=== PATIENT | female | born 1985 | race Caucasian/White ===

== ENCOUNTER 2022-12-20 11:14 | Emergency (ER) | payer MEDICAID, SELFPAY ==
[2022-12-20 11:20] VITALS: BP 105/79; PULSE 80; RESP 16; TEMP 37; O2SAT 99; BMI 22.3
[2022-12-20] MEDS: TETRACAINE HCL 0.5% OP SOL 80 DROP/4 ML BOTTLE OP (12:38)
[2022-12-20] MEDS: KETOROLAC TROMETHAMINE 30 MG/ML VIAL IM (13:16)
--- NOTE | 2022-12-20 14:25 | ED_ITS ---
HPI - Eye Problem General Chief complaint: Eye Problems Stated complaint: RIGHT EYE PAIN, DRAINAGE Time Seen by Provider: 12/20/22 12:12 Source: patient Mode of arrival: walk-in Limitations: no limitations History of Present Illness HPI Narrative: The patient is coming to us with a history of a possible intraocular pressure increase as she recently was evaluated for that by her executive search consultant she is coming with that 24 hours history of right eye swelling and irritation, no blurry vision no nausea no vomiting she did complain of pain in her right side of the face mostly just behind her right eye No trauma no drainage no tearing Related Data Previous Rx's Medication Instructions Recorded tobramycin 0.3 % eye drops 1 drp ophthalmic (eye) Q4H #5 mL 12/20/22 Allergies Allergy/AdvReac Type Severity Reaction Status Date / Time morphine Allergy Severe Verified 12/20/22 11:19 Review of Systems ROS Status of ROS 10 or more systems reviewed and unremarkable except as noted in history and below PFSH PFSH Social History Smoking status: Former smoker Exam Narrative Exam Narrative: Nurses notes and vital signs reviewed and patient is not hypoxic. General: Well-appearing and in no apparent distress. Skin: Warm, dry, no pallor noted. No rash. Head: Normocephalic, atraumatic. Neck: Supple, non-tender. Eye: Pupils are equal, round and EOMI. Ears, Nose, Mouth, and Throat: TM are clear, no nasal mucosal hypertrophy. Oral mucosa is moist, no posterior oropharynx erythema, uvula is mid-line Cardiovascular: Regular Rate and Rhythm without murmur, gallop or rub. Respiratory: No accessory muscle use or respiratory distress. Lungs are clear to auscultation, no wheezing, rales or rhonchi Chest Wall: no tenderness Back: No midline thoracic or lumbar vertebral tenderness. No CVA tenderness Musculoskeletal: normal ROM, no calf or popliteal tenderness, no lower extremity edema/swelling GI: Abdomen is soft, non-distended. Normal bowel sounds. No masses appreciated. No tenderness to palpation. No rebound, guarding, or rigidity noted. Neurological: A&O x4. No cranial nerve dysfunction observed. No truncal ataxia. Moves all extremities. Sensation intact. Psychiatric: Cooperative and interactive. Normal mood and affect. Constitutional Vital Signs, click to edit/add: Last Vital Signs Temp 98.6 F 12/20/22 11:20 Pulse 80 12/20/22 11:20 Resp 16 12/20/22 11:20 BP 105/79 12/20/22 11:20 Pulse Ox 99 12/20/22 11:20 Course Vital Signs Vital signs: Vital Signs Temperature 98.6 F 12/20/22 11:20 Pulse Rate 80 12/20/22 11:20 Respiratory Rate 16 12/20/22 11:20 Blood Pressure 105/79 12/20/22 11:20 Pulse Oximetry 99 12/20/22 11:20 Temperature 98.6 F 12/20/22 11:20 Pulse Rate 80 12/20/22 11:20 Respiratory Rate 16 12/20/22 11:20 Blood Pressure 105/79 12/20/22 11:20 Pulse Oximetry 99 12/20/22 11:20 MDM - Eye Problem MDM Narrative Medical decision making narrative: The patient intraocular pressure was 21 which is in the upper verge of normal Her examination was mostly secondary to mild conjunctivitis and when she was pointing to the pain she was pointing to the right upper eyelid with no tenderness upon palpation of the globe I did explain to the patient that she does not have any alarming symptoms right now of any blurry vision or double vision but due to the history of increased intraocular pressure the patient have to follow-up with her executive search consultant tomorrow but she will be covered today with the tobramycin and she was given Toradol in the ER within 24 hours the patient should notice improvement in case of any deterioration including blurry vision or any new complaints she is to come back to the ER The patient is to follow up with primary care physician in next 2-3 days or to return to the emergency department should any of the signs or symptoms worsen or new symptoms develop. The patient agrees with the following Diagnosis and Treatment plan and the patient will be discharged home. Discharge Plan Discharge Chief Complaint: Eye Problems Clinical Impression: Conjunctivitis Patient Disposition: Home, Self-Care Time of Disposition Decision: 13:03 Condition: Good Prescriptions / Home Meds: New tobramycin 0.3 % drops 1 drp ophthalmic (eye) Q4H Qty: 5 0RF Rx Instructions: 1 drop to the right eye Instructions: Conjunctivitis (ED) Additional Instructions: please follow up with executive search consultant [email or web address] Stand Alone Forms: Portal Instructions Referrals: Baldomero Mohan MD [Primary Care Provider] - 1 week Discharge Date/Time: 12/20/22 13:20
== END 2022-12-20 13:20 | disposition home or self-care (01) ==
PROVIDERS: Emergency Provider Emergency Medicine; PCP Family Medicine
DX: H10.9 Unspecified conjunctivitis (principal); Z87.891 Personal history of nicotine dependence
CPT/HCPCS: 96372; 99284

== ENCOUNTER 2023-04-10 17:45 | Emergency (ER) | payer MEDICAID, SELFPAY ==
[2023-04-10 17:51] VITALS: BP 128/85; PULSE 110; RESP 18; TEMP 36.7; O2SAT 97; BMI 19.8
--- NOTE | 2023-04-10 18:17 | ED.GENADUL1 ---
HPI - General Adult General Chief complaint: Dental/Oral Stated complaint: MOUTH SORES Time Seen by Provider: 04/10/23 17:49 Source: patient Mode of arrival: walk-in Limitations: no limitations History of Present Illness HPI narrative: Earlier this week the patient developed a painful ulcer after accidentally biting the inside of the right mouth . She tried a couple doses of amoxicillin left over from a prior prescription but the pain worsened and she developed significant swelling of the right cheek/mouth. She saw Dr Mohan and was prescribed Clindamycin - started 04/06/23. This made a dramatic improvement in the amount of swelling and pain and she went from having to eat and talk out of the side of her mouth to being able to talk and eat normally. However she is concerned about the side effects of the clindamycin - upset stomach and diarrhea - and wonders if she needs to change antibiotics. Also, she ate pizza last night and the pain worsened - she wonders if that means that things are getting worse. No fever or vomiting. Overall the right side of the mouth is better. She has, however, developed a small lesion to the inside of the left mouth. Related Data Home Medications Medication Instructions Recorded Confirmed clindamycin HCl 300 mg capsule 300 mg PO Q6H 04/10/23 04/10/23 gabapentin 300 mg capsule 300 mg PO BID 04/10/23 04/10/23 triamcinolone acetonide 0.1 % 1 applic dental BID 04/10/23 04/10/23 dental paste Previous Rx's Medication Instructions Recorded tobramycin 0.3 % eye drops 1 drp ophthalmic (eye) Q4H #5 mL 12/20/22 ondansetron 4 mg disintegrating 4 mg PO Q6H PRN nausea #14 tabs 04/10/23 tablet Allergies Allergy/AdvReac Type Severity Reaction Status Date / Time morphine Allergy Severe Verified 04/10/23 17:54 PFSH PFS Social History Smoking status: Current every day smoker Exam Narrative Exam Narrative: General: The patient is comfortable, alert and oriented x3, well appearing, non toxic in no apparent distress. Head: Atraumatic and normocephalic. Eyes: Normal conjunctiva ENT: The oropharynx is normal except for a 5mm diameter aphthous ulcer to the inner mucosa of the right side of the mouth near the corner of the mouth. No pharyngeal erythema, uvular edema, tonsillar exudates, asymmetry or trismus. Uvula is midline. Mouth is normal to inspection with the exception of pain on percussion of the aphthous ulcer and a smaller lesion on the inner mucosa of the left mouth. There is no evidence of facial asymmetry or abscess formation. Floor of the mouth is soft. No tenderness in the submental or submandibular space. No tongue elevation or deviation. The patient has no evidence of periapical abscess, gingivitis or other acute tooth or gum pathology. Airway is patent. Neck: The neck demonstrates normal range of motion. No meningeals signs are present. No stridor. No masses or lymphadenopathy noted. Respiratory: No acute distress, lungs are clear to auscultation, no wheezing, rhonchi, or rales noted. No stridor or retractions are noted. Cardiovascular: Regular rate and rhythm Skin: The skin exam shows no evidence of rashes Neuro: Alert and oriented x4, normal speech Lymphatic: No cervical lymphadenopathy Constitutional Vital Signs, click to edit/add: Last Vital Signs Temp 98.0 F 04/10/23 17:51 Pulse 110 H 04/10/23 17:51 Resp 18 04/10/23 17:51 BP 128/85 04/10/23 17:51 Pulse Ox 97 04/10/23 17:51 O2 Del Method Room Air 04/10/23 17:51 Course Vital Signs Vital signs: Vital Signs Temperature 98.0 F 04/10/23 17:51 Pulse Rate 110 H 04/10/23 17:51 Respiratory Rate 18 04/10/23 17:51 Blood Pressure 128/85 04/10/23 17:51 Pulse Oximetry 97 04/10/23 17:51 Oxygen Delivery Method Room Air 04/10/23 17:51 Temperature 98.0 F 04/10/23 17:51 Pulse Rate 110 H 04/10/23 17:51 Respiratory Rate 18 04/10/23 17:51 Blood Pressure 128/85 04/10/23 17:51 Pulse Oximetry 97 04/10/23 17:51 Oxygen Delivery Method Room Air 04/10/23 17:51 Medical Decision Making MDM Narrative Medical decision making narrative: Patient had dramatic improvement after using the clindamycin and I would like to have her continue to take it. We discussed the importance of maintaining soft bland diet until the mouth fully heals. I gave her odt zoan in the ED and prescribed additional zofran to take at home to limit GI upset. we discussed importance of taking the clindamycin with food. She will see Dr Mohan for follow up. Discharge Plan Discharge Chief Complaint: Dental/Oral Clinical Impression: Aphthous ulcer Patient Disposition: Home, Self-Care Time of Disposition Decision: 18:15 Prescriptions / Home Meds: New ondansetron 4 mg tablet,disintegrating 4 mg PO Q6H PRN (Reason: nausea) Qty: 14 0RF No Action tobramycin 0.3 % drops 1 drp ophthalmic (eye) Q4H Qty: 5 0RF Rx Instructions: 1 drop to the right eye clindamycin HCl 300 mg capsule 300 mg PO Q6H gabapentin 300 mg capsule 300 mg PO BID triamcinolone acetonide 0.1 % paste 1 applic dental BID Instructions: Oral Mucositis (ED) Stand Alone Forms: Portal Instructions Referrals: Baldomero Mohna MD [Primary Care Provider] - 1 week
[2023-04-10] MEDS: ONDANSETRON 4 MG RAPDIS TABLET SL (18:22)
[2023-04-10 18:25] VITALS: BP 102/65; PULSE 100; RESP 18; O2SAT 98
== END 2023-04-10 18:28 | disposition home or self-care (01) ==
PROVIDERS: Emergency Provider Emergency Medicine; PCP Family Medicine
DX: K12.0 Recurrent oral aphthae (principal); Z79.899 Other long term (current) drug therapy; F17.210 Nicotine dependence, cigarettes, uncomplicated
CPT/HCPCS: 99283; Q0162

== ENCOUNTER 2023-05-21 14:59 | Outpatient (OUT) | payer MEDICAID, SELFPAY ==
--- NOTE | 2023-05-21 15:02 | CT_ITS ---
[address] [address] Patient Name: REGINA SIDDIQUI MRN: [id number] date: 1985 Sex: F Assigned Patient Location: CT Current Patient Location: CT Accession/Order Number: [id number] Exam Date: 05/21/2023 15:35 Report Date: 05/23/2023 15:31 At the request of: ARY HUDSON Procedure: CT chest wo con EXAM: CT chest wo con HISTORY: solitary pulmonary Nodule R91.1 COMPARISON: 01/17/2022 TECHNIQUE: Axial CT imaging was performed through the chest without intravenous contrast. Multiplanar reformats were performed. Dose reduction techniques were achieved by using automated exposure control and/or adjustment of mA and/or kV according to patient size and/or use of iterative reconstruction technique. FINDINGS: Lungs: No consolidation, pneumothorax, or effusion. Stable 0.7 cm pulmonary nodule within the right middle lobe, measured on coronal image. No new suspicious pulmonary nodule. Airways: Normal. Mediastinum: No adenopathy. There is a 1.6 x 2.6 cm triangular fluid density in anterior mediastinum, not seen on the study from 01/17/2022. Finding may represent thymic cyst. However, thymoma or thymic hyperplasia cannot be excluded. MRI of the chest/thoracic with and without contrast is recommended for better evaluation. Aorta: No aneurysm. Cardiac: Normal size. No pericardial effusion. Pulmonary vasculature: Normal morphology. Bones: No acute bony abnormality. Axilla: No adenopathy. Thyroid gland: No abnormality demonstrated on provided imaging. Soft tissues: Unremarkable. Upper abdomen: Unremarkable. Other findings: None. CT/CT chest wo con IMPRESSION: Stable 0.7 cm in the right middle lobe pulmonary nodule. No new suspicious pulmonary nodule. 1.6 x 2.6 cm triangular fluid density in anterior mediastinum, not seen on the study from 01/17/2022. Finding may represent thymic cyst. However, thymoma or thymic hyperplasia cannot be excluded. MRI of the chest/thoracic with and without contrast is recommended for better evaluation. Electronically authenticated by: AUGUSTA LOFTON Date: 05/23/2023 15:31
--- OUTSIDE RECORDS SUMMARY | 2023-05-21 15:05 | XMS_ITS | CCD ---
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 ####[facility] Jpnvgzxk[address] [place], [place] [address]Dr. Eddy Lindsey Creatinine [Mass/Vol] 1.04 mg/dL Critically high 0.55-1.02 [facility] Comment on above: Performed By: #### C MP ####[facility] Imvbbosuva[address] [place], [place] [address]Dr. Eddy Lindsey EGFR-AF TONGAN >60 Normal >=60 [facility] Comment on above: Performed By: #### C MP ####[facility] Eyixwzxlnd7[address] [place], [place] [address]Dr. Eddy Lindsey EGFR-NON AF TONGAN 59 mL/min/1.73m2 Critically low >=60 [facility] Comment on above: Performed By: #### C MP ####[facility] [address] [place] [address]Dr. Eddy Lindsey Globulin (S) [Mass/Vol] 2.9 g/dL Normal [facility] Comment on above: Performed By: #### C MP ####[facility] Bfejpwuxjr[address] [place], [place] [address]Dr. Eddy Lindsey Glucose [Mass/Vol] 132 mg/dL Critically high 74-106 [facility] Comment on above: Performed By: #### C MP ####[facility] Gjivxlkfll[address] [place], [place] [address]Dr. Eddy Lindsey Potassium [Moles/Vol] 3.3 mmol/L Critically low 3.5-5.1 [facility] Comment on above: Performed By: #### C MP ####[facility] Yeozngfhwc[address] [place], [place] [address]Dr. Eddy Lindsey Protein [Mass/Vol] 6.8 g/dL Normal 6.4-8.2 [facility] Comment on above: Performed By: #### C MP ####[facility] [address]yutq[address]ssgh[address] [place], [place] [address]Dr. Eddy Lindsey Sodium [Moles/Vol] 137 mmol/L Normal 136-145 [facility] Comment on above: Performed By: #### C MP ####[facility] Mfqtctamrk[address] [place], [place] [address]Dr. Eddy Lindsey Urea nitrogen [Mass/Vol] 18.0 mg/dL Normal 7.0-18.0 [facility] Comment on above: Performed By: #### C MP ####[facility] Mivrwvzesl[address] [place], [place] [address]Dr. Eddy Lindsey Urea nitrogen/Creatinine [Mass ratio] 17.3 mg/mg Normal [facility] Comment on above: Performed By: #### C MP ####[facility] Qfndehajvg[address] [place], [place] [address]Dr. Eddy Lindsey XR CHEST 1 Von 12-31-2022 XR CHEST 1 V EXAMINATION: XR CHES T 1 V HISTORY: Chest pain COMPARISON: Portable chest 10/29/1999 TECHNIQUE: Portable chest FINDINGS: The lung parenchyma is free of consolidation or infiltrate. No pneumothorax or pleural effusion. The cardiac, mediastinal and hilar contours are normal. The visualized osseous structures exhibit no gross abnormality. IMPRESSION: No acute cardiopulmonary abnormality. Electronically authenticated by: THERESA ESPAÑA Date: 2022-03-21 21:30 Normal [facility] XR LSPINE MIN 4 VIEWSon 12-0 XR LSPINE MIN 4 VIEWS EXAMINATION: XR LSPINE MIN 4 VIEWS HISTORY: Pain in lower limb COMPARISON: No relevant comparison available. FINDINGS: BONES: No acute fracture or dislocation. Minimal degenerative spondylosis and facet osteoarthropathy DISC SPACES: Normal. No significant disc height narrowing, subluxation, or endplate abnormality. PARASPINOUS: Negative. No paraspinous abnormality is seen. OTHER: Negative. IMPRESSION: Minimal degenerative change Electronically authenticated by: THERESA PATEL Date: 2022-02-26 12:42 Normal [facility] CT CHEST W CONon 01-19-2022 CT CHEST W CON EXAMINATION: CT CHES T W CON HISTORY: Lung mass COMPARISON: 06/21/2020 TECHNIQUE: Multi-planar CT images were created with IV contrast. Axial, Coronal, and Sagittal images. Dose reduction techniques were achieved by using automated exposure control and/or adjustment of mA and/or kV according to patient size and/or use of iterative reconstruction technique. FINDINGS: LUNGS: Irregular solid/semisolid soft tissue density noncalcified nodule is identified in the right middle lobe is measures a maximum of 12.7 x 11.6 mm on axial image #59 and appears grossly stable. No new pulmonary nodule or mass. PLEURA: No mass, effusion, or pneumothorax. VASCULATURE: No abnormality. JANE: No mass or adenopathy. MEDIASTINUM: No mass or adenopathy. CARDIAC: No enlargement, pericardial thickening, or significant calcification. AORTA: No aneurysm or dissection. CHEST WALL: No mass or axillary adenopathy. BONES: No bone lesion or fracture. LIMITED ABDOMEN: No suspicious findings. Limited images of the upper abdomen. OTHER: Negative. IMPRESSION: Stable 1.2 cm solid/semisolid right middle lobe nodule. Stability over the course of 18 months would suggest a benign process. Consider follow-up in one year Electronically authenticated by: THERESA PATEL Date: 2022-01-19 07:48 Normal [facility] CT HUMERUS RT WO CONon 01-04 CT HUMERUS RT WO CON EXAMINATION: CT HUMERUS RT WO CON HISTORY: Localized swelling of right upper limb ; mass and lump of right upper extremity COMPARISON: No relevant comparison available. TECHNIQUE: Multi-planar CT images were created without IV contrast. Dose reduction techniques were achieved by using automated exposure control and/or adjustment of mA and/or kV according to patient size and/or use of iterative reconstruction technique. FINDINGS: BONES: Normal. No significant arthropathy or acute abnormality. SOFT TISSUES: A skin surface marker localizing the palpable lump is present over the deltoid insertion into the proximal-mid humerus. No appreciable soft tissue mass, fluid collection, foreign body, or inflammatory changes. EFFUSION: None visible. OTHER: 1.4 cm lobular mass within lateral right upper lobe. IMPRESSION: 1. No abnormal or suspicious findings to account for patient's symptoms. See details above. 2. Right upper lobe 1.4 cm lung mass. Consider CT imaging of the thorax for further evaluation. Electronically authenticated by: ESTHER VAZQUEZ Date: 2022-01-04 21:32 Normal [facility] US BLADDERon 11-13-2021 US BLADDER EXAMINATION: US BLADDER HISTORY: Bladder distention, frequent urinary tract infections COMPARISON: No relevant comparison available. TECHNIQUE: Ultrasound examination was performed of the urinary bladder. FINDINGS: BLADDER: No visible wall thickening, mass, or calculi. Prevoid volume: 2 45 mL. Post void residual: 6 mL URETERAL JETS: Visualized bilaterally. IMPRESSION: 1. Normal appearance of urinary bladder. Electronically authenticated by: ESTHER VAZQUEZ Date: 2021-11-13 06:53 Normal [facility] CULTURE URINEon 10-30-2021 CULTURE URINE Isolate 1 Klebsiella pneumoniae >100,000 cfu/mL of ORGANISM 1 Klebsiella pneumoniae ANTIBIOTIC M.I.C RX STATUS Ampicillin 16 R F Ampicillin/Sulbactam 4 S F Piperacillin/Tazobacta m <=4 S F Cefazolin <=4 S F Ceftazidime <=1 S F Ceftriaxone <=1 S F Ertapenem <=0.5 S F Imipenem <=0.25 S F Amikacin <=2 S F Gentamicin <=1 S F Tobramycin <=1 S F Ciprofloxacin <=0.25 S F Levofloxacin <=0.12 S F Nitrofurantoin 64 I F Trimethoprim/Sulfameth oxazole <=20 S F Normal [facility] Comment on above: Performed By: #### U RCX ####[facility] [address] [place], [place] [address]VpDr. Eddy Lindsey CT ABD/PELV W CONon 10-30-[address] ABD/PELV W CON EXAMINATION: CT ABD/PELV W CON, 10/29/2021 9:12 AM EDT HISTORY: Hernia of abdominal cavity COMPARISON: None. TECHNIQUE: CT scan of the abdomen and pelvis was performed with IV contrast. CT dose reduction technique was used, including Automated Exposure Control. FINDINGS: LUNG BASES: No visible pulmonary or pleural disease. LIVER: 8mm hypodensity right hepatic lobe axial image 19, indeterminate BILIARY: No dilatation or calcification. PANCREAS: No lesion, fluid collection, ductal dilatation, or atrophy. SPLEEN: No enlargement or focal lesion. ADRENALS: Right renal cortical hypodensity a cyst is favored. Punctate left nonobstructing nephrolithiasis. No hydronephrosis KIDNEYS: No mass, obstruction, or calcification. BOWEL/MESENTERY: No visible mass, obstruction, or bowel wall thickening. AORTA/VASCULAR: No aneurysm or dissection. RETROPERITONEUM: No mass or adenopathy. LYMPH NODES: No adenopathy. URINARY BLADDER: Moderate distention PELVIC ORGANS: No visible mass. Pelvic organs appropriate for patient age. ABDOMINAL WALL: No mass or hernia. BONES: No bony lesion or fracture. OTHER: Negative. IMPRESSION: Moderate distention of the urinary bladder No focal hernia observed Electronically authenticated by: THERESA PATEL Date: 2021-10-29 14:20 Normal [facility] CARDIAC JORGE ALBERTO ADMITon 022 CK [Catalytic activity/Vol] 18 U/L Critically low 26-192 [facility] Comment on above: Performed By: #### C MP, CMADM #### [facility] [address] [place], [place] [address] Dr. Eddy Lindsey CK.MB [Mass/Vol] ng/mL Normal <=3.60 [facility] Comment on above: Performed By: #### C ALEXY, CMADM #### [facility] [address] [address] [address] Eddy Lindsey HSTROP 4.1 pg/mL Normal 4.0-51.3 [facility] Comment on above: Result Comment: CUT- OFF POINTS HAVE BEEN ESTABLISHED BASED ON THE FOURTH UNIVERSAL DEFINITIONS OF MYOCARDIAL INFARCTION. THE UPPER REFERENCE LIMIT (URL) OF TROPONIN, DEFINED THE 99TH PERCENTILE OF cTnI DISTRIBUTION IN A REFERENCE POPULATION, HAS BEEN CONFIRMED THE DECISION THRESHOLD FOR AK DIAGNOSIS. Performed By: #### C ALEXY, CMADM #### [facility] [address] [address] [address] Eddy Lindsey CHARLENE 35 ng/mL Normal 9-82 [facility] Comment on above: Performed By: #### C ALEXY, PAXTONDM #### [facility] [address] [address] [address] Eddy Lindsey CBC AUTO DIFFon 10-28-2021 BASO # 0.0 103/ul Normal 0.0-0.1 [facility] Comment on above: Performed By: #### C BC ####[facility] [address] [address]Dr. Eddy Lindsey Basophils/100 WBC (Bld) 0.3 % Normal 0.2-2.0 [facility] Comment on above: Performed By: #### C BC ####[facility] [address] [place] [address]DrWalt Lindsey EO # 0.0 103/ul Normal 0.0-0.7 [facility] Comment on above: Performed By: #### C BC ####[facility] [address] [place] [address]DrWalt Lindsey Eosinophils/100 WBC (Bld) 0.2 % Critically low 0.9-7.0 [facility] Comment on above: Performed By: #### C BC ####[facility] [address] [place] [address]DrWalt Lindsey Erythrocyte distribution width (RBC) [Ratio] 12.5 % Normal 11.0-15.0 [facility] Comment on above: Performed By: #### C BC ####[facility] [address] [address]Dr. Eddy Lindsey Hematocrit (Bld) [Volume fraction] 47.7 % Normal 36.0-48.0 [facility] Comment on above: Performed By: #### C BC ####[facility] [address] [address]Dr. Eddy Lindsey Hemoglobin (Bld) [Mass/Vol] 15.6 g/dL Normal 12.0-16.0 [facility] Comment on above: Performed By: #### C BC ####[facility] [address] [place], [place] [address]Dr. Eddy Lindsey IG # 0.09 10e3/ul Critically high 0.00-0.03 [facility] Comment on above: Performed By: #### C BC ####[facility] [address] [place], [place] [address]Dr. Eddy César IG % 1.0 % Critically high 0.0-0.5 [facility] Comment on above: Performed By: #### C BC ####[facility] [address] [place], [place] [address]Dr. Eddy César LYMPH # 1.2 103/ul Normal 1.2-3.8 [facility] Comment on above: Performed By: #### C BC ####[facility] [address]wxaq[address] [place], [place] [address]Dr. Eddy César Lymphocytes/100 WBC (Bld) 12.7 % Critically low 20.5-60.0 [facility] Comment on above: Performed By: #### C BC ####[facility] Rhmasaxke[address] [place], [place] [address]Dr. Eddy Lindsey MANUAL DIFF REQ NO Normal [facility] Comment on above: Performed By: #### C BC ####[facility] Emmpabrxaa[address] [place], [place] [address]Dr. Eddy Lindsey MCH (RBC) [Entitic mass] 32.2 pg Normal 26.7-34.0 [facility] Comment on above: Performed By: #### C BC ####[facility] [address] [place] [id number]. Eddy César MCHC (RBC) [Mass/Vol] 32.7 g/dL Normal 29.9-35.2 [facility] Comment on above: Performed By: #### C BC ####[facility] [address] [place] [id number]. Eddy Lindsey MCV (RBC) [Entitic vol] 98.6 fL Normal 81.0-99.0 [facility] Comment on above: Performed By: #### C BC ####[facility] [address] [place] [id number]. Eddy Lindsey MONO # 0.7 103/ul Normal 0.3-0.8 [facility] Comment on above: Performed By: #### C BC ####[facility] [address]thufcdnus[address] [place], [place] [address]Dr. Eddy Lindsey Monocytes/100 WBC (Bld) 8.0 % Normal 1.7-12.0 [facility] Comment on above: Performed By: #### C BC ####[facility] [address] [place], [place] [address]Dr. Eddy Lindsey NEUT # 7.2 103/ul Critically high 1.4-6.5 [facility] Comment on above: Performed By: #### C BC ####[facility] [address]ci[address] [place], [place] [address]Dr. Eddy Lindsey Neutrophils/100 WBC (Bld) 77.8 % Critically high 43.0-75.0 [facility] Comment on above: Performed By: #### C BC ####[facility] U[address]nluebmi[address] [place], [place] [address]Dr. Eddy Lindsey Platelet mean volume (Bld) [Entitic vol] 8.7 fL Critically low 9.5-13.5 [facility] Comment on above: Performed By: #### C BC ####[facility] [address] [place], [place] [address]Dr. Eddy Lindsey PLT 311 103/ul Normal 150-450 [facility] Comment on above: Performed By: #### C BC ####[facility] [address] [place] [id number]. Eddy Lindsey RBC 4.84 106/ul Normal 4.20-5.40 [facility] Comment on above: Performed By: #### C BC ####[facility] [address] [place], [place] [address]Po. Dorothealanden Lindsey WBC 9.3 103/ul Normal 4.0-11.0 [facility] Comment on above: Performed By: #### C BC ####[facility] [address] [place] [id number]. Eddy Lindsey D-DIMERon 10-28-2021 D-DIMER 0.21 mg/L FEU Normal <=0.59 [facility] Comment on above: Performed By: #### D DIM ####[facility] [address] [place] [address]Dr. Eddy Lindsey D-DIMER COMMENTS SEE BELOW Normal [facility] Comment on above: Result Comment: Incr eases in D-Dimer concentration observed with thromboembolic events can be variable due to localization, size, and age of the thrombus. Therefore, a thromboembolic event cannot be diagnosed with certainty on the basis of the reference range. D-Dimers may also be elevated for a variety of disorders including: advanced age, , coronary disease, cancer, liver disease, infection, inflammation, hematoma, DIC, trauma, post-surgery, diabetes, thrombolytic or anticoagulant therapy, stress, and generalized hospitalization. Performed By: #### D DIM ####[facility] [address] [place] [id number]. Dorothealanden Lindsey ER URINE PROFILEon 2 Bilirubin Ql (U) Negative Normal NEGATIVE [facility] Comment on above: Performed By: #### ESTEVAN HENLEY ERUR #### [facility] [address] [address] [address] Eddy Lindsey Clarity (U) CLEAR Normal CLEAR [facility] Comment on above: Performed By: #### P ESTEVAN BATISTA ERUR #### [facility] [address] [address] [address] Eddy Lindsey Color (U) LT. YELLOW Normal YELLOW [facility] Comment on above: Performed By: #### P REGUESTEVAN, ERUR #### [facility] [address] [address] [address] Eddy VASQUES A micrscopic examination will be performed if indicated. Normal [facility] Comment on above: Performed By: #### P REGU UMICRO, ERUR #### [facility] [address] [address] [address] Eddy Lindsey Glucose Ql (U) Negative Normal NEGATIVE [facility] Comment on above: Performed By: #### P REGUKATHERINEICRO, ERUR #### [facility] [address] [address] [address] Eddy Lindsey Hemoglobin Ql (U) Negative Normal NEGATIVE [facility] Comment on above: Performed By: #### P REGUKATHERINEICRO, ERUR #### [facility] [address] [address] [address] Eddy Lindsey Ketones Ql (U) Negative Normal NEGATIVE [facility] Comment on above: Performed By: #### P REGUKATHERINEICRO, ERUR #### [facility] [address] [address] [address] Eddy Lindsey LEUKOCYTES Negative Normal NEGATIVE [facility] Comment on above: Performed By: #### P REGU UMICRO, ERUR #### [facility] [address] [address] [address] Eddy Lindsey Nitrite Ql (U) Positive Abnormal NEGATIVE [facility] Comment on above: Performed By: #### P REGU UMICRO, ERUR #### [facility] [address] [address] [address] Eddy Lindsey pH (U) 7.0 [pH] Normal 5-9 [facility] Comment on above: Performed By: #### P REGU UMICRO, ERUR #### [facility] [address] [address] [address] Eddy Lindsey SPEC GRAVITY 1.015 Normal 1.005-<=1.025 [facility] Comment on above: Performed By: #### P ESTEVAN BATISTA, ERUR #### [facility] [address] [place] [address] Dr. Eddy Lindsey UA PROTEIN Negative Normal NEGATIVE/ TRACE [facility] Comment on above: Performed By: #### P ESTEVAN BATISTA, ERUR #### [facility] [address] [place] [address] Dr. Eddy Lindsey UR MICRO IND INDICATED Normal [facility] Comment on above: Performed By: #### P ESTEVAN BATISTA, ERUR #### [facility] [address] [place] [address] Dr. Eddy Lindsey Urobilinogen Qn (U) 0.2 {Nikki'U}/dL Normal 0.2 - 1. 0 [facility] Comment on above: Performed By: #### ESTEVAN HENLEY, ERUR #### [facility] [address] [place] [address] Dr. Eddy Lindsey URon 10-28-2021 , QUAL Negative Normal NEGATIVE [facility] Comment on above: Performed By: #### ESTEVAN HENLEY, ERUR #### [facility] [address] [place] [address] Dr. Eddy Lindsey PROF 14(COMP METB)on 022 Albumin [Mass/Vol] 3.5 g/dL Normal 3.4-5.0 [facility] Comment on above: Performed By: #### C JACKI TRACEY #### [facility] [address] [place] [address] Dr. Eddy Lindsey Albumin/Globulin [Mass ratio] 1.2 {ratio} Normal [facility] Comment on above: Performed By: #### C JACKI TRACEY #### [facility] [address] [place] [address] Dr. Eddy Lindsey ALP [Catalytic activity/Vol] 60 U/L Normal 46-116 [facility] Comment on above: Performed By: #### C MP, CMADM #### [facility] [address] [address] [address] Eddy Lindsey ALT [Catalytic activity/Vol] 26 U/L Normal 14-59 [facility] Comment on above: Performed By: #### C MP, CMADM #### [facility] [address] [address] [address] Eddy Lindsey Anion gap [Moles/Vol] 8.4 mmol/L Normal [facility] Comment on above: Performed By: #### C MP, CMADM #### [facility] [address] [address] [address] Eddy Lindsey AST [Catalytic activity/Vol] 15 U/L Normal 15-37 [facility] Comment on above: Performed By: #### C ALEXY, CMADM #### [facility] [address] [address] [address] Eddy Lindsey Bilirubin [Mass/Vol] 0.7 mg/dL Normal 0.2-1.0 [facility] Comment on above: Performed By: #### C ALEXY, CMADM #### [facility] [address] [address] [address] Eddy Lindsey Calcium [Mass/Vol] 8.9 mg/dL Normal 8.5-10.1 [facility] Comment on above: Performed By: #### C ALEXY, CMADM #### [facility] [address] [address] [address] Eddy Lindsey Chloride [Moles/Vol] 104 mmol/L Normal 98-107 [facility] Comment on above: Performed By: #### C ALEXY, CMADM #### [facility] [address] [address] [address] Eddy Lindsey CO2 [Moles/Vol] 30.7 mmol/L Normal 21.0-32.0 [facility] Comment on above: Performed By: #### C ALEXY, CMADM #### [facility] [address] [address] [address] Eddy Lindsey Creatinine [Mass/Vol] 0.74 mg/dL Normal 0.55-1.02 [facility] Comment on above: Performed By: #### C ALEXY, CMADM #### [facility] [address] [address] [address] Eddy Lindsey EGFR-AF TONGAN >60 Normal >=60 [facility] Comment on above: Performed By: #### C MP, CMADM #### [facility] [address] [address] [address] Eddy Lindsey EGFR-NON AF TONGAN >60 Normal >=60 [facility] Comment on above: Performed By: #### C MP, CMADM #### [facility] [address] [address] [address] Eddy Lindsey Globulin (S) [Mass/Vol] 3.0 g/dL Normal [facility] Comment on above: Performed By: #### C ALEXY, CMADM #### [facility] [address] [address] [address] Eddy Lindsey Glucose [Mass/Vol] 107 mg/dL Critically high 74-106 [facility] Comment on above: Performed By: #### C ALEXY, CMADM #### [facility] [address] [address] [address] Eddy Lindsey Potassium [Moles/Vol] 4.1 mmol/L Normal 3.5-5.1 [facility] Comment on above: Performed By: #### C ALEXY, CMADM #### [facility] [address] [address] [address] Eddy Lindsey Protein [Mass/Vol] 6.5 g/dL Normal 6.4-8.2 [facility] Comment on above: Performed By: #### C MP, CMADM #### [facility] [address] [address] [address] Eddy Lindsey Sodium [Moles/Vol] 139 mmol/L Normal 136-145 [facility] Comment on above: Performed By: #### C ALEXY, CMADM #### [facility] [address] [address] [address] Eddy Lindsey Urea nitrogen [Mass/Vol] 16.0 mg/dL Normal 7.0-18.0 [facility] Comment on above: Performed By: #### C MP, CMADM #### [facility] [address] [address] [address] Eddy Lindsey Urea nitrogen/Creatinine [Mass ratio] 21.6 mg/mg Normal [facility] Comment on above: Performed By: #### C MP, CMADM #### [facility] [address] [address] [address] Eddy Lindsey URINE MICROSCOPIC ONLYon BACTERIA SMALL Abnormal NONE SEEN [facility] Comment on above: Performed By: #### P REGU, UMICRO, ERUR #### [facility] [address] [address] [address] Eddy Lindsey Bacteria identified Cx Nom (U) INDICATED Normal [facility] Comment on above: Performed By: #### P LYNNE, UMICRO, ERUR #### [facility] [address] [address] [address] Eddy Lindsey CAST NONE SEEN Normal NONE SEEN [facility] Comment on above: Performed By: #### P REGConnor, UMICRO, ERUR #### [facility] [address] [address] [address] Eddy Lindsey Crystals LM Nom (Urine sed) NONE SEEN Normal NONE SEEN [facility] Comment on above: Performed By: #### P REGU UMICRO, ERUR #### [facility] [address] [address] [address] Eddy Lindsey Epithelial cells LM Ql (Urine sed) RARE Normal NONE SEEN /RARE [facility] Comment on above: Performed By: #### P REGU, UMICRO, ERUR #### [facility] [address] [address] [address] Eddy Lindsey MUCOUS NONE SEEN Normal NONE SEEN [facility] Comment on above: Performed By: #### P REGU, UMICRO, ERUR #### [facility] [address] [address] [address] Eddy Lindsey RBC NONE SEEN Abnormal 0-2 [facility] Comment on above: Performed By: #### P REGU, UMICRO, ERUR #### [facility] [address] [place], [place] [address] Dr. Eddy Lindsey WBC NONE SEEN Normal NONE SEEN [facility] Comment on above: Performed By: #### P ESTEVAN BATISTA ERUR #### [facility] [address] [place], [place] [address] Dr. Eddy Lindsey XR CHEST 1 Von 10-28-2021 XR CHEST 1 V EXAM: Chest x-ray HISTORY: . CHEST PAIN, UNSPECIFIED . COMPARISON: None. TECHNIQUE: AP portable upright view of the chest FINDINGS: Heart and vascularity are unremarkable. Lungs are expanded and free of focal infiltrates. EKG leads overlie the chest. IMPRESSION: No acute heart or lung disease identified. Electronically authenticated by: THERESA MCCARTHY Date: 2021-10-28 10:56 Normal [facility] CNCOon 09-06-2018 CNCO Letter Text Normal [facility] ANES Nicholas 09-02-2018 ANES POST HNO ID: [id number] Author: Ravinder Benjamin Service: Anesthesiology Author Type: Anesthesiologist Type: Anesthesia PostOp Filed: 09/02/2018 4:38 PM Note Text: POST ANESTHESIA EVALUATION NOTE SERVICE DATE: 09/02/2018 SERVICE TIME: 4:38 PM : 1985 Vitals: 09/02/18 1408 09/02/18 1541 Temp: 36.7 ?C (98.1 ?F) 36.8 ?C (98.2 ?F) 09/02/18 1545 09/02/18 1600 09/02/18 1615 09/02/18 1628 BP: 119/73 121/77 121/83 141/81 09/02/18 1545 09/02/18 1600 09/02/18 1615 09/02/18 1628 Pulse: 99 107 103 102 09/02/18 1545 09/02/18 1600 09/02/18 1615 09/02/18 1628 Resp: 16 16 16 16 09/02/18 1545 09/02/18 1600 09/02/18 1615 09/02/18 1628 SpO2: 99% 98% 98% 100% Validated Vital Signs: Yes POST ANES STATUS: No apparent anesthetic complications. The patient is appropriately hydrated with stable respiratory and cardiovascular status. Patient has safe and adequate airway control. The patient has appropriate pain relief and no significant post operative nausea or vomiting. The patient has achieved baseline mental status. Further assessment by Anesthesia Service: None Other Remarks: SIGNATURE: Ravinder Benjamin MD PATIENT NAME: Liliya Siddiqui DATE: September 02, 2018 TIME: 4:38 PM PAGER/CONTACT #: [phone] Normal [facility] Basic Metabolic Panlon 09-02 Anion gap [Moles/Vol] 11 mmol/L Normal 9-18 [facility] Comment on above: Performed By: #### C BCDIF, BMP #### [facility] [employer] [facility] [address] [place] [address] Calcium [Mass/Vol] 9.9 mg/dL Normal 8.5-10.2 [facility] Comment on above: Performed By: #### C BCDIF, BMP #### [facility] [address] [place] [phone] Chloride [Moles/Vol] 104 mmol/L Normal 97-105 [facility] Comment on above: Performed By: #### C BCDIF, BMP #### [facility] [address] [place] [phone] CO2 [Moles/Vol] 26 mmol/L Normal 22-30 [facility] Comment on above: Performed By: #### C BCDIF, BMP #### [facility] [address] [place] [phone] Creatinine [Mass/Vol] 0.77 mg/dL Normal 0.58-0.96 [facility] Comment on above: Performed By: #### C BCDIF, BMP #### [facility] [employer] [facility] [address] [place] [address] eGFR- Amer. >60 Normal [facility] Comment on above: Performed By: #### C BCDIF, BMP #### [facility] [address] [place] [address] GFR/1.73 sq M predicted among non-blacks MDRD (S/P/Bld) [Vol rate/Area] mL/min/{1.73_m2} Normal [facility] Comment on above: Result Comment: eGFR (Estimated GFR) Units of measure: mL/min/1.73 meters squared eGFR is derived from the reexpressed MDRD Study equation using the following parameters: serum creatinine, age, gender and race. The creatinine assay has been calibrated to be traceable to IDMS. An eGFR <60 mL/min/1.73m2 for >3 months is consistent with chronic kidney disease. Refer to KDOQI guidelines for clinical interpretation. In patients with unstable renal function, e.g. those with acute kidney injury, the eGFR may not accurately reflect actual GFR. Performed By: #### C ALBERTA, BMP #### [facility] [address] [place], [place] [address] Glucose [Mass/Vol] 88 mg/dL Normal 74-99 [facility] Comment on above: Result Comment: The [place] Diabetes Association (ADA) provides guidance for cutoff values for fasting glucose and random glucose. The ADA defines fasting as no caloric intake for at least 8 hours. Fasting plasma glucose results between 100 to 125 mg/dL indicate increased risk for diabetes (prediabetes). Fasting plasma glucose results greater than or equal to 126 mg/dL meet the criteria for diagnosis of diabetes. In the absence of unequivocal hyperglycemia, results should be confirmed by repeat testing. In a patient with classic symptoms of hyperglycemia or hyperglycemic crisis, random plasma glucose results greater than or equal to 200 mg/dL meet the criteria for diagnosis of diabetes. Reference: Standards of Medical Care in Diabetes 2016, [place] Diabetes Association. Diabetes Care. 2016.39(Suppl 1). Performed By: #### C BCLUKE, BMP #### [facility] [address] [place], [place] [address] Potassium [Moles/Vol] 4.6 mmol/L Normal 3.7-5.1 [facility] Comment on above: Result Comment: Resu lts may be falsely increased due to interference by hemolysis. Suggest reorder as clinically indicated. Performed By: #### C BCLUKE, BMP #### [id number] [place] [address] Sodium [Moles/Vol] 141 mmol/L Normal 136-144 [facility] Comment on above: Performed By: #### C ALBERTA, BMP #### [place] [address] [place] [phone] Urea nitrogen [Mass/Vol] 10 mg/dL Normal 7-21 [facility] Comment on above: Performed By: #### C ALBERTA, BMP #### [place] [address] CBC and Differentialon 09-02 Abs Baso 0.06 k/uL Normal <0.11 [facility] Comment on above: Performed By: #### C ALBERTA, BMP #### [place] [address] Abs [place] 0.65 k/uL Normal <0.87 [facility] Comment on above: Performed By: #### C ALBERTA, BMP #### [place] [address] Abs Neut 5.30 k/uL Normal 1.45-7.50 [facility] Comment on above: Performed By: #### C ALBERTA, BMP #### [address] [address] Absolute nRBC <0.01 Normal <0.01 [facility] Comment on above: Performed By: #### C BCSONAF, BMP #### [place] [address] [place] [address] Basophils/100 WBC (Bld) 0.7 % Normal [facility] Comment on above: Performed By: #### C BCDIF, BMP #### [place] [address] DTYPE Auto Diff Normal [facility] Comment on above: Performed By: #### C BCLUKE, BMP #### [facility] [address] [place], [place] [address] Eosinophils (Bld) [#/Vol] 0.06 10*3/uL Normal <0.46 [facility] Comment on above: Performed By: #### C BCDIF, BMP #### [facility] [address] [place], [place] [address] Eosinophils/100 WBC (Bld) 0.7 % Normal [facility] Comment on above: Performed By: #### C BCDIF, BMP #### [place] [address] [place] [address] Erythrocyte distribution width (RBC) [Ratio] 12.3 % Normal 11.5-15.0 [facility] Comment on above: Performed By: #### C BCDIF, BMP #### [address] [place] [place] [address] Hematocrit (Bld) [Volume fraction] 49.5 % High 36.0-46.0 [facility] Comment on above: Performed By: #### C BCDIF, BMP #### [address] [place], [place] [address] Hemoglobin (Bld) [Mass/Vol] 16.4 g/dL High 11.5-15.5 [facility] Comment on above: Performed By: #### C BCDIF, BMP #### [facility] [address] [place] [address] Lymphocytes (Bld) [#/Vol] 2.35 10*3/uL Normal 1.00-4.00 [facility] Comment on above: Performed By: #### C BCDIF, BMP #### [facility] [address] [phone] Lymphocytes/100 WBC (Bld) 27.8 % Normal [facility] Comment on above: Performed By: #### C BCDIF, BMP #### [facility] [address] [place], [place] [address] MCH (RBC) [Entitic mass] 32.2 pG Normal 26.0-34.0 [facility] Comment on above: Performed By: #### C BCDIF, BMP #### [facility] [address] [place], [place] [address] MCHC (RBC) [Mass/Vol] 33.1 g/dL Normal 30.5-36.0 [facility] Comment on above: Performed By: #### C BCDIF, BMP #### [address] [place], [place] [address] MCV (RBC) [Entitic vol] 97.2 fL Normal 80.0-100.0 [facility] Comment on above: Performed By: #### C BCDIF, BMP #### [address] [place], [place] [address] Monocytes/100 WBC (Bld) 7.7 % Normal [facility] Comment on above: Performed By: #### C BCDIF, BMP #### [address] [place], [place] [address] Neutrophils/100 WBC (Bld) 63.1 % Normal [facility] Comment on above: Performed By: #### C BCDIF, BMP #### [address] [place], [place] [address] NRBCs 0.0 /100 WBC Normal 0 [facility] Comment on above: Performed By: #### C BCDIF, BMP #### [address] [place], [place] [address] Platelet mean volume (Bld) [Entitic vol] 9.5 fL Normal 9.0-12.7 [facility] Comment on above: Performed By: #### C BCDIF, BMP #### [address] [place], [place] [address] Platelets (Bld) [#/Vol] 373 10*3/uL Normal 150-400 [facility] Comment on above: Performed By: #### C BCDIF, BMP #### [facility] [address] [place], [place] [address] RBC (Bld) [#/Vol] 5.09 10*6/uL Normal 3.90-5.20 [facility] Comment on above: Performed By: #### C BCDIF, BMP #### [facility] [address] [place], [place] [address] WBC (Bld) [#/Vol] 8.44 10*3/uL Normal 3.70-11.00 [facility] Comment on above: Performed By: #### C BCDIF, BMP #### [facility] [address] [place], [place] [address] CNOVon 09-02-2018 CNOV Office Visit ([place]BRON ) LILIYA SIDDIQUI ([id number]) 1985 F Date Time Provider Department 09/02/18 2:00 PM TREV CRUZ During your visit today, we recorded the following information about you: Temperature Pulse Respiration Blood pressure 98.1 degrees 103/minute 16/minute 133/86 Trev Cruz MD 09/05/2018 11:54 AM Signed INTERVENTIONAL PULMONARY CONSULTATION Consultation requested by Dr. Travis Castro for an opinion regarding hemoptysis/lung nodule. My final recommendations will be communicated back to the requesting physician by way of shared medical record or letter via US mail Chief Complaint: Hemoptysis, lung nodule. HPI: Liliya Siddiqui is a 33 year old former smoker who presents today at the request of Dr. Travis Castro for further evaluation of hemoptysis/lung nodule. Past medical history of fibromyalgia, rheumatoid arthritis, and lung nodule Chest x-ray at outside hospital on 12/07/2017 for chest pain demonstrated a small density projecting on the right mid lung zone laterally on the PA image, an equivocal finding. CT scan of the chest at outside hospital on 01/05/2018 demonstrated a 17 x 10 x 5 mm irregular opacity within the right middle lobe. No mediastinal or hilar lymphadenopathy noted. PET/CT scan at outside hospital on 02/03/2018 demonstrated a small irregular lesion in the right middle lobe laterally with associated mild uptake of activity with max SUV of 1.6. Patient was seen by Dr. Castro on 04/21/18 with plan for surveillance imaging. On follow-up exam 09/01/2018 the patient complained of hemoptysis. CT scan of the chest 09/01/2018 demonstrated a stable right middle lobe nodule measuring 1.1 x 0.8 cm with adjacent cluster of nodules. Patient referred to IP She endorses having episodes of hemoptysis (2-3 episodes a day, usually in the morning) coughing up blood tinged secretions usually the size of a quarter , which started approximately 2 weeks ago. She denies any bright red blood. The last episode of hemoptysis was 3 days ago. She notes having a history of blood noses and states I can taste blood in my mouth . She endorses having a persistent cough and chest pain in the middle of the chest . She has ALMARAZ after climbing 15 steps. She denies any fevers, chills or night sweats. She denies any unintentional weight loss. Health Risks:Is the patient having any pain? No 0 on a scale of 0 to 10 PAST MEDICAL HISTORY Diagnosis Date - Fibromyalgia - Rheumatoid arthritis (HCC) PAST SURGICAL HISTORY Procedure Laterality Date - COLONOSCOPY - NONE Social History Tobacco Use - Smoking status: Former Smoker Packs/day: 0.50 Years: 2.00 Pack years: 1.00 Types: Cigarettes Start date: 09/02/1996 Last attempt to quit: 06/16/1998 Years since quittin.2 - Smokeless tobacco: Never Used Substance Use Topics - Alcohol use: Not on file - Drug use: No FAMILY HISTORY Problem Relation Age of Onset - Hypertension Mother - other (IBS) Sister Allergies: ALLERGIES Allergen Reactions - Morphine Intolerance - Egg GI Upset Current Medications: pregabalin (LYRICA) 25 mg capsule Take 25 mg by mouth three times daily as needed. temazepam (RESTORIL) 15 mg cap Take 15 mg by mouth at bedtime as needed. DULoxetine (CYMBALTA) 60 mg capsule Take 60 mg by mouth once daily. celecoxib (CELEBREX) 200 mg capsule Take 200 mg by mouth once daily. Alpha Lipoic Acid 600 mg cap Take by mouth once daily. HYOSCYAMINE ORAL Take 0.125 mg by mouth daily at bedtime. VALPROIC ACID ORAL Take 250 mg by mouth twice daily. Imaging: CT scan of chest images were personally reviewed with Dr. Cruz. 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 1 04/21/2018 11:57:35AM FVC is repeatable x 2, FEV1 x 3. ATS acceptability and repeatability standards for DLCO met. DLCO is not hemoglobin corrected. /cg IMPRESSION: Spirometry is normal. The diffusing capacity is normal. Electronically Signed On 04-21-2018 12:23:29 EST by Fellow Griselda Peters [facility] Electronically Signed On 9:29:49 EST by Forest Gonzalez [facility] [place] [facility] Function Lab Pred LLN ULN Pre % Date 710240 Time 11:48AM ------ Height 174.2 Weight 72.4 ------ FVC 4.33 3.54 5.13 4.41 102 FEV 1 3.57 2.90 4.25 3.50 98 FEV1%F 83.58 73.79 93.38 79.26 95 FEV 2 3.53 2.79 4.27 3.99 113 FEV 3 4.08 3.46 4.70 4.17 102 FEV3%E 96.30 90.94 101.7 94.56 98 MEF 50 4.29 3.12 5.47 3.18 74 FIF 50 5.20 MMEF 3.61 2.19 5.03 3.15 87 FE%FIF 61.22 FEV6 4.40 PEF 6.95 5.22 8.68 7.30 105 FET 8.36 FETPEF 0.05 VBe%FV 1.88 VBEex 0.08 ------ ------ ------ ------ ------ DLCOSB 26.37 19.86 32.88 29.37 111 DL/VA 4.64 3.32 5.96 5.01 108 VA 5.81 4.71 6.91 5.86 101 SHANICE 4.33 3.54 5.13 4.44 102 BHT 9.92 ------ ------ EKG RESULTS: N/A REVIEW OF SYSTEMS GENERAL: No weight loss, malaise or fevers HEENT: Negative for frequent or significant headaches, No changes in hearing or vision, no nose bleeds or other nasal problems NECK: Negative for lumps, goiter, pain and significant neck swelling RESPIRATORY: See HPI CARDIOVASCULAR: See HPI GI: No nausea, vomiting, or diarrhea : No history of dysuria, frequency or incontinence MUSCULOSKELETAL: Positive for fibromyalgia. SKIN: Negative for lesions, rash, and itching PSYCH: Negative for sleep disturbance, mood disorder and recent psychosocial stressors HEMATOLOGY/LYMPHOLOGY: See HPI ENDOCRINE: Negative for cold or heat intolerance, polyuria, polydipsia and goiter NEURO: Positive for headache. ECOG PERFORMANCE STATUS: 1- Restricted in physically strenuous activity. Carries out light duty. Dyspnea Score: 4. Dyspnea and need to stop after walking 100 yards or a few minutes on the level. Health Screening N/A There is no immunization history on file for this patient. PHYSICAL EXAMINATION: BP 133/86 Pulse 103 Temp 36.7 ?C (98.1 ?F) Resp 16 SpO2 98% There is no height or weight on file to calculate BMI. General appearance: Well appearing, alert, in no acute distress, well-hydrated, well nourished. Skin: Skin color, texture, turgor normal, no suspicious rashes or lesions Head: Normocephalic, no masses, lesions, tenderness or abnormalities Eyes: Anicteric sclera. Pupils are equally round and reactive to light. Extraocular movements are intact. Nose/Sinuses: Nares normal. Septum midline. Mucosa normal. No drainage or sinus tenderness. Oropharynx: Lips, mucosa, and tongue normal, teeth and gums normal, oropharynx normal Neck: Supple, no adenopathy; thyroid symmetric, normal size, no bruits Back: Normal exam Lungs: lungs clear to auscultation. No wheezing, rhonchi, rales Heart: RRR without murmur, gallop, or rubs. No ectopy Abdomen: Normal abdominal exam, Abdomen soft, non-tender. Bowel sounds normal. No masses, organomegaly Extremities: No deformities, edema, skin discoloration, clubbing or cyanosis. Good capillary refill. Musculoskeletal: Spine range of motion normal. Muscular strength intact, No joint swelling, deformity, or tenderness Peripheral pulses: Normal Neuro: Gait normal. Reflexes normal and symmetric. Sensation grossly intact. Impression/Plan: (R91.1) Lung nodule Comment: Irregularly appearing nodule in the right middle lobe, has been stable on follow-up imaging. Plan: The peripheral RML nodule is in a location that isn't amenable to bronchoscopy and biopsy(no airway leading to nodule). Continue surveillance imaging. (R04.2) Hemoptysis Comment: Patient with new onset of blood-tinged sputum over the last 2 weeks. Typically 2-3 episodes a day. Plan: Proceed with bronchoscopy and instruction of airway to assess for origin of hemoptysis. Please see Dr. Cruz's note below for further impression and plan Bruno Newell PA-C September 02, 2018, 1:59 PM Attending Note I have personally performed a face to face assessment of the patient and have reviewed the PA/SPECIAL EDUCATION DIRECTOR note. My fowler findings include: History as outlined above by Mr. Bruno Newell. I personally performed a history and I have edited the note above where/if necessary to reflect what I have obtained. Also, she reports tasting blood in her mouth every so often for the past several months. Therefore, it is unclear whether this hemoptysis (or hematemesis) is really recent. Exam: as outlined above by Mr. Bruno Newell. I concur with the findings above. Lungs: lungs clear to auscultation. No wheezing, rhonchi, rales Assessment: as outlined above by Mr. Bruno Newell. - Hemoptysis: Highly unlikely for this to be originating from the lung nodule. As stated above, this does not appear to be subacute and basilar history it is possible this is hematemesis instead or this could potentially be originating from the upper airway/larynx. - Lung nodule: Given the presence of a few satellite nodules this is most likely a remote granulomatous infection. This nodule appears to be stable since late 2016. She should get another chest CT in about one year. - Preoperative examination: No obvious contraindication for the patient to undergo general anesthesia for the planned procedure. Plan: as outlined above by Mr. Bruno Newell. - Bronchoscopy today - No need for PACE Other additions or changes: By the time I was doing the final editing of this note, the procedure had been completed. 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 Given her history I suggest GI and ENT consultations. Orders have been placed and the patient is agreeable with this plan. 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 HYOSCYAMINE ORAL Take 0.125 mg by mouth daily * VALPROIC ACID ORAL Take 250 mg by mouth twice da* Problem List As Of Date 09/02/2018 Noted Resolved Lung nodule [R91.1] INVALID FOR* Hemoptysis [R04.2] INVALID FOR* Medications Discontinued During This Encounter pantoprazole DR (PROTONIX) 40 mg tab* 09/02/2018 Class: Historical Med Route: ORAL Sig: Take 40 mg by mouth once daily. Disc: Reason for discontinue is not on file. cyproheptadine (PERIACTIN) 4 mg tabl* 09/02/2018 Class: Historical Med Route: ORAL Sig: Take 4 mg by mouth twice daily as needed. Disc: Reason for discontinue is not on file. buPROPion XL (WELLBUTRIN XL) 300 mg * 09/02/2018 Class: Historical Med Route: ORAL Sig: Take 300 mg by mouth once daily. Disc: Reason for discontinue is not on file. DICLOFENAC SODIUM ORAL 09/02/2018 Class: Historical Med Route: ORAL Sig: Take 75 mg by mouth once daily. Disc: Reason for discontinue is not on file. Encounter Status:Closed by TREV CRUZ [facility] Telephone ([id number]) LILIYA SIDDIQUI ([id number]) 1985 F Date Time Provider Department 09/02/18 GISEL PEREZ (RN) [id number] During your visit today, we recorded the following information about you: Gisel Perez RN, RN 09/02/2018 10:11 AM Signed 09/02/2018: Navigator contacted patient to discuss referral for bronchoscopy. She reported she got a phone call about airway exam but she was in the process of canceling appointments as well as discussing with work. Navigator confirmed with patient she only had liquids only and explained more about the procedure. 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 Gisel Perez RN, RN 09/02/2018 10:11 AM Signed 09/02/2018: Navigator received call from the patient. She was able to find an adult to come with her but needed some more information to see if her light truck driver can commit to today. She will return the call to the navigator with decision. Gisel Perez RN, RN 09/02/2018 10:42 AM Signed 09/02/2018: Navigator received return Call from patient. She is able to keep the appointments. Generalities of the procedure and the associated appointments were discussed by the navigator. Bronchoscopy instructions provided at this time. Patient denies use of blood thinners or of having medical conditions that would require cardiac clearance. Patient's questions were answered to the patient's satisfaction. The patient was given the number to the navigator's office and encouraged to call if additional issues arise. Otherwise, patient will anticipate a call from the clinic scheduler. 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 CYPROHEPTADINE 4 MG TABLET Take 4 mg by mouth twice fabricio* BUPROPION XL 300 MG 24 HR TAB Take 300 mg by mouth once gurdeep* HYOSCYAMINE ORAL Take 0.125 mg by mouth daily * DICLOFENAC SODIUM ORAL Take 75 mg by mouth once fabricio* VALPROIC ACID ORAL Take 250 mg by mouth twice da* Problem List As Of Date: 09/02/2018 (None) Encounter Status:Closed by GISEL PEREZ on 09/02/18 Normal [facility] 09-02-2018 [facility] Patient:Liliya Siddiqui MRN: Height:5' 11 (1.803 m) Weight:156 lb 9.6 oz (71.033 kg) Outpatient Medications as of 09/02/18: pregabalin (LYRICA) 25 mg capsule temazepam (RESTORIL) 15 mg cap DULoxetine (CYMBALTA) 60 mg capsule celecoxib (CELEBREX) 200 mg capsule Alpha Lipoic Acid 600 mg cap HYOSCYAMINE ORAL VALPROIC ACID ORAL Admission/Clinic Administered Medications as of 09/02/18: Patient has no admission medications. Problem List: Lung nodule [R91.1] Allergies: Morphine Egg Date Verified: 09/02/18 Lab Values No results within the last 30 days for the following basenames: K,HCT Progress Notes (PULM MAIN BRON[facility] G11): Bruno Newell PA-C 09/02/2018 2:29 PM Sign at close encounter INTERVENTIONAL PULMONARY CONSULTATION Consultation requested by Dr. Travis Castro for an opinion regarding hemoptysis/lung nodule. My final recommendations will be communicated back to the requesting physician by way of shared medical record or letter via US mail Chief Complaint: Hemoptysis, lung nodule. HPI: Liliya Siddiqui is a 33 year old former smoker who presents today at the request of Dr. Travis Castro for further evaluation of hemoptysis/lung nodule. Past medical history of fibromyalgia, rheumatoid arthritis, and lung nodule Chest x-ray at outside hospital on 12/07/2017 for chest pain demonstrated a small density projecting on the right mid lung zone laterally on the PA image, an equivocal finding. CT scan of the chest at outside hospital on 01/05/2018 demonstrated a 17 x 10 x 5 mm irregular opacity within the right middle lobe. No mediastinal or hilar lymphadenopathy noted. PET/CT scan at outside hospital on 02/03/2018 demonstrated a small irregular lesion in the right middle lobe laterally with associated mild uptake of activity with max SUV of 1.6. Patient was seen by Dr. Castro with plan for surveillance imaging. On follow-up exam 09/01/2018 the patient complained of hemoptysis. CT scan of the chest 09/01/2018 demonstrated a stable right middle lobe nodule measuring 1.1 x 0.8 cm with adjacent cluster of nodules. Patient referred to IP She endorses having episodes of hemoptysis (2-3 episodes a day, usually in the morning) coughing up blood tinged secretions usually the size of a quarter , which started approximately 2 weeks ago. She denies any bright red blood. The last episode of hemoptysis was 3 days ago. She endorses having a persistent cough and chest pain in the middle of the chest . She has ALMARAZ after climbing 15 steps. She denies any fevers, chills or night sweats. She denies any unintentional weight loss. Health Risks:Is the patient having any pain? {Pain No Yes:60890:: No 0 on a scale of 0 to 10 } PAST MEDICAL HISTORY Diagnosis Date - Fibromyalgia - Rheumatoid arthritis (HCC) PAST SURGICAL HISTORY Procedure Laterality Date - NONE Social History Tobacco Use - Smoking status: Former Smoker Types: Cigarettes Last attempt to quit: 06/16/1998 Years since quittin.2 - Smokeless tobacco: Never Used Substance Use Topics - Alcohol use: Not on file - Drug use: No FAMILY HISTORY Problem Relation Age of Onset - Hypertension Mother Allergies: ALLERGIES Allergen Reactions - Morphine Intolerance Current Medications: pregabalin (LYRICA) 25 mg capsule Take 25 mg by mouth three times daily as needed. temazepam (RESTORIL) 15 mg cap Take 15 mg by mouth at bedtime as needed. pantoprazole DR (PROTONIX) 40 mg tablet Take 40 mg by mouth once daily. DULoxetine (CYMBALTA) 60 mg capsule Take 60 mg by mouth once daily. celecoxib (CELEBREX) 200 mg capsule Take 200 mg by mouth once daily. Alpha Lipoic Acid 600 mg cap Take by mouth once daily. cyproheptadine (PERIACTIN) 4 mg tablet Take 4 mg by mouth twice daily as needed. buPROPion XL (WELLBUTRIN XL) 300 mg 24 hr tablet Take 300 mg by mouth once daily. HYOSCYAMINE ORAL Take 0.125 mg by mouth daily at bedtime. DICLOFENAC SODIUM ORAL Take 75 mg by mouth once daily. VALPROIC ACID ORAL Take 250 mg by mouth twice daily. 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 1 04/21/2018 11:57:35AM FVC is repeatable x 2, FEV1 x 3. ATS acceptability and repeatability standards for DLCO met. DLCO is not hemoglobin corrected. /cg IMPRESSION: Spirometry is normal. The diffusing capacity is normal. Electronically Signed On 04-21-2018 12:23:29 EST by Branden Peters [facility] Electronically Signed On 9:29:49 EST by Forest Gonzalez [facility] Respiratory [place] Pulmonary Function Lab Pred N ULN Pre % Date [id number] Time 11:48AM ------ Height 174.2 Weight 72.4 ------ FVC 4.33 3.54 5.13 4.41 102 FEV 1 3.57 2.90 4.25 3.50 98 FEV1%F 83.58 73.79 93.38 79.26 95 FEV 2 3.53 2.79 4.27 3.99 113 FEV 3 4.08 3.46 4.70 4.17 102 FEV3%E 96.30 90.94 101.7 94.56 98 MEF 50 4.29 3.12 5.47 3.18 74 FIF 50 5.20 MMEF 3.61 2.19 5.03 3.15 87 FE%FIF 61.22 FEV6 4.40 PEF 6.95 5.22 8.68 7.30 105 FET 8.36 FETPEF 0.05 VBe%FV 1.88 VBEex 0.08 ------ ------ ------ ------ ------ DLCOSB 26.37 19.86 32.88 29.37 111 DL/VA 4.64 3.32 5.96 5.01 108 VA 5.81 4.71 6.91 5.86 101 SHANICE 4.33 3.54 5.13 4.44 102 BHT 9.92 ------ ------ EKG RESULTS: {EKG RESULTS:41689} REVIEW OF SYSTEMS GENERAL: {ROS-GENERAL:23:: No weight loss, malaise or fevers } HEENT: {ROS - HEENT:30:: Negative for frequent or significant headaches , No changes in hearing or vision, no nose bleeds or other nasal problems } NECK: {ROS NECK:34:: Negative for lumps, goiter, pain and significant neck swelling } RESPIRATORY: {pat respiratory:37:: Negat jonas for cough, hemoptysis, wheezing, COPD, dyspnea or shortness of breath } CARDIOVASCULAR: {ROS-CARDIAC:53:: Nega tive for chest pain, leg swelling, hypertension, CHF or palpitations } GI: {ROS- GI:56:: No nausea, vomiting, or diarrhea } : {ROS- :58:: No history of dysuria, frequency or incontinence } MUSCULOSKELETAL: {MUSCULOSKELETAL INTMED ROS:232:: Negative for joint pain or swelling, back pain or muscle pain } SKIN: {SKIN INT MED ROS:238:: Negative for lesions, rash, and itching } PSYCH: {PSYCHIATRIC INT MED ROS:59691:: Negative for sleep disturbance, mood disorder and recent psychosocial stressors } HEMATOLOGY/LYMPHOLOGY: {HEMATOLOGY/LYMPHATIC/ IMMUNOLOGY INT MED ROS:244:: Negative for prolonged bleeding, bruising easily or swollen nodes } ENDOCRINE: {ENDOCRINE INT MED ROS:247:: Negative for cold or heat intolerance, polyuria, polydipsia and goiter } NEURO: {ROS - NEURO:900:: No history of headaches, syncope, paralysis, seizures or tremors } ECOG PERFORMANCE STATUS: {ECO} Dyspnea Score: {MRC DYSPNEA:18597} Health Screening {PUL HEALTH SCREENIN} There is no immunization history on file for this patient. PHYSICAL EXAMINATION: There were no vitals taken for this visit. There is no height or weight on file to calculate BMI. General appearance: {appearance:50:: Well appearing, alert, in no acute distress, well-hydrated, well nourished. } Skin: {skin:101:: Skin color, texture, turgor normal, no suspicious rashes or lesions } Head: {head:301:: Normocepha lic, no masses, lesions, tenderness or abnormalities } Eyes: {eyes:201:: Anicteric sclera. Pupils are equally round and reactive to light. Extraocular movements are intact. } Ears: {ears:322:: External ears normal, canals clear, TM's normal } Nose/Sinuses: {nose:302:: Nares normal. Septum midline. Mucosa normal. No drainage or sinus tenderness. } Oropharynx: {O/P:303:: Lips, mucosa, and tongue normal, teeth and gums normal, oropharynx normal } Neck: {neck:304:: Supple, no adenopathy; thyroid symmetric, normal size, no bruits } Back: {back:801:: Normal exam } Lungs: {lungs:401:: lungs clear to auscultation. No wheezing, rhonchi, rales } Heart: {heart:501:: RRR without murmur, gallop, or rubs. No ectopy } Abdomen: {abdomen:601:: Normal abdominal exam , Abdomen soft, non-tender. Bowel sounds normal. No masses, organomegaly } Extremities: {extremities:802:: No deformities, edema, skin discoloration, clubbing or cyanosis. Good capillary refill. } Musculoskeletal: {musculoskeletal:803:: Spine range of motion normal. Muscular strength intact , No joint swelling, deformity, or tenderness } Peripheral pulses: {pulses:502:: Normal } Neuro: {neuro:901:: Gait normal. Reflexes normal and symmetric. Sensation grossly intact. } Impression/Plan: Please see note below for further impression and plan Bruno Newell PA-C September 02, 2018, 1:59 PM Bruno Newell PA-C 09/02/2018 2:55 PM Incomplete INTERVENTIONAL PULMONARY CONSULTATION Consultation requested by Dr. Travis Castro for an opinion regarding hemoptysis/lung nodule. My final recommendations will be communicated back to the requesting physician by way of shared medical record or letter via US mail Chief Complaint: Hemoptysis, lung nodule. HPI: Liliya Siddiqui is a 33 year old former smoker who presents today at the request of Dr. Travis Castro for further evaluation of hemoptysis/lung nodule. Past medical history of fibromyalgia, rheumatoid arthritis, and lung nodule Chest x-ray at outside hospital on 12/07/2017 for chest pain demonstrated a small density projecting on the right mid lung zone laterally on the PA image, an equivocal finding. CT scan of the chest at outside hospital on 01/05/2018 demonstrated a 17 x 10 x 5 mm irregular opacity within the right middle lobe. No mediastinal or hilar lymphadenopathy noted. PET/CT scan at outside hospital on 02/03/2018 demonstrated a small irregular lesion in the right middle lobe laterally with associated mild uptake of activity with max SUV of 1.6. Patient was seen by Dr. Castro on 04/21/18 with plan for surveillance imaging. On follow-up exam 09/01/2018 the patient complained of hemoptysis. CT scan of the chest 09/01/2018 demonstrated a stable right middle lobe nodule measuring 1.1 x 0.8 cm with adjacent cluster of nodules. Patient referred to IP She endorses having episodes of hemoptysis (2-3 episodes a day, usually in the morning) coughing up blood tinged secretions usually the size of a quarter , which started approximately 2 weeks ago. She denies any bright red blood. The last episode of hemoptysis was 3 days ago. She notes having a history of blood noses and states I can taste blood in my mouth . She endorses having a persistent cough and chest pain in the middle of the chest . She has ALMARAZ after climbing 15 steps. She denies any fevers, chills or night sweats. She denies any unintentional weight loss. Health Risks:Is the patient having any pain? No 0 on a scale of 0 to 10 PAST MEDICAL HISTORY Diagnosis Date - Fibromyalgia - Rheumatoid arthritis (HCC) PAST SURGICAL HISTORY Procedure Laterality Date - NONE Social History Tobacco Use - Smoking status: Former Smoker Types: Cigarettes Last attempt to quit: 06/16/1998 Years since quittin.2 - Smokeless tobacco: Never Used Substance Use Topics - Alcohol use: Not on file - Drug use: No FAMILY HISTORY Problem Relation Age of Onset - Hypertension Mother Allergies: ALLERGIES Allergen Reactions - Morphine Intolerance Current Medications: pregabalin (LYRICA) 25 mg capsule Take 25 mg by mouth three times daily as needed. temazepam (RESTORIL) 15 mg cap Take 15 mg by mouth at bedtime as needed. pantoprazole DR (PROTONIX) 40 mg tablet Take 40 mg by mouth once daily. DULoxetine (CYMBALTA) 60 mg capsule Take 60 mg by mouth once daily. celecoxib (CELEBREX) 200 mg capsule Take 200 mg by mouth once daily. Alpha Lipoic Acid 600 mg cap Take by mouth once daily. cyproheptadine (PERIACTIN) 4 mg tablet Take 4 mg by mouth twice daily as needed. buPROPion XL (WELLBUTRIN XL) 300 mg 24 hr tablet Take 300 mg by mouth once daily. HYOSCYAMINE ORAL Take 0.125 mg by mouth daily at bedtime. DICLOFENAC SODIUM ORAL Take 75 mg by mouth once daily. VALPROIC ACID ORAL Take 250 mg by mouth twice daily. Imaging: CT scan of chest images were personally reviewed with Dr. Cruz. 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 1 04/21/2018 11:57:35AM FVC is repeatable x 2, FEV1 x 3. ATS acceptability and repeatability standards for DLCO met. DLCO is not hemoglobin corrected. /carlos IMPRESSION: Spirometry is normal. The diffusing capacity is normal. Electronically Signed On 04-21-2018 12:23:29 EST by Fellow Griselda Peters [facility] Electronically Signed On 9:29:49 EST by Forest Gonzalez [facility] Respiratory [place] Pulmonary Function Lab Pred LLN ULN Pre % Date [id number] Time 11:48AM ------ Height 174.2 Weight 72.4 ------ FVC 4.33 3.54 5.13 4.41 102 FEV 1 3.57 2.90 4.25 3.50 98 FEV1%F 83.58 73.79 93.38 79.26 95 FEV 2 3.53 2.79 4.27 3.99 113 FEV 3 4.08 3.46 4.70 4.17 102 FEV3%E 96.30 90.94 101.7 94.56 98 MEF 50 4.29 3.12 5.47 3.18 74 FIF 50 5.20 MMEF 3.61 2.19 5.03 3.15 87 FE%FIF 61.22 FEV6 4.40 PEF 6.95 5.22 8.68 7.30 105 FET 8.36 FETPEF 0.05 VBe%FV 1.88 VBEex 0.08 ------ ------ ------ ------ ------ DLCOSB 26.37 19.86 32.88 29.37 111 DL/VA 4.64 3.32 5.96 5.01 108 VA 5.81 4.71 6.91 5.86 101 SHANICE 4.33 3.54 5.13 4.44 102 BHT 9.92 ------ ------ EKG RESULTS: N/A REVIEW OF SYSTEMS GENERAL: No weight loss, malaise or fevers HEENT: Negative for frequent or significant headaches, No changes in hearing or vision, no nose bleeds or other nasal problems NECK: Negative for lumps, goiter, pain and significant neck swelling RESPIRATORY: See HPI CARDIOVASCULAR: See HPI GI: No nausea, vomiting, or diarrhea : No history of dysuria, frequency or incontinence MUSCULOSKELETAL: Positive for fibromyalgia. SKIN: Negative for lesions, rash, and itching PSYCH: Negative for sleep disturbance, mood disorder and recent psychosocial stressors HEMATOLOGY/LYMPHOLOGY: See HPI ENDOCRINE: Negative for cold or heat intolerance, polyuria, polydipsia and goiter NEURO: Positive for headache. ECOG PERFORMANCE STATUS: 1- Restricted in physically strenuous activity. Carries out light duty. Dyspnea Score: 4. Dyspnea and need to stop after walking 100 yards or a few minutes on the level. Health Screening N/A There is no immunization history on file for this patient. PHYSICAL EXAMINATION: There were no vitals taken for this visit. There is no height or weight on file to calculate BMI. General appearance: Well appearing, alert, in no acute distress, well-hydrated, well nourished. Skin: Skin color, texture, turgor normal, no suspicious rashes or lesions Head: Normocephalic, no masses, lesions, tenderness or abnormalities Eyes: Anicteric sclera. Pupils are equally round and reactive to light. Extraocular movements are intact. Nose/Sinuses: Nares normal. Septum midline. Mucosa normal. No drainage or sinus tenderness. Oropharynx: Lips, mucosa, and tongue normal, teeth and gums normal, oropharynx normal Neck: Supple, no adenopathy; thyroid symmetric, normal size, no bruits Back: Normal exam Lungs: lungs clear to auscultation. No wheezing, rhonchi, rales Heart: RRR without murmur, gallop, or rubs. No ectopy Abdomen: Normal abdominal exam, Abdomen soft, non-tender. Bowel sounds normal. No masses, organomegaly Extremities: No deformities, edema, skin discoloration, clubbing or cyanosis. Good capillary refill. Musculoskeletal: Spine range of motion normal. Muscular strength intact, No joint swelling, deformity, or tenderness Peripheral pulses: Normal Neuro: Gait normal. Reflexes normal and symmetric. Sensation grossly intact. Impression/Plan: Please see note below for further impression and plan Bruno Newell PA-C September 02, 2018, 1:59 PM Progress Notes ([facility] PUL LAB H23): Gisel Perez RN, RN 09/02/2018 10:11 AM Signed 09/02/2018: Navigator contacted patient to discuss referral for bronchoscopy. She reported she got a phone call about airway exam but she was in the process of canceling appointments as well as discussing with work. Navigator confirmed with patient she only had liquids only and explained more about the procedure. 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 Gisel Perez RN, RN 09/02/2018 10:11 AM Signed 09/02/2018: Navigator received call from the patient. She was able to find an adult to come with her but needed some more information to see if her light truck driver can commit to today. She will return the call to the navigator with decision. Gisel Perez RN, RN 09/02/2018 10:42 AM Signed 09/02/2018: Navigator received return Call from patient. She is able to keep the appointments. Generalities of the procedure and the associated appointments were discussed by the navigator. Bronchoscopy instructions provided at this time. Patient denies use of blood thinners or of having medical conditions that would require cardiac clearance. Patient's questions were answered to the patient's satisfaction. The patient was given the number to the navigator's office and encouraged to call if additional issues arise. Otherwise, patient will anticipate a call from the clinic scheduler. Normal [facility] PROGRESSon 09-02-2018 PROGRESS HNO ID: [id number] Author: Trev Cruz Service: ? Author Type: Physician Type: Progress Notes Filed: 09/05/2018 11:54 AM Note Text: INTERVENTIONAL PULMONARY CONSULTATION Consultation requested by Dr. Travis Castro for an opinion regarding hemoptysis/lung nodule. My final recommendations will be communicated back to the requesting physician by way of shared medical record or letter via US mail Chief Complaint: Hemoptysis, lung nodule. HPI: Liliya Siddiqui is a 33 year old former smoker who presents today at the request of Dr. Travis Castro for further evaluation of hemoptysis/lung nodule. Past medical history of fibromyalgia, rheumatoid arthritis, and lung nodule Chest x-ray at outside hospital on 12/07/2017 for chest pain demonstrated a small density projecting on the right mid lung zone laterally on the PA image, an equivocal finding. CT scan of the chest at outside hospital on 01/05/2018 demonstrated a 17 x 10 x 5 mm irregular opacity within the right middle lobe. No mediastinal or hilar lymphadenopathy noted. PET/CT scan at outside hospital on 02/03/2018 demonstrated a small irregular lesion in the right middle lobe laterally with associated mild uptake of activity with max SUV of 1.6. Patient was seen by Dr. Castro on 04/21/18 with plan for surveillance imaging. On follow-up exam 09/01/2018 the patient complained of hemoptysis. CT scan of the chest 09/01/2018 demonstrated a stable right middle lobe nodule measuring 1.1 x 0.8 cm with adjacent cluster of nodules. Patient referred to IP She endorses having episodes of hemoptysis (2-3 episodes a day, usually in the morning) coughing up blood tinged secretions usually the size of a quarter , which started approximately 2 weeks ago. She denies any bright red blood. The last episode of hemoptysis was 3 days ago. She notes having a history of blood noses and states I can taste blood in my mouth . She endorses having a persistent cough and chest pain in the middle of the chest . She has ALMARAZ after climbing 15 steps. She denies any fevers, chills or night sweats. She denies any unintentional weight loss. Health Risks:Is the patient having any pain? No 0 on a scale of 0 to 10 PAST MEDICAL HISTORY Diagnosis Date - Fibromyalgia - Rheumatoid arthritis (HCC) PAST SURGICAL HISTORY Procedure Laterality Date - COLONOSCOPY - NONE Social History Tobacco Use - Smoking status: Former Smoker Packs/day: 0.50 Years: 2.00 Pack years: 1.00 Types: Cigarettes Start date: 09/02/1996 Last attempt to quit: 06/16/1998 Years since quittin.2 - Smokeless tobacco: Never Used Substance Use Topics - Alcohol use: Not on file - Drug use: No FAMILY HISTORY Problem Relation Age of Onset - Hypertension Mother - other (IBS) Sister Allergies: ALLERGIES Allergen Reactions - Morphine Intolerance - Egg GI Upset Current Medications: pregabalin (LYRICA) 25 mg capsule Take 25 mg by mouth three times daily as needed. temazepam (RESTORIL) 15 mg cap Take 15 mg by mouth at bedtime as needed. DULoxetine (CYMBALTA) 60 mg capsule Take 60 mg by mouth once daily. celecoxib (CELEBREX) 200 mg capsule Take 200 mg by mouth once daily. Alpha Lipoic Acid 600 mg cap Take by mouth once daily. HYOSCYAMINE ORAL Take 0.125 mg by mouth daily at bedtime. VALPROIC ACID ORAL Take 250 mg by mouth twice daily. Imaging: CT scan of chest images were personally reviewed with Dr. Cruz. 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 1 04/21/2018 11:57:35AM FVC is repeatable x 2, FEV1 x 3. ATS acceptability and repeatability standards for DLCO met. DLCO is not hemoglobin corrected. /cg IMPRESSION: Spirometry is normal. The diffusing capacity is normal. Electronically Signed On 04-21-2018 12:23:29 EST by Fellow Griselda Peters [facility] Electronically Signed On 9:29:49 EST by Forest Gonzalez [facility] [place] Pul[facility] Function Lab Pred YASMEEN Maya % Date [id number] Time 11:48AM ------ Height 174.2 Weight 72.4 ------ FVC 4.33 3.54 5.13 4.41 102 FEV 1 3.57 2.90 4.25 3.50 98 FEV1%F 83.58 73.79 93.38 79.26 95 FEV 2 3.53 2.79 4.27 3.99 113 FEV 3 4.08 3.46 4.70 4.17 102 FEV3%E 96.30 90.94 101.7 94.56 98 MEF 50 4.29 3.12 5.47 3.18 74 FIF 50 5.20 MMEF 3.61 2.19 5.03 3.15 87 FE%FIF 61.22 FEV6 4.40 PEF 6.95 5.22 8.68 7.30 105 FET 8.36 FETPEF 0.05 VBe%FV 1.88 VBEex 0.08 ------ ------ ------ ------ ------ DLCOSB 26.37 19.86 32.88 29.37 111 DL/VA 4.64 3.32 5.96 5.01 108 VA 5.81 4.71 6.91 5.86 101 SHANICE 4.33 3.54 5.13 4.44 102 BHT 9.92 ------ ------ EKG RESULTS: N/A REVIEW OF SYSTEMS GENERAL: No weight loss, malaise or fevers HEENT: Negative for frequent or significant headaches, No changes in hearing or vision, no nose bleeds or other nasal problems NECK: Negative for lumps, goiter, pain and significant neck swelling RESPIRATORY: See HPI CARDIOVASCULAR: See HPI GI: No nausea, vomiting, or diarrhea : No history of dysuria, frequency or incontinence MUSCULOSKELETAL: Positive for fibromyalgia. SKIN: Negative for lesions, rash, and itching PSYCH: Negative for sleep disturbance, mood disorder and recent psychosocial stressors HEMATOLOGY/LYMPHOLOGY: See HPI ENDOCRINE: Negative for cold or heat intolerance, polyuria, polydipsia and goiter NEURO: Positive for headache. ECOG PERFORMANCE STATUS: 1- Restricted in physically strenuous activity. Carries out light duty. Dyspnea Score: 4. Dyspnea and need to stop after walking 100 yards or a few minutes on the level. Health Screening N/A There is no immunization history on file for this patient. PHYSICAL EXAMINATION: BP 133/86 Pulse 103 Temp 36.7 ?C (98.1 ?F) Resp 16 SpO2 98% There is no height or weight on file to calculate BMI. General appearance: Well appearing, alert, in no acute distress, well-hydrated, well nourished. Skin: Skin color, texture, turgor normal, no suspicious rashes or lesions Head: Normocephalic, no masses, lesions, tenderness or abnormalities Eyes: Anicteric sclera. Pupils are equally round and reactive to light. Extraocular movements are intact. Nose/Sinuses: Nares normal. Septum midline. Mucosa normal. No drainage or sinus tenderness. Oropharynx: Lips, mucosa, and tongue normal, teeth and gums normal, oropharynx normal Neck: Supple, no adenopathy; thyroid symmetric, normal size, no bruits Back: Normal exam Lungs: lungs clear to auscultation. No wheezing, rhonchi, rales Heart: RRR without murmur, gallop, or rubs. No ectopy Abdomen: Normal abdominal exam, Abdomen soft, non-tender. Bowel sounds normal. No masses, organomegaly Extremities: No deformities, edema, skin discoloration, clubbing or cyanosis. Good capillary refill. Musculoskeletal: Spine range of motion normal. Muscular strength intact, No joint swelling, deformity, or tenderness Peripheral pulses: Normal Neuro: Gait normal. Reflexes normal and symmetric. Sensation grossly intact. Impression/Plan: (R91.1) Lung nodule Comment: Irregularly appearing nodule in the right middle lobe, has been stable on follow-up imaging. Plan: The peripheral RML nodule is in a location that isn't amenable to bronchoscopy and biopsy(no airway leading to nodule). Continue surveillance imaging. (R04.2) Hemoptysis Comment: Patient with new onset of blood-tinged sputum over the last 2 weeks. Typically 2-3 episodes a day. Plan: Proceed with bronchoscopy and instruction of airway to assess for origin of hemoptysis. Please see Dr. Cruz's note below for further impression and plan Bruno Newell PA-C September 02, 2018, 1:59 PM Attending Note I have personally performed a face to face assessment of the patient and have reviewed the PA/SPECIAL EDUCATION DIRECTOR note. My fowler findings include: History as outlined above by Mr. Bruno Newell. I personally performed a history and I have edited the note above where/if necessary to reflect what I have obtained. Also, she reports tasting blood in her mouth every so often for the past several months. Therefore, it is unclear whether this hemoptysis (or hematemesis) is really recent. Exam: as outlined above by Mr. Bruno Newell. I concur with the findings above. Lungs: lungs clear to auscultation. No wheezing, rhonchi, rales Assessment: as outlined above by Mr. Bruno Newell. - Hemoptysis: Highly unlikely for this to be originating from the lung nodule. As stated above, this does not appear to be subacute and basilar history it is possible this is hematemesis instead or this could potentially be originating from the upper airway/larynx. - Lung nodule: Given the presence of a few satellite nodules this is most likely a remote granulomatous infection. This nodule appears to be stable since late 2016. She should get another chest CT in about one year. - Preoperative examination: No obvious contraindication for the patient to undergo general anesthesia for the planned procedure. Plan: as outlined above by Mr. Bruno Newell. - Bronchoscopy today - No need for PACE Other additions or changes: By the time I was doing the final editing of this note, the procedure had been completed. 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 Given her history I suggest GI and ENT consultations. Orders have been placed and the patient is agreeable with this plan. Signature: Trev Cruz MD, MS Date: September 05, 2018 Time: 11:40 AM CC: MD Travis Licea MD, PhD [facility] PROGRESS HNO ID: [id number] Author: Travis Castro Service: ? Author Type: Physician Type: Progress Notes Filed: 09/02/2018 10:38 AM Note Text: I have read and reviewed the documentation and agree. I wish to add the followingI wish to add the following findings which have been dictated and will be communicated back to the requesting physician . I spent more than 50 % of the visit face to face counseling the patient on the plan and treatment options. The total time face to face visit was 25 minutes. Travis Castro MD, PhD [facility] PT EDon 09-02-2018 PT ED HNO ID: [id number] Author: Jossie DavalosRn) FOX Larkin Service: Nursing Author Type: Registered Nurse Type: Patient Education Filed: 09/02/2018 3:58 PM Note Text: POST OP LEARNING RESPONSE INSTRUCTION PROVIDED TO: Patient and family member METHOD OF INSTRUCTION: Written instruction - handouts PATIENT / FAMILY RESPONSE: Verbalizes understanding of: POST-PROCEDURE INSTRUCTIONS-Correct actions to take to reduce post procedure complications FOLLOW-UP PLAN: Complete - No need for follow-up Patient instructed to call with any further issues SUPPLEMENTAL MATERIAL: None REFERRAL (RECOMMENDATION): None Electronically Signed By: Jossie Larkin RN In Department: ADMITTING [facility] CNOVon 09-01-2018 CNOV Office Visit (THORMN ) LILIYA SIDDIQUI ([id number]) 1985 F Date Time Provider Department 09/01/18 3:20 PM TRAVIS CASTRO THORWV During your visit today, we recorded the following information about you: Temperature Pulse Blood pressure Weight 98.2 degrees 111/minute 118/82 71 kg Height 1.803 m Travis Castro MD, PhD 09/02/2018 6:31 AM Unsigned Crm Campaign Manager [place] [id number] [place] DEPART[place] OF THORACIC AND CARDIOVASCULAR SURGERY NAME[facility] #: [id number] DATE: AGE: 33 PHYSICIAN: Travis Castro M.D., Ph.D. I had a sincere pleasure of seeing the patient in my Thoracic Surgery Clinic. This very pleasant woman returns for followup. Her CT scan suggests stability of the right middle lobe lesion. The patient has recently, though, been complaining of some trace hemoptysis. No sputum was produced to confirm this at this visit. The right middle lobe lesion, which has been followed, was easily identified on today's CT scan. I have independently reviewed the scan. There does not appear to be any substantial change in size of the lesion dating back almost two years. The lesion is quite curious. It is a partially spiculated lesion with some clustered satellite lesions around it. That it is not changing in size, argues strongly in favor of an inflammatory or scar lesion. There are no ground-glass lesions or other evidence to suggest bleeding into the airway. This symptom is quite curious. I have reviewed the appearance of the central airways on today's CT scan and see no obvious polypoid lesions to provide a source for this. The patient will likely need a bronchoscopy and I will ask Dr. Cruz to become involved and to potentially help with the diagnostic dilemma. I am not particularly concerned about the lesion, particularly in terms of its stability, but this new finding of trace hemoptysis does warrant invasive assessment. Travis Castro M.D., Ph.D. SM:[id number] /[id number] cc: Virgilio Diallo RN, RN 09/02/2018 10:38 AM Signed Pt here for follow up visit: . Chief Complaint: Lung nodule . Last clinic note 04/21/18 per Travis Castro M.D. Impression: Pulmonary nodule, mildly PET positive in a patient with rheumatoid arthritis and a minimal tobacco use history. Her age and a minimal tobacco use history would significantly favor against a non-small cell lung cancer. I suspect this is an inflammatory nodule either on the basis of rheumatoid arthritis or immunosuppression medications that she may have been on recently. I think the most prudent course of action is to follow the lesion at this point. We will do that and obtain a CT scan dedicated to chest in approximately 4-5 weeks time. We will then determine our diagnostic algorithm at that point once I have a better sense of nodule growth and geometry. Today's visit 09/01/18: BP 118/82 Pulse 111 Temp (Src) 98.2 (Oral) Ht 5' 11 (1.80m) Wt 156 lb 9.6 oz (71.0kg) SpO2 98% BMI 21.85 kg/(m2). Presents with intermittent hemoptysis (greater than size of quarter) 2 days ago. Continues to have productive cough for clear mucous. Also states usual bone, muscle pain (h/o RA and Fibromyalgia) and Migraines. . CCT: 09/01/18 pending . Meds and allergies reviewed. See nurse's notes for risk assessment. FOX Vidal MD, PhD 09/02/2018 10:38 AM Signed I have read and reviewed the documentation and agree. I wish to add the followingI wish to add the following findings which have been dictated and will be communicated back to the requesting physician . I spent more than 50 % of the visit face to face counseling the patient on the plan and treatment options. The total time face to face visit was 25 minutes. Travis Castro MD, PhD Crm Campaign Manager: Transcribed Clinic Note (annie) ID: [id number] 09/01/2018 6:43 PM Author: TRAVIS CASTRO * * * This document has not been signed * * * * * * DRAFT COPY. THIS DOCUMENT IS NOT AVAILABLE FOR PATIENT CARE * * * Document text: [place] [id number] [place] DEPARTMENT OF THORACIC AND CARDIOVASCULAR SURGERY NAME: LILIYA SIDDIQUI [facility] #: [id number] DATE: AGE: 33 PHYSICIAN: Travis Castro M.D., Ph.D. I had a sincere pleasure of seeing the patient in my Thoracic Surgery Clinic. This very pleasant woman returns for followup. Her CT scan suggests stability of the right middle lobe lesion. The patient has recently, though, been complaining of some trace hemoptysis. No sputum was produced to confirm this at this visit. The right middle lobe lesion, which has been followed, was easily identified on today's CT scan. I have independently reviewed the scan. There does not appear to be any substantial change in size of the lesion dating back almost two years. The lesion is quite curious. It is a partially spiculated lesion with some clustered satellite lesions around it. That it is not changing in size, argues strongly in favor of an inflammatory or scar lesion. There are no ground-glass lesions or other evidence to suggest bleeding into the airway. This symptom is quite curious. I have reviewed the appearance of the central airways on today's CT scan and see no obvious polypoid lesions to provide a source for this. The patient will likely need a bronchoscopy and I will ask Dr. Cruz to become involved and to potentially help with the diagnostic dilemma. I am not particularly concerned about the lesion, particularly in terms of its stability, but this new finding of trace hemoptysis does warrant invasive assessment. Travis Castro M.D., Ph.D. :[id number] /[id number] cc: Display document [id number] only -- Referring Provider: TRAVIS CASTRO [[id number]] Allergies As of Date: 09/01/2018 Noted Allergy Reaction MORPHINE 04/21/2018 5 - Intolerance Date Reviewed: 09/01/2018 Reviewed by: Dameon Alarcon - Fully Assessed Reason for Visit: Established Patient [175] Visit Diagnoses:Hemoptysis [R04.2] Lung nodules [R91.8] Order(s):CT CHEST WO IVCON [3883299] Order #: [id number] FUTURE CONSULT TO PULM/CRITICAL CARE [[id number]] Order #: [id number]: 1 Prescriptions as of 09/01/2018 Sig: PREGABALIN 25 MG CAPSULE Take 25 mg by mouth three jovanni* TEMAZEPAM 15 MG CAPSULE Take 15 mg by mouth at bedtim* DULOXETINE 60 MG CAPSULE,MARYANN* Take 60 mg by mouth once fabricio* CELECOXIB 200 MG CAPSULE Take 200 mg by mouth once gurdeep* ALPHA LIPOIC ACID 600 MG CAPS* Take by mouth once daily. PANTOPRAZOLE 40 MG TABLET,DEL* Take 40 mg by mouth once fabricio* CYPROHEPTADINE 4 MG TABLET Take 4 mg by mouth twice fabricio* BUPROPION XL 300 MG 24 HR TAB Take 300 mg by mouth once gurdeep* HYOSCYAMINE ORAL Take 0.125 mg by mouth daily * DICLOFENAC SODIUM ORAL Take 75 mg by mouth once fabricio* VALPROIC ACID ORAL Take 250 mg by mouth twice da* Problem List As Of Date: 09/01/2018 (None) Disposition: Return in 1 year (on 09/02/2019). Follow-up and Disposition History Recorded Encounter Status:Closed by LEW SLATER, TRAVIS Liz PHD on 09/02/18 Normal [facility] CT CHEST WO IVCONon 09-02-[address] CHEST WO IVCON * * *Final Report* * * DATE OF EXAM: Sep 01 2018 2:37PM [facility] [place] - CT CHEST WO IVCON / PROCEDURE REASON: multiple diagnoses * * * * Physician Interpretation * * * * EXAMINATION: CHEST CT WITHOUT CONTRAST CLINICAL HISTORY: Lung nodules Lung nodule Technique: Spiral CT acquisition of the chest from the thoracic inlet to the upper abdomen without contrast. MQ: [id number] CT Dose-Length Product: 114 mGy*cm CT Dose Reduction Employed: Automated exposure control (AEC) Comparison: CT chest dated 01/05/2018 and 02/01/2017. RESULT: Limitations: None Lines, tubes, and devices: None. Lung parenchyma and pleura: The central airways are patent. No endobronchial lesion is seen. The lungs are free of focal consolidation. A 1.1 cm x 0.8 cm nodule in the right middle lobe with adjacent clustered nodules is not substantially changed since the CT dated 01/05/2018. This nodule measured 1.0 cm x 0.[address] dated 02/01/2017. No new or enlarging suspicious pulmonary nodules are seen. No pleural effusion or focal pleural thickening is identified. There is no pneumothorax. Thoracic inlet, heart, and mediastinum: No enlarged mediastinal, hilar, supraclavicular, or axillary lymph nodes are seen. There is a three-vessel left aortic arch. The aorta is normal in course and caliber. The main pulmonary artery is normal in course and caliber. No atherosclerotic calcifications are seen in the coronary arteries but the exam is not optimized for evaluation of the coronary arteries. The cardiac chambers are normal in size. There is no pericardial effusion or pericardial thickening. The thyroid gland is unremarkable. The esophagus is nondilated. Bones and soft tissues: No destructive lytic or blastic lesions are seen in the bones. Minimal degenerative changes are seen in the thoracic spine. The soft tissues of the chest wall are unremarkable. Upper abdomen: The visible portions of the liver, spleen, pancreas, adrenal glands and kidneys are normal. The visible stomach and bowel are normal. IMPRESSION: 1. Right middle lobe 1.1 cm x 0.8 cm nodule with adjacent clustered nodules is not substantially changed since 01/05/2018 and 02/01/2017 and is likely post infectious/inflammator y. Attention on follow-up exam is recommended. No new or enlarging suspicious pulmonary nodules. 2. No thoracic lymphadenopathy. Payroll Director: PSCB Transcribe Date/Time: Sep 01 2018 5:14P Dictated by : WENDI HUERTA MD This examination was interpreted and the report reviewed and electronically signed by: WENDI HUERTA MD on Sep 01 2018 5:35PM EST [id number] Normal [facility] PROGRESSon 09-01-2018 PROGRESS HNO ID: [id number] Author: Virgilio (Rn) FOX Diallo Service: ? Author Type: Registered Nurse Type: Progress Notes Filed: 09/02/2018 10:38 AM Note Text: Pt here for follow up visit: . Chief Complaint: Lung nodule . Last clinic note 04/21/18 per Travis Castro M.D. Impression: Pulmonary nodule, mildly PET positive in a patient with rheumatoid arthritis and a minimal tobacco use history. Her age and a minimal tobacco use history would significantly favor against a non-small cell lung cancer. I suspect this is an inflammatory nodule either on the basis of rheumatoid arthritis or immunosuppression medications that she may have been on recently. I think the most prudent course of action is to follow the lesion at this point. We will do that and obtain a CT scan dedicated to chest in approximately 4-5 weeks time. We will then determine our diagnostic algorithm at that point once I have a better sense of nodule growth and geometry. Today's visit 09/01/18: BP 118/82 Pulse 111 Temp (Src) 98.2 (Oral) Ht 5' 11 (1.80m) Wt 156 lb 9.6 oz (71.0kg) SpO2 98% BMI 21.85 kg/(m2). Presents with intermittent hemoptysis (greater than size of quarter) 2 days ago. Continues to have productive cough for clear mucous. Also states usual bone, muscle pain (h/o RA and Fibromyalgia) and Migraines. . CCT: 09/01/18 pending . Meds and allergies reviewed. See nurse's notes for risk assessment. Virgilio Diallo RN Normal [facility] PROGRESS HNO ID: [id number] Author: Niharika (Ct) BENIGNO Plata Service: Radiology Author Type: Clinical Jewel Oliving Machine Operator Type: Progress Notes Filed: 09/01/2018 2:34 PM Note Text: Radiology Service Progress Note PATIENT NAME: Liliya Siddiqui DATE OF SERVICE: September 01, 2018 TIME: 2:34 PM PATIENT IDENTITY VERIFICATION COMPLETED USING TWO (2) METHODS: Patient confirmed name verbally, ID Band and Date of . PATIENT GENDER DATA: Female. status: : No status: NO. PATIENT RELEVANT IMPLANT DATA REVIEWED: Yes RADIOLOGY DEPARTMENT: CT; Exam(s) Completed: Chest PERIPHERAL IV DATA: Not applicable SIGNED BY: RT Meir(R)(CT) September 01, 2018 2:34 PM Normal [facility] PROGRESS HNO ID: [id number] Author: Travis Castro Service: Thoracic Surgery Author Type: Physician Type: Progress Notes Filed: 07/10/2019 2:39 PM Note Text: [place] [address] [place] DEPARTMENT OF THORACIC AND CARDIOVASCULAR SURGERY NAME: LILI[facility] #: [id number] DATE: AGE: 33 PHYSICIAN: Travis Castro M.D., Ph.D. I had a sincere pleasure of seeing the patient in my Thoracic Surgery Clinic. This very pleasant woman returns for followup. Her CT scan suggests stability of the right middle lobe lesion. The patient has recently, though, been complaining of some trace hemoptysis. No sputum was produced to confirm this at this visit. The right middle lobe lesion, which has been followed, was easily identified on today's CT scan. I have independently reviewed the scan. There does not appear to be any substantial change in size of the lesion dating back almost two years. The lesion is quite curious. It is a partially spiculated lesion with some clustered satellite lesions around it. That it is not changing in size, argues strongly in favor of an inflammatory or scar lesion. There are no ground-glass lesions or other evidence to suggest bleeding into the airway. This symptom is quite curious. I have reviewed the appearance of the central airways on today's CT scan and see no obvious polypoid lesions to provide a source for this. The patient will likely need a bronchoscopy and I will ask Dr. Cruz to become involved and to potentially help with the diagnostic dilemma. I am not particularly concerned about the lesion, particularly in terms of its stability, but this new finding of trace hemoptysis does warrant invasive assessment. Travis Castro M.D., Ph.D. :[id number] /[id number] cc: Normal [facility] Encounters Encounter Date Encounter Type Care Provider Facility Start: 12-11-2022 ambulatory Jeffrey Elliott acility:[facility] Start: 06-12-2022 End: 06-13-[address] ARY HUDSON . Facility:[facility] Start: 03-22-2022 End: 03-22-[address] ARY HUDSON . Facility:[facility] Start: 03-21-2022 End: 03-22-[address] JORGE ALBERTO GARCIA Facility:[facility] Start: 02-26-2022 End: 02-27-[address] ARY HUDSON . Facility:[facility] Start: 01-17-2022 End: 01-18-[address] ARY HUDSON . Facility:[facility] Start: 01-03-2022 End: 01-04-[address] ARY HUDSON . Facility:[facility] Start: 11-12-2021 End: 11-13-[address] ARY HUDSON . Facility:[facility] Start: 10-29-2021 End: 10-30-[address] ARY HUDSON . Facility:[facility] Start: 10-28-2021 End: 10-28-[address] ARY HUDSON . Facility:[facility] Start: 08-13-2020 ambulatory Facility:[facility] Payers Date Payer Category Payer Self-pay 2022 Medicaid [id number] 2020 Unknown [id number] 1984 Unknown [id number] 2.16.84 [id number] 1984 Unknown [id number] 2.16.84 [id number] 1984 Unknown [id number] 2.16.84 0.1.512019.3.579.2.593 1984 Unknown [id number] 2.16.84 0.1.049453.3.579.2.593 1984 Unknown [id number] 2.16.84 0.1.759834.3.579.2.593 1984 Unknown [id number] 2.16.84 0.1.274012.3.579.2.593 1984 Unknown [id number] 2.16.84 0.1.669843.3.579.2.593 1984 Unknown [id number] 2.16.84 0.1.874000.3.579.2.593 1984 Unknown [id number] 2.16.84 0.1.120737.3.579.2.593 1984 Unknown [id number] 2.16.84 0.1.491303.3.579.2.593 1959 Unknown [id number] Unknown [id number] 2.16.8 [id number] Clinical Note 02-26-2022 Note Date & Type Note Facility 02-26-2022 Note PROCEDURE: XR FOOT L T MIN 3 VIEWS COMPARISON: 10/16/2011 HISTORY: Pain in lower limb FINDINGS: BONES:No fracture, acute abnormality, or significant arthropathy. SOFT TISSUES:Negative. No visible soft tissue swelling. EFFUSION:None visible. OTHER: Negative. IMPRESSION: No acute abnormality Electronically authenticated by: THERESA PATEL Date: 2022-02-26 12:41 [facility] Summary Purpose Family History No Family History Records FoundNo Family History Records FoundNo Family History Records FoundNo Family History Records Found Advance Directives No Advanced Directives Records FoundNo Advanced Directives Records FoundNo Advanced Directives Records FoundNo Advanced Directives Records Found Additional Source Comments INFORMATION SOURCE (unrecogn ized section and content) DATE CREATED AUTHOR 07/10/2019 [facility] DATE CREATED AUTHOR AUTHOR'S ORGANIZ ATION 03/30/2022 [facility] DATE CREATED AUTHOR AUTHOR'S ORGANIZ ATION 06/19/2022 [facility] DATE CREATED AUTHOR AUTHOR'S ORGANIZ ATION 02/25/2023 [facility] FOR RECORDS PERTAINING TO PATIENTS WHO ARE OR HAVE BEEN ENROLLED IN A CHEMICAL DEPENDENCY/SUBSTANCEABUSE PROGRAM, SOME INFORMATION MAY BE OMITTED. This clinical summary was aggregated from multiple sources. Caution should be exercised in using it in the provision of clinical care. This summary normalizes information from multiple sources, and as a consequence, information in this document may materially change the coding, format and clinical context of patient data. In addition, data may be omitted in some cases. CLINICAL DECISIONS SHOULD BE BASED ON THE PRIMARY CLINICAL RECORDS. [facility]. provides no warranty or guarantee of the accuracy or completeness of information in this document.
== END 2023-05-21 15:00 | disposition home or self-care (01) ==
LOC: CT 14:59
PROVIDERS: PCP Family Medicine; Visit Provider Family Medicine
DX: R91.1 Solitary pulmonary nodule (principal)
CPT/HCPCS: 71250

== ENCOUNTER 2023-07-10 09:54 | Outpatient (OUT) | payer MEDICAID, SELFPAY ==
--- NOTE | 2023-07-10 09:57 | US_ITS ---
[address] [address] Patient Name: REGINA SIDDIQUI MRN: [id number] date: 1985 Sex: F Assigned Patient Location: [place] Current Patient Location: Accession/Order Number: [id number] Exam Date: 07/10/2023 10:00 Report Date: 07/11/2023 06:13 At the request of: ARY HUDSON Procedure: US renal BI EXAMINATION: US renal BI HISTORY: calculus of kidney N20.0 , left flank pain COMPARISON: CT abdomen pelvis 10/29/2021 TECHNIQUE: Ultrasound examination was performed of the kidneys and urinary bladder. FINDINGS: RIGHT KIDNEY: Contains a nonobstructing 4 mm stone. Normal size, contour, echotexture of the kidney. Color Doppler demonstrates blood flow within the kidney. Kidney: 10.4 x 4.1 x 4.5 cm LEFT KIDNEY: Contains 2 nonobstructing stones, 9 mm and 6 mm respectively. Normal size, contour, and echotexture the kidney. Color Doppler demonstrates blood flow within the kidney. Kidney: 10.9 x 5.2 x 5.3 cm BLADDER: No visible wall thickening, mass, or calculi. US/US renal BI IMPRESSION: 1. Bilateral nonobstructing nephrolithiasis. 2. No acute findings to account for patient's symptoms. Electronically authenticated by: ESTHER VAZQUEZ Date: 07/11/2023 06:13
--- OUTSIDE RECORDS SUMMARY | 2023-07-10 09:57 | XMS_ITS | CCD ---
Author Organization [facility] Care Team Providers Care Marine Photographer Name Role Phone BECCA ., DR MCALLSITER Consulting Unavailable HOY ., DR MCALLISTER Admitting Unavailable HOY ., DR MCALLISTER Attending Unavailable HOY ., DR MCALLISTER Primary Care Unavailable WEST, DR THERESA Peterson Consulting Unavailable HOY ., [...] HOY ., DR MCALLISTER Primary Care Unavailable THERESA MCCARTHY Consulting Unavailable JUSTICE ., ORMARIO Attending Unavailable JUSTICE ., ROMARIO Admitting Unavailable JUSTICE ., ROMARIO Consulting Unavailable ENEDELIA, DR JORGE ALBERTO Dominguez Attending Unavailable ENEDELIA, DR JORGE ALBERTO Dominguez Admitting Unavailable ENEDELIA, DR JORGE ALBERTO Dominguez Consulting Unavailable BECCA ., DR MCALLISTER Primary Care Unavailable AMARILIS PRESCOTT Consulting Unavailable JOSEPH STACK Consulting Unavailable THERESA ESPAÑA Consulting Unavailable JAREKY ., DR MCALLISTER Primary Care Unavailable HAY ., DR NEW Attending Unavailable HAY ., DR NEW Admitting Unavailable HAY ., DR NEW Consulting Unavailable HOY ., DR MCALLISTER Primary Care Unavailable JAREKY ., DR MCALLISTER Attending Unavailable HOY ., DR MCALLISTER Admitting Unavailable ZIEBER, DR ESTHER Dominguez Consulting Unavailable HOY ., DR MCALLISTER Consulting Unavailable HOY ., DR MCALLISTER Primary Care Unavailable HOY ., DR MCALLISTER Attending Unavailable HOY ., DR MCALLISTER Admronni Unavailable ZIEBER, DR ESTHER Dominguez Consulting Unavailable HOY ., DR MCALLISTER Consulting Unavailable HOY ., DR MCALLISTER Attending DR ARY White Admitting DR ARY White Primary Care Unavailable CHAMPLAIN, DR THERESA Peterson Consulting Unavailable Jeffrey Khan Attending Unavailab Jeffrey Lewis Admitting Unavailab Ary Khan Primary Care Unavailable Ary Mohan Primary Care Physician Brandon Strauss Attending Unavailable Allergies Allergy Classification Reported Allergen(s) Allergy Type Date of Onset Reaction(s) Facility (1 source) Lactose Drug Allergy [facility] Repository (2 sources) Morphine; Translations: [morphine] Drug Allergy 09-17-2015 [facility] Repository (1 source) Morphine Drug Allergy 06-21-2020 [facility] Repository (1 source) Morphine; Translations: [morphine] Drug Allergy Itching [facility] Medications Current Medications Medication Drug Class(es) Dates Sig (Normalized) Sig (Original) amitriptyline hydrochloride 100 mg oral tablet (1 source) Tricyclic Antidepressant Start: 0 amitriptyline 100 mg oral tablet 150 mg = 1.5 tab(s), Oral, Once a day (at bedtime), Refills(s) 0, Insomnia Start Date: 12/11/19 Status: Ordered amphetamine aspartate 7.5 mg / amphetamine sulfate 7.5 mg / dextroamphetamine saccharate 7.5 mg / dextroamphetamine sulfate 7.5 mg oral tablet (1 source) Central Nervous System Stimulant Start: 6 take 1 tablet by mouth twice daily amphetamine-dextr oamphetamine 30 mg oral tablet 30 mg, 1 tab(s), Oral, BID, Refill(s) 0, Anxiety Start Date: 02/18/16 Status: Ordered amylase 018265 unt / lipase 97389 unt / protease 76452 unt delayed release oral capsule (1 source) Start: 0 take 1 capsule by mouth three times daily Creon 24,000 units oral delayed release capsule = 1 cap(s), Oral, TID, appetite stimulation, Refills(s) 0, Other (see comment) Start Date: 12/11/19 Status: Ordered celecoxib 100 mg oral capsule (1 source) Nonsteroidal Anti-inflammatory Drug Start: 0 take 1 capsule by mouth twice daily CeleBREX 100 mg Cap 100 mg = 1 cap(s), Oral, BID, Arthritis Start Date: 01/04/20 Status: Ordered Cymbalta 60 mg Cap-DR (1 source) Start: 0 take 1 capsule by mouth twice daily Cymbalta 60 mg Cap-DR 60 mg, Oral, BID, fibromyalgia, Refills(s) 0, Other (see comment) Start Date: 12/11/19 Status: Ordered Diclofenac 75mg Tab-DR (1 source) Start: 0 take 1 tablet by mouth twice daily Diclofenac 75mg Tab-DR 75 mg, Oral, BID, Refills(s) 0, Muscle pain Start Date: 12/11/19 Status: Ordered dicyclomine hydrochloride 10 mg oral capsule (1 source) Anticholinergic Start: 4 take 1 capsule by mouth four times daily as needed Bentyl 10 mg Cap 10 mg = 1 cap(s), Oral, QID, PRN Other (see comment), For abdominal cramping, # 16 cap(s), Refills(s) 0, Pharmacy: [facility]/pharmacy #[id number], 180.3, cm, 06/13/23 13:08:00 EDT, Height/Length Dosing, 68.5, kg, 06/13/23 13:08:00 EDT, Weight Dosing Start Date: 06/13/23 Status: Ordered 1 ml erenumab-aooe 70 mg/ml auto-injector (1 source) Start: 0 inject 70 mg by subcutaneous injection every month Aimovig SureClick 70 mg/mL subcutaneous solution 70 mg, SubCutaneous, qMonth, Refills(s) 0, Migraine headache Start Date: 12/11/19 Status: Ordered levocetirizine dihydrochloride 5 mg oral tablet (1 source) Histamine-1 Receptor Antagonist Start: 0 take 1 tablet by mouth once daily in the evening Xyzal 5 mg oral tablet 2.5 mg, 0.5 tab(s), Oral, qPM, Allergy symptoms Start Date: 01/11/20 Status: Ordered medroxyPROGESTERone (1 source) Progestin Start: 0 inject 150 mg by intramuscular injection every three months Depo-Provera 150mg/mL intramuscular suspension 150 mg, IntraMuscular, q3mo, Refills(s) 0, control/menstrual regulation Start Date: 12/11/19 Status: Ordered ondansetron 4 mg oral tablet (1 source) Serotonin-3 Receptor Antagonist Start: 0 take 1 tablet by mouth every six hours Zofran 4 mg Tab 4 mg = 1 tab(s), Oral, q6hr, Refills(s) 0, Nausea Start Date: 12/11/19 Status: Ordered polyethylene glycol 3350 76342 mg powder for oral solution (1 source) Osmotic Laxative Start: 4 End: 4 take 17 g by mouth once daily Miralax 3350 17 gram packet 17 gm, Oral, Daily, X 7 day(s), # 250 gm, Refills(s) 0, Pharmacy: [facility]/pharmacy #[id number], 180.3, cm, 06/13/23 13:08:00 EDT, Height/Length Dosing, 68.5, kg, 06/13/23 13:08:00 EDT, Weight Dosing Start Date: 06/13/23 Stop Date: 06/20/23 Status: Ordered pregabalin 50 mg oral capsule (1 source) Start: 0 take 1 capsule by mouth three times daily Lyrica 50 mg Cap 50 mg = 1 cap(s), Oral, TID, fibromyalgia, Refills(s) 0, Other (see comment) Start Date: 12/11/19 Status: Ordered QUEtiapine 100 mg oral tablet (1 source) Atypical Antipsychotic Start: 0 take 1 tablet by mouth once daily SEROquel 100 mg Tab 100 mg = 1 tab(s), Oral, Daily, Refills(s) 0 Start Date: 02/01/20 Status: Ordered rizatriptan 10 mg oral tablet (1 source) Serotonin-1b and Serotonin-1d Receptor Agonist Start: 0 take 1 tablet by mouth once Maxalt 10 mg Tab 10 mg = 1 tab(s), Oral, Once, Refills(s) 0, Migraine headache Start Date: 12/11/19 Status: Ordered valproic acid 250 mg oral capsule (1 source) Mood Stabilizer, Anti-epileptic Agent Start: 0 take 2 capsules by mouth three times daily valproic acid 250 mg oral capsule 500 mg = 2 cap(s), Oral, TID, rheumatoid arthritis, Refills(s) 0, Other (see comment) Start Date: 12/11/19 Status: Ordered Zofran ODT 4 mg Tab-Dis (1 source) Start: 1 take 1 tablet by mouth three times daily Zofran ODT 4 mg Tab-Dis 4 mg = 1 tab(s), Oral, TID, # 15 tab(s), Refills(s) 0, Pharmacy: [facility]/pharmacy #[id number], 180, cm, 05/21/20 13:19:00 EST, Height/Length Dosing, 82, kg, 05/21/20 13:19:00 EST, Weight Dosing Start Date: 05/21/20 Status: Ordered Problems Active Problems Problem Classification Problem Date Documented Da te Episodic/Chronic Abdominal hernia (5 sources) Unspecified abdominal hernia without obstruction or gangrene; Translations: [Umbilical hernia] Onset: 10-29-2021 Episodic Abdominal pain (6 sources) Right upper quadrant pain; Translations: [Abdominal pain] Onset: 06-12-2022 Episodic Attention-deficit, conduct, and disruptive behavior disorders (1 source) Attention deficit hyperactivity disorder 12-11-2019 Chronic E Codes: Struck by; against (1 source) [...] JACIEL] Onset: 03-25-2022 Episodic Headache; including migraine (1 source) Migraine 02-18-2016 Chronic Headache; including migraine (3 sources) Headache; including migraine; Translations: [HEADACHE UNSPECIFIED] Onset: 03-21-2022 Mood disorders (1 source) Depressive disorder 01-18-2020 Chronic Other connective tissue disease (1 source) Diastasis recti 12-13-2019 Episodic Other connective tissue disease (2 sources) Fibromyalgia 02-18-2016 Episodic Other diseases of bladder and urethra (5 sources) Other specified disorders of bladder; Translations: [OTHER SPECIFIED DISORDERS BLADDER] Onset: 10-31-2021 Chronic Other gastrointestinal disorders (1 source) Irritable bowel syndrome 12-11-2019 Chronic Other lower respiratory disease (1 source) Nodule of lung 12-11-2019 Episodic Other nervous system disorders (1 source) Peripheral nerve disease 12-11-2019 Chronic Other non-traumatic joint disorders (3 sources) Pain in right shoulder; Translations: [PAIN IN RIGHT SHOULDER] Onset: 03-22-2022 Episodic Screening and history of mental health and substance abuse codes (1 source) Personal history of nicotine dependence; Translations: [PERSONAL HISTORY OF NICOTINE DEPEND] Onset: 03-30-2022 Episodic Spondylosis; intervertebral disc disorders; other back problems (1 source) Lumbar radiculopathy 12-11-2019 Episodic Sprains and strains (4 sources) Strain of other muscles, fascia and tendons at shoulder and upper arm level, right arm, initial encounter; Translations: [Unspecified sprain of unspecified finger, initial encounter] Onset: 03-25-2022 Episodic Superficial injury; contusion (1 source) Contusion of other part of head, initial encounter; Translations: [CONTUS OTH PRT HEAD INITIAL ENCNTR] Onset: 03-30-2022 Episodic Systemic lupus erythematosus and connective tissue disorders (1 source) Systemic lupus erythematosus 02-18-2016 Chronic Past or Other Problems Problem Classification Problem Date Documented Da te Episodic/Chronic Nonspecific chest pain (4 sources) Chest pain, unspecified; Translations: [CHEST PAIN UNSPECIFIED] Onset: 10-28-2021 Episodic Other aftercare (1 source) Other termite renewal inspector (current) drug therapy; Translations: [OTH APPLIED STATISTICIAN CURRENT DRUG THERAPY] Onset: 10-30-2021 Episodic Other [...] Test Name Value Interpretation Reference Range Facility CT Abdomen/Pelvis w/ Contras ton 06-14-2023 CT Abdomen/Pelvis w/ Contrast Exam Date/Time: 06/13/2023 15:28 EDT Reason for Exam: Pain Report IMPRESSION: NONSPECIFIC 4 TO 5 CM SOFT TISSUE DENSITY PROMINENCE BETWEEN THE TRANSVERSE COLON AND ANTERIOR ABDOMINAL WALL OF THE LEFT UPPER QUADRANT, WHICH MAY BE SECONDARY TO SEGMENTAL COLITIS OR OTHER FOCAL INFLAMMATORY PROCESS. EXAM: CT Abdomen/Pelvis w/ Contrast DATE: 06/13/2023 3:09 PM CLINICAL HISTORY: Pain. COMPARISON: 05/21/2020. TECHNIQUE: Spiral imaging was obtained of the abdomen and pelvis after the uneventful infusion of approximately 100 mL of Isovue [address] scans at this facility use dose modulation, iterative reconstruction, and/or weight based dosing when appropriate to reduce radiation dose to as low as reasonably achievable. Unless otherwise stated, incidental findings identified in this report do not require routine follow-up imaging. FINDINGS: There is an approximately 4 to 5 cm nonspecific geographic area of soft tissue prominence with minimal surrounding inflammation in the anterior left upper quadrant between the transverse colon and anterior abdominal wall best visualized on axial images 32 through 38. There is no organized fluid collection, free air, abnormal bowel dilatation, other areas of wall thickening, or other complication identified. A trace of low-density free fluid is present in the pelvic cul-de-sac. Two very small hypodensities within the superior posterior segment of the otherwise unremarkable-appearin g liver consistent with hemangiomas. Two approximately 3 to 4 mm nonobstructing left lower pole calculi and a 6 mm fluid density nonenhancing cyst are again noted within both otherwise unremarkable-appearin g kidneys. The gallbladder, pancreas, spleen, adrenal glands, and great vessels, small bowel loops, remainder of the colon, uterus, adnexa, urinary bladder, and visualized lung bases are unremarkable. Report Ordering Provider: Shan Gusman FINAL REPORT Dictated: 06/14/2023 10:08 am Nikolay Bergman MD Signed (Electronic Signature): 06/14/2023 10:08 am Signed by: Nikolay Bergman MD Transcribed by: RASHEEDA Technologist: CHRIS Technical Comments GFR (mL/min/1/73m2) >60 Contrast: Isovue 300 Contrast amount in ml's: 100 Normal [facility] ED Note-Physicianon 06-14-19 ED Note-Physician Basic Information Time Seen: Naseem BESS Shan 06/13/2023 13:07 Chief Complaint patient c/o LLQ abdominal pain that started two days ago. denies n/v/d, fevers or urinary symptoms History of Present Illness 38-year-old female comes to the ED for evaluation of abdominal pain. She presents complaint of left lower quadrant abdominal pain. This awoke her from sleep early yesterday morning. She has had persistent pain that is made worse with movement. Fairly normal appetite without nausea or vomiting or diarrhea. No urinary complaints. Abdominal history significant for previous umbilical hernia repair. No prior treatments. Review of Systems A 10 point review of systems is negative except as noted above. Medical and Surgical History: Reviewed and noted Social history: Lives at home Tobacco: Denies Physical Exam Vitals & Measurements T: 36.9 ?C(Oral) HR: 83(Monitored) RR: 17 BP: 111/71 SpO2: 99% HT: 180.34 cm WT: 68.5 kg BMI: 21.06 Nurses notes and vital signs reviewed and patient is not hypoxic. General: Patient appears uncomfortable Skin: Warm, dry, no pallor noted. Head: Atraumatic. Neck: No JVD. Eye: Normal conjunctiva. Ears, Nose, Mouth, and Throat: Moist mucous membranes Cardiovascular: Strong distal pulses. Chest wall: Respiratory: Respirations are nonlabored. Back: Normal range of motion, no CVA tenderness. Musculoskeletal: Normal ROM with no gross deformity. Gastrointestinal: Abdomen is soft throughout. There is significant left lower quadrant tenderness with palpation and movement of the patient. No distention. No guarding or rigidity. No right-sided tenderness. No appreciable masses. Urological: Neurological: Awake and alert. No focal deficits. Follows commands. GCS 15. Psychiatric: Cooperative. Medical Decision Making Patient presents with significant left lower quadrant abdominal pain. Laboratory studies reviewed and noted. At this time CT scan is pending, and case discussed with the oncoming physician for follow-up and disposition. Sign-out note: Lab work reviewed and is unremarkable. CT scan is without acute findings. Incidental finding of kidney stone and hepatic cyst are discussed with the patient. On my review the CT scan there is a significant stool burden mostly on the left side which correlates where her symptoms and description of symptoms. She is likely constipated. Bentyl and MiraLAX are prescribed. Return precautions were discussed. All questions were answered. Patient was discharged home. Brandon Strauss DO, FAAEM Assessment/Plan 1. Abdominal pain (R10.9: Unspecified abdominal pain) Orders: HYDROmorphone, 1 mg = 1 mL, Injection, IV Push, Once, Stop date 06/13/23 13:39:00 EDT, STAT, Start date 06/13/23 13:39:00 EDT, 06/13/23 13:39:00 EDT ketorolac, 30 mg = 1 mL, Injection, IV Push, Once, Stop date 06/13/23 14:52:00 EDT, STAT, Start date 06/13/23 14:52:00 EDT, 06/13/23 14:52:00 EDT ondansetron, 4 mg = 2 mL, Injection, IV Push, Once, Stop date 06/13/23 13:39:00 EDT, STAT, Start date 06/13/23 13:39:00 EDT, 06/13/23 13:39:00 EDT Sodium Chloride 0.9% intravenous solution, 1,000 mL, Soln-IV, IV, Once, Stop date 06/13/23 13:32:00 EDT, STAT, Start date 06/13/23 13:32:00 EDT, Infuse over 61, minute(s) Basic Metabolic Panel Beta hCG Qual CBC w/ Auto Diff CT Abdomen/Pelvis w/ Contrast eGFR Hepatic Function Panel Lipase Level UA with Cult Rflx Medications Administered Given Dilaudid 1 mg/mL injectable solution, 1 mg, IV Push ketorolac 30 mg/mL Inj 1 mL, 30 mg, IV Push NS 1000 ml Bolus, 1000 mL, IV Zofran 4 mg/2 mL Injection, 4 mg, IV Push Disposition Plan Discharge Prescription List Prescriptions No active prescription medications Follow-up No qualifying data available Problem List/Past Medical History Ongoing Acute postoperative pain of abdomen ADHD Depression with suicidal ideation Diastasis recti Fibromyalgia IBS (irritable bowel syndrome) Lumbar radiculopathy Peripheral neuropathy Pulmonary nodule Umbilical hernia Historical Fibromyalgia Lupus Migraine Procedure/Surgical History Repair of umbilical hernia using surgical mesh (01/11/2020). Medications Inpatient No active inpatient medications Home Aimovig SureClick 70 mg/mL subcutaneous solution, 70 mg, SubCutaneous, qMonth amitriptyline 100 mg oral tablet, 150 mg= 1.5 tab(s), Oral, Once a day (at bedtime) amphetamine-dextroamp hetamine 30 mg oral tablet, 30 mg= 1 tab(s), Oral, BID, Not taking: hasn't picked up from pharmacy CeleBREX 100 mg Cap, 100 mg= 1 cap(s), Oral, BID Creon 24,000 units oral delayed release capsule, 1 cap(s), Oral, TID Cymbalta 60 mg Cap-DR, 60 mg, Oral, BID Depo-Provera 150mg/mL intramuscular suspension, 150 mg, IntraMuscular, q3mo Diclofenac 75mg Tab-DR, 75 mg, Oral, BID Lyrica 50 mg Cap, 50 mg= 1 cap(s), Oral, TID Maxalt 10 mg Tab, 10 mg= 1 tab(s), Oral, Once SEROquel 100 mg Tab, 100 mg= 1 tab(s), Oral, Daily valproic acid 250 mg ora (more content not included)... Normal [facility] Comment on above: Result Comment: Elec tronically Signed By: Shan Gusman PA-C\.br\Date and Time Signed: 06/14/23 16:04 EDT\.br\Electronically Co-Signed By: Brandon Strauss DO\.br\Date and Time Co-Signed: 06/14/23 19:58 EDT B hCG Qualon 06-13-2023 Beta HCG ( test) Ql Negative Normal [facility] Comment on above: Performed By: #### 2 [id number], [id number], 2718449, 0717488, [id number], [id number] #### [facility] [address] [place] [address] BMPon 06-13-2023 Anion gap [Moles/Vol] 10 mmol/L Normal 6-16 [facility] Comment on above: Performed By: #### 2 550516, 1558159, 9748277, 9291167, 07292572, [id number] #### [facility] [address] [place] [address] Calcium [Mass/Vol] 9.5 mg/dL Normal 8.9-11.1 [facility] Comment on above: Performed By: #### 2 552230, 8328840, 8741065, 1687710, 53037429, [id number] #### [facility] [address] [place] [address] Chloride [Moles/Vol] 105 mmol/L Normal 101-111 [facility] Comment on above: Performed By: #### 2 688519, 5471958, 8637987, 9180154, 79022492, [id number] #### [facility] [address] [place] [address] CO2 [Moles/Vol] 28 mmol/L Normal 21-31 [facility] Comment on above: Performed By: #### 2 311795, 2407430, 7938818, 4732346, 45126405, 96492584 #### [facility] [address] [place] [address] Creatinine [Mass/Vol] 0.7 mg/dL Normal 0.5-1.3 [facility] Comment on above: Performed By: #### 2 285187, 9521990, 1434625, 2746542, 66802372, 22782713 #### [facility] [address] [place] [address] Glucose [Mass/Vol] 98 mg/dL Normal 55-199 [facility] Comment on above: Performed By: #### 2 182810, 2645838, 4315229, 3375504, 79025154, 54107516 #### [facility] [address] [place] [address] Potassium [Moles/Vol] 3.9 mmol/L Normal 3.5-5.3 [facility] Comment on above: Performed By: #### 2 107781, 8620738, 0555119, 7734200, 65642460, 90292399 #### [facility] [address] [place] [address] Sodium [Moles/Vol] 139 mmol/L Normal 135-145 [facility] Comment on above: Performed By: #### 2 069260, 3310770, 3824618, 1662097, 74258329, 26045547 #### [facility] [address] [place] [address] Urea nitrogen [Mass/Vol] 12 mg/dL Normal 5-21 [facility] Comment on above: Performed By: #### 2 493164, 2222862, 6618684, 5183385, 14059486, 32037935 #### [facility] [address] [place] [address] Urea nitrogen/Creatinine [Mass ratio] 17 No Units Normal 10-20 [facility] Comment on above: Performed By: #### 2 436452, 1848471, 6898149, 9778346, 95830404, 88231291 #### [facility] [address] [place] [address]3499 CBC w/ Auto Diffon 4 Basophils/100 WBC (Bld) 0.5 % Normal 0.0-2.0 [facility] Comment on above: Performed By: #### 2 246719, 9636169, 3808914, 5603058, 68629459, 08647282 #### [facility] [address] [place] [address]40 Basophils/Leukocytes Auto (Bld) [Pure # fraction] 0.0 E9/L Normal 0.0-0.2 [facility] Comment on above: Performed By: #### 2 495840, 3772916, 3902006, 4182798, 41421377, 68101018 #### [facility] [address] [place] [address]38[address] Eosinophils (Bld) [#/Vol] 0.3 E9/L Normal 0.0-0.5 [facility] Comment on above: Performed By: #### 2 810233, 3755622, 4202479, 8776984, 35767859, 35823936 #### [facility] [address] [place] [address] 22060 Eosinophils/100 WBC (Bld) 3.6 % Normal 0.0-8.0 [facility] Comment on above: Performed By: #### 2 284325, 9461647, 2504403, 3186031, 95272578, 90014886 #### [facility] [address] [place] [address] 24439 Erythrocyte distribution width (RBC) [Ratio] 12.9 % Normal 10.9-14.2 [facility] Comment on above: Performed By: #### 2 768016, 3262821, 6267682, 4291460, 60931738, 02525383 #### [facility] [address] [place] [address]35 Hematocrit (Bld) [Volume fraction] 45.7 % Normal 34.0-46.0 [facility] Comment on above: Performed By: #### 2 320165, 0380786, 7483707, 7514133, 14913159, 55844521 #### [facility] [address] [place] [address]178 Hemoglobin (Bld) [Mass/Vol] 15.3 g/dL Normal 12.0-16.0 [facility] Comment on above: Performed By: #### 2 859507, 3313787, 9390532, 1411470, 79459579, 23795329 #### [facility] [address] [place] [address] 43899 Lymphocytes (Bld) [#/Vol] 1.8 E9/L Normal 1.0-4.0 [facility] Comment on above: Performed By: #### 2 993401, 4709198, 4043167, 7894773, 74831129, 99589766 #### [facility] [address] [place] [address] 67264 Lymphocytes/100 WBC (Bld) 19.3 % Normal 14.0-50.0 [facility] Comment on above: Performed By: #### 2 045120, 3158433, 5412229, 4741709, 18939740, 07893363 #### [facility] [address] [place] [address] 70639 MCH (RBC) [Entitic mass] 30.7 pg Normal 27.0-34.0 [facility] Comment on above: Performed By: #### 2 618218, 1887394, 0037545, 0493176, 08397940, 17261313 #### [facility] [address] [place] [address] 79430 MCHC (RBC) [Mass/Vol] 33.6 g/dL Normal 31.4-36.0 [facility] Comment on above: Performed By: #### 2 272079, 5862530, 5937133, 1650761, 84487156, 98817749 #### [facility] [address] [place] [address] 43056 MCV (RBC) [Entitic vol] 91.5 fL Normal 80.0-100.0 [facility] Comment on above: Performed By: #### 2 344858, 6311493, 7703184, 3769660, 17502127, 22331779 #### [facility] [address] [place] [address] 43598 Monocytes (Bld) [#/Vol] 0.7 E9/L Normal 0.2-1.0 [facility] Comment on above: Performed By: #### 2 633533, 7320900, 7736370, 2156739, 28021195, 26044752 #### [facility] [address] [place] [address] 94857 Neutrophils (Bld) [#/Vol] 6.5 E9/L Normal 2.0-7.5 [facility] Comment on above: Performed By: #### 2 159745, 9614884, 4037919, 8444092, 50048649, 18708562 #### [facility] [facility] [address] [place] [id number] Neutrophils/100 WBC (Bld) 69.2 % Normal 36.0-75.0 [facility] Comment on above: Performed By: #### 2 [id number], 1192964, 2782630, 0955358, [id number], [id number] #### [facility] [address] [place] [address] Platelet mean volume (Bld) [Entitic vol] 8.0 fL Normal 6.4-10.8 [facility] Comment on above: Performed By: #### 2 375938, 7290720, 7550763, 2420773, 39621330, [id number] #### [facility] [address] [place] [address] Platelets (Bld) [#/Vol] 299.0 E9/L Normal 150.0-500.0 [facility] Comment on above: Performed By: #### 2 893839, 4657286, 1549729, 2183349, 13916037, 74077202 #### [facility] [address] [place] [address]55 RBC (Bld) [#/Vol] 5.0 E12/L Normal 4.3-5.9 [facility] Comment on above: Performed By: #### 2 174959, 0200001, 6394591, 9433166, 71456752, [id number] #### [facility] [address] [place] [address] 53288 WBC corrected for nucl RBC Auto (Bld) [#/Vol] 9.4 E9/L Normal 4.0-11.0 [facility] Comment on above: Performed By: #### 2 320891, 2683300, 5549394, 6803412, 36283577, 59301647 #### [facility] [address] [place] [address] CHEMISTRYOrdered By: SYSTEM SYSTEM on 06-13-2023 Albumin [Mass/Vol] 4.3 g/dL Normal 3.3 - 5.0 gm/dL Remisol Chem Albumin/Globulin [Mass ratio] 1.5 {ratio} Normal 1.1 - 2.2 Remisol Chem ALP [Catalytic activity/Vol] 64 [iU]/d Normal 21 - 98 Int._Unit/L Remisol Chem ALT No additional P-5'-P [Catalytic activity/Vol] 10 [iU]/d Normal 6 - 46 Int._Unit/L Remisol Chem Anion gap [Moles/Vol] 10 mmol/L Normal 6 - 16 mEq/L R emisol Chem AST [Catalytic activity/Vol] 13 [iU]/d Normal 5 - 43 Int._Unit/L Remisol Chem Bilirubin [Mass/Vol] 0.7 mg/dL Normal 0.0 - 1 .1 mg/dL Remisol Chem Bilirubin.direct [Mass/Vol] 0.1 mg/dL Normal 0.0 - 0.4 mg/dL Remisol Chem Bilirubin.indirect [Mass or moles/Vol] 0.6 mg/dL Normal 0.1 - 0.9 mg/dL Remisol Chem Calcium [Mass/Vol] 9.5 mg/dL Normal 8.9 - 11. 1 mg/dL Remisol Chem Chloride [Moles/Vol] 105 mmol/L Normal 101 - 1 11 mmol/L Remisol Chem CO2 [Moles/Vol] 28 mmol/L Normal 21 - 31 mmol/L Rem[facility] Chem Creatinine [Mass/Vol] 0.7 mg/dL Normal 0.5 - 1.3 mg/dL Remisol Chem eGFR 112 mL/min/1.73 m2 Normal >=59mL/mi n/1. 73 m2 Remisol Chem Globulin (S) [Mass/Vol] 2.8 g/dL Normal 1.4 - 4.0 gm/dL Remisol Chem Glucose [Mass/Vol] 98 mg/dL Normal 55 - 199 mg/dL Remisol Chem Lipase [Catalytic activity/Vol] 78 U/L High 13 - 58 unit/L Remisol Chem Potassium [Moles/Vol] 3.9 mmol/L Normal 3.5 - 5.3 mmol/L Remisol Chem Protein [Mass/Vol] 7.1 g/dL Normal 6.0 - 7.8 gm/dL Remisol Chem Sodium [Moles/Vol] 139 mmol/L Normal 135 - 145 mmol/L Remisol Chem Urea nitrogen [Mass/Vol] 12 mg/dL Normal 5 - 21 mg/dL Remisol Chem Urea nitrogen/Creatinine [Mass ratio] 17 mg/mg Normal 10 - 20 Remisol Chem Consent for Treatmenton 05-21 Consent for Treatment [id number] .[id number] Normal [facility] Discharge Instructionson Discharge Instructions [id number] .[id number] Normal [facility] ED Clinical Summaryon 2023 ED Clinical Summary [place] [id number] ED Clinical Summary Person Information Name: LILIYA SIDDIQUI [place] Age: 38 Years : 1985 Sex: Female Language: German PCP: Ary Mohan MD Marital Status: Single Phone: [phone] Visit Id: Visit Reason: Abdominal pain; left side abd pain Speciality: Acuity: 3 Enc Type: Emergency Med Service: Emergency Arrival: 06/13/2023 13:03:08 Discharge: 06/13/2023 17:30:01 LOS: 000 04:27 Checkin: 06/13/2023 13:03:08 Checkout: 06/13/2023 17:30:01 Dispo Type: Home (Routine DC) EVENTS: Event Name Event Status Request Date/Time Start Date/Time Complete Date/Time Arrive Complete 06/13/2023 13:03:08 06/13/2023 13:03:08 06/13/2023 13:03:08 Document Home Meds Request 06/13/2023 13:03:08 Triage Complete 06/13/2023 13:03:08 06/13/2023 13:08:49 06/13/2023 13:08:49 Bed Assign Complete 06/13/2023 13:04:38 06/13/2023 13:04:38 06/13/2023 13:04:38 Dr Exam Complete 06/13/2023 13:04:38 06/13/2023 13:07:51 06/13/2023 13:07:51 RN Exam Complete 06/13/2023 13:04:38 06/13/2023 13:39:28 06/13/2023 13:39:28 Registration Complete 06/13/2023 13:07:51 06/13/2023 13:08:23 06/13/2023 13:08:23 Dr Exam Complete 06/13/2023 13:07:57 06/13/2023 13:07:57 06/13/2023 13:07:57 Reg Complete Request 06/13/2023 13:08:23 Reg Bed Request Complete 06/13/2023 13:08:23 06/13/2023 13:08:23 06/13/2023 13:08:23 Meds Admin Complete 06/13/2023 13:32:21 06/13/2023 13:46:57 Pending Labs Complete 06/13/2023 13:32:21 06/13/2023 16:28:56 Lab Complete 06/13/2023 13:32:21 06/13/2023 14:29:15 Meds Admin Complete 06/13/2023 13:39:58 06/13/2023 13:46:58 CT Complete 06/13/2023 13:39:58 06/13/2023 15:09:10 06/13/2023 15:28:58 Pending Labs Complete 06/13/2023 14:04:03 06/13/2023 14:04:03 06/13/2023 14:29:15 Lab Complete 06/13/2023 14:04:03 06/13/2023 14:04:03 06/13/2023 14:29:15 Meds Admin Complete 06/13/2023 14:52:54 06/13/2023 15:36:11 Discharge Complete 06/13/2023 17:10:45 06/13/2023 17:30:07 06/13/2023 17:30:07 Meds Admin Complete 06/13/2023 17:12:08 06/13/2023 17:19:16 Transfer Complete 06/13/2023 17:30:07 06/13/2023 17:30:07 06/13/2023 17:30:07 ADDRESS: [address] [id number] PHYS DOC NOTES: MEDICAL INFORMATION: Prescriptions Given: New Medications [id number], [address], [place] [id number], [phone] dicyclomine (Bentyl 10 mg Cap) 1 Capsules By Mouth 4 times a day as needed Other (see comment). For abdominal cramping. Refills: 0. polyethylene glycol 3350 (Miralax 3350 17 gram packet) 17 Gram By Mouth every day for 7 Days. Refills: 0. Medications to Continue with No Changes Other Medications amitriptyline (amitriptyline 100 mg oral tablet) 1.5 Tablets By Mouth once a day (at bedtime). amphetamine-dextroamp hetamine (amphetamine-dextroam phetamine 30 mg oral tablet) 1 Tablets By Mouth 2 times a day. celecoxib (CeleBREX 100 mg Cap) 1 Capsules By Mouth 2 times a day. diclofenac (Diclofenac 75mg Tab-DR) 75 Milligram By Mouth 2 times a day. duloxetine (Cymbalta 60 mg Cap-DR) 60 Milligram By Mouth 2 times a day. fibromyalgia. erenumab (Aimovig SureClick 70 mg/mL subcutaneous solution) 70 Milligram Subcutaneous once a month. levocetirizine (Xyzal 5 mg oral tablet) 0.5 Tablets By Mouth once a day (in the evening). medroxyPROGESTERone (Depo-Provera 150mg/mL intramuscular suspension) 150 Milligram Intramuscular every 3 months. ondansetron (Zofran 4 mg Tab) 1 Tablets By Mouth every 6 hours. ondansetron (Zofran ODT 4 mg Tab-Dis) 1 Tablets By Mouth 3 times a day. Refills: 0. pancrelipase (Creon 24,000 units oral delayed release capsule) 1 Capsules By Mouth 3 times a day. appetite stimulation. pregabalin (Lyrica 50 mg Cap) 1 Capsules By Mouth 3 times a day. fibromyalgia. quetiapine (SEROquel 100 mg Tab) 1 Tablets By Mouth every day. rizatriptan (Maxalt 10 mg Tab) 1 Tablets By Mouth Once. valproic acid (valproic acid 250 mg oral capsule) 2 Capsules By Mouth 3 times a day. rheumatoid arthritis. PATIENT EDUCATION INFORMATION: Instructions: Abdominal Pain, Adult Follow up: With: Address: When: Ary Mohan [address] [place] [address], [place] [address] Business (1) In 3 days 06/16/2023 Comments: Call the office of your primary care doctor to arrange for follow-up within the above-stated timeframe. Follow-up with your primary care doctor about this ED visit. You should review your labs, imaging, and diagnoses from this ED visit with your primary care physician. There are occasionally non-emergent findings that require additional follow-up after your ED visit. If you were prescribed medications you should discuss possible side-effects and drug interactions with your pharmacist. Call 911 or go to the nearest Emergency Department if you develop any new or worsening symptoms. Seek immediate medical attention if you develop: worsening abdominal pain, new or worsening nausea, new or worsening vomit (more content not included)... Normal [facility] ED Patient Education Noteon 06-13-2023 ED Patient Education Note Gastroenterology Abdominal Pain, Adult Pain in the abdomen (abdominal pain) can be caused by many things. Often, abdominal pain is not serious and it gets better with no treatment or by being treated at home. However, sometimes abdominal pain is serious. Your health care provider will ask questions about your medical history and do a physical exam to try to determine the cause of your abdominal pain. Follow these instructions at home: Medicines ? Take fjtu-pmb-ifhryis and prescription medicines only as told by your health care provider. ? Do not take a laxative unless told by your health care provider. General instructions ? Watch your condition for any changes. ? Drink enough fluid to keep your urine pale yellow. ? Keep all follow-up visits as told by your health care provider. This is important. Contact a health care provider if: ? Your abdominal pain changes or gets worse. ? You are not hungry or you lose weight without trying. ? You are constipated or have diarrhea for more than 2?3 days. ? You have pain when you urinate or have a bowel movement. ? Your abdominal pain wakes you up at night. ? Your pain gets worse with meals, after eating, or with certain foods. ? You are vomiting and cannot keep anything down. ? You have a fever. ? You have blood in your urine. Get help right away if: ? Your pain does not go away as soon as your health care provider told you to expect. ? You cannot stop vomiting. ? Your pain is only in areas of the abdomen, such as the right side or the left lower portion of the abdomen. Pain on the right side could be caused by appendicitis. ? You have bloody or black stools, or stools that look like tar. ? You have severe pain, cramping, or bloating in your abdomen. ? You have signs of dehydration, such as: ? Dark urine, very little urine, or no urine. ? Cracked lips. ? Dry mouth. ? Sunken eyes. ? Sleepiness. ? Weakness. ? You have trouble breathing or chest pain. Summary ? Often, abdominal pain is not serious and it gets better with no treatment or by being treated at home. However, sometimes abdominal pain is serious. ? Watch your condition for any changes. ? Take csku-vgb-cxxgvcc and prescription medicines only as told by your health care provider. ? Contact a health care provider if your abdominal pain changes or gets worse. ? Get help right away if you have severe pain, cramping, or bloating in your abdomen. This information is not intended to replace advice given to you by your health care provider. Make sure you discuss any questions you have with your health care provider. Document Revised: 04/26/2020 Document Reviewed: 07/17/2019 [employer] Patient Education ? 2022 [employer]. Normal [facility] ED Patient Summaryon 024 ED Patient Summary [address] [address] Patient Discharge Instructions Person Information Name: LILIYA SIDDIQUI Age: 38 Years Arrival Date: 06/13/2023 13:03:08 Discharge Diagnosis: 1:Abdominal pain Primary Care Physician: Ary Mohan MD Provider Information Primary Provider: Brandon Strauss DO [employer] Manager:Shan Gusman PA-C The exam and treatment you received in the Emergency Department were for an urgent problem and are not intended as complete care. It is important that you follow up with a doctor, nurse practitioner, or physician?s assistant general manager for ongoing care. If your symptoms become worse or you do not improve as expected and you are unable to reach your usual health care provider, you should return to the Emergency Department. We are available 24 hours a day. LILIYA SIDDIQUI Werner has been given the following list of patient education materials, prescriptions and follow-up instructions: Follow-up Instructions: With: Address: When: Ary Mohan [address] [place] [address], [place] [address] Business (1) In 3 days 06/16/2023 Comments: Call the office of your primary care doctor to arrange for follow-up within the above-stated timeframe. Follow-up with your primary care doctor about this ED visit. You should review your labs, imaging, and diagnoses from this ED visit with your primary care physician. There are occasionally non-emergent findings that require additional follow-up after your ED visit. If you were prescribed medications you should discuss possible side-effects and drug interactions with your pharmacist. Call 911 or go to the nearest Emergency Department if you develop any new or worsening symptoms. Seek immediate medical attention if you develop: worsening abdominal pain, new or worsening nausea, new or worsening vomiting, new or worsening diarrhea, chest pain, shortness of breath, pain with urination, problems urinating, fever, chills, weakness, or any new or worsening symptoms. In the event that this physician does not participate in your insurance network, please consult with your insurance company to find a nearby participating provider. Patient Education Materials: Abdominal Pain, Adult A MESSAGE TO ALL PATIENTS REGARDING OPIOIDS PRESCRIPTION OPIOIDS: WHAT YOU NEED TO KNOW Prescription opioids can be used to help relieve fodyxkhr-ke-bdszis pain and are often prescribed following a surgery or injury, or for certain health conditions. These medications can be an important part of the treatment but also come with serious risks. It is important to work with your healthcare provider to make sure you are getting the safest, most effective care. WHAT ARE THE RISKS AND SIDE EFFECTS OF OPIOID USE? Prescription opioids carry serious risks of addiction and overdose, especially with prolonged use. An opioid overdose, often marked by slowed breathing, can cause sudden . The use of prescription opioids can have a number of side effects as well, even when taken as directed: ? Tolerance?meaning you might need to take more of the medication for the same pain relief ? Physical dependence?meaning you have symptoms of withdrawal when a medication is stopped ? Increased sensitivity to pain ? Constipation ? Nausea, vomiting, and dry mouth ? Sleepiness and dizziness ? Confusion ? Depression ? Low levels of testosterone that can result in lower sex drive, energy, and strength ? Itching and sweating RISKS ARE GREATER WITH: ? History of drug misuse, substance use disorder, or overdose ? Mental health conditions (such as depression or anxiety) ? Sleep apnea ? Older age (65 years and older) ? Avoid alcohol while taking prescription opioids. Also, unless specifically advised by your health care provider, medications to avoid include: ? Benzodiazepines (such as Xanax or Valium) ? Muscle relaxants (such as Soma or Flexeril) ? Hypnotics (such as Ambien or Lunesta) ? Other prescription opioids KNOW YOUR OPTIONS Talk to your health care provider about ways to manage your pain that don?t involve prescription opioids. Some of these options may actually work better and have fewer risks and side effects. Options may include: ? Pain relievers such as acetaminophen, ibuprofen, and naproxen ? Some medication that are also used for depression or seizures ? Physical therapy and exercise ? Cognitive behavioral therapy, a psychological, goal-directed approach, in which patients learn how to modify physical, behavioral, and emotional triggers of pain and stress. IF YOU ARE PRESCRIBED OPIOIDS FOR PAIN: ? Never take opioids in greater amounts or more often than prescribed. ? Follow up with your primary health care provider. o Work together to create a plan on how to manage your pain. o Talk about ways to help manage your pain t (more content not included)... Normal [facility] HEMATOLOGYOrdered By: SYSTEM SYSTEM on 06-13-2023 Basophils/100 WBC (Bld) 0.5 % Normal 0.0 - 2.0 % Remisol Heme Basophils/Leukocytes Auto (Bld) [Pure # fraction] 0.0 E9/L Normal 0.0 - 0.2 E9/L Remisol Heme Eosinophils (Bld) [#/Vol] 0.3 E9/L Normal 0.0 - 0.5 E9/L Remisol Heme Eosinophils/100 WBC (Bld) 3.6 % Normal 0.0 - 8.0 % Remisol Heme Erythrocyte distribution width (RBC) [Ratio] 12.9 % Normal 10.9 - 14.2 % Remisol Heme Hematocrit (Bld) [Volume fraction] 45.7 % Normal 34.0 - 46.0 % Remisol Heme Hemoglobin (Bld) [Mass/Vol] 15.3 g/dL Normal 12.0 - 16.0 gm/dL Remisol Heme Lymphocytes (Bld) [#/Vol] 1.8 E9/L Normal 1.0 - 4.0 E9/L Remisol Heme Lymphocytes/100 WBC (Bld) 19.3 % Normal 14.0 - 50.0 % Remisol Heme MCH (RBC) [Entitic mass] 30.7 pg Normal 27.0 - 34.0 pg Remisol Heme MCHC (RBC) [Mass/Vol] 33.6 g/dL Normal 31.4 - 36.0 gm/dL Remisol Heme MCV (RBC) [Entitic vol] 91.5 fL Normal 80.0 - 100.0 fL Rem[facility] Heme Monocytes (Bld) [#/Vol] 0.7 E9/L Normal 0.2 - 1.0 E9/L Remisol Heme Monocytes/100 WBC (Bld) 7.4 % Normal 4.0 - 14.0 % Remisol Heme Neutrophils (Bld) [#/Vol] 6.5 E9/L Normal 2.0 - 7.5 E9/L Remisol Heme Neutrophils/100 WBC (Bld) 69.2 % Normal 36.0 - 75.0 % Remisol Heme Platelet mean volume (Bld) [Entitic vol] 8.0 fL Normal 6.4 - 10.8 fL Remisol Heme Platelets (Bld) [#/Vol] 299.0 E9/L Normal 150.0 - 500.0 E9/L Remisol Heme RBC (Bld) [#/Vol] 5.0 E12/L Normal 4.3 - 5.9 E12/L Rem[facility] Heme WBC corrected for nucl RBC Auto (Bld) [#/Vol] 9.4 E9/L Normal 4.0 - 11.0 E9/L Remisol Heme Hep Func Panelon 06-13-2023 Albumin [Mass/Vol] 4.3 g/dL Normal 3.3-5.0 [facility] Comment on above: Performed By: #### 2 984083, 4645352, 8327498, 6896781, 36314587, 89471265 #### [facility] [address] [place] [address] Albumin/Globulin (S) [Mass conc ratio] 1.5 Normal 1.1-2.2 [facility] Comment on above: Performed By: #### 2 162308, 9240577, 2713683, 4974598, 58478211, 43116921 #### [facility] [address] [place] [address] ALP [Catalytic activity/Vol] 64 Int._Unit/L Normal 21-98 [facility] Comment on above: Performed By: #### 2 945503, 9782913, 1760808, 0226818, 86516878, 66151296 #### [facility] [address] [place] [address] ALT No additional P-5'-P [Catalytic activity/Vol] 10 Int._Unit/L Normal 6-46 [facility] Comment on above: Performed By: #### 2 198511, 8921923, 6411556, 0539783, 27833711, 76510943 #### [facility] [address] [place] [address] AST [Catalytic activity/Vol] 13 Int._Unit/L Normal 5-43 [facility] Comment on above: Performed By: #### 2 529908, 8874857, 9112305, 3908930, 36391746, 40202613 #### [facility] [address] [place] [address] Bilirubin [Mass/Vol] 0.7 mg/dL Normal 0.0-1.1 [facility] Comment on above: Performed By: #### 2 120281, 7699281, 7613197, 1654240, 19970339, 46084081 #### [facility] [address] [place] [address] Bilirubin.direct [Mass/Vol] 0.1 mg/dL Normal 0.0-0.4 [facility] Comment on above: Performed By: #### 2 358838, 9313103, 7469786, 3103464, 00902803, 39845372 #### [facility] [address] [place] [address] Bilirubin.indirect [Mass or moles/Vol] 0.6 mg/dL Normal 0.1-0.9 [facility] Comment on above: Performed By: #### 2 662920, 3975224, 7629682, 0297015, 84277965, 55124605 #### [facility] [address] [place] [address] Globulin (S) [Mass/Vol] 2.8 g/dL Normal 1.4-4.0 [facility] Comment on above: Performed By: #### 2 637120, 2326141, 8874499, 8063782, 08323019, 19015015 #### [facility] [address] [place] [address] Protein [Mass/Vol] 7.1 g/dL Normal 6.0-7.8 [facility] Comment on above: Performed By: #### 2 982905, 5982309, 2567224, 8883927, 78286208, 52966041 #### [facility] [address] [place] [address] Lipase Levelon 06-13-2023 Lipase [Catalytic activity/Vol] 78 U/L High 13-58 [facility] Comment on above: Performed By: #### 2 185588, 4760634, 3076883, 4416354, 20415029, 11175322 #### [facility] [address] [place] [address] Prescriptions/Work Noteson 0 06-13-2023 Prescriptions/Work Notes [id number] .[id number] Normal [facility] RAD - Preliminary Cat Scan R eporton 06-13-2023 RAD - Preliminary Cat Scan Report [id number] Normal [facility] SEROLOGYOrdered By: Nanci Hicks on 06-13-2023 Beta HCG ( test) Ql Negative (06/13/23 1:14 PM) Normal [facility] [place] Sero UA with Cult Rflxon 06-13-19 Color (U) Light-Yellow Normal Yellow [facility] Comment on above: Result Comment: Micr oscopic readings are only performed on those samples that meet specific criteria set forth by [facility]. Performed By: #### 4 [id number] #### [facility] [address] [place] [address] Glucose (U) [Mass/Vol] Negative Normal Negative [facility] Comment on above: Performed By: #### 4 [id number] #### [facility] [address] [place] [address] Ketones Ql (U) Negative Normal Negative [facility] Comment on above: Performed By: #### 4 [id number] #### [facility] [address] [place] [address] UA Blood Negative Normal Negative [facility] Comment on above: Performed By: #### 4 [id number] #### [facility] [address] [place] [address] UA Clarity Clear Normal Clear [facility] Comment on above: Performed By: #### 4 [id number] #### [facility] [address] [place] [address] UA Leuk Est Negative Normal Negative [facility] Comment on above: Performed By: #### 4 [id number] #### [facility] [address] [place] [address] UA Nitrite Negative Normal Negative [facility] Comment on above: Performed By: #### 4 [id number] #### [facility] [address] [place] [address] UA pH 6.0 Invalid Interpretation Code 5.0-9.0 [facility] Comment on above: Performed By: #### 4 [id number] #### [facility] [address] [place] [address] UA Protein Negative Normal Negative [facility] Comment on above: Performed By: #### 4 [id number] #### [facility] [address] [place] [address] UA Spec Grav >1.050 Normal 1.005-1.030 [facility] Comment on above: Performed By: #### 4 [id number] #### [facility] [address] [place] [address] UA Urobilinogen Negative Normal Negative [facility] Comment on above: Performed By: #### 4 [id number] #### [facility] [address] [place] [address] Urobilinogen (U) [Mass/Vol] Negative Normal Negative [facility] Comment on above: Performed By: #### 4 [id number] #### [facility] [address] [place] [address] UA Spec Desc Clean Catch Normal [facility] Comment on above: Performed By: #### 4 [id number] #### [facility] [address] [place] [address] URINALYSISOrdered By: Venessa Hicks on 06-13-2023 Color (U) Light-Yellow 1 (06/13/23 4:12 PM) Normal Yellow [facility] [place]A Auto SS Comment on above: Interpretive Data: M icroscopic readings are only performed on those samples that meet specific criteria set forth by [facility]. Glucose (U) [Mass/Vol] Negative Normal Negativemg/dL FT UA Auto SS Ketones Ql (U) Negative (06/13/23 4:12 PM) Normal Negative [facility] UA Auto SS UA Blood Negative Normal Negativegrade d/HPF [facility] UA Auto SS UA Clarity Clear (06/13/23 4:12 PM) Normal Clear [facility] UA Auto SS UA Leuk Est Negative (06/13/23 4:12 PM) Normal Negative [facility] UA Auto SS UA Nitrite Negative Normal Negativemg/dL [facility] UA Aut o SS UA pH 6.0 *NA* (06/13/23 4:12 PM) Invalid Interpretation Code 5.0 - 9.0 [facility] UA Auto SS UA Protein Negative Normal Negativemg/dL [facility] UA Aut o SS UA Spec Grav >1.050 (06/13/23 4:12 PM) Normal 1.005 - 1.030 [facility] UA Auto SS UA Urobilinogen Negative Normal Negative/HPF [facility] UA Auto SS Urobilinogen (U) [Mass/Vol] Negative Normal Negativemg/dL [facility] Auto SS URINALYSISOrdered By: Shan Gusman on 06-13-2023 UA Spec Desc Clean Catch (06/13/23 4:12 PM) Normal [facility] UA Auto SS Work Phone: eGFRon 06-13-2023 eGFR 112 mL/min/1.73 m2 Normal >=59 [facility] Comment on above: Order Comment: Order added by Discern Expert. Performed By: #### 2 [id number], [id number], [id number] #### [facility] [address] [place] [address] US SINGLE QUAD RT UPPERon US SINGLE [...] by: THERESA MCCARTHY Date: 2022-06-12 08:37 Normal [facility] CT CSPINE WO CONon 3 CT CSPINE WO CON EXAMINATION: CT CSPINE WO CON HISTORY: Pain COMPARISON: C-spine CT [...] THERESA ESPAÑA Date: 2022-03-21 22:20 Normal [facility] CT FACIAL BONES WO CONon CT FACIAL [...] THERESA ESPAÑA Date: 2022-03-21 22:43 Normal [facility] CT HEAD WO CONon 03-22-2022 CT HEAD [...] JOSEPH STACK Date: 2022-03-21 22:25 Normal [facility] DRUG SCREEN RAPID (URINE)on 03-22-2022 AMP Negative Normal NEGATIVE [facility] Comment on above: Performed By: #### E RUR, DRUGRPD ####[facility] [address] [place] [address]Dr. Eddy Lindsey BAR Negative Normal NEGATIVE [facility] Comment on above: Performed By: #### E RUR, DRUGRPD ####[facility] Uiydfudbkh[address] [place], [place] [address]Dr. Eddy Lindsey BUP Negative Normal NEGATIVE [facility] Comment on above: Performed By: #### E RUR, DRUGRPD ####[facility] Lfmldwhret[address] [place], [place] [address]Dr. Eddy Lindsey BZO Negative Normal NEGATIVE [facility] Comment on above: Performed By: #### E RUR, DRUGRPD ####[facility] Gmpfqhorgk[address] [place], [place] [address]Dr. Eddy Lindsey OCTAVIO Negative Normal NEGATIVE [facility] Comment on above: Performed By: #### E RUR, DRUGRPD ####[facility] Fshysgtzox[address] [place], [place] [address]Dr. Eddy Lindsey CUT-OFFS SEE BELOW Normal [facility] Comment on above: Result Comment: AMP (Amphetamine): 500ng/mL, BAR (Barbituates): 200 ng/mL, BZO (Benzodiazepines): 150 ng/mL, BUP (Buprenorphine): 10 ng/mL, OCTAVIO (Cocaine): 150 ng/mL, mAMP (Methamphetamine): 500 ng/mL, MTD (Methadone): 200 ng/mL, OPI (Opiates): 100 ng/mL, OXY (Oxycodone): 100 ng/mL, PCP (Phencyclidine): 25 ng/mL, PPX (Propoxyphene): 300 ng/mL, THC (Cannabinoids): 50 ng/mL, TCA (Trycyclic Antidepressants): 300 ng/mL Performed By: #### E RUR, DRUGRPD ####[facility] [address] [place] [address]Dr. Eddy Lindsey DRUG CUT HEADER DRUG CLASS TEST SYSTEM CUT-OFF CONCENTRATIONS ARE FOLLOWS: Normal [facility] Comment on above: Performed By: #### E RUR, DRUGRPD ####[facility] Tudlkiqbeh[address] [place] [address]Dr. Eddy Lindsey mAMP Negative Normal NEGATIVE [facility] Comment on above: Performed By: #### E RUR, DRUGRPD ####[facility] Qwynfyuqln[address] [place], [place] [address]Dr. Eddy Lindsey MTD Negative Normal NEGATIVE [facility] Comment on above: Performed By: #### E RUR, DRUGRPD ####[facility] Onnukkxwpi[address] [place], [place] [address]Dr. Eddy Lindsey OPI Negative Normal NEGATIVE [facility] Comment on above: Performed By: #### E RUR, DRUGRPD ####[facility] Njcrznpdjl[address] [place], [place] [address]Dr. Eddy Lindsey OXY Negative Normal NEGATIVE [facility] Comment on above: Performed By: #### E RUR, DRUGRPD ####[facility] Jcqxmitpbo[address] [place], [place] [address]Dr. dEdy Lindsey PCP Negative Normal NEGATIVE [facility] Comment on above: Performed By: #### E RUR, DRUGRPD ####[facility] Pylowqygqi[address] [place], [place] [address]Dr. Eddy Lindsey PPX Negative Normal NEGATIVE [facility] Comment on above: Performed By: #### E RUR, DRUGRPD ####[facility] Osnmxclukv[address] [place], [place] [address]Dr. Eddy Lindsey TCA Negative Normal NEGATIVE [facility] Comment on above: Performed By: #### E RUR, DRUGRPD ####[facility] Uerjouhmez[address] [place], [place] [address]Dr. Eddy Lindsey THC Negative Normal NEGATIVE [facility] Comment on above: Performed By: #### E RUR, DRUGRPD ####[facility] Gdrrclkpqo4[address] [place], [place] [address]Dr. Eddy Lindsey ER URINE PROFILEon 3 Bilirubin Ql (U) Negative Normal NEGATIVE The [facility] Comment on above: Performed By: #### E RUR, DRUGRPD ####[facility] Qsxgbjjonn[address] [place], [place] [address]Dr. Eddy Lindsey Clarity (U) CLEAR Normal CLEAR [facility] Comment on above: Performed By: #### E RUR, DRUGRPD ####[facility] Kezhmqznqn[address] [place], [place] [address]Dr. Eddy Lindsey Color (U) LT. YELLOW Normal YELLOW [facility] Comment on above: Performed By: #### E RUR, DRUGRPD ####[facility] Geyqiexixu[address] [place], [place] [address]Dr. Eddy Lindsey ERUAHD A micrscopic examination will be performed if indicated. Normal [facility] Comment on above: Performed By: #### E RUR, DRUGRPD ####[facility] Ogbtcfeisb[address] [place], [place] [address]Dr. Eddy Lindsey Glucose Ql (U) Negative Normal NEGATIVE [facility] Comment on above: Performed By: #### E RUR, DRUGRPD ####[facility] Cqekuhrtjg[address] [place], [place] [address]Dr. Dorothealanden Lindsey Hemoglobin Ql (U) Negative Normal NEGATIVE [facility] Comment on above: Performed By: #### E RUR, DRUGRPD ####[facility] Sqzugkqkjq[address] [place], [place] [address]Dr. Eddy Lindsey Ketones Ql (U) Negative Normal NEGATIVE [facility] Comment on above: Performed By: #### E RUR, DRUGRPD ####[facility] Mqtnhxgkzz99[address] [place], [place] [address]Dr. Dorothealan Lindsey LEUKOCYTES Negative Normal NEGATIVE [facility] Comment on above: Performed By: #### E RUR, DRUGRPD ####[facility] Jbemayyzcv[address] [place], [place] [address]Dr. Dorothealanden Lindsey Nitrite Ql (U) Negative Normal NEGATIVE [facility] Comment on above: Performed By: #### Tiff GALEAS DRUGRPD ####[facility] [address] [place] [address]Dr. Eddy Lindsey pH (U) 5.0 [pH] Normal 5-9 [facility] Comment on above: Performed By: #### Tiff GALEAS DRUGRPD ####[facility] [address]yqje[address] [place] [address]Dr. Dorothealanden Lindsey SPEC GRAVITY <=1.005 Abnormal 1.005-<=1.025 The [facility] Comment on above: Performed By: #### Tiff GALEAS DRUGSHARIFAD ####[facility] Bsseifgkdl[address] [place], [place] [address]Dr. Eddy Lindsey UA PROTEIN Negative Normal NEGATIVE/ TRACE [facility] Comment on above: Performed By: #### Tiff GALEAS DRUGRPD ####[facility] Mawmogtbpl[address] [place], [place] [address]Dr. Dorothealanden Lindsey UR MICRO IND NOT INDICATED Normal The [facility] Comment on above: Performed By: #### Tiff GALEAS DRUGSHARIFAD ####[facility] Hoshnabqiq[address] [place], [place] [address]Dr. Eddy César Urobilinogen Qn (U) 0.2 {Nikki'U}/dL Normal 0.2 - 1. 0 [facility] Comment on above: Performed By: #### Tiff GALEAS DRUGRPD ####[facility] Jcycyancnx[address] [place], [place] [address]Dr. Dorothealanden Lindsey XR HAND NELLY MIN 3Von 023 [...] delineate. Right hand: No fracture. Normal [facility] CBC AUTO DIFFon 03-21-2022 BASO # 0.1 103/ul Normal 0.0-0.1 [facility] Comment on above: Performed By: #### C BC ####[facility] [address] [place] [address]Dr. Eddy Lindsey Basophils/100 WBC (Bld) 0.5 % Normal 0.2-2.0 [facility] Comment on above: Performed By: #### C BC ####[facility] [address]pxb[address] [place] [address]Dr. Eddy Lindsey EO # 0.1 103/ul Normal 0.0-0.7 [facility] Comment on above: Performed By: #### C BC ####[facility] P[address]xcwl[address] [place], [place] [address]Dr. Eddy Lindsey Eosinophils/100 WBC (Bld) 0.7 % Critically low 0.9-7.0 [facility] Comment on above: Performed By: #### C BC ####[facility] Bdwrctjnxi[address] [place], [place] [address]Dr. Eddy Lindsey Erythrocyte distribution width (RBC) [Ratio] 11.7 % Normal 11.0-15.0 [facility] Comment on above: Performed By: #### C BC ####[facility] Qcphkvxyxz[address] [place], [place] [address]Dr. Eddy Lindsey Hematocrit (Bld) [Volume fraction] 42.9 % Normal 36.0-48.0 [facility] Comment on above: Performed By: #### C BC ####[facility] Jsyzboiuno[address] [place], [place] [address]Dr. Eddy Lindsey Hemoglobin (Bld) [Mass/Vol] 14.6 g/dL Normal 12.0-16.0 [facility] Comment on above: Performed By: #### C BC ####[facility] [address]xd[address] [place] [address]Dr. Eddy Lindsey IG # 0.07 10e3/ul Critically high 0.00-0.03 The [facility] Comment on above: Performed By: #### C BC ####[facility] [address]ts[address] [place] [phone]. Eddy Lindsey IG % 0.7 % Critically high 0.0-0.5 The [facility] Comment on above: Performed By: #### C BC ####[facility] [address] [place] [phone]. Eddy Lindsey LYMPH # 1.6 103/ul Normal 1.2-3.8 [facility] Comment on above: Performed By: #### C BC ####[facility] [address]xbpwjnoh[address] [place] [phone]. Eddy Lindsey Lymphocytes/100 WBC (Bld) 15.4 % Critically low 20.5-60.0 [facility] Comment on above: Performed By: #### C BC ####[facility] [address]jc[address] [place] [address]Dr. Eddy César MANUAL DIFF REQ NO Normal The [facility] Comment on above: Performed By: #### C BC ####[facility] [address]ml[address] [place] [address]Dr. Eddy Lindsey MCH (RBC) [Entitic mass] 31.3 pg Normal 26.7-34.0 [facility] Comment on above: Performed By: #### C BC ####[facility] [address]ym[address] [place] [phone]. Eddy Lindsey MCHC (RBC) [Mass/Vol] 34.0 g/dL Normal 29.9-35.2 [facility] Comment on above: Performed By: #### C BC ####[facility] [address]hcva[address] [place] [phone]. Eddy Lindsey MCV (RBC) [Entitic vol] 92.1 fL Normal 81.0-99.0 [facility] Comment on above: Performed By: #### C BC ####[facility] [address] [place] [address]Dr. Eddy César MONO # 0.5 103/ul Normal 0.3-0.8 [facility] Comment on above: Performed By: #### C BC ####[facility] [address]qq[address]ut[address] [place] [id number]. Eddy Lindsey Monocytes/100 WBC (Bld) 5.3 % Normal 1.7-12.0 [facility] Comment on above: Performed By: #### C BC ####[facility] [address]xe[address] [place] [phone]. Eddy Lindsey NEUT # 7.8 103/ul Critically high 1.4-6.5 The [facility] Comment on above: Performed By: #### C BC ####[facility] [address] [place] [address]Dr. Eddy Lindsey Neutrophils/100 WBC (Bld) 77.4 % Critically high 43.0-75.0 [facility] Comment on above: Performed By: #### C BC ####[facility] [address]okt[address] [place] [address]Dr. Eddy Lindsey Platelet mean volume (Bld) [Entitic vol] 9.0 fL Critically low 9.5-13.5 [facility] Comment on above: Performed By: #### C BC ####[facility] [address]pen[address] [place] [phone]. Eddy Lindsey PLT 291 103/ul Normal 150-450 [facility] Comment on above: Performed By: #### C BC ####[facility] F[address]jqgf[address] [place] [phone]. Eddy Lindsey RBC 4.66 106/ul Normal 4.20-5.40 [facility] Comment on above: Performed By: #### C BC ####[facility] [address]ct[address] [place] [phone]. Eddy Lindsey WBC 10.1 103/ul Normal 4.0-11.0 [facility] Comment on above: Performed By: #### C BC ####[facility] Y[address] [place], [place] [address]Dr. Eddy Lindsey ETHANOL (BLD ALC)on 03-21-20 ALC NOTE NOTE: 80 mg/dl is th e legal limit for a blood alcohol level Normal [facility] Comment on above: Performed By: #### E TH #### [facility] [address] [address] [address] Eddy Lindsey Ethanol [Mass/Vol] 204 mg/dL Normal [facility] Comment on above: Performed By: #### E TH #### [facility] [address] [address] [address] Eddy Lindsey PROF 14(COMP METB)on 022 Albumin [Mass/Vol] 3.9 g/dL Normal 3.4-5.0 [facility] Comment on above: Performed By: #### C MP ####[facility] [address]rfx[address] [place] [address]Dr. Eddy Lindsey Albumin/Globulin [Mass ratio] 1.3 {ratio} Normal [facility] Comment on above: Performed By: #### C MP ####[facility] [address]vx[address]ajy[address] [place] [address]Dr. Eddy Lindsey ALP [Catalytic activity/Vol] 78 U/L Normal 46-116 [facility] Comment on above: Performed By: #### C MP ####[facility] T[address]ces[address]fc[address] [place] [address]Dr. Eddy Lindsey ALT [Catalytic activity/Vol] 27 U/L Normal 14-59 [facility] Comment on above: Performed By: #### C MP ####[facility] Q[address]behwlza[address] [place] [address]Dr. Eddy Lindsey Anion gap [Moles/Vol] 18.2 mmol/L Normal [facility] Comment on above: Performed By: #### C MP ####[facility] K[address] [place] [address]Dr. Eddy Lindsey AST [Catalytic activity/Vol] 22 U/L Normal 15-37 [facility] Comment on above: Performed By: #### C MP ####[facility] Eff[address]li[address] [place] [address]Dr. Eddy Lindsey Bilirubin [Mass/Vol] 0.3 mg/dL Normal 0.2-1.0 [facility] Comment on above: Performed By: #### C MP ####[facility] [address]oculpm[address] [place] [phone]. Eddy Lindsey Calcium [Mass/Vol] 8.7 mg/dL Normal 8.5-10.1 [facility] Comment on above: Performed By: #### C MP ####[facility] [address]yq[address] [place] [address]Dr. Eddy Lindsey Chloride [Moles/Vol] 102 mmol/L Normal 98-107 [facility] Comment on above: Performed By: #### C MP ####[facility] Embxjzjlaa[address] [place] [address]Dr. Eddy Lindsey CO2 [Moles/Vol] 20.1 mmol/L Critically low 21.0-32.0 [facility] Comment on above: Performed By: #### C MP ####[facility] [address]ec[address]afz[address] [place] [address]Dr. Eddy Lindsey Creatinine [Mass/Vol] 1.04 mg/dL Critically high 0.55-1.02 [facility] Comment on above: Performed By: #### C MP ####[facility] [address] [place] [address]Dr. Eddy Lindsey EGFR-AF KENYAN >60 Normal >=60 [facility] Comment on above: Performed By: #### C MP ####[facility] [address] [place] [address]Dr. Eddy Lindsey EGFR-NON AF KENYAN 59 mL/min/1.73m2 Critically low >=60 [facility] Comment on above: Performed By: #### C MP ####[facility] [address]ixoe[address] [place] [address]Dr. Eddy César Globulin (S) [Mass/Vol] 2.9 g/dL Normal [facility] Comment on above: Performed By: #### C MP ####[facility] [address] [place] [address]Dr. Eddy César Glucose [Mass/Vol] 132 mg/dL Critically high 74-106 T [facility] Comment on above: Performed By: #### C MP ####[facility] [address]xc[address]urbj[address] [place] [address]Dr. Eddy Lindsey Potassium [Moles/Vol] 3.3 mmol/L Critically low 3.5-5.1 [facility] Comment on above: Performed By: #### C MP ####[facility] [address]eb[address]qau[address] [place] [address]Dr. Eddy Lindsey Protein [Mass/Vol] 6.8 g/dL Normal 6.4-8.2 [facility] Comment on above: Performed By: #### C MP ####[facility] [address]xf[address] [place] [address]Dr. Eddy Lindsey Sodium [Moles/Vol] 137 mmol/L Normal 136-145 [facility] Comment on above: Performed By: #### C MP ####[facility] [address] [place] [address]Dr. Eddy Lindsey Urea nitrogen [Mass/Vol] 18.0 mg/dL Normal 7.0-18.0 [facility] Comment on above: Performed By: #### C MP ####[facility] Cam[address]wrwg[address] [place] [address]Dr. Eddy Lindsey Urea nitrogen/Creatinine [Mass ratio] 17.3 mg/mg Normal [facility] Comment on above: Performed By: #### C MP ####[facility] [address]pef[address]vb[address] [place] [address]Dr. Eddy Lindsey XR CHEST 1 Von 03-21-2022 XR CHEST 1 V EXAMINATION: XR CHES [...] by: THERESA ESPAÑA Date: 2022-03-21 21:30 Normal [facility] XR LSPINE MIN 4 VIEWSon 12-0 XR [...] by: THERESA PATEL Date: 2022-02-26 12:42 Normal [facility] CT CHEST W CONon 01-19-2022 CT CHEST [...] THERESA PATEL Date: 2022-01-19 07:48 Normal [facility] CT HUMERUS RT WO CONon 01-04 CT [...] ESTHER VAZQUEZ Date: 2022-01-04 21:32 Normal [facility] US BLADDERon 11-13-2021 US BLADDER EXAMINATION: US [...] ESTHER VAZQUEZ Date: 2021-11-13 06:53 Normal [facility] CULTURE URINEon 10-30-2021 CULTURE URINE Isolate 1 Klebsiella pneumoniae >100,000 cfu/mL of ORGANISM 1 Klebsiella pneumoniae ANTIBIOTIC M.I.C RX STATUS Ampicillin 16 R F Ampicillin/Sulbactam 4 S F Piperacillin/Tazobact am <=4 S F Cefazolin <=4 S F Ceftazidime <=1 S F Ceftriaxone <=1 S F Ertapenem <=0.5 S F Imipenem <=0.25 S F Amikacin <=2 S F Gentamicin <=1 S F Tobramycin <=1 S F Ciprofloxacin <=0.25 S F Levofloxacin <=0.12 S F Nitrofurantoin 64 I F Trimethoprim/Sulfamet hoxazole <=20 S F Normal [facility] Comment on above: Performed By: #### U RCX ####[facility] [address] [place], [place] [address] ABD/PELV W CONon 10-30-19 22 [...] THERESA PATEL Date: 2021-10-29 14:20 Normal [facility] CARDIAC JORGE ALBERTO ADMITon 022 CK [Catalytic activity/Vol] 18 U/L Critically low 26-192 [facility] Comment on above: Performed By: #### C ALEXY, CMADM #### [facility] [address] [address] [address] Eddy Lindsey CK.MB [Mass/Vol] ng/mL Normal <=3.60 The [facility] Comment on above: Performed By: #### C ALEXY, CMADM #### [facility] [address] [address] [address] Eddy Lindsey HSTROP 4.1 pg/mL Normal 4.0-51.3 [facility] Comment on above: Result Comment: CUT- OFF POINTS HAVE BEEN ESTABLISHED BASED ON THE FOURTH UNIVERSAL DEFINITIONS OF MYOCARDIAL INFARCTION. THE UPPER REFERENCE LIMIT (URL) OF TROPONIN, DEFINED THE 99TH PERCENTILE OF cTnI DISTRIBUTION IN A REFERENCE POPULATION, HAS BEEN CONFIRMED THE DECISION THRESHOLD FOR [place] DIAGNOSIS. Performed By: #### C ALEXY, CMADM #### [facility] [address] [address] [address] Eddy Lindsey CHARLENE 35 ng/mL Normal 9-82 [facility] Comment on above: Performed By: #### C ALEXY, CMADM #### [facility] [address] [place], [place] [address] Dr. Eddy Lindsey CBC AUTO DIFFon 10-28-2021 BASO # 0.0 103/ul Normal 0.0-0.1 [facility] Comment on above: Performed By: #### C BC ####[facility] [address] [place] [id number] Lindsey Basophils/100 WBC (Bld) 0.3 % Normal 0.2-2.0 [facility] Comment on above: Performed By: #### C BC ####[facility] Zftsx[address]oo[address] [place] [phone]. Eddy Lindsey EO # 0.0 103/ul Normal 0.0-0.7 [facility] Comment on above: Performed By: #### C BC ####[facility] [address] [place] [address]Dr. Eddy Lindsey Eosinophils/100 WBC (Bld) 0.2 % Critically low 0.9-7.0 [facility] Comment on above: Performed By: #### C BC ####[facility] [address]xlcxvmphm[address] [place] [address]DrWalt Lindsey Erythrocyte distribution width (RBC) [Ratio] 12.5 % Normal 11.0-15.0 [facility] Comment on above: Performed By: #### C BC ####[facility] Lfirekpdpm[address] [place] [phone]. Eddy Lindsey Hematocrit (Bld) [Volume fraction] 47.7 % Normal 36.0-48.0 [facility] Comment on above: Performed By: #### C BC ####[facility] [address]gvxoyjxmw[address] [place] [phone] Lindsey Hemoglobin (Bld) [Mass/Vol] 15.6 g/dL Normal 12.0-16.0 [facility] Comment on above: Performed By: #### C BC ####[facility] [address]pxqja[address]mo[address] [place] [phone]. Eddy Lindsey IG # 0.09 10e3/ul Critically high 0.00-0.03 [facility] Comment on above: Performed By: #### C BC ####[facility] Axcds[address]jqe[address] [place] [phone] Eddy César IG % 1.0 % Critically high 0.0-0.5 [facility] Comment on above: Performed By: #### C BC ####[facility] Qpoqzrdtmd[address] [place] [phone] Eddy César LYMPH # 1.2 103/ul Normal 1.2-3.8 [facility] Comment on above: Performed By: #### C BC ####[facility] Evhp[address]reoc[address] [place] [address]DrWalt Dorothealanden Lindsey Lymphocytes/100 WBC (Bld) 12.7 % Critically low 20.5-60.0 [facility] Comment on above: Performed By: #### C BC ####[facility] [address]uhmntdp[address] [place] [address]DrWalt Dorothealanden Lindsey MANUAL DIFF REQ NO Normal [facility] Comment on above: Performed By: #### C BC ####[facility] Fjdulpsxqo[address] [place] [phone]. Eddy César MCH (RBC) [Entitic mass] 32.2 pg Normal 26.7-34.0 [facility] Comment on above: Performed By: #### C BC ####[facility] Socqnogrhw[address] [place] [address]Dr. Eddy César MCHC (RBC) [Mass/Vol] 32.7 g/dL Normal 29.9-35.2 [facility] Comment on above: Performed By: #### C BC ####[facility] Ymxonjdfra[address]99 [place] [phone] Eddy César MCV (RBC) [Entitic vol] 98.6 fL Normal 81.0-99.0 [facility] Comment on above: Performed By: #### C BC ####[facility] [address]hkpmthlb[address] [place] [phone] Lindsey MONO # 0.7 103/ul Normal 0.3-0.8 [facility] Comment on above: Performed By: #### C BC ####[facility] Vdzibrfgxh[address] [place] [address]Dr. Eddy Lindsey Monocytes/100 WBC (Bld) 8.0 % Normal 1.7-12.0 [facility] Comment on above: Performed By: #### C BC ####[facility] [address] [id number]. Eddy Linsdey NEUT # 7.2 103/ul Critically high 1.4-6.5 [facility] Comment on above: Performed By: #### C BC ####[facility] [address] [address]Dr. Eddy Lindsey Neutrophils/100 WBC (Bld) 77.8 % Critically high 43.0-75.0 [facility] Comment on above: Performed By: #### C BC ####[facility] [address] [address]Dr. Eddy Lindsey Platelet mean volume (Bld) [Entitic vol] 8.7 fL Critically low 9.5-13.5 [facility] Comment on above: Performed By: #### C BC ####[facility] [address] [place], [place] [address]Dr. Eddy Lindsey PLT 311 103/ul Normal 150-450 [facility] Comment on above: Performed By: #### C BC ####[facility] [address] [address]Dr. Eddy Lindsey RBC 4.84 106/ul Normal 4.20-5.40 [facility] Comment on above: Performed By: #### C BC ####[facility] [address] [id number]. Eddy Lindsey WBC 9.3 103/ul Normal 4.0-11.0 [facility] Comment on above: Performed By: #### C BC ####[facility] [address] [address]Dr. Eddy Lindsey D-DIMERon 10-28-2021 D-DIMER 0.21 mg/L FEU Normal <=0.59 [facility] Comment on above: Performed By: #### D DIM ####[facility] [address] [address]Dr. Eddy Lindsey D-DIMER COMMENTS SEE BELOW Normal [facility] Comment on above: Result Comment: Incr eases [...] generalized hospitalization. Performed By: #### D DIM ####[facility] [address] [address]Dr. Eddy RANDOLPH URINE PROFILEon 2 Bilirubin Ql (U) Negative Normal NEGATIVE [facility] Comment on above: Performed By: #### ESTEVAN HENLEY, ERUR #### [facility] [address] [address] [address] Eddy Linsdey Clarity (U) CLEAR Normal CLEAR [facility] Comment on above: Performed By: #### ESTEVAN HENLEY, ERUR #### [facility] [address] [address] [address] Eddy Lindsey Color (U) LT. YELLOW Normal YELLOW [facility] Comment on above: Performed By: #### ESTEVAN HENLEY, ERUR #### [facility] [address] [address] [address] Eddy VASQUES A micrscopic examination will be performed if indicated. Normal [facility] Comment on above: Performed By: #### ESTEVAN HENLEY, ERUR #### [facility] [address] [address] [address] Eddy Lindsey Glucose Ql (U) Negative Normal NEGATIVE [facility] Comment on above: Performed By: #### ESTEVAN HENLEY, ERUR #### [facility] [address] [address] [address] Eddy Lindsey Hemoglobin Ql (U) Negative Normal NEGATIVE [facility] Comment on above: Performed By: #### P REGESTEVAN Ryan, ERUR #### [facility] [address] [place] [address] Dr. Eddy Lindsey Ketones Ql (U) Negative Normal NEGATIVE [facility] Comment on above: Performed By: #### P REGUKATHERINEICJANELL, ERUR #### [facility] [address] [place] [address] Dr. Eddy Lindsey LEUKOCYTES Negative Normal NEGATIVE [facility] Comment on above: Performed By: #### P REGESTEVAN Ryan, ERUR #### [facility] [address] [place] [address] Dr. Eddy Lindsey Nitrite Ql (U) Positive Abnormal NEGATIVE [facility] Comment on above: Performed By: #### P ESTEVAN BATISTA, ERUR #### [facility] [address] [address] [address] Eddy Lindsey pH (U) 7.0 [pH] Normal 5-9 [facility] Comment on above: Performed By: #### P ESTEVAN BATISTA, ERUR #### [facility] [address] [place] [address] Dr. Eddy Lindsey SPEC GRAVITY 1.015 Normal 1.005-<=1.025 The [facility] Comment on above: Performed By: #### P ESTEVAN BATISTA, ERUR #### [facility] [address] [place] [address] Dr. Eddy Lindsey UA PROTEIN Negative Normal NEGATIVE/ TRACE [facility] Comment on above: Performed By: #### P ESTEVAN BATISTA, ERUR #### [facility] [address] [place] [address] Dr. Eddy Lindsey UR MICRO IND INDICATED Normal [facility] Comment on above: Performed By: #### P REGESTEVAN Ryan, ERUR #### [facility] [address] [place] [address] Dr. Eddy Lindsey Urobilinogen Qn (U) 0.2 {Nikki'U}/dL Normal 0.2 - 1. 0 [facility] Comment on above: Performed By: #### P ESTEVAN BATISTA ERUR #### [facility] [address] [address] [address] Eddy Lindsey URon 10-28-2021 , QUAL Negative Normal NEGATIVE The [facility] Comment on above: Performed By: #### P ESTEVAN BATISTA, CYNTHIAR #### [facility] [address] [address] [address] Eddy Lindsey PROF 14(COMP METB)on 022 Albumin [Mass/Vol] 3.5 g/dL Normal 3.4-5.0 [facility] Comment on above: Performed By: #### C ALEXY, JACKI #### [facility] [address] [place] [address] Dr. Eddy Lindsey Albumin/Globulin [Mass ratio] 1.2 {ratio} Normal [facility] Comment on above: Performed By: #### C ALEXY, PAXTONDM #### [facility] [address] [address] [address] Eddy Lindsey ALP [Catalytic activity/Vol] 60 U/L Normal 46-116 [facility] Comment on above: Performed By: #### C ALEXY, PAXTONDM #### [facility] [address] [address] [address] Eddy Lindsey ALT [Catalytic activity/Vol] 26 U/L Normal 14-59 [facility] Comment on above: Performed By: #### C ALEXY, CMADM #### [facility] [address] [address] [address] Eddy Lindsey Anion gap [Moles/Vol] 8.4 mmol/L Normal [facility] Comment on above: Performed By: #### C ALEXY, CMADM #### [facility] [address] [address] [address] Eddy Lindsey AST [Catalytic activity/Vol] 15 U/L Normal 15-37 [facility] Comment on above: Performed By: #### C ALEXY, PAXTONDM #### [facility] [address] [address] [address] Eddy Lindsey Bilirubin [Mass/Vol] 0.7 mg/dL Normal 0.2-1.0 [facility] Comment on above: Performed By: #### C MP, CMADM #### [facility] [address] [place] [address] Dr. Eddy Lindsey Calcium [Mass/Vol] 8.9 mg/dL Normal 8.5-10.1 [facility] Comment on above: Performed By: #### C MP, CMADM #### [facility] [address] [place] [address] Dr. Eddy Lindsey Chloride [Moles/Vol] 104 mmol/L Normal 98-107 [facility] Comment on above: Performed By: #### C MP, CMADM #### [facility] [address] [place] [address] Dr. Eddy Lindsey CO2 [Moles/Vol] 30.7 mmol/L Normal 21.0-32.0 [facility] Comment on above: Performed By: #### C MP, CMADM #### [facility] [address] [place] [address] Dr. Eddy Lindsey Creatinine [Mass/Vol] 0.74 mg/dL Normal 0.55-1.02 [facility] Comment on above: Performed By: #### C MP, CMADM #### [facility] [address] [place] [address] Dr. Eddy Lindsey EGFR-AF KENYAN >60 Normal >=60 [facility] Comment on above: Performed By: #### C MP, CMADM #### [facility] [address] [place] [address] Dr. Eddy Lindsey EGFR-NON AF KENYAN >60 Normal >=60 [facility] Comment on above: Performed By: #### C MP, CMADM #### [facility] [address] [place] [address] Dr. Eddy Lindsey Globulin (S) [Mass/Vol] 3.0 g/dL Normal [facility] Comment on above: Performed By: #### C MP, CMADM #### [facility] [address] [address] [address] Eddy Lindsey Glucose [Mass/Vol] 107 mg/dL Critically high 74-106 [facility] Comment on above: Performed By: #### C MP, CMADM #### [facility] [address] [address] [address] Eddy Lindsey Potassium [Moles/Vol] 4.1 mmol/L Normal 3.5-5.1 [facility] Comment on above: Performed By: #### C MP, CMADM #### [facility] [address] [address] [address] Eddy Lindsey Protein [Mass/Vol] 6.5 g/dL Normal 6.4-8.2 [facility] Comment on above: Performed By: #### C MP, CMADM #### [facility] [address] [address] [address] Eddy Lindsey Sodium [Moles/Vol] 139 mmol/L Normal 136-145 [facility] Comment on above: Performed By: #### C MP, CMADM #### [facility] [address] [address] [address] Eddy Lindsey Urea nitrogen [Mass/Vol] 16.0 mg/dL Normal 7.0-18.0 [facility] Comment on above: Performed By: #### C MP, CMADM #### [facility] [address] [address] [address] Eddy Lindsey Urea nitrogen/Creatinine [Mass ratio] 21.6 mg/mg Normal [facility] Comment on above: Performed By: #### C MP, CMADM #### [facility] [address] [address] [address] Eddy Lindsey URINE MICROSCOPIC ONLYon BACTERIA SMALL Abnormal NONE SEEN [facility] Comment on above: Performed By: #### P ESTEVAN BATISTA, ERUR #### [facility] [address] [address] [address] Eddy Lindsey Bacteria identified Cx Nom (U) INDICATED Normal [facility] Comment on above: Performed By: #### P REGU, UMICRO, ERUR #### [facility] [address] [address] [address] Eddy Lindsey CAST NONE SEEN Normal NONE SEEN [facility] Comment on above: Performed By: #### P REGU, UMICRO, ERUR #### [facility] [address] [address] [address] Eddy Lindsey Crystals LM Nom (Urine sed) NONE SEEN Normal NONE SEEN [facility] Comment on above: Performed By: #### P REGU, UMICRO, ERUR #### [facility] [address] [address] [address] Eddy Lindsey Epithelial cells LM Ql (Urine sed) RARE Normal NONE SEEN /RARE [facility] Comment on above: Performed By: #### P REGU, UMICRO, ERUR #### [facility] [address] [address] [address] Eddy Lindsey MUCOUS NONE SEEN Normal NONE SEEN [facility] Comment on above: Performed By: #### P KATHERINE BATISTAICRO, ERUR #### [facility] [address] [address] [address] Eddy Lindsey RBC NONE SEEN Abnormal 0-2 [facility] Comment on above: Performed By: #### P TAMARAU, KATHERINEICRO, ERUR #### [facility] [address] [address] [address] Eddy Lindsey WBC NONE SEEN Normal NONE SEEN [facility] Comment on above: Performed By: #### P KATHERINE BATISTAICRO, ERUR #### [facility] [address] [address] [address] Eddy Lindsey XR CHEST 1 Von [...] by: THERESA MCCARTHY Date: 2021-10-28 10:56 Normal [facility] CNCOon 09-06-2018 CNCO Letter Text Normal [facility] ANES Nicholas 09-02-2018 ANES POST HNO ID: [id number] Author: Ravinder Benjamin Service: Anesthesiology Author Type: [...] 02, 2018 TIME: 4:38 PM PAGER/CONTACT #: [phone] Normal [facility] Basic Metabolic Panlon 09-02 Anion gap [Moles/Vol] 11 mmol/L Normal 12-07 [facility] Comment on above: Performed By: #### C BCLUKE, BMP #### [facility] [address] [address] Calcium [Mass/Vol] 9.9 mg/dL Normal 8.5-10.2 [facility] Comment on above: Performed By: #### C BCSONAF, BMP #### [address] [place] [address] Chloride [Moles/Vol] 104 mmol/L Normal 97-105 [facility] Comment on above: Performed By: #### C BCSONAF, BMP #### [place] [address] CO2 [Moles/Vol] 26 mmol/L Normal 22-30 [facility] Comment on above: Performed By: #### C ALBERTA, BMP #### [place] [address] Creatinine [Mass/Vol] 0.77 mg/dL Normal 0.58-0.96 [facility] Comment on above: Performed By: #### Agusto BCSONAF, BMP #### [place] [address] eGFR- Amer. >60 Normal [facility] Comment on above: Performed By: #### C BCSONAF, BMP #### [place] [address] GFR/1.73 sq M predicted among non-blacks MDRD (S/P/Bld) [Vol rate/Area] mL/min/{1.73_m2} Normal [facility] Comment on above: Result Comment: eGFR (Estimated [...] reflect actual GFR. Performed By: #### C BCDIF, BMP #### [facility] [address] [place], [place] [address] Glucose [Mass/Vol] 88 mg/dL Normal 74-99 [facility] Comment on above: Result Comment: The [place] Diabetes Association (ADA) provides guidance for cutoff [...] Standards of Medical Care in Diabetes 2016, [place] Diabetes Association. Diabetes Care. 2016.39(Suppl 1). Performed By: #### C BCDIF, BMP #### [facility] [address] [place], [place] [address] Potassium [Moles/Vol] 4.6 mmol/L Normal 3.7-5.1 [facility] Comment on above: Result Comment: Resu lts may be falsely increased due to interference by hemolysis. Suggest reorder as clinically indicated. Performed By: #### C BCDIF, BMP #### [facility] [address] [place], [place] [address] Sodium [Moles/Vol] 141 mmol/L Normal 136-144 [facility] Comment on above: Performed By: #### C BCDIF, BMP #### [facility] [address] [place], [place] [address] Urea nitrogen [Mass/Vol] 10 mg/dL Normal 7-21 [facility] Comment on above: Performed By: #### C BCDIF, BMP #### [facility] [address] [place], [place] [address] CBC and Differentialon 09-02 Abs Baso 0.06 k/uL Normal <0.11 [facility] Comment on above: Performed By: #### C BCDIF, BMP #### [facility] [address] [phone] Abs Linn 0.65 k/uL Normal <0.87 [facility] Comment on above: Performed By: #### C BCDIF, BMP #### [address] [place] [phone] Abs Neut 5.30 k/uL Normal 1.45-7.50 [facility] Comment on above: Performed By: #### C BCDIF, BMP #### [address] [place] [phone] Absolute nRBC <0.01 Normal <0.01 [facility] Comment on above: Performed By: #### C BCDIF, BMP #### [address] [place] [phone] Basophils/100 WBC (Bld) 0.7 % Normal [facility] Comment on above: Performed By: #### C BCDIF, BMP #### [address] [place] [phone] DTYPE Auto Diff Normal [facility] Comment on above: Performed By: #### C BCDIF, BMP #### [address] [place] [phone] Eosinophils (Bld) [#/Vol] 0.06 10*3/uL Normal <0.46 [facility] Comment on above: Performed By: #### C BCDIF, BMP #### [address] [place] [phone] Eosinophils/100 WBC (Bld) 0.7 % Normal [facility] Comment on above: Performed By: #### C BCDIF, BMP #### [address] [place] [phone] Erythrocyte distribution width (RBC) [Ratio] 12.3 % Normal 11.5-15.0 [facility] Comment on above: Performed By: #### C BCDIF, BMP #### [address] [place], [place] [address] Hematocrit (Bld) [Volume fraction] 49.5 % High 36.0-46.0 [facility] Comment on above: Performed By: #### C BCDIF, BMP #### [address] [address] Hemoglobin (Bld) [Mass/Vol] 16.4 g/dL High 11.5-15.5 [facility] Comment on above: Performed By: #### C BCDIF, BMP #### [address] [address] Lymphocytes (Bld) [#/Vol] 2.35 10*3/uL Normal 1.00-4.00 [facility] Comment on above: Performed By: #### C BCDIF, BMP #### [address] [address] Lymphocytes/100 WBC (Bld) 27.8 % Normal [facility] Comment on above: Performed By: #### C BCDIF, BMP #### [address] [address] MCH (RBC) [Entitic mass] 32.2 pG Normal 26.0-34.0 [facility] Comment on above: Performed By: #### C BCDIF, BMP #### [address] [place], [place] [address] MCHC (RBC) [Mass/Vol] 33.1 g/dL Normal 30.5-36.0 [facility] Comment on above: Performed By: #### C BCDIF, BMP #### [address] [address] MCV (RBC) [Entitic vol] 97.2 fL Normal 80.0-100.0 [facility] Comment on above: Performed By: #### C BCLUKE, BMP #### [facility] [address] [place], [place] [address] Monocytes/100 WBC (Bld) 7.7 % Normal [facility] Comment on above: Performed By: #### C BCLUKE, BMP #### [address] [place], [place] [address] Neutrophils/100 WBC (Bld) 63.1 % Normal [facility] Comment on above: Performed By: #### C BCLUKE, BMP #### [address] [address] NRBCs 0.0 /100 WBC Normal 0 [facility] Comment on above: Performed By: #### C BCLUKE, BMP #### [address] [address] Platelet mean volume (Bld) [Entitic vol] 9.5 fL Normal 9.0-12.7 [facility] Comment on above: Performed By: #### C BCLUKE, BMP #### [address] [place], [place] [address] Platelets (Bld) [#/Vol] 373 10*3/uL Normal 150-400 [facility] Comment on above: Performed By: #### C BCDIF, BMP #### [address] [place], [place] [address] RBC (Bld) [#/Vol] 5.09 10*6/uL Normal 3.90-5.20 [facility] Comment on above: Performed By: #### C BCDIF, BMP #### [facility] [address] [place], [place] [address] WBC (Bld) [#/Vol] 8.44 10*3/uL Normal 3.70-11.00 [facility] Comment on above: Performed By: #### C BCDI, [facility] #### [facility] [address] [place], [place] [address] CNOVon 09-02-2018 CNOV Office Visit (PUBRON ) LILIYA SIDDIQUI ([id number]) 1985 F Date Time Provider Department 09/02/18 [...] CMP: No results found for this basename: GLUC,BUN,CREAT,NA,K,C HLOR,CO2,TPROT,ALB,CA ,ALKPHOS,TBILI,AST,AL T SPIROMETRY WITH DILATOR IF OBSTRUCTED ([id number]) - ordered on 04/21/18 [facility] [address] [place] [address] Test Date: 2018-04-21 Pat Name: LILIYA SIDDIQUI Department: Room: Gender: Female Billing Spec: LIVE Glover : 1985 Requested By: Order Number: [id number] Reading MD: Forest Gonzalez Interpretive Statements Test no. 1 04/21/2018 11:57:35AM FVC is repeatable x 2, FEV1 x 3. ATS acceptability and repeatability standards for DLCO met. DLCO is not hemoglobin corrected. /cg IMPRESSION: Spirometry is normal. The diffusing capacity is normal. Electronically Signed On 04-21-2018 12:23:29 EST by Fellow Griselda Peters [facility] Electronically Signed On 9:29:49 EST by Forest Gonzalez [facility] [place] Pulmonary Function Lab Pred N [facility] Pre % Date [address] Time 11:48AM -------- Height 174.2 Weight 72.4 -------- FVC 4.33 3.54 5.13 4.41 102 FEV [...] 8.36 FETPEF 0.05 VBe%FV 1.88 VBEex 0.08 -------- -------- -------- -------- -------- DLCOSB 26.37 19.86 32.88 29.37 111 DL/VA 4.64 3.32 5.96 5.01 108 VA 5.81 4.71 6.91 5.86 101 SHANICE 4.33 3.54 5.13 4.44 102 BHT 9.92 -------- -------- EKG RESULTS: N/A REVIEW OF SYSTEMS GENERAL: [...] disturbance, mood disorder and recent psychosocial stressors HEMATOLOGY/LYMPHOLOGY : See HPI ENDOCRINE: Negative for cold or [...] of the patient and have reviewed the PA/SOLID WASTE MANAGEMENT ENGINEER note. My fowler findings include: History as [...] nodule appears to be stable since late 2017. 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] Preoperative examination [Z01.818] Order(s):CONSULT TO ENT [9008] Order #: [id number]: 1 FUTURE CONSULT TO GASTROENTEROLOGY [9010] Order #: [id number]: 1 FUTURE Prescriptions as of 09/02/2018 Sig: [...] Status:Closed by TREV CRUZ MD on 09/05/18 Normal [facility]02[id number] LILIYA SIDDIQUI ([id number]) 1985 F Date Time Provider Department 09/02/18 GISEL PEREZ (RN) [id number] During your visit today, we recorded the [...] 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 Gisel Perez RN, RN 09/02/2018 10:11 AM Signed 09/02/2018: Navigator received call from the patient. 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 She [...] patient will anticipate a call from the buffing turner and counter. 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 {Pain No Yes:47201:: No 0 on a scale of 0 [...] CMP: No results found for this basename: GLUC,BUN,CREAT,NA,K,C HLOR,CO2,TPROT,ALB,CA ,ALKPHOS,TBILI,AST,AL T SPIROMETRY WITH DILATOR IF OBSTRUCTED ([id number]) - ordered on 04/21/18 [facility] [address] [place] [address] Test Date: 2018-04-21 Pat Name: LILIYA SIDDIQUI Department: Room: Gender: Female Billing Spec: LIVE Glover : 1985 Requested By: Order Number: [id number] Reading MD: Forest Gonzalez Interpretive Statements Test no. 1 04/21/2018 11:57:35AM FVC is repeatable x 2, FEV1 x 3. ATS acceptability and repeatability standards for DLCO met. DLCO is not hemoglobin corrected. /cg IMPRESSION: Spirometry is normal. The diffusing capacity is normal. Electronically Signed On 04-21-2018 12:23:29 EST by Fellow Griselda Peters, [facility] Electronically Signed On 9:29:49 EST by Forest Gonzalez [facility] [place] Pulmonary Function Lab Pred YASMEEN Maya % Date [id number] Time 11:48AM -------- Height 174.2 Weight 72.4 -------- FVC 4.33 3.54 5.13 4.41 102 FEV [...] 8.36 FETPEF 0.05 VBe%FV 1.88 VBEex 0.08 -------- -------- -------- -------- -------- DLCOSB 26.37 19.86 32.88 29.37 111 DL/VA 4.64 3.32 5.96 5.01 108 VA 5.81 4.71 6.91 5.86 101 SHANICE 4.33 3.54 5.13 4.44 102 BHT 9.92 -------- -------- EKG RESULTS: {EKG RESULTS:31119} REVIEW OF SYSTEMS GENERAL: {ROS-GENERAL:23:: No weight loss, malaise or fevers } HEENT: {ROS - HEENT:30:: Negative for frequent or significant headaches , No changes in hearing or vision, no nose bleeds or other nasal problems } NECK: {ROS NECK:34:: Negative for lumps, goiter, pain and significant neck swelling } RESPIRATORY: {pat respiratory:37:: Nega tive for cough, hemoptysis, wheezing, COPD, dyspnea or shortness of breath } CARDIOVASCULAR: {ROS-CARDIAC:53:: Neg ative for chest pain, leg swelling, hypertension, CHF or palpitations } GI: {ROS- GI:56:: No nausea, vomiting, or diarrhea } : {ROS- :58:: No history of dysuria, frequency or incontinence } MUSCULOSKELETAL: {MUSCULOSKELETAL INTMED ROS:232:: Negative for joint pain or swelling, back pain or muscle pain } SKIN: {SKIN INT MED ROS:238:: Negative for lesions, rash, and itching } PSYCH: {PSYCHIATRIC INT MED ROS:26523:: Negative for sleep disturbance, mood disorder and recent psychosocial stressors } HEMATOLOGY/LYMPHOLOGY : {HEMATOLOGY/LYMPHATIC /IMMUNOLOGY INT MED ROS:244:: Negative for prolonged bleeding, bruising easily or swollen nodes } ENDOCRINE: {ENDOCRINE INT MED ROS:247:: Negative for cold or heat intolerance, polyuria, polydipsia and goiter } NEURO: {ROS - NEURO:900:: No history of headaches, syncope, paralysis, seizures or tremors } ECOG PERFORMANCE STATUS: {ECO} Dyspnea Score: {MRC DYSPNEA:31599} Health Screening {PUL HEALTH SCREENIN} There is [...] suspicious rashes or lesions } Head: {head:301:: Normoceph alic, no masses, lesions, tenderness or abnormalities } [...] or cyanosis. Good capillary refill. } Musculoskeletal: {musculoskeletal:803: : Spine range of motion normal. Muscular strength [...] CMP: No results found for this basename: GLUC,BUN,CREAT,NA,K,C HLOR,CO2,TPROT,ALB,CA ,ALKPHOS,TBILI,AST,AL T SPIROMETRY WITH DILATOR IF OBSTRUCTED ([id number]) - ordered on 04/21/18 [facility] [address] [place] [address] Test Date: 2018-04-21 Pat Name: LILIYA SIDDIQUI Department: Room: Gender: Female Billing Spec: LIVE Glover : 1985 Requested By: Order Number: [id number] Reading MD: Forest Gonzalez Interpretive Statements Test no. 1 04/21/2018 11:57:35AM FVC is repeatable x 2, FEV1 x 3. ATS acceptability and repeatability standards for DLCO met. DLCO is not hemoglobin corrected. /cg IMPRESSION: Spirometry is normal. The diffusing capacity is normal. Electronically Signed On 04-21-2018 12:23:29 EST by Fellow Griselda Peters [facility] Electronically Signed On 9:29:49 EST by Forest Gonzalez [facility] [place] Pulmonary Function Lab Pred [facility] Pre % Date 021021 Time 11:48AM -------- Height 174.2 Weight 72.4 -------- FVC 4.33 3.54 5.13 4.41 102 FEV [...] 8.36 FETPEF 0.05 VBe%FV 1.88 VBEex 0.08 -------- -------- -------- -------- -------- DLCOSB 26.37 19.86 32.88 29.37 111 DL/VA 4.64 3.32 5.96 5.01 108 VA 5.81 4.71 6.91 5.86 101 SHANICE 4.33 3.54 5.13 4.44 102 BHT 9.92 -------- -------- EKG RESULTS: N/A REVIEW OF SYSTEMS GENERAL: [...] disturbance, mood disorder and recent psychosocial stressors HEMATOLOGY/LYMPHOLOGY : See HPI ENDOCRINE: Negative for cold or [...] September 02, 2018, 1:59 PM Progress Notes ([facility] PUL LAB H23): Gisel Perez RN, RN [...] 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 Gisel Perez RN, RN 09/02/2018 10:11 AM Signed 09/02/2018: Navigator received call from the patient. 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 She [...] patient will anticipate a call from the buffing turner and counter. Normal [facility] PROGRESSon 09-02-2018 PROGRESS HNO ID: [id number] Author: Trev Cruz Service: ? Author Type: [...] CMP: No results found for this basename: GLUC,BUN,CREAT,NA,K,C HLOR,CO2,TPROT,ALB,CA ,ALKPHOS,TBILI,AST,AL T SPIROMETRY WITH DILATOR IF OBSTRUCTED ([id number]) - ordered on 04/21/18 [facility] [address] [place] [address] Test Date: 2018-04-21 Pat Name: LILIYA SIDDIQUI Department: Room: Gender: Female Billing Spec: LIVE Glover : 1985 Requested By: Order Number: [id number] Reading MD: Forest Gonzalez Interpretive Statements Test no. 1 04/21/2018 11:57:35AM FVC is repeatable x 2, FEV1 x 3. ATS acceptability and repeatability standards for DLCO met. DLCO is not hemoglobin corrected. /cg IMPRESSION: Spirometry is normal. The diffusing capacity is normal. Electronically Signed On 04-21-2018 12:23:29 EST by Fellow Griselda Peters [facility] Electronically Signed On 9:29:49 EST by Forest Gonzalez [facility] [place] Pulmonary Function Lab Pred LLN ULN Pre % Date [id number] Time 11:48AM -------- Height 174.2 Weight 72.4 -------- FVC 4.33 3.54 5.13 4.41 102 FEV [...] 8.36 FETPEF 0.05 VBe%FV 1.88 VBEex 0.08 -------- -------- -------- -------- -------- DLCOSB 26.37 19.86 32.88 29.37 111 DL/VA 4.64 3.32 5.96 5.01 108 VA 5.81 4.71 6.91 5.86 101 SHANICE 4.33 3.54 5.13 4.44 102 BHT 9.92 -------- -------- EKG RESULTS: N/A REVIEW OF SYSTEMS GENERAL: [...] disturbance, mood disorder and recent psychosocial stressors HEMATOLOGY/LYMPHOLOGY : See HPI ENDOCRINE: Negative for cold or [...] of the patient and have reviewed the PA/SOLID WASTE MANAGEMENT ENGINEER note. My fowler findings include: History as [...] MD Travis Licea MD, PhD [facility] PROGRESS HNO ID: [id number] Author: Travis Castro Service: ? Author Type: [...] minutes. Travis Castro MD, PhD [facility] PT EDon 09-02-2018 PT ED HNO ID: [id number] Author: Jossie Constantino) FOX Larkin Service: Nursing Author Type: Registered [...] By: Jossie Larkin RN In Department: ADMITTING Normal [facility] CNOVon 09-01-2018 CNOV Office Visit (NAJMAMN ) LILIYA SIDDIQUI ([id number]) 1985 F Date Time Provider Department 09/01/18 3:20 PM TRAVIS CASTRO During your visit today, we recorded the following information about you: Temperature Pulse Blood pressure Weight 98.2 degrees 111/minute 118/82 71 kg Height 1.803 m Travis Castro MD, PhD 09/02/2018 6:31 AM Unsigned Runner On [place] [address] [place] DEPART[place] OF THORACIC AND CARDIOVASCULAR SURGERY NAME: LILIYA SIDDIQUI CLINIC #: [id number] DATE: AGE: 33 PHYSICIAN: Travis Castro M.D., [...] warrant invasive assessment. Travis Castro M.D., Ph.D. :[id number] /[id number] cc: Virgilio Diallo RN, RN 09/02/2018 10:38 [...] was 25 minutes. Travis Castro MD, PhD Runner On: Transcribed Clinic Note (annie) ID: [id number] 09/01/2018 6:43 PM Author: TRAVIS CASTRO * * * This document has not been signed * * * * * * DRAFT COPY. THIS DOCUMENT IS NOT AVAILABLE FOR PATIENT CARE * * * Document text: [place] [address] [place] DEPARTMENT OF THORACIC AND CARDIOVASCULAR SURGERY NAME: LILIYA SIDDIQUI [facility] #: [id number] DATE: AGE: 33 PHYSICIAN: Travis Castro M.D., [...] warrant invasive assessment. Travis Castro M.D., Ph.D. SM:[id number] /[id number] cc: Display document [id number] only ----- Referring Provider: TRAVIS CASTRO [[id number]] Allergies As of Date: 09/01/2018 Noted Allergy Reaction MORPHINE 04/21/2018 5 - Intolerance Date Reviewed: 09/01/2018 Reviewed by: Dameon Alarcon - Fully Assessed Reason for Visit: Established Patient [175] Visit Diagnoses:Hemoptysis [R04.2] Lung nodules [R91.8] Order(s):CT CHEST WO IVCON [1174517] Order #: [id number] FUTURE CONSULT TO PULM/CRITICAL CARE [234249] Order #: [id number]: 1 Prescriptions as of 09/01/2018 Sig: PREGABALIN [...] Recorded Encounter Status:Closed by LEW SLATER, TRAVIS C PHD on 09/02/[address] [facility] [address] CHEST WO IVCONon 09-02-19 CT CHEST WO IVCON * * *Final Report* * * DATE OF EXAM: Sep 01 2018 2:37PM [facility] [place] CHEST WO IVCON / [...] 01/05/2018 and 02/01/2017 and is likely post infectious/inflammato ry. Attention on follow-up exam is recommended. No new or enlarging suspicious pulmonary nodules. 2. No thoracic lymphadenopathy. Press Writer: KATRINA Transcribe Date/Time: Sep 01 2018 5:14P Dictated by : WENDI HUERTA MD This examination was interpreted and the report reviewed and electronically signed by: WENDI HUERTA MD on Sep 01 2018 5:35PM EST [id number] Normal [facility] PROGRESSon 09-01-2018 PROGRESS HNO ID: [id number] Author: Virgilio DavalosRn) FOX Diallo Service: ? Author Type: Registered [...] for risk assessment. Virgilio Diallo RN Normal [facility] PROGRESS HNO ID: [id number] Author: BENIGNO Worley (Ct) Service: Radiology Author Type: Clinical Billing Spec Type: Progress Notes Filed: 09/01/2018 2:34 PM [...] PERIPHERAL IV DATA: Not applicable SIGNED BY: Niharika Plata, RT(R)(CT) September 01, 2018 2:34 PM Normal [facility] PROGRESS HNO ID: [id number] Author: Travis Castro Service: Thoracic Surgery Author Type: Physician Type: Progress Notes Filed: 07/10/2019 2:39 PM Note Text: [place] [address] [place] DEPARTMENT OF THORACIC AND CARDIOVASCULAR SURGERY NAME: LILIYA SIDDIQUI [facility] #: [id number] DATE: AGE: 33 PHYSICIAN: Travis Castro M.D., [...] warrant invasive assessment. Travis Castro M.D., Ph.D. SM:[id number] /[id number] cc: Normal [facility] Vital Signs Date Time Vital Sign Value Performing Clinician Ana Luisa mayes 06-13-2023 14:30-0400 Diastolic blood pressure 71 mm[Hg] Brandon Carlos A [facility] 06-13-2023 14:30-0400 Heart rate 83 /min Brandon Carlos A [facility] 06-13-2023 14:30-0400 Mean blood pressure 84 mm[Hg] Brandon Carlos A [facility] 06-13-2023 14:30-0400 Respiratory rate 17 /min Brandon Carlos A [facility] 06-13-2023 14:30-0400 SaO2% (BldA) [Mass fraction] 99 % Brandon Carlos A [facility] 06-13-2023 14:30-0400 Systolic blood pressure 111 mm[Hg] Brandon Carlos A [facility] 06-13-2023 14:00-0400 Diastolic blood pressure 80 mm[Hg] Brandon Carlos A [facility] 06-13-2023 14:00-0400 Heart rate 85 /min Brandon Carlos A [facility] 06-13-2023 14:00-0400 Mean blood pressure 92 mm[Hg] Brandon Carlos A [facility] 06-13-2023 14:00-0400 Respiratory rate 18 /min Brandon Carlos A [facility] 06-13-2023 14:00-0400 Systolic blood pressure 116 mm[Hg] Brandon Carlos A [facility] 06-13-2023 13:30-0400 Diastolic blood pressure 69 mm[Hg] Brandon Carlos A [facility] 06-13-2023 13:30-0400 Heart rate 95 /min Brandon Carlos A [facility] 06-13-2023 13:30-0400 Mean blood pressure 84 mm[Hg] Brandon Strauss [facility] 06-13-2023 13:30-0400 Respiratory rate 16 /min Brandon Strauss [facility] 06-13-2023 13:30-0400 SaO2% (BldA) [Mass fraction] 100 % Brandon Strauss [facility] 06-13-2023 13:30-0400 Systolic blood pressure 115 mm[Hg] Brandon Strauss [facility] 06-13-2023 13:05-0400 Body temperature 98.42 [degF] Brandon Strauss [facility] 06-13-2023 13:05-0400 Heart rate 97 /min Brandon Strauss [facility] Encounters Encounter Date Encounter Type Care Provider Facility Start: 06-13-2023 End: 06-13-2023 Emergency department patient visit Brandon Strauss [place] [place]: 06-13-2023 End: 06-13-2023 Emergency department patient visit Brandon Strauss [facility] Start: 12-11-2022 ambulatory Jeffrey Elliott acility:[facility] Start: 06-12-2022 End: 06-13-[address] ARY Godoy Facility:[facility] Start: 03-22-2022 End: 03-22-[address] ARY MOHAN . Facility:[facility] Start: 03-21-2022 End: 03-22-[address] JORGE ALBERTO GARCIA Facility:[facility] Start: 02-26-2022 End: 02-27-[address] ARY MOHAN . Facility:[facility] Start: 01-17-2022 End: 10-30-[address] ARY MOHAN . Facility:[facility] Start: 01-03-2022 End: 01-04-[address] ARY MOHAN . Facility:[facility] Start: 11-12-2021 End: 11-13-[address] ARY MOHAN . Facility:[facility] Start: 10-29-2021 End: 10-30-[address] ARY MOHAN . Facility:[facility] Start: 10-28-2021 End: 10-28-[address] ARY MOHAN . Facility:[facility] Procedures Date Procedure Procedure Detail Performing Clinician Start: 01-11-2020 Umbilical hernioplasty Brandon Strauss Comment on above: robotic assisted Payers Date Payer Category Payer Self-pay 2022 Medicaid [id number] 1985 Unknown [id number] 2.16.84 [id number] 1985 Unknown [id number] 2.16.84 [id number] 1985 Unknown [id number] 2.16.84 [id number] 1985 Unknown [id number] 2.16.84 [id number] 1985 Unknown [id number] 2.16.84 [id number] 1985 Unknown [id number] 2.16.84 0.1.283455.3.579.2.593 1985 Unknown [id number] 2.16.84 0.1.330739.3.579.2.593 1985 Unknown [id number] 2.16.84 [id number] 1985 Unknown [id number] 2.16.84 0.1.594741.3.579.2.593 1985 Unknown [id number] 2.16.8 [id number] 1959 Unknown [id number] Unknown [id number] 2.16.8 [id number] Social History Date Type Detail Facility Tobacco [facility] Comment on above: denies Tobacco smoking status No Smokin g Status Entered [facility] Sex Assigned At Female [facility] Medical Equipment Procedure Code Equipment Code Equipment Origin al Text Equipment Identifier Dates HERNIA REPAIR, R OBOT ASSISTED Cal PHAN MD 01/11/20 Non Biological Abdomen {[id number]{1 [id number]{[id number] FDA Start: 01-11-2020 Functional Status Date Assessment Result Facility 06-13-2023 Functional Status N/A [facility] Discharge instructions 06-13-2023 Note Date & Type Note Facility 06-13-2023 Hospital Discharg e instructions Patient Education 06/13/2023 17:11:44 Abdominal Pain, Adult Abdominal Pain, Adult Pain in the abdomen (abdominal pain) can be caused by many things. Often, abdominal pain is not serious and it gets better with no treatment or by being treated at home. However, sometimes abdominal pain is serious. Your health care provider will ask questions about your medical history and do a physical exam to try to determine the cause of your abdominal pain. Follow these instructions at home: Medicines Take lnrg-ayl-utyvcxc and prescription medicines only as told by your health care provider. Do not take a laxative unless told by your health care provider. General instructions Watch your condition for any changes. Drink enough fluid to keep your urine pale yellow. Keep all follow-up visits as told by your health care provider. This is important. Contact a health care provider if: Your abdominal pain changes or gets worse. You are not hungry or you lose weight without trying. You are constipated or have diarrhea for more than 2 3 days. You have pain when you urinate or have a bowel movement. Your abdominal pain wakes you up at night. Your pain gets worse with meals, after eating, or with certain foods. You are vomiting and cannot keep anything down. You have a fever. You have blood in your urine. Get help right away if: Your pain does not go away as soon as your health care provider told you to expect. You cannot stop vomiting. Your pain is only in areas of the abdomen, such as the right side or the left lower portion of the abdomen. Pain on the right side could be caused by appendicitis. You have bloody or black stools, or stools that look like tar. You have severe pain, cramping, or bloating in your abdomen. You have signs of dehydration, such as: ?Dark urine, very little urine, or no urine. ?Cracked lips. ?Dry mouth. ?Sunken eyes. ?Sleepiness. ?Weakness. You have trouble breathing or chest pain. Summary Often, abdominal pain is not serious and it gets better with no treatment or by being treated at home. However, sometimes abdominal pain is serious. Watch your condition for any changes. Take tmmg-pka-ildvjtn and prescription medicines only as told by your health care provider. Contact a health care provider if your abdominal pain changes or gets worse. Get help right away if you have severe pain, cramping, or bloating in your abdomen. This information is not intended to replace advice given to you by your health care provider. Make sure you discuss any questions you have with your health care provider. Document Revised: 04/26/2020 Document Reviewed: 07/17/2019 [employer] Patient Education 2022 [employer]. Follow Up Care 06/13/2023 13:03:57 With:Ary Mohan Address: [address] [place], [place] [address] Business (1) When:06/16/2023 17:10:37 Comments:Call the office of your primary care doctor to arrange for follow-up within the above-stated timeframe. Follow-up with your primary care doctor about this ED visit. You should review your labs, imaging, and diagnoses from this ED visit with your primary care physician. There are occasionally non-emergent findings that require additional follow-up after your ED visit. If you were prescribed medications you should discuss possible side-effects and drug interactions with your pharmacist. Call 911 or go to the nearest Emergency Department if you develop any new or worsening symptoms.Seek immediate medical attention if you develop:worsening abdominal pain, new or worsening nausea, new or worsening vomiting, new or worsening diarrhea, chest pain, shortness of breath, pain with urination, problems urinating, fever, chills, weakness, or any new or worsening symptoms. [facility] Evaluation + Plan note 06-13-2023 Note Date & Type Note Facility 06-13-2023 Evaluation + Plan note Extrac kaelyn from: Title:ED Note Author:Shan Gusman PA-C te:06/13/23 1. Abdominal pain (R10.9: Un specified abdominal pain) Orders: HYDROmorphone, 1 mg = 1 mL, Injection, IV Push, Once, Stop date 06/13/23 13:39:00 EDT, STAT, Start date 06/13/23 13:39:00 EDT, 06/13/23 13:39:00 EDT ketorolac, 30 mg = 1 mL, Injection, IV Push, Once, Stop date 06/13/23 14:52:00 EDT, STAT, Start date 06/13/23 14:52:00 EDT, 06/13/23 14:52:00 EDT ondansetron, 4 mg = 2 mL, Injection, IV Push, Once, Stop date 06/13/23 13:39:00 EDT, STAT, Start date 06/13/23 13:39:00 EDT, 06/13/23 13:39:00 EDT Sodium Chloride 0.9% intravenous solution, 1,000 mL, Soln-IV, IV, Once, Stop date 06/13/23 13:32:00 EDT, STAT, Start date 06/13/23 13:32:00 EDT, Infuse over 61, minute(s) Basic Metabolic Panel Beta hCG Qual CBC w/ Auto Diff CT Abdomen/Pelvis w/ Contrast eGFR Hepatic Function Panel Lipase Level UA with Cult Rflx [facility] Clinical Note 02-26-2022 Note Date & Type Note Facility 02-26-2022 Note PROCEDURE: XR FOOT L T MIN 3 VIEWS COMPARISON: 10/16/2011 HISTORY: Pain in lower limb FINDINGS: BONES:No fracture, acute abnormality, or significant arthropathy. SOFT TISSUES:Negative. No visible soft tissue swelling. EFFUSION:None visible. OTHER: Negative. IMPRESSION: No acute abnormality Electronically authenticated by: THERESA PATEL Date: 2022-02-26 12:41 [facility] course Narrative Note Date & Type Note Facility Hospital course Narrative No data available for this section [facility] Progress note Note Date & Type Note Facility Progress note No data available for this section [facility] Summary Purpose Family History No Family History Records FoundNo Family History Records FoundNo Family History Records Found No data available for this section No Family History Records Found Advance Directives No Advanced Directives Records FoundNo Advanced Directives Records FoundNo Advanced Directives Records FoundNo Advanced Directives Records Found Additional Source Comments INFORMATION SOURCE (unrecogn ized section and content) DATE CREATED AUTHOR 07/10/2019 [facility] DATE CREATED AUTHOR AUTHOR'S ORGANIZ ATION 06/19/2022 [facility] DATE CREATED AUTHOR AUTHOR'S ORGANIZ ATION 02/25/2023 [facility] DATE CREATED AUTHOR AUTHOR'S ORGANIZ ATION 06/14/2023 [facility] Patient Care team informatio n (unrecognized section and content) Personnel Name: Ary Mohan MD Address: Address: [address] [place] [address] FOR RECORDS PERTAINING TO PATIENTS WHO ARE [...] BE BASED ON THE PRIMARY CLINICAL RECORDS. [facility] [employer] [facility]. provides no warranty or guarantee of the accuracy or completeness of information in this document.
== END 2023-07-10 09:55 | disposition home or self-care (01) ==
LOC: US 09:54
PROVIDERS: PCP Family Medicine; Visit Provider Family Medicine
DX: N20.0 Calculus of kidney (principal)
CPT/HCPCS: 76775

== ENCOUNTER 2023-07-30 08:29 | Outpatient (OUT) | payer MEDICAID, SELFPAY ==
--- NOTE | 2023-07-30 08:39 | MR_ITS ---
The [address] [address] Patient Name: REGINA SIDDIQUI MRN: [id number] date: 1985 Sex: F Assigned Patient Location: [facility] Current Patient Location: RAD Accession/Order Number: [id number] Exam Date: 07/30/2023 09:00 Report Date: 07/30/2023 16:23 At the request of: ARY HUDSON Procedure: MR thoracic spine wo/w con EXAMINATION: MR thoracic spine wo/w con HISTORY: Solitary Pulmonary Nodule R91.1 COMPARISON: No relevant comparison available. TECHNIQUE: Axial T1 and T2; Sagittal T1, T2, and STIR sequences. Images were performed without and with ml Dotarem contrast. FINDINGS: CORD: Normal caliber, contour, and signal intensity. BONES: No fracture, pars defect, or osseous lesion. DISCS: No significant disc/facet abnormality, spinal stenosis, or foraminal stenosis. PARASPINAL AREA: No visible mass. OTHER: Mild soft tissue thickening within anterior upper mediastinum, not well seen due to cardiac motion artifact, but grossly stable to slightly less than seen on prior CT study. No suspicious enhancement. MR/MR thoracic spine wo/w con IMPRESSION: 1. No acute abnormality or significant degenerative changes of thoracic spine. 2. Small amount of soft tissue within the anterior upper mediastinum corresponding to recent CT findings; I suspect this is stable to slightly decreased. 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 Consider follow-up CT chest in 3-6 months to document stability versus resolution. Electronically authenticated by: ESTHER VAZQUEZ Date: 07/30/2023 16:23
== END 2023-07-30 08:30 | disposition home or self-care (01) ==
LOC: RAD 08:29
PROVIDERS: PCP Family Medicine; Visit Provider Family Medicine
DX: R91.1 Solitary pulmonary nodule (principal)
CPT/HCPCS: 72157; A9575

== ENCOUNTER 2023-09-29 08:37 | Outpatient (OUT) | payer MEDICAID, SELFPAY ==
--- NOTE | 2023-09-29 08:42 | CT_ITS ---
[address] [address] Patient Name: REGINA SIDDIQUI MRN: [id number] date: 1985 Sex: F Assigned Patient Location: CT Current Patient Location: Accession/Order Number: [id number] Exam Date: 09/29/2023 08:50 Report Date: 09/30/2023 07:59 At the request of: ARY HUDSON Procedure: CT chest wo con EXAMINATION: CT chest wo con HISTORY: Solitary Pulmonary Nodule R91.1 COMPARISON: 05/21/2023 TECHNIQUE: Multi-planar CT images were created with IV contrast. Axial, Coronal, and Sagittal images. Dose reduction techniques were achieved by using automated exposure control and/or adjustment of mA and/or kV according to patient size and/or use of iterative reconstruction technique. FINDINGS: LUNGS: 1.2 x 1.1 cm irregularly-shaped soft tissue nodule with central calcification in the right middle lobe, stable. Additional stable punctate pulmonary nodules. No new significant pulmonary nodule or mass. PLEURA: No mass, effusion, or pneumothorax. VASCULATURE: No abnormality. JANE: No mass or adenopathy. MEDIASTINUM: Soft tissue anterior mediastinum likely residual thymic tissue CARDIAC: No enlargement, pericardial thickening, or significant calcification. AORTA: No aneurysm or dissection. CHEST WALL: No mass or axillary adenopathy. BONES: No bone lesion or fracture. LIMITED ABDOMEN: No suspicious findings. Limited images of the upper abdomen. OTHER: Negative. CT/CT chest wo con IMPRESSION: Stable 1.2 cm calcified right middle lobe nodule Electronically authenticated by: THERESA PATEL Date: 09/30/2023 07:59
== END 2023-09-29 08:38 | disposition home or self-care (01) ==
LOC: CT 08:37
PROVIDERS: PCP Family Medicine; Visit Provider Family Medicine
DX: R91.1 Solitary pulmonary nodule (principal)
CPT/HCPCS: 71250

== ENCOUNTER 2023-11-01 20:50 | Emergency (ER) | payer MEDICAID, SELFPAY ==
--- OUTSIDE RECORDS SUMMARY | 2023-11-01 21:09 | XMS_ITS | CCD ---
Author Organization [facility] Team Providers Care Maintenance Controller Name Role Phone BECCA ., DR MCALLISTER Consulting Unavailable HOY ., DR MCALLISTER Admitting Unavailable HOY ., DR MCALLISTER Attending Unavailable HOY ., DR MCALLISTER Primary Care Unavailable AMANDA, DR THERESA Peterson Consulting Unavailable HOY ., DR MCALLISTER Primary Care Unavailable HOY ., DR MCALLISTER Consulting Unavailable HOY ., DR MCALLISTER Attending Unavailable HOY ., DR MCALLISTER Admronni Unavailable THERESA MCCARTHY Consulting Unavailable HOY ., DR MCALLISTER Primary Care Unavailable HOY ., DR MCALLISTER Consulting Unavailable HOY ., DR MCALLISTER Attending Unavailable HOY ., DR MCALLISTER Admitting Unavailable AMANDA, DR THERESA Peterson Consulting Unavailable HOY ., DR MCALLISTER Primary Care Unavailable THERESA MCCARTHY Consulting Unavailable JUSTICE ., ROMARIO Attending Unavailable JUSTICE ., ROMARIO Admitting Unavailable JUSTICE ., ROMARIO Consulting Unavailable ENEDELIA, DR JORGE ALBERTO Dominguez Attending Unavailable ENEDELIA, DR JORGE ALBERTO Dominguez Admitting Unavailable ENEDELIA, DR JORGE ALBERTO Dominguez Consulting Unavailable HOY ., DR MCALLISTER Primary Care Unavailable AMARILIS PRESCOTT Consulting Unavailable JOSEPH STACK Consulting Unavailable THERESA ESPAÑA Consulting Unavailable BECCA ., DR MCALLISTER Primary Care Unavailable LAURA ., DR NEW Attending Unavailable HAY ., DR NEW Admitting Unavailable HAY ., DR NEW Consulting Unavailable HOY ., DR MCALLISTER Primary Care Unavailable HOY ., DR MCALLISTER Attending Unavailable HOY ., DR MCALLISTER Admronni Unavailable ZIEBAGUSTÍN, DR ESTHER Dominguez Consulting Unavailable HOY ., DR MCALLISTER Consulting Unavailable HOY ., DR MCALLISTER Primary Care Unavailable HOY ., DR MCALLISTER Attending Unavailable HOY ., DR MCALLISTER Admronni Unavailable ZIEBER, DR ESTHER Dominguez Consulting Unavailable HOY ., DR MCALLISTER Consulting Unavailable HOY ., DR MCALLISTER Attending Unavailable HOY ., DR ARY Arenasitting Unavailable HOY ., DR MCALLISTER Primary Care Unavailable DR THERESA PATEL V Consulting Unavailable Jeffrey Khan Attending Unavailab Jeffrey Lewis Admitting Unavailab Ary Khan Primary Care Unavailable Ary Mohan Primary Care Physician STUART CALLES Attending Unavailable Brandon Strauss Attending Unavailable David Causey Attending Unavailable Allergies Allergy Classification Reported Allergen(s) Allergy Type Date of Onset Reaction(s) Facility (1 source) Lactose Drug Allergy [facility] Repository (2 sources) Morphine; Translations: [morphine] Drug Allergy 09-17-2015 [facility] Repository (1 source) Morphine Drug Allergy 06-21-2020 [facility] Repository (2 sources) Morphine; Translations: [morphine] Drug Allergy Itching [facility] Medications Current Medications Medication Drug Class(es) Dates Sig (Normalized) Sig (Original) amitriptyline hydrochloride 100 mg oral tablet (2 sources) Tricyclic Antidepressant Start: 0 amitriptyline 100 mg oral tablet 150 mg = 1.5 tab(s), Oral, Once a day (at bedtime), Refills(s) 0, Insomnia Start Date: 12/11/19 Status: Ordered amphetamine aspartate 7.5 mg / amphetamine sulfate 7.5 mg / dextroamphetamine saccharate 7.5 mg / dextroamphetamine sulfate 7.5 mg oral tablet (2 sources) Central Nervous System Stimulant Start: 6 take 1 tablet by mouth twice daily amphetamine-dextr oamphetamine 30 mg oral tablet 30 mg, 1 tab(s), Oral, BID, Refill(s) 0, Anxiety Start Date: 02/18/16 Status: Ordered amylase 677942 unt / lipase 61295 unt / protease 51130 unt delayed release oral capsule (2 sources) Start: 0 take 1 capsule by mouth three times daily Creon 24,000 units oral delayed release capsule = 1 cap(s), Oral, TID, appetite stimulation, Refills(s) 0, Other (see comment) Start Date: 12/11/19 Status: Ordered celecoxib 100 mg oral capsule (2 sources) Nonsteroidal Anti-inflammatory Drug Start: 0 take 1 capsule by mouth twice daily CeleBREX 100 mg Cap 100 mg = 1 cap(s), Oral, BID, Arthritis Start Date: 01/04/20 Status: Ordered Cymbalta 60 mg Cap-DR (2 sources) Start: 0 take 1 capsule by mouth twice daily Cymbalta 60 mg Cap-DR 60 mg, Oral, BID, fibromyalgia, Refills(s) 0, Other (see comment) Start Date: 12/11/19 Status: Ordered Diclofenac 75mg Tab-DR (2 sources) Start: 0 take 1 tablet by mouth twice daily Diclofenac 75mg Tab-DR 75 mg, Oral, BID, Refills(s) 0, Muscle pain Start Date: 12/11/19 Status: Ordered dicyclomine hydrochloride 10 mg oral capsule (2 sources) Anticholinergic Start: 4 take 1 capsule by mouth four times daily as needed Bentyl 10 mg Cap 10 mg = 1 cap(s), Oral, QID, PRN Other (see comment), For abdominal cramping, # 16 cap(s), Refills(s) 0, Pharmacy: [facility]/pharmacy #[id number], 180.3, cm, 06/13/23 13:08:00 EDT, Height/Length Dosing, 68.5, kg, 06/13/23 13:08:00 EDT, Weight Dosing Start Date: 06/13/23 Status: Ordered 1 ml erenumab-aooe 70 mg/ml auto-injector (2 sources) Start: 0 inject 70 mg by subcutaneous injection every month Aimovig SureClick 70 mg/mL subcutaneous solution 70 mg, SubCutaneous, qMonth, Refills(s) 0, Migraine headache Start Date: 12/11/19 Status: Ordered levocetirizine dihydrochloride 5 mg oral tablet (2 sources) Histamine-1 Receptor Antagonist Start: 0 take 1 tablet by mouth once daily in the evening Xyzal 5 mg oral tablet 2.5 mg, 0.5 tab(s), Oral, qPM, Allergy symptoms Start Date: 01/11/20 Status: Ordered medroxyPROGESTERone (2 sources) Progestin Start: 0 inject 150 mg by intramuscular injection every three months Depo-Provera 150mg/mL intramuscular suspension 150 mg, IntraMuscular, q3mo, Refills(s) 0, control/menstrual regulation Start Date: 12/11/19 Status: Ordered ondansetron 4 mg oral tablet (2 sources) Serotonin-3 Receptor Antagonist Start: 0 take 1 tablet by mouth every six hours Zofran 4 mg Tab 4 mg = 1 tab(s), Oral, q6hr, Refills(s) 0, Nausea Start Date: 12/11/19 Status: Ordered polyethylene glycol 3350 00509 mg powder for oral solution (1 source) Osmotic Laxative Start: 4 End: 4 take 17 g by mouth once daily Miralax 3350 17 gram packet 17 gm, Oral, Daily, X 7 day(s), # 250 gm, Refills(s) 0, Pharmacy: [facility]/pharmacy #[id number], 180.3, cm, 06/13/23 13:08:00 EDT, Height/Length Dosing, 68.5, kg, 06/13/23 13:08:00 EDT, Weight Dosing Start Date: 06/13/23 Stop Date: 06/20/23 Status: Ordered pregabalin 50 mg oral capsule (2 sources) Start: 0 take 1 capsule by mouth three times daily Lyrica 50 mg Cap 50 mg = 1 cap(s), Oral, TID, fibromyalgia, Refills(s) 0, Other (see comment) Start Date: 12/11/19 Status: Ordered QUEtiapine 100 mg oral tablet (2 sources) Atypical Antipsychotic Start: 0 take 1 tablet by mouth once daily SEROquel 100 mg Tab 100 mg = 1 tab(s), Oral, Daily, Refills(s) 0 Start Date: 02/01/20 Status: Ordered rizatriptan 10 mg oral tablet (2 sources) Serotonin-1b and Serotonin-1d Receptor Agonist Start: 0 take 1 tablet by mouth once Maxalt 10 mg Tab 10 mg = 1 tab(s), Oral, Once, Refills(s) 0, Migraine headache Start Date: 12/11/19 Status: Ordered valproic acid 250 mg oral capsule (2 sources) Mood Stabilizer, Anti-epileptic Agent Start: 0 take 2 capsules by mouth three times daily valproic acid 250 mg oral capsule 500 mg = 2 cap(s), Oral, TID, rheumatoid arthritis, Refills(s) 0, Other (see comment) Start Date: 12/11/19 Status: Ordered Zofran ODT 4 mg Tab-Dis (2 sources) Start: 1 take 1 tablet by mouth three times daily Zofran ODT 4 mg Tab-Dis 4 mg = 1 tab(s), Oral, TID, # 15 tab(s), Refills(s) 0, Pharmacy: [facility]/pharmacy #[id number], 180, cm, 05/21/20 13:19:00 EST, Height/Length Dosing, 82, kg, 05/21/20 13:19:00 EST, Weight Dosing Start Date: 05/21/20 Status: Ordered Problems Active Problems Problem Classification Problem Date Documented Da te Episodic/Chronic Abdominal hernia (6 sources) Unspecified abdominal hernia without obstruction or gangrene; Translations: [Umbilical hernia] Onset: 10-29-2021 Episodic Abdominal pain (7 sources) Right upper quadrant pain; Translations: [Abdominal pain] Onset: 06-12-2022 Episodic Attention-deficit, conduct, and disruptive behavior disorders (2 sources) Attention deficit hyperactivity disorder 12-11-2019 Chronic E [...] JACIEL] Onset: 03-25-2022 Episodic Headache; including migraine (2 sources) Migraine 02-18-2016 Chronic Headache; including migraine (1 source) Headache; Translations: [Headache, unspecified] Onset: 10-22-2023 Episodic Headache; including migraine (3 sources) Headache; including migraine; Translations: [HEADACHE UNSPECIFIED] Onset: 03-21-2022 Mood disorders (2 sources) Depressive disorder 01-18-2020 Chronic Other connective tissue disease (2 sources) Diastasis recti 12-13-2019 Episodic Other connective tissue disease (5 sources) Fibromyalgia; Translations: [Fibromyalgia] Onset: 10-22-2023 02-18-2016 Episodic Other diseases of bladder and urethra (5 sources) Other specified disorders of bladder; Translations: [OTHER SPECIFIED DISORDERS BLADDER] Onset: 10-31-2021 Chronic Other ear and sense organ disorders (1 source) Impacted cerumen; Translations: [Impacted cerumen, unspecified ear] Onset: 10-22-2023 Episodic Other gastrointestinal disorders (2 sources) Irritable bowel syndrome 12-11-2019 Chronic Other lower respiratory disease (2 sources) Nodule of lung 12-11-2019 Episodic Other nervous system disorders (2 sources) Peripheral nerve disease 12-11-2019 Chronic Other non-traumatic joint disorders (3 sources) Pain in right shoulder; Translations: [PAIN IN RIGHT SHOULDER] Onset: 03-22-2022 Episodic Screening and history of mental health and substance abuse codes (1 source) Personal history of nicotine dependence; Translations: [PERSONAL HISTORY OF NICOTINE DEPEND] Onset: 03-30-2022 Episodic Spondylosis; intervertebral disc disorders; other back problems (2 sources) Lumbar radiculopathy 12-11-2019 Episodic Sprains and strains [...] Systemic lupus erythematosus and connective tissue disorders (2 sources) Systemic lupus erythematosus 02-18-2016 Chronic Past or Other Problems Problem Classification Problem Date Documented Da te Episodic/Chronic Nonspecific chest pain (4 sources) Chest pain, unspecified; Translations: [CHEST PAIN UNSPECIFIED] Onset: 10-28-2021 Episodic Other aftercare (1 source) Other half-way (current) drug therapy; Translations: [[facility] CURRENT DRUG THERAPY] Onset: 10-30-2021 Episodic Other [...] Test Name Value Interpretation Reference Range Facility ED Note-Physicianon 10-23-19 ED Note-Physician ED Note-Physician Basic Information Time Seen: Ada Aggarwal PA-C 10/22/2023 15:28 Chief Complaint c/o headache since Wednesday. Also c/o nausea and light sensitivity. Recent fibromyalgia flare up. History of Present Illness Patient is a 38-year-old female with a history of depression, fibromyalgia, and migraines who presents to the ED with a headache that began 2 days ago. Patient states she has been battling a fibromyalgia flareup for the past 3 weeks. She notes that she received Toradol and steroid injections on Wednesday and Wednesday of this week by her PCP. She went to her PCPs office yesterday for the headache in which she was given 3 more shots but cannot remember what they were. Patient was told the headache may be related to the steroid injections she received. She notes the headache is located in her frontal aspect of her head and has been constant in nature. She notes this feels similar to previous headaches. She has not taken any medication for the headache today. She also notes nausea and diarrhea as well. She states these symptoms are typical with migraines and her fibromyalgia so she is unsure which one is the culprit of the symptoms. Patient denies any numbness/tingling, fevers, neck pain, changes in vision, chest pain, shortness of breath, blood in her stool, or changes in urination. Review of Systems A 10 point review of systems is negative except as noted above. Medical and Surgical History: Reviewed and noted Social history: Lives at home Family History: Reviewed. Tobacco: Denies Physical Exam Vitals & Measurements T: 36.6 ?C(Oral) HR: 104(Peripheral) RR: 16 BP: 127/88 SpO2: 96% HT: 180.3 cm WT: 68.5 kg BMI: 21.07 General: The patient appears well and in no apparent distress. Patient is resting comfortably on cart. Skin: Warm, dry, no pallor noted. Head: Normocephalic, atraumatic Neck: No JVD, no meningeal signs Eye: PERRLA, EOMI, visual field intact ENT: Moist mucus membranes, cerumen impaction in the auditory canals bilaterally Cardiovascular: Regular rate normal peripheral perfusion Respiratory: No respiratory distress no accessory muscle use no obvious audible wheezing Chest Wall: no deformity Musculoskeletal: normal ROM, no deformity, no swelling GI: Soft no obvious distention. No rebound or rigidity. No guarding. No tenderness. Neurological: A&O moves all extremities equal strength and symmetry, no focal neurological deficits Psychiatric: Cooperative and appropriate Medical Decision Making Patient is a 38-year-old female with a history of depression, fibromyalgia, and migraines who presents to the ED with a headache that began 2 days ago. Patient is hemodynamically stable and afebrile. She is given fluids, Toradol, promethazine, and Benadryl while in the ED. CT head/brain was considered however patient has a history of migraines and states the headache she is feeling now is similar in nature and notes it is not a thunderclap headache. She has no focal neurological deficits. Patient did have impacted auditory canals bilaterally. The patient's ears were irrigated by the nurse. On reevaluation patient stated her back was on fire from her fibromyalgia flare causing her to to feel tense thus causing no improvement in the headache. Patient is being given magnesium and dexamethasone for this. After completion of the medication, patient was reevaluated and noticed improvement in her headache and back pain. She will follow-up with her family physician for further management of care. Patient was advised to return to the ED with any worsening symptoms. She is agreeable to plan and all questions were answered. Assessment/Plan Cerumen impaction (H61.20: Impacted cerumen, unspecified ear) Headache (R51.9: Headache, unspecified) Muscle pain, fibromyalgia (M79.7: Fibromyalgia) Orders: dexamethasone, 8 mg = 2 mL, Injection, IV Push, Once, Stop date 10/22/23 16:52:00 EDT, STAT, Start date 10/22/23 16:52:00 EDT, 10/22/23 16:52:00 EDT diphenhydrAMINE, 25 mg = 0.5 mL, Injection, IV Push, Once, Stop date 10/22/23 15:42:00 EDT, STAT, Start date 10/22/23 15:42:00 EDT, 10/22/23 15:42:00 EDT ketorolac, 30 mg = 1 mL, Injection, IV Push, Once, Stop date 10/22/23 15:42:00 EDT, STAT, Start date 10/22/23 15:42:00 EDT, 10/22/23 15:42:00 EDT magnesium sulfate + Generic Diluent 50 mL, 2 gram = 50 mL, IV Piggyback, Once, Stop date 10/22/23 16:51:00 EDT, STAT, Start date 10/22/23 16:51:00 EDT, 25 mL/hr, Infuse over 2 hour(s), 10/22/23 16:51:00 EDT promethazine 12.5 mg + Sodium Chloride 0.9% intravenous solution 50 mL, Injection, IV Piggyback, Once, Stop date 10/22/23 15:43:00 EDT, STAT, Start date 10/22/23 15:43:00 EDT, 151.5 mL/hr, Infuse over 20 minute(s) Sodium Chloride 0.9% intravenous solution, 1,000 mL, Soln-IV, IV, Once, Stop date 10/22/23 15:42:00 EDT, STAT, Start date 10/22/23 15:42:00 EDT, Infuse over 61, minute(s) Ear Irrigation Medications Administered Given dexamethasone 4 mg/mL Inj 1 mL, 8 mg, IV Push d (more content not included)... Normal [facility] Comment on above: Result Comment: Elec tronically Signed By: Ada Aggarwal PA-C\.br\Date and Time Signed: 10/22/23 17:41 EDT\.br\Electronically Co-Signed By: Ada Aggarwal PA-C\.br\Date and Time Co-Signed: 10/22/23 17:43 EDT\.br\Electronically Co-Signed By: David Causey DO\.br\Date and Time Co-Signed: 10/23/23 07:45 EDT ED Clinical Summaryon 2023 ED Clinical Summary ED Clinical Summary [place] [id number] ED Clinical Summary Person Information Name: LILIYA SIDDIQUI [facility] Age: 38 Years : 1985 Sex: Female Language: Liberian PCP: Ary Mohan MD Marital Status: Single Phone: [phone] Visit Id: Visit Reason: Nausea; Headache; SEVERE HEADACHE/FIBO FLARE UP LASTING 3 WEEKS HEADACHE 3 DAYS Speciality: Acuity: 3 Enc Type: Emergency Med Service: Emergency Arrival: 10/22/2023 15:19:54 Discharge: 10/22/2023 18:15:41 LOS: 000 02:56 Checkin: 10/22/2023 15:19:54 Checkout: 10/22/2023 18:15:41 Dispo Type: Home (Routine DC) EVENTS: Event Name Event Status Request Date/Time Start Date/Time Complete Date/Time Arrive Complete 10/22/2023 15:19:54 10/22/2023 15:19:54 10/22/2023 15:19:54 Document Home Meds Request 10/22/2023 15:19:54 Triage Complete 10/22/2023 15:19:54 10/22/2023 15:31:09 10/22/2023 15:31:09 Bed Assign Complete 10/22/2023 15:27:05 10/22/2023 15:27:05 10/22/2023 15:27:05 Dr Exam Complete 10/22/2023 15:27:05 10/22/2023 15:28:02 10/22/2023 15:28:02 RN Exam Complete 10/22/2023 15:27:05 10/22/2023 15:47:15 10/22/2023 15:47:15 Registration Complete 10/22/2023 15:28:02 10/22/2023 15:40:19 10/22/2023 15:40:19 Dr Exam Complete 10/22/2023 15:33:35 10/22/2023 15:33:35 10/22/2023 15:33:35 Reg Complete Request 10/22/2023 15:40:19 Reg Bed Request Complete 10/22/2023 15:40:19 10/22/2023 15:40:19 10/22/2023 15:40:19 Meds Admin Complete 10/22/2023 15:44:09 10/22/2023 16:15:42 Patient Care Complete 10/22/2023 15:48:24 10/22/2023 16:02:04 Meds Admin Complete 10/22/2023 16:52:09 10/22/2023 17:17:54 Meds Admin Complete 10/22/2023 16:52:43 10/22/2023 17:17:55 Discharge Complete 10/22/2023 17:39:55 10/22/2023 18:15:50 10/22/2023 18:15:50 Transfer Complete 10/22/2023 18:15:50 10/22/2023 18:15:50 10/22/2023 18:15:50 ADDRESS: [address] [place] [address] [id number] PHYS DOC NOTES: MEDICAL INFORMATION: Prescriptions Given: Medications to Continue with No Changes Other [...] Milligram By Mouth 2 times a day. dicyclomine (Bentyl 10 mg Cap) 1 Capsules By Mouth 4 times a day as needed Other (see comment). For abdominal cramping. Refills: 0. duloxetine (Cymbalta 60 mg Cap-DR) 60 Milligram [...] day. rheumatoid arthritis. PATIENT EDUCATION INFORMATION: Instructions: Migraine Headache, Guys-il-Ifbr Follow up: With: Address: When: Ary Mohan [address] [place] [address] [place] [phone] Business (1) In 3 days 10/25/2023 Comments: Call to schedule a follow-up appointment with your family physician for further management of care. Return to the ED with any worsening symptoms. DIAGNOSIS: Cerumen impaction; Headache; Muscle pain, fibromyalgia Normal [facility] ED Patient Summaryon 024 ED Patient Summary ED Patient Summary [place] [id number] Patient Discharge Instructions Person Information Name: LILIYA SIDDIQUI Age: 38 Years Arrival Date: 10/22/2023 15:19:54 Discharge Diagnosis: Cerumen impaction; Headache; Muscle pain, fibromyalgia Primary Care Physician: Ary Mohan MD Provider Information Primary Provider: David Causey DO Advanced Railroader:Ada Aggarwal PA-C The exam and treatment you received in the Emergency Department were for an urgent problem and are not intended as complete care. It is important that you follow up with a doctor, nurse practitioner, or physician?s assistant housekeeping manager for ongoing care. If your symptoms become worse or you do not improve as expected and you are unable to reach your usual health care provider, you should return to the Emergency Department. We are available 24 hours a day. LILIYA SIDDIQUI has been given the following list of patient education materials, prescriptions and follow-up instructions: Follow-up Instructions: With: Address: When: Ary Mohan [address] [facility], [address] [place] [id number] Business (1) In 3 days 10/25/2023 Comments: Call to schedule a follow-up appointment with your family physician for further management of care. Return to the ED with any worsening symptoms. In the event that this physician does not participate in your insurance network, please consult with your insurance company to find a nearby participating provider. Patient Education Materials: Migraine Headache, Zzss-kk-Eibq A MESSAGE TO ALL PATIENTS REGARDING OPIOIDS PRESCRIPTION OPIOIDS: WHAT YOU NEED TO KNOW Prescription opioids can be used to help relieve mfkqkprd-is-epiruj pain and are often prescribed following a [...] about ways to help manage your pain that don?t involve prescription opioids. o Talk about any and all concerns and side effects. ? Help prevent misuse and abuse o Never sell or share prescription opioids. o Never use another person?s prescription opioids. ? Store prescription opioids in a secure place and out of reach of others (this may include visitors, children, friends, and family). ? Safely dispose of unused prescription opioids: Find your community drug take-back program or your pharmacy mail-back program, or flush them down the toilet, following guidance from the Food and Drug Administration (www.fda.gov/Drugs/Re sourcesForYou). ? Visit www.cdc.gov/drugoverd ose to learn about the (more content not included)... Normal [facility] CT Abdomen/Pelvis w/ Contras ton 06-14-2023 CT [...] 300 Contrast amount in ml's: 100 Normal [facility] ED Note-Physicianon 06-14-19 ED Note-Physician Basic Information Time Seen: Shan Gusman PA-C 06/13/2023 13:07 Chief Complaint patient c/o LLQ [...] mg ora (more content not included)... Normal [facility] Comment on above: Result Comment: Elec tronically Signed By: Shan Gusman PA-C\.br\Date and Time Signed: 06/14/23 16:04 EDT\.br\Electronically Co-Signed By: Brandon Strauss DO\.br\Date and Time Co-Signed: 06/14/23 19:58 EDT B hCG Qualon 06-13-2023 Beta HCG ( test) Ql Negative Normal [facility] Comment on above: Performed By: #### 2 [id number], [id number], [id number], [id number], [id number], [id number] ####[facility] [address] [place] [address] BMPon 06-13-2023 Anion gap [Moles/Vol] 10 mmol/L Normal 6-16 [facility] Comment on above: Performed By: #### 2 [id number], [id number], [id number], [id number], [id number], [id number] ####[facility] [address] [place] [address] Calcium [Mass/Vol] 9.5 mg/dL Normal 8.9-11.1 [facility] Comment on above: Performed By: #### 2 [id number], [id number], [id number], [id number], [id number], [id number] ####[facility] [address] [place] [address] Chloride [Moles/Vol] 105 mmol/L Normal 101-111 [facility] Comment on above: Performed By: #### 2 [id number], [id number], [id number], 0658963, [id number], [id number] ####[facility] [address] [place] [address] CO2 [Moles/Vol] 28 mmol/L Normal 21-31 [facility] Comment on above: Performed By: #### 2 [id number], [id number], [id number], 8676590, [id number], [id number] ####[facility] [address] [place] [address] Creatinine [Mass/Vol] 0.7 mg/dL Normal 0.5-1.3 [facility] Comment on above: Performed By: #### 2 [id number], [id number], 6855316, 8264396, [id number], [id number] ####[facility] [address] [place] [address] Glucose [Mass/Vol] 98 mg/dL Normal 55-199 [facility] Comment on above: Performed By: #### 2 [id number], [id number], 1150520, 5823108, [id number], [id number] ####[facility] [address] [place] [address] Potassium [Moles/Vol] 3.9 mmol/L Normal 3.5-5.3 [facility] Comment on above: Performed By: #### 2 620950, [id number], 9395476, 1265085, [id number], [id number] ####[facility] [address] [place] [address] Sodium [Moles/Vol] 139 mmol/L Normal 135-145 [facility] Comment on above: Performed By: #### 2 206627, [id number], 0098907, [id number], [id number], [id number] ####[facility] [address] [place] [address] Urea nitrogen [Mass/Vol] 12 mg/dL Normal 5-21 [facility] Comment on above: Performed By: #### 2 261664, 69931791, 6411515, 7217565, 60772751, 8511117 ####[facility] [address] [place] [address] Urea nitrogen/Creatinine [Mass ratio] 17 No Units Normal 10-20 [facility] Comment on above: Performed By: #### 2 723175, 82537512, 4479618, 0244329, 55421535, 6455324 ####[facility] [address] [place] [address] CBC w/ Auto Diffon 4 Basophils/100 WBC (Bld) 0.5 % Normal 0.0-2.0 [facility] Comment on above: Performed By: #### 2 490462, 06241727, 8437571, 3183691, 93552734, 5613534 ####[address] [address] Basophils/Leukocytes Auto (Bld) [Pure # fraction] 0.0 E9/L Normal 0.0-0.2 [facility] Comment on above: Performed By: #### 2 391594, 62637933, 6153667, 2197610, 74660539, 6160781 ####[address] [address] Eosinophils (Bld) [#/Vol] 0.3 E9/L Normal 0.0-0.5 [facility] Comment on above: Performed By: #### 2 614214, 06907319, 9884573, 8809604, 28129820, 4821206 ####[address] [address] Eosinophils/100 WBC (Bld) 3.6 % Normal 0.0-8.0 [facility] Comment on above: Performed By: #### 2 283620, 64981312, 5343823, 6462997, 39776864, 0429945 ####[address] [address] Erythrocyte distribution width (RBC) [Ratio] 12.9 % Normal 10.9-14.2 [facility] Comment on above: Performed By: #### 2 327764, 74386855, 9632253, 5071606, 83794723, 9897848 ####[address] [address] Hematocrit (Bld) [Volume fraction] 45.7 % Normal 34.0-46.0 [facility] Comment on above: Performed By: #### 2 716862, 20325608, 8682419, 0754106, 89677298, 9601041 ####[address] [address] Hemoglobin (Bld) [Mass/Vol] 15.3 g/dL Normal 12.0-16.0 [facility] Comment on above: Performed By: #### 2 579685, 53251684, 0535047, 7735241, 17433935, 0304688 ####[address] [address] Lymphocytes (Bld) [#/Vol] 1.8 E9/L Normal 1.0-4.0 [facility] Comment on above: Performed By: #### 2 642600, 21710805, 2341350, 3757784, 50331351, 1747670 ####[address] [address] Lymphocytes/100 WBC (Bld) 19.3 % Normal 14.0-50.0 [facility] Comment on above: Performed By: #### 2 568782, 89551731, 0997989, 8995824, 93546387, 5341161 ####[address] [address] MCH (RBC) [Entitic mass] 30.7 pg Normal 27.0-34.0 [facility] Comment on above: Performed By: #### 2 490931, 96521128, 7402673, 4050097, 04000842, 4335332 ####[address] [address] MCHC (RBC) [Mass/Vol] 33.6 g/dL Normal 31.4-36.0 [facility] Comment on above: Performed By: #### 2 752786, 57383218, 5622887, 3667539, 69653533, 4488496 ####[address] [address] MCV (RBC) [Entitic vol] 91.5 fL Normal 80.0-100.0 [facility] Comment on above: Performed By: #### 2 275149, 98347516, 6917631, 8060293, 04638265, 3864137 ####[place] [place] [address] Monocytes (Bld) [#/Vol] 0.7 E9/L Normal 0.2-1.0 [facility] Comment on above: Performed By: #### 2 732619, 11423083, 3996434, 5745349, 60640820, 9436651 ####[address] [address] Neutrophils (Bld) [#/Vol] 6.5 E9/L Normal 2.0-7.5 [facility] Comment on above: Performed By: #### 2 273138, 72876050, 0974865, 5389734, 48229707, 5807602 ####[address] [address] Neutrophils/100 WBC (Bld) 69.2 % Normal 36.0-75.0 [facility] Comment on above: Performed By: #### 2 644494, 12409987, 1733729, 9916097, 54351858, 4970558 ####[address] [address] Platelet mean volume (Bld) [Entitic vol] 8.0 fL Normal 6.4-10.8 [facility] Comment on above: Performed By: #### 2 082643, 82625613, 0955024, 3943599, 29514097, 0441441 ####[address] [address] Platelets (Bld) [#/Vol] 299.0 E9/L Normal 150.0-500.0 [facility] Comment on above: Performed By: #### 2 662990, 38874908, 3994946, 0863669, 20759604, 7588838 ####[address] [address] RBC (Bld) [#/Vol] 5.0 E12/L Normal 4.3-5.9 [facility] Comment on above: Performed By: #### 2 928607, 79245279, 2800537, 3123745, 05491956, 5800100 ####[facility] [address] [place] [address] WBC corrected for nucl RBC Auto (Bld) [#/Vol] 9.4 E9/L Normal 4.0-11.0 [facility] Comment on above: Performed By: #### 2 547945, 47100712, 9272365, 8961481, 48991399, 9183312 ####[facility] [address] [place] [address] CHEMISTRYOrdered By: SYSTEM SYSTEM on 06-13-2023 Albumin [...] Treatmenton 05-21 Consent for Treatment [id number] .00TIFF Normal [facility] Discharge Instructionson Discharge Instructions [id number] .00TIFF Normal [facility] ED Clinical Summaryon 2023 ED Clinical Summary [place] [id number] ED Clinical Summary Person Information Name: LILIYA SIDDIQUI [facility] Age: 38 Years : 1985 Sex: Female Language: Liberian PCP: Ary Mohan MD Marital Status: Single Phone: [phone] Visit Id: Visit Reason: Abdominal pain; left [...] 17:30:07 06/13/2023 17:30:07 06/13/2023 17:30:07 ADDRESS: [address] [id number] PHYS DOC NOTES: MEDICAL INFORMATION: Prescriptions Given: New Medications [id number], [address], [place] [id number], [phone] dicyclomine (Bentyl 10 mg Cap) 1 Capsules [...] Follow up: With: Address: When: Ary Mohan [address] [place] [address], [facility] [place] [id number] Business (1) In 3 days 06/16/2023 Comments: [...] worsening vomit (more content not included)... Normal [facility] ED Patient Education Noteon 06-13-2023 ED Patient [...] these instructions at home: Medicines ? Take ajvi-fvj-nlxykut and prescription medicines only as told by [...] your condition for any changes. ? Take pwbn-crt-jkalwew and prescription medicines only as told by [...] provider. Document Revised: 04/26/2020 Document Reviewed: 07/17/2019 Elsevier Patient Education ? 2022 [employer]. Normal [facility] ED Patient Summaryon 024 ED Patient Summary [address] [address] Patient Discharge Instructions Person Information Name: LILIYA SIDDIQUI Age: 38 Years Arrival Date: 06/13/2023 13:03:08 Discharge Diagnosis: 1:Abdominal pain Primary Care Physician: Ary Mohan MD Provider Information Primary Provider: Brandon Strauss DO Advanced Railroader:Shan Gusman PA-C The exam and treatment you received in the Emergency Department were for an urgent problem and are not intended as complete care. It is important that you follow up with a doctor, nurse practitioner, or physician?s assistant housekeeping manager for ongoing care. If your symptoms become worse or you do not improve as expected and you are unable to reach your usual health care provider, you should return to the Emergency Department. We are available 24 hours a day. LILIYA SIDDIQUI has been given the following list of patient education materials, prescriptions and follow-up instructions: Follow-up Instructions: With: Address: When: Ary Becca [address] [place] [address], [facility] [place] [address] Business (1) In 3 days [...] opioids can be used to help relieve qvifhdhp-bs-ipjuwq pain and are often prescribed following a [...] pain t (more content not included)... Normal [facility] HEMATOLOGYOrdered By: SYSTEM SYSTEM on 06-13-2023 Basophils/100 [...] 06-13-2023 Albumin [Mass/Vol] 4.3 g/dL Normal 3.3-5.0 [facility] Comment on above: Performed By: #### 2 747371, 85207683, 4702148, 0653302, 35767489, 3827273 ####[facility] [address] [place] [address] Albumin/Globulin (S) [Mass conc ratio] 1.5 Normal 1.1-2.2 [facility] Comment on above: Performed By: #### 2 729380, 38506943, 4350998, 2108681, 25699702, 3836328 ####[facility] [address] [place] [address] ALP [Catalytic activity/Vol] 64 Int._Unit/L Normal 21-98 [facility] Comment on above: Performed By: #### 2 353026, 96641177, 1066141, 1767690, 34384188, 4170293 ####[facility] [address] [place] [address] ALT No additional P-5'-P [Catalytic activity/Vol] 10 Int._Unit/L Normal 6-46 [facility] Comment on above: Performed By: #### 2 282086, 16997818, 7876004, 3646289, 32966495, 4376629 ####[facility] [address] [place] [address] AST [Catalytic activity/Vol] 13 Int._Unit/L Normal 5-43 [facility] Comment on above: Performed By: #### 2 114869, 51555532, 1345862, 8464834, 86946675, 8594551 ####[address] [place] [address] Bilirubin [Mass/Vol] 0.7 mg/dL Normal 0.0-1.1 [facility] Comment on above: Performed By: #### 2 333779, 76891886, 3698476, 2646690, 34397309, 8154274 ####[address] [address] Bilirubin.direct [Mass/Vol] 0.1 mg/dL Normal 0.0-0.4 [facility] Comment on above: Performed By: #### 2 165366, 47834653, 2915243, 8035172, 10324945, 4606352 ####[address] [address] Bilirubin.indirect [Mass or moles/Vol] 0.6 mg/dL Normal 0.1-0.9 [facility] Comment on above: Performed By: #### 2 033330, 94459221, 2627264, 4950958, 32653749, 9298092 ####[address] [address] Globulin (S) [Mass/Vol] 2.8 g/dL Normal 1.4-4.0 [facility] Comment on above: Performed By: #### 2 873083, 30444913, 5092581, 6116749, 09888973, 0944765 ####[address] [address] Protein [Mass/Vol] 7.1 g/dL Normal 6.0-7.8 [facility] Comment on above: Performed By: #### 2 212392, 18136325, 5279889, 8007870, 72336820, 8655392 ####[address] [address] Lipase Levelon 06-13-2023 Lipase [Catalytic activity/Vol] 78 U/L High 13 [facility] Comment on above: Performed By: #### 2 784965, 72623310, 9045424, 7400884, 70654922, 3866977 ####[facility] [address] [place] [address] Prescriptions/Work Noteson 0 06-13-2023 Prescriptions/Work Notes [id number] .00TIFF Normal [facility] RAD - Preliminary Cat Scan R eporton 06-13-2023 RAD - Preliminary Cat Scan Report [id number] .00TIFF Normal [facility] SEROLOGYOrdered By: Nanci Hicks on 06-13-2023 Beta HCG ( test) Ql Negative (06/13/23 1:14 PM) Normal [facility] Man Sero UA with Cult Rflxon 06-13-19 Color (U) Light-Yellow Normal Yellow [facility] Comment on above: Result Comment: Micr oscopic readings are only performed on those samples that meet specific criteria set forth by [facility]. Performed By: #### 4 [id number] ####[facility] [address] [place] [address] Glucose (U) [Mass/Vol] Negative Normal Negative [facility] Comment on above: Performed By: #### 4 [id number] ####[facility] [address] [place] [address] Ketones Ql (U) Negative Normal Negative [facility] Comment on above: Performed By: #### 4 [id number] ####[facility] [address] [place] [address] UA Blood Negative Normal Negative [facility] Comment on above: Performed By: #### 4 277301226 ####[facility] [address] [place] [address] UA Clarity Clear Normal Clear [facility] Comment on above: Performed By: #### 4 306872842 ####[facility] [address] [place] [address] UA Leuk Est Negative Normal Negative [facility] Comment on above: Performed By: #### 4 351742525 ####[facility] [address] [place] [address] UA Nitrite Negative Normal Negative [facility] Comment on above: Performed By: #### 4 362469219 ####[facility] [address] [facility] [place] [place] [address] UA pH 6.0 Invalid Interpretation Code 5.0-9.0 [facility] Comment on above: Performed By: #### 4 717896666 ####[facility] [address] [facility] [place] [place] [address] UA Protein Negative Normal Negative [facility] Comment on above: Performed By: #### 4 821284198 ####[facility] [address] [facility] [place] [address] UA Spec Grav >1.050 Normal 1.005-1.030 [facility] Comment on above: Performed By: #### 4 692761792 ####[facility] [address] [facility] [place] [place] [address] UA Urobilinogen Negative Normal Negative [facility] Comment on above: Performed By: #### 4 056633052 ####[facility] [address] [facility] [place] [address] Urobilinogen (U) [Mass/Vol] Negative Normal Negative [facility] Comment on above: Performed By: #### 4 786867756 ####[facility] [address] [facility] [place] [place] [address] UA Spec Desc Clean Catch Normal [facility] Comment on above: Performed By: #### 4 [id number] ####[facility] [address] [place] [address] URINALYSISOrdered By: Venessa Hicks on 06-13-2023 Color (U) Light-Yellow 1 (06/13/23 4:12 PM) Normal Yellow [facility] UA Auto SS Comment on above: Interpretive Data: M icroscopic readings are only performed on those samples that meet specific criteria set forth by [facility]. Glucose (U) [Mass/Vol] Negative Normal Negativemg/dL [...] SS Urobilinogen (U) [Mass/Vol] Negative Normal Negativemg/dL [facility] UA Auto SS URINALYSISOrdered By: Shan Gusman on 06-13-2023 UA Spec Desc Clean Catch (06/13/23 4:12 PM) Normal [facility] UA Auto SS Work Phone: eGFRon 06-13-2023 eGFR 112 mL/min/1.73 m2 Normal >=59 [facility] Comment on above: Order Comment: Order added by Discern Expert. Performed By: #### 2 093620, 36417241, 6512929, 5253886, 08501143, 6376135 ####[facility] [address] [place] [address] US SINGLE QUAD RT UPPERon US SINGLE [...] by: THERESA MCCARTHY Date: 2022-06-12 08:37 Normal [facility] CT CSPINE WO CONon CT CSPINE WO CON EXAMINATION: CT CSPINE [...] THERESA ESPAÑA Date: 2022-03-21 22:20 Normal [facility] CT FACIAL BONES WO CONon CT [...] THERESA ESPAÑA Date: 2022-03-21 22:43 Normal [facility] CT HEAD WO CONon 03-22-2022 CT [...] JOSEPH STACK Date: 2022-03-21 22:25 Normal [facility] DRUG SCREEN RAPID (URINE)on 03-22-2022 AMP Negative Normal NEGATIVE [facility] Comment on above: Performed By: #### Tiff GALEAS DRUGRPD ####[facility] [address] [place], [place] [address]Tk. Eddy Lindsey BAR Negative Normal NEGATIVE [facility] Comment on above: Performed By: #### Tiff DRAPERR DRUGRPD ####[facility] [address] [place], [place] [address]Ss. Eddy Lindsey [facility] Negative Normal NEGATIVE [facility] Comment on above: Performed By: #### E BARONR DRUGRPD ####[facility] [address] [place], [place] [address]Dr. Eddy Lindsey BZO Negative Normal NEGATIVE [facility] Comment on above: Performed By: #### Tiff RUAlberto DRUGRPD ####[facility] [address] [place], [place] [address]Dr. Eddy Lindsey OCTAVIO Negative Normal NEGATIVE [facility] Comment on above: Performed By: #### Tiff GALEAS DRUGRPD ####[facility] [address] [place], [place] [address]Dr. Eddy Lindsey CUT-OFFS SEE BELOW Normal [facility] Comment on above: Result Comment: AMP (Amphetamine): 500ng/mL, BAR (Barbituates): 200 ng/mL, BZO (Benzodiazepines): 150 ng/mL, BUP (Buprenorphine): 10 ng/mL, OCTAVIO (Cocaine): 150 ng/mL, mAMP (Methamphetamine): 500 ng/mL, MTD (Methadone): 200 ng/mL, OPI (Opiates): 100 ng/mL, OXY (Oxycodone): 100 ng/mL, PCP (Phencyclidine): 25 ng/mL, PPX (Propoxyphene): 300 ng/mL, THC (Cannabinoids): 50 ng/mL, TCA (Trycyclic Antidepressants): 300 ng/mL Performed By: #### Tiff GALEAS DRUGRPD ####[facility] [address] [place], [place] [address]Dr. Eddy Lindsey DRUG CUT HEADER DRUG CLASS TEST SYSTEM CUT-OFF CONCENTRATIONS ARE FOLLOWS: Normal [facility] Comment on above: Performed By: #### Tiff GALEAS DRUGRPD ####[facility] [address] [place], [place] [address]Dr. Eddy Lindsey mAMP Negative Normal NEGATIVE [facility] Comment on above: Performed By: #### Tiff RUAlberto DRUGRPD ####[facility] [address] [place], [place] [address]Dr. Eddy Lindsey MTD Negative Normal NEGATIVE [facility] Comment on above: Performed By: #### Tiff GALEAS DRUGRPD ####[facility] [address] [place], [place] [address]Dr. Eddy Lindsey OPI Negative Normal NEGATIVE [facility] Comment on above: Performed By: #### E RUR, DRUGRPD ####[facility] [address] [place], [place] [address]Dr. Yilanden Lindsey OXY Negative Normal NEGATIVE [facility] Comment on above: Performed By: #### E RUR, DRUGRPD ####[facility] [address] [place], [place] [address]Dr. Dorothealanden Lindsey PCP Negative Normal NEGATIVE [facility] Comment on above: Performed By: #### E RUR, DRUGRPD ####[facility] [address] [place], [place] [address]Dr. Eddy Lindsey PPX Negative Normal NEGATIVE [facility] Comment on above: Performed By: #### E RUR, DRUGRPD ####[facility] [address] [place], [place] [address]Dr. Eddy Lindsey TCA Negative Normal NEGATIVE [facility] Comment on above: Performed By: #### E RUR, DRUGRPD ####[facility] [address] [place], [place] [address]Dr. Dorothealanden Lindsey THC Negative Normal NEGATIVE [facility] Comment on above: Performed By: #### E RUR, DRUGRPD ####[facility] [address] [place], [place] [address]Dr. Eddy Lindsey ER URINE PROFILEon 3 Bilirubin Ql (U) Negative Normal NEGATIVE [facility] Comment on above: Performed By: #### E RUR, DRUGRPD ####[facility] [address] [place], [place] [address]Dr. Eddy Lindsey Clarity (U) CLEAR Normal CLEAR [facility] Comment on above: Performed By: #### E RUR, DRUGRPD ####[facility] [address] [place], [place] [address]Dr. Eddy Lindsey Color (U) LT. YELLOW Normal YELLOW [facility] Comment on above: Performed By: #### E RUR, DRUGRPD ####[facility] [address] [place], [place] [address]Dr. Eddy Lindsey ERUAHD A micrscopic examination will be performed if indicated. Normal [facility] Comment on above: Performed By: #### E RUR, DRUGRPD ####[facility] [address] [place], [place] [address]Dr. Eddy Lindsey Glucose Ql (U) Negative Normal NEGATIVE [facility] Comment on above: Performed By: #### E RUR, DRUGRPD ####[facility] [address] [place], [place] [address]Dr. Eddy Lindsey Hemoglobin Ql (U) Negative Normal NEGATIVE [facility] Comment on above: Performed By: #### E RUR, DRUGRPD ####[facility] [address] [place], [place] [address]Dr. Eddy Lindsey Ketones Ql (U) Negative Normal NEGATIVE [facility] Comment on above: Performed By: #### E RUR, DRUGRPD ####[facility] [address] [place], [place] [address]Dr. Eddy Lindsey LEUKOCYTES Negative Normal NEGATIVE [facility] Comment on above: Performed By: #### E RUR, DRUGRPD ####[facility] [address] [place], [place] [address]Dr. Eddy Lindsey Nitrite Ql (U) Negative Normal NEGATIVE [facility] Comment on above: Performed By: #### E RUR, DRUGRPD ####[facility] [address] [place], [place] [address]Dr. Eddy Lindsey pH (U) 5.0 [pH] Normal 5-9 [facility] Comment on above: Performed By: #### E RUR, DRUGRPD ####[facility] [address] [place], [place] [address]Dr. Eddy Lindsey SPEC GRAVITY <=1.005 Abnormal 1.005-<=1.025 [facility] Comment on above: Performed By: #### E RUR, DRUGRPD ####[facility] [address] [place], [place] [address]Dr. Eddy Lindsey UA PROTEIN Negative Normal NEGATIVE/ TRACE [facility] Comment on above: Performed By: #### E RUR, DRUGRPD ####[facility] [address] [place], [place] [address]Iu. Eddy Lindsey UR MICRO IND NOT INDICATED Normal [facility] Comment on above: Performed By: #### E RUR, DRUGRPD ####[facility] [address] [place], [place] [address]Gs. Eddy Lindsey Urobilinogen Qn (U) 0.2 {Nikki'U}/dL Normal 0.2 - 1. 0 [facility] Comment on above: Performed By: #### E RUR, DRUGRPD ####[facility] [address] [place], [place] [address]Hn. Eddy Lindsey XR HAND NELLY MIN 3Von 023 [...] delineate. Right hand: No fracture. Normal [facility] CBC AUTO DIFFon 03-21-2022 BASO # 0.1 103/ul Normal 0.0-0.1 [facility] Comment on above: Performed By: #### C BC ####[facility] [address] [place], [place] [address]Fl. Eddy Lindsey Basophils/100 WBC (Bld) 0.5 % Normal 0.2-2.0 [facility] Comment on above: Performed By: #### C BC ####[facility] [address] [place], [place] [address]At. Eddy Lindsey EO # 0.1 103/ul Normal 0.0-0.7 [facility] Comment on above: Performed By: #### C BC ####[facility] [address] [place], [place] [address]Kv. Eddy Lindsey Eosinophils/100 WBC (Bld) 0.7 % Critically low 0.9-7.0 [facility] Comment on above: Performed By: #### C BC ####[facility] [address] [place] [address]Dr. Eddy Lindsey Erythrocyte distribution width (RBC) [Ratio] 11.7 % Normal 11.0-15.0 [facility] Comment on above: Performed By: #### C BC ####[facility] [address] [place] [address]Dr. Eddy Lindsey Hematocrit (Bld) [Volume fraction] 42.9 % Normal 36.0-48.0 [facility] Comment on above: Performed By: #### C BC ####[facility] [address] [place], [place] [address]Dr. Eddy Lindsey Hemoglobin (Bld) [Mass/Vol] 14.6 g/dL Normal 12.0-16.0 [facility] Comment on above: Performed By: #### C BC ####[facility] [address] [place], [place] [address]DrWalt Eddy Lindsey IG # 0.07 10e3/ul Critically high 0.00-0.03 [facility] Comment on above: Performed By: #### C BC ####[facility] [address] [place], [place] [address]DrWalt Eddy Lindsey IG % 0.7 % Critically high 0.0-0.5 [facility] Comment on above: Performed By: #### C BC ####[facility] [address] [place], [place] [address]DrWalt Eddy Lindsey LYMPH # 1.6 103/ul Normal 1.2-3.8 [facility] Comment on above: Performed By: #### C BC ####[facility] Glvcxdabxf[address] [place], [place] [address]DrWalt Eddy Lindsey Lymphocytes/100 WBC (Bld) 15.4 % Critically low 20.5-60.0 [facility] Comment on above: Performed By: #### C BC ####[facility] Nnitpgphld2[address] [place], [place] [address]Dr. Eddy Lindsey MANUAL DIFF REQ NO Normal [facility] Comment on above: Performed By: #### C BC ####[facility] [address] [place] [id number]. Eddy César MCH (RBC) [Entitic mass] 31.3 pg Normal 26.7-34.0 [facility] Comment on above: Performed By: #### C BC ####[facility] [address] [place] [address]Dr. Eddy Lindsey MCHC (RBC) [Mass/Vol] 34.0 g/dL Normal 29.9-35.2 [facility] Comment on above: Performed By: #### C BC ####[facility] [address] [place] [address]Dr. Eddy Lindsey MCV (RBC) [Entitic vol] 92.1 fL Normal 81.0-99.0 [facility] Comment on above: Performed By: #### C BC ####[facility] Fhmlovssur[address] [place], [place] [address]Dr. Eddy Lindsey MONO # 0.5 103/ul Normal 0.3-0.8 [facility] Comment on above: Performed By: #### C BC ####[facility] Ixyordzvjp[address] [place], [place] [address]Dr. Eddy Lindsey Monocytes/100 WBC (Bld) 5.3 % Normal 1.7-12.0 [facility] Comment on above: Performed By: #### C BC ####[facility] [address] [place], [place] [address]DrWalt Lindsey NEUT # 7.8 103/ul Critically high 1.4-6.5 [facility] Comment on above: Performed By: #### C BC ####[facility] [address] [place], [place] [id number] Lindsey Neutrophils/100 WBC (Bld) 77.4 % Critically high 43.0-75.0 [facility] Comment on above: Performed By: #### C BC ####[facility] [address] [place], [place] [address]DrWalt Lindsey Platelet mean volume (Bld) [Entitic vol] 9.0 fL Critically low 9.5-13.5 [facility] Comment on above: Performed By: #### C BC ####[facility] [address]oxcj[address] [place] [id number] Lindsey PLT 291 103/ul Normal 150-450 [facility] Comment on above: Performed By: #### C BC ####[facility] Rnbemtvxvv65[address] [place] [id number] Lindsey RBC 4.66 106/ul Normal 4.20-5.40 [facility] Comment on above: Performed By: #### C BC ####[facility] [address]keen[address] [place] [address]DrWalt Lindsey WBC 10.1 103/ul Normal 4.0-11.0 [facility] Comment on above: Performed By: #### C BC ####[facility] If[address]zz[address] [place] [address]Dr. Eddy Lindsey ETHANOL (BLD ALC)on 03-21-20 22 ALC NOTE NOTE: 80 mg/dl is th e legal limit for a blood alcohol level Normal [facility] Comment on above: Performed By: #### E TH #### [facility] [address] [address] [address] Eddy Lindsey Ethanol [Mass/Vol] 204 mg/dL Normal [facility] Comment on above: Performed By: #### E TH #### [facility] [address] [address] [address] Eddy Lindsey PROF 14(COMP METB)on 022 Albumin [Mass/Vol] 3.9 g/dL Normal 3.4-5.0 [facility] Comment on above: Performed By: #### C MP ####[facility] Eekwn[address]xddd[address] [place] [address]Dr. Eddy Lindsey Albumin/Globulin [Mass ratio] 1.3 {ratio} Normal [facility] Comment on above: Performed By: #### C MP ####[facility] Bwrsuwhqhv[address] [place] [address]Dr. Eddy Lindsey ALP [Catalytic activity/Vol] 78 U/L Normal 46-116 [facility] Comment on above: Performed By: #### C MP ####[facility] [address]se[address]bt[address] [place] [address]Dr. Eddy Lindsey ALT [Catalytic activity/Vol] 27 U/L Normal 14-59 [facility] Comment on above: Performed By: #### C MP ####[facility] [address]tq[address]mbrqp[address] [place] [address]Dr. Eddy Lindsey Anion gap [Moles/Vol] 18.2 mmol/L Normal [facility] Comment on above: Performed By: #### C MP ####[facility] Rwmuxqjane[address] [place], [place] [address]Dr. Eddy Lindsey AST [Catalytic activity/Vol] 22 U/L Normal 15-37 [facility] Comment on above: Performed By: #### C MP ####[facility] [address]wftl[address]ze[address] [place], [place] [address]Dr. Eddy Lindsey Bilirubin [Mass/Vol] 0.3 mg/dL Normal 0.2-1.0 [facility] Comment on above: Performed By: #### C MP ####[facility] [address] [place], [place] [address]Dr. Eddy Lindsey Calcium [Mass/Vol] 8.7 mg/dL Normal 8.5-10.1 [facility] Comment on above: Performed By: #### C MP ####[facility] Onwuitrabo[address] [place], [place] [address]Dr. Eddy Lindsey Chloride [Moles/Vol] 102 mmol/L Normal 98-107 [facility] Comment on above: Performed By: #### C MP ####[facility] [address] [place], [place] [address]Dr. Eddy César CO2 [Moles/Vol] 20.1 mmol/L Critically low 21.0-32.0 [facility] Comment on above: Performed By: #### C MP ####[facility] Z[address]up[address] [place], [place] [address]Dr. Eddy César Creatinine [Mass/Vol] 1.04 mg/dL Critically high 0.55-1.02 [facility] Comment on above: Performed By: #### C MP ####[facility] [address] [place] [id number]. Eddy César EGFR-AF ECUADOREAN >60 Normal >=60 [facility] Comment on above: Performed By: #### C MP ####[facility] [address]teaft[address] [place] [phone]. Eddy César EGFR-NON AF ECUADOREAN 59 mL/min/1.73m2 Critically low >=60 [facility] Comment on above: Performed By: #### C MP ####[facility] [address]xd[address] [place] [phone]. Eddy César Globulin (S) [Mass/Vol] 2.9 g/dL Normal [facility] Comment on above: Performed By: #### C MP ####[facility] Qhtoxohkuv[address] [place] [address]Dr. Eddy Lindsey Glucose [Mass/Vol] 132 mg/dL Critically high 74-106 [facility] Comment on above: Performed By: #### C MP ####[facility] Cfvfkfloub[address] [place] [phone]. Dorothealanden César Potassium [Moles/Vol] 3.3 mmol/L Critically low 3.5-5.1 [facility] Comment on above: Performed By: #### C MP ####[facility] [address]pr[address]cfju[address] [place] [id number]. Eddy Lindsey Protein [Mass/Vol] 6.8 g/dL Normal 6.4-8.2 [facility] Comment on above: Performed By: #### C MP ####[facility] [address]vexjay[address] [place] [phone]. Eddy Lindsey Sodium [Moles/Vol] 137 mmol/L Normal 136-145 [facility] Comment on above: Performed By: #### C MP ####[facility] [address]fiaq[address] [place] [phone]. Eddy Lindsey Urea nitrogen [Mass/Vol] 18.0 mg/dL Normal 7.0-18.0 [facility] Comment on above: Performed By: #### C MP ####[facility] [address]wo[address] [place], [place] [address]Im. Eddy Lindsey Urea nitrogen/Creatinine [Mass ratio] 17.3 mg/mg Normal [facility] Comment on above: Performed By: #### C MP ####[facility] [address]fgwmofuuv1880 [place], [place] [address]Jk. Eddy Lindsey XR CHEST 1 Von 03-21-2022 [...] by: THERESA ESPAÑA Date: 2022-03-21 21:30 Normal [facility] XR LSPINE MIN 4 VIEWSon 12-0 XR [...] by: THERESA PATEL Date: 2022-02-26 12:42 Normal [facility] CT CHEST W CONon 01-19-2022 CT CHEST [...] THERESA PATEL Date: 2022-01-19 07:48 Normal [facility] CT HUMERUS RT WO CONon 01-04 [...] ESTHER VAZQUEZ Date: 2022-01-04 21:32 Normal [facility] US BLADDERon 11-13-2021 US BLADDER EXAMINATION: [...] ESTHER VAZQUEZ Date: 2021-11-13 06:53 Normal [facility] CULTURE URINEon 10-30-2021 CULTURE URINE Isolate [...] F Trimethoprim/Sulfamet hoxazole <=20 S F Normal [facility] Comment on above: Performed By: #### U RCX ####[facility] [address]vbfnz[address]uy[address] [place], [place] [address]Ep. Eddy [address] CT ABD/PELV W CONon 10-30-19 [...] THERESA PATEL Date: 2021-10-29 14:20 Normal [facility] CARDIAC JORGE ALBERTO ADMITon 022 CK [Catalytic activity/Vol] 18 U/L Critically low 26-192 [facility] Comment on above: Performed By: #### C JACKI TRACEY #### [facility] [address] [place] [address] Dr. Eddy Lindsey CK.MB [Mass/Vol] ng/mL Normal <=3.60 [facility] Comment on above: Performed By: #### C JACKI TRACEY #### [facility] [address] [place] [address] Dr. Eddy Lindsey HSTROP 4.1 pg/mL Normal 4.0-51.3 [facility] Comment on above: Result Comment: CUT- OFF POINTS HAVE BEEN ESTABLISHED BASED ON THE FOURTH UNIVERSAL DEFINITIONS OF MYOCARDIAL INFARCTION. THE UPPER REFERENCE LIMIT (URL) OF TROPONIN, DEFINED THE 99TH PERCENTILE OF cTnI DISTRIBUTION IN A REFERENCE POPULATION, HAS BEEN CONFIRMED THE DECISION THRESHOLD FOR SD DIAGNOSIS. Performed By: #### JACKI Liz MP #### [facility] [address] [place] [address] Dr. Eddy Lindsey CHARLENE 35 ng/mL Normal 9-82 [facility] Comment on above: Performed By: #### JACKI Liz MP #### [facility] [address] [place] [address] Dr. Eddy Lindsey CBC AUTO DIFFon 10-28-2021 BASO # 0.0 103/ul Normal 0.0-0.1 [facility] Comment on above: Performed By: #### C BC ####[facility] [address] [place] [address]Dr. Eddy Lindsey Basophils/100 WBC (Bld) 0.3 % Normal 0.2-2.0 [facility] Comment on above: Performed By: #### C BC ####[facility] W[address]frq[address]ch[address] [place] [address]Dr. Eddy Lindsey EO # 0.0 103/ul Normal 0.0-0.7 [facility] Comment on above: Performed By: #### C BC ####[facility] [address]sq[address]zgx[address] [place] [address]Dr. Eddy Lindsey Eosinophils/100 WBC (Bld) 0.2 % Critically low 0.9-7.0 [facility] Comment on above: Performed By: #### C BC ####[facility] U[address]vbaikr[address] [place] [address]Dr. Eddy Lindsey Erythrocyte distribution width (RBC) [Ratio] 12.5 % Normal 11.0-15.0 [facility] Comment on above: Performed By: #### C BC ####[facility] [address]bav[address] [place] [address]Dr. Eddy Lindsey Hematocrit (Bld) [Volume fraction] 47.7 % Normal 36.0-48.0 [facility] Comment on above: Performed By: #### C BC ####[facility] Civ[address]rf[address]kp[address] [place], [place] [address]Dr. Eddy Lindsey Hemoglobin (Bld) [Mass/Vol] 15.6 g/dL Normal 12.0-16.0 [facility] Comment on above: Performed By: #### C BC ####[facility] Lkeudaqwiz[address] [place], [place] [address]Dr. Eddy Lindsey IG # 0.09 10e3/ul Critically high 0.00-0.03 [facility] Comment on above: Performed By: #### C BC ####[facility] Movhpqlsre[address] [place], [place] [address]Dr. Eddy Lindsey IG % 1.0 % Critically high 0.0-0.5 [facility] Comment on above: Performed By: #### C BC ####[facility] [address]nenqsdwf[address] [place], [place] [address]Dr. Eddy Lindsey LYMPH # 1.2 103/ul Normal 1.2-3.8 [facility] Comment on above: Performed By: #### C BC ####[facility] [address]ztr[address]vine[address] [place], [place] [address]Dr. Eddy Lindsey Lymphocytes/100 WBC (Bld) 12.7 % Critically low 20.5-60.0 [facility] Comment on above: Performed By: #### C BC ####[facility] [address]wq[address] [place] [id number]. Eddy Lindsey MANUAL DIFF REQ NO Normal [facility] Comment on above: Performed By: #### C BC ####[facility] [address]te[address]qx[address] [place] [phone]. Eddy Lindsey MCH (RBC) [Entitic mass] 32.2 pg Normal 26.7-34.0 [facility] Comment on above: Performed By: #### C BC ####[facility] Wy[address]tjkezj[address] [place] [address]Dr. Eddy Lindsey MCHC (RBC) [Mass/Vol] 32.7 g/dL Normal 29.9-35.2 [facility] Comment on above: Performed By: #### C BC ####[facility] De[address]rtbky[address] [place] [address]Dr. Eddy César MCV (RBC) [Entitic vol] 98.6 fL Normal 81.0-99.0 [facility] Comment on above: Performed By: #### C BC ####[facility] [address]kw[address]ov[address] [place], [place] [address]Dr. Eddy César MONO # 0.7 103/ul Normal 0.3-0.8 [facility] Comment on above: Performed By: #### C BC ####[facility] [address]zt[address] [place] [address]Dr. Dorothealanden Lindsey Monocytes/100 WBC (Bld) 8.0 % Normal 1.7-12.0 [facility] Comment on above: Performed By: #### C BC ####[facility] X[address]ti[address] [place] [address]Dr. Dorothealanden César NEUT # 7.2 103/ul Critically high 1.4-6.5 [facility] Comment on above: Performed By: #### C BC ####[facility] [address]oc[address] [place] [address]Dr. Eddy Lindsey Neutrophils/100 WBC (Bld) 77.8 % Critically high 43.0-75.0 [facility] Comment on above: Performed By: #### C BC ####[facility] [address]qhiwfh[address] [place], [place] [address]Bn. Eddy Lindsey Platelet mean volume (Bld) [Entitic vol] 8.7 fL Critically low 9.5-13.5 [facility] Comment on above: Performed By: #### C BC ####[facility] [address]rdv[address] [place] [phone]. Eddy Lindsey PLT 311 103/ul Normal 150-450 [facility] Comment on above: Performed By: #### C BC ####[facility] K[address]knprvx[address]01 [place], [place] [address]Mm. Eddy Lindsey RBC 4.84 106/ul Normal 4.20-5.40 [facility] Comment on above: Performed By: #### C BC ####[facility] [address] [place], [place] [address]Kd. Eddy Lindsey WBC 9.3 103/ul Normal 4.0-11.0 [facility] Comment on above: Performed By: #### C BC ####[facility] [address] [place] [phone]. Eddy Lindsey D-DIMERon 10-28-2021 D-DIMER 0.21 mg/L FEU Normal <=0.59 [facility] Comment on above: Performed By: #### D DIM ####[facility] [address] [place] [phone]. Eddy Lindsey D-DIMER COMMENTS SEE BELOW Normal [facility] Comment on above: Result Comment: Incr [...] generalized hospitalization. Performed By: #### D DIM ####[facility] Uuawlpofnh[address] [place], [place] [address]Qg. Eddy Lindsey ER URINE PROFILEon 2 Bilirubin Ql (U) Negative Normal NEGATIVE [facility] Comment on above: Performed By: #### P REGU, UMICRO, ERUR #### [facility] [address] [address] [address] Eddy Lindsey Clarity (U) CLEAR Normal CLEAR [facility] Comment on above: Performed By: #### P REGU, UMICRO, ERUR #### [facility] [address] [address] [address] Eddy Lindsey Color (U) LT. YELLOW Normal YELLOW [facility] Comment on above: Performed By: #### P REGU, UMICRO, ERUR #### [facility] [address] [address] [address] Eddy MORED A micrscopic examination will be performed if indicated. Normal [facility] Comment on above: Performed By: #### P REGU, UMICRO, ERUR #### [facility] [address] [address] [address] Eddy Lindsey Glucose Ql (U) Negative Normal NEGATIVE [facility] Comment on above: Performed By: #### P REGU, UMICRO, ERUR #### [facility] [address] [address] [address] Eddy Lindsey Hemoglobin Ql (U) Negative Normal NEGATIVE [facility] Comment on above: Performed By: #### P REGU, UMICRO, ERUR #### [facility] [address] [address] [address] Eddy Lindsey Ketones Ql (U) Negative Normal NEGATIVE [facility] Comment on above: Performed By: #### P REGU, UMICRO, ERUR #### [facility] [address] [address] [address] Eddy Lindsey LEUKOCYTES Negative Normal NEGATIVE [facility] Comment on above: Performed By: #### P REGU, UMICRO, ERUR #### [facility] [address] [address] [address] Eddy Lindsey Nitrite Ql (U) Positive Abnormal NEGATIVE [facility] Comment on above: Performed By: #### P REGU, UMICRO, ERUR #### [facility] [address] [address] [address] Eddy Lindsey pH (U) 7.0 [pH] Normal 5-9 [facility] Comment on above: Performed By: #### P REGU, UMICRO, ERUR #### [facility] [address] [place] [address] Dr. Eddy Lindsey SPEC GRAVITY 1.015 Normal 1.005-<=1.025 [facility] Comment on above: Performed By: #### P REGU, UMICRO, ERUR #### [facility] [address] [place] [address] Dr. Eddy Lindsey UA PROTEIN Negative Normal NEGATIVE/ TRACE [facility] Comment on above: Performed By: #### P REGU, UMICRO, ERUR #### [facility] [address] [place] [address] Dr. Eddy Lindsey UR MICRO IND INDICATED Normal [facility] Comment on above: Performed By: #### P REGU, UMICRO, ERUR #### [facility] [address] [place] [address] Dr. Eddy Lindsey Urobilinogen Qn (U) 0.2 {Nikki'U}/dL Normal 0.2 - 1. 0 [facility] Comment on above: Performed By: #### P REGU, UMICRO, ERUR #### [facility] [address] [place] [address] Dr. Eddy Lindsey URon 10-28-2021 , QUAL Negative Normal NEGATIVE [facility] Comment on above: Performed By: #### P REGU, UMICRO, ERUR #### [facility] [address] [place] [address] Dr. Eddy Lindsey PROF 14(COMP METB)on 022 Albumin [Mass/Vol] 3.5 g/dL Normal 3.4-5.0 [facility] Comment on above: Performed By: #### C MP, CMADM #### [facility] [address] [place] [address] Dr. Eddy Lindsey Albumin/Globulin [Mass ratio] 1.2 {ratio} Normal [facility] Comment on above: Performed By: #### C ALEXY, PAXTONDM #### [facility] [address] [address] [address] Eddy Lindsey ALP [Catalytic activity/Vol] 60 U/L Normal 46-116 [facility] Comment on above: Performed By: #### C ALEXY, PAXTONDM #### [facility] [address] [address] [address] Eddy Lindsey ALT [Catalytic activity/Vol] 26 U/L Normal 14-59 [facility] Comment on above: Performed By: #### C ALEXY, PAXTONDM #### [facility] [address] [address] [address] Eddy Lindsey Anion gap [Moles/Vol] 8.4 mmol/L Normal [facility] Comment on above: Performed By: #### C ALEXY, PAXTONDM #### [facility] [address] [address] [address] Eddy Lindsey AST [Catalytic activity/Vol] 15 U/L Normal 15-37 [facility] Comment on above: Performed By: #### C JACKI TRACEY #### [facility] [address] [address] [address] Eddy Lindsey Bilirubin [Mass/Vol] 0.7 mg/dL Normal 0.2-1.0 [facility] Comment on above: Performed By: #### C ALEXY, PAXTONDM #### [facility] [address] [address] [address] Eddy Lindsey Calcium [Mass/Vol] 8.9 mg/dL Normal 8.5-10.1 [facility] Comment on above: Performed By: #### C ALEXY, PAXTONDM #### [facility] [address] [address] [address] Eddy Lindsey Chloride [Moles/Vol] 104 mmol/L Normal 98-107 [facility] Comment on above: Performed By: #### C ALEXY, JACKI #### [facility] [address] [address] [address] Eddy Lindsey CO2 [Moles/Vol] 30.7 mmol/L Normal 21.0-32.0 [facility] Comment on above: Performed By: #### C ALEXY, JACKI #### [facility] [address] [address] [address] Eddy Lindsey Creatinine [Mass/Vol] 0.74 mg/dL Normal 0.55-1.02 [facility] Comment on above: Performed By: #### C ALEXY, PAXTONDM #### [facility] [address] [place] [address] Dr. Eddy Lindsey EGFR-AF ECUADOREAN >60 Normal >=60 [facility] Comment on above: Performed By: #### C ALEXY, JACKI #### [facility] [address] [place] [address] Dr. Eddy Lindsey EGFR-NON AF ECUADOREAN >60 Normal >=60 [facility] Comment on above: Performed By: #### C PAXTON TRACEYDM #### [facility] [address] [address] [address] Eddy Lindsey Globulin (S) [Mass/Vol] 3.0 g/dL Normal [facility] Comment on above: Performed By: #### C JACKI TRACEY #### [facility] [address] [address] [address] Eddy Lindsey Glucose [Mass/Vol] 107 mg/dL Critically high 74-106 [facility] Comment on above: Performed By: #### C PAXTON TRACEYDM #### [facility] [address] [address] [address] Eddy Lindsey Potassium [Moles/Vol] 4.1 mmol/L Normal 3.5-5.1 [facility] Comment on above: Performed By: #### C ALEXY, PAXTONDM #### [facility] [address] [address] [address] Eddy Lindsey Protein [Mass/Vol] 6.5 g/dL Normal 6.4-8.2 [facility] Comment on above: Performed By: #### C JACKI TRACEY #### [facility] [address] [address] [address] Eddy Lindsey Sodium [Moles/Vol] 139 mmol/L Normal 136-145 [facility] Comment on above: Performed By: #### C ALEXY, JACKI #### [facility] [address] [place] [address] Dr. Eddy Lindsey Urea nitrogen [Mass/Vol] 16.0 mg/dL Normal 7.0-18.0 [facility] Comment on above: Performed By: #### C ALEXY, JACKI #### [facility] [address] [place] [address] Dr. Eddy Lindsey Urea nitrogen/Creatinine [Mass ratio] 21.6 mg/mg Normal [facility] Comment on above: Performed By: #### C ALEXY, JACKI #### [facility] [address] [place] [address] Dr. Eddy Lindsey URINE MICROSCOPIC ONLYon BACTERIA SMALL Abnormal NONE SEEN [facility] Comment on above: Performed By: #### ESTEVAN HENLEY, ERUR #### [facility] [address] [place] [address] Dr. Eddy Lindsey Bacteria identified Cx Nom (U) INDICATED Normal [facility] Comment on above: Performed By: #### ESTEVAN HENLEY, CYNTHIAR #### [facility] [address] [place] [address] Dr. Eddy Lindsey CAST NONE SEEN Normal NONE SEEN [facility] Comment on above: Performed By: #### ESTEVAN HENLEY, ERUR #### [facility] [address] [place] [address] Dr. Eddy Lindsey Crystals LM Nom (Urine sed) NONE SEEN Normal NONE SEEN [facility] Comment on above: Performed By: #### ESTEVAN HENLEY, ERUR #### [facility] [address] [place] [address] Dr. Eddy Lindsey Epithelial cells LM Ql (Urine sed) RARE Normal NONE SEEN /RARE [facility] Comment on above: Performed By: #### P ESTEVAN BATISTA, ERUR #### [facility] [address] [place] [address] Dr. Eddy Lindsey MUCOUS NONE SEEN Normal NONE SEEN [facility] [facility] Comment on above: Performed By: #### P ESTEVAN BATISTA, ERUR #### [facility] [address] [address] [address] Eddy Lindsey RBC NONE SEEN Abnormal 0-2 [facility] Comment on above: Performed By: #### P ESTEVAN BATISTA, ERUR #### [facility] [address] [address] [address] Eddy Lindsey WBC NONE SEEN Normal NONE SEEN [facility] Comment on above: Performed By: #### P ESTEVAN BATISTA, ERUR #### [facility] [address] [address] [address] Eddy Lindsey XR CHEST 1 Von [...] by: THERESA MCCARTHY Date: 2021-10-28 10:56 Normal [facility] CNCOon 09-06-2018 CNCO Letter Text Normal [facility] ANES Nicholas 09-02-2018 ANES POST HNO ID: [id number] Author: Ravinder Benjamin Service: Anesthesiology Author Type: [...] 09/02/18 1628 Pulse: 99 107 103 102 06/14/19 1545 09/02/18 1600 09/02/18 1615 09/02/18 1628 [...] 02, 2018 TIME: 4:38 PM PAGER/CONTACT #: [phone] Normal [facility] Basic Metabolic Panlon 09-02 Anion gap [Moles/Vol] 11 mmol/L Normal 9-18 [facility] Comment on above: Performed By: #### C BCDIF, BMP #### [facility] [address] [place], [place] [address] Calcium [Mass/Vol] 9.9 mg/dL Normal 8.5-10.2 [facility] Comment on above: Performed By: #### C BCDIF, BMP #### [facility] [address] [place], [place] [address] Chloride [Moles/Vol] 104 mmol/L Normal 97-105 [facility] Comment on above: Performed By: #### C BCDIF, BMP #### [facility] [address] [place], [place] [address] CO2 [Moles/Vol] 26 mmol/L Normal 22-30 [facility] Comment on above: Performed By: #### C BCDIF, BMP #### [facility] [address] [place], [place] [address] Creatinine [Mass/Vol] 0.77 mg/dL Normal 0.58-0.96 [facility] Comment on above: Performed By: #### C ALBERTA, BMP #### [facility] [address] [place], [place] [address] eGFR- Amer. >60 Normal [facility] Comment on above: Performed By: #### C ALBERTA, BMP #### [facility] [address] [place] [id number] GFR/1.73 sq M predicted among non-blacks MDRD (S/P/Bld) [Vol rate/Area] mL/min/{1.73_m2} Normal [facility] Comment on above: Result Comment: eGFR (Estimated [...] Performed By: #### C ALBERTA, BMP #### [facility] [address] [id number] Glucose [Mass/Vol] 88 mg/dL Normal 74-99 [facility] Comment on above: Result Comment: The [place] Diabetes Association (ADA) provides guidance for cutoff [...] Standards of Medical Care in Diabetes 2016, [place] [employer]. Diabetes Care. 2016.39(Suppl 1). Performed By: #### C ALBERTA, BMP #### [facility] [address] [place], [place] [address] Potassium [Moles/Vol] 4.6 mmol/L Normal 3.7-5.1 [facility] Comment on above: Result Comment: Resu lts may be falsely increased due to interference by hemolysis. Suggest reorder as clinically indicated. Performed By: #### C BCDIF, BMP #### [address] [place] [address] Sodium [Moles/Vol] 141 mmol/L Normal 136-144 [facility] Comment on above: Performed By: #### C BCDIF, BMP #### [address] [address] Urea nitrogen [Mass/Vol] 10 mg/dL Normal 7-21 [facility] Comment on above: Performed By: #### C BCDIF, BMP #### [address] [address] CBC and Differentialon 09-02 Abs Baso 0.06 k/uL Normal <0.11 [facility] Comment on above: Performed By: #### C BCDIF, BMP #### [address] [address] Abs [place] 0.65 k/uL Normal <0.87 [facility] Comment on above: Performed By: #### C BCDIF, BMP #### [address] [place], [place] [address] Abs Neut 5.30 k/uL Normal 1.45-7.50 [facility] Comment on above: Performed By: #### C BCDIF, BMP #### [address] [place], [place] [address] Absolute nRBC <0.01 Normal <0.01 [facility] Comment on above: Performed By: #### C BCDIF, BMP #### [address] [place], [place] [address] Basophils/100 WBC (Bld) 0.7 % Normal [facility] Comment on above: Performed By: #### C BCDIF, BMP #### [facility] [address] [place], [place] [address] DTYPE Auto Diff Normal [facility] Comment on above: Performed By: #### C BCDIF, BMP #### [address] [place] [address] Eosinophils (Bld) [#/Vol] 0.06 10*3/uL Normal <0.46 [facility] Comment on above: Performed By: #### C BCDIF, BMP #### [address] [place] [address] Eosinophils/100 WBC (Bld) 0.7 % Normal [facility] Comment on above: Performed By: #### C BCDIF, BMP #### [address] [place] [address] Erythrocyte distribution width (RBC) [Ratio] 12.3 % Normal 11.5-15.0 [facility] Comment on above: Performed By: #### C BCDIF, BMP #### [address] [place] [id number] Hematocrit (Bld) [Volume fraction] 49.5 % High 36.0-46.0 [facility] Comment on above: Performed By: #### C BCDIF, BMP #### [facility] [address] [address] Hemoglobin (Bld) [Mass/Vol] 16.4 g/dL High 11.5-15.5 [facility] Comment on above: Performed By: #### C BCDIF, BMP #### [address] [place] [address] Lymphocytes (Bld) [#/Vol] 2.35 10*3/uL Normal 1.00-4.00 [facility] Comment on above: Performed By: #### C BCDIF, BMP #### [address] [place], [place] [address] Lymphocytes/100 WBC (Bld) 27.8 % Normal [facility] Comment on above: Performed By: #### C BCDIF, BMP #### [address] [address] MCH (RBC) [Entitic mass] 32.2 pG Normal 26.0-34.0 [facility] Comment on above: Performed By: #### C BCDIF, BMP #### [address] [place], [place] [address] MCHC (RBC) [Mass/Vol] 33.1 g/dL Normal 30.5-36.0 [facility] Comment on above: Performed By: #### C BCDIF, BMP #### [address] [address] MCV (RBC) [Entitic vol] 97.2 fL Normal 80.0-100.0 [facility] Comment on above: Performed By: #### C BCDIF, BMP #### [address] [place], [place] [address] Monocytes/100 WBC (Bld) 7.7 % Normal [facility] Comment on above: Performed By: #### C BCDIF, BMP #### [address] [place], [place] [address] Neutrophils/100 WBC (Bld) 63.1 % Normal [facility] Comment on above: Performed By: #### C BCDIF, BMP #### [address] [place], [place] [address] NRBCs 0.0 /100 WBC Normal 0 [facility] Comment on above: Performed By: #### C BCDIF, BMP #### [facility] [address] [address] Platelet mean volume (Bld) [Entitic vol] 9.5 fL Normal 9.0-12.7 [facility] Comment on above: Performed By: #### Agusto BCLUKE, BMP #### [facility] [address] [address] Platelets (Bld) [#/Vol] 373 10*3/uL Normal 150-400 [facility] Comment on above: Performed By: #### Agusto PINZON, BMP #### [facility] [address] [address] RBC (Bld) [#/Vol] 5.09 10*6/uL Normal 3.90-5.[address] [facility] Comment on above: Performed By: #### Agusto PINZON, BMP #### [facility] [address] [address] WBC (Bld) [#/Vol] 8.44 10*3/uL Normal 3.70-11.[address] [facility] Comment on above: Performed By: #### Agusto PINZON, BMP #### [facility] [address] [id number] CNOVon 09-02-2018 CNOV Office Visit (PUBRON ) LILIYA SIDDIQUI ([id number]) 1985 F Date Time Provider Department 09/02/18 [...] ,ALKPHOS,TBILI,AST,AL T SPIROMETRY WITH DILATOR IF OBSTRUCTED ([id number]) - ordered on 04/21/18 [facility] [address] [place] [address] Test Date: 2018-04-21 Pat Name: LILIYA SIDDIQUI Department: Room: Gender: Female Brewmaster: LVIE Glover : 1985 Requested By: Order Number: [id number] Reading MD: Forest Gonzalez Interpretive Statements Test no. 1 04/21/2018 11:57:35AM FVC is repeatable x 2, FEV1 x 3. ATS acceptability and repeatability standards for DLCO met. DLCO is not hemoglobin corrected. /cg IMPRESSION: Spirometry is normal. The diffusing capacity is normal. Electronically Signed On 04-21-2018 12:23:29 EST by Fellow Griselda Peters [facility] Electronically Signed On 2-1-201 9 9:29:49 EST by Forest Gonzalez [facility] [place] [facility] Pred YASMEEN ALVA Pre % Date [id number] Time 11:48AM -------- Height 174.2 Weight 72.4 [...] of the patient and have reviewed the PA/CALIBRATION SPECIALIST note. My fowler findings include: History as outlined above by Mr. Carr Osiris. 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] Preoperative examination [Z01.818] Order(s):CONSULT TO ENT [9008] Order #: [id number]: 1 FUTURE CONSULT TO GASTROENTEROLOGY [1989] Order #: [id number]: 1 FUTURE Prescriptions as of 09/02/2018 Sig: PREGABALIN 25 MG CAPSULE Take 25 mg by mouth three jovanni* TEMAZEPAM 15 MG CAPSULE Take 15 mg by mouth at bedtim* DULOXETINE 60 MG CAPSULE,MARYANN* Take 60 mg by mouth once fabricio* CELECOXIB 200 MG CAPSULE Take 200 mg by mouth once gurdepe* ALPHA LIPOIC ACID 600 MG CAPS* Take [...] Status:Closed by TREV CRUZ MD on 09/05/18 [facility] [place] [facility]ibal 09-02-2018 [facility] ([id number]) LILIYA SIDDIQUI ([id number]) 1985 F Date Time Provider Department 09/02/18 GISEL PEREZ (RN) [id number] During your visit today, we recorded the [...] 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 Gisel Perez RN, RN 09/02/2018 10:11 AM Signed 09/02/2018: Navigator received call from the patient. 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 She [...] patient will anticipate a call from the paper cutting machine operator. 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 1 04/21/2018 11:57:35AM FVC is repeatable x 2, FEV1 x 3. ATS acceptability and repeatability standards for DLCO met. DLCO is not hemoglobin corrected. /cg IMPRESSION: Spirometry is normal. The diffusing capacity is normal. Electronically Signed On 04-21-2018 12:23:29 EST by Fellow Griselda Peters [facility] Electronically Signed On 9:29:49 EST by Forest Gonzalez [facility] [place] [facility] Pred [facility] ULN Pre % Date [id number] Time 11:48AM -------- Height 174.2 Weight 72.4 [...] BHT 9.92 -------- -------- EKG RESULTS: {EKG RESULTS:03422} REVIEW OF SYSTEMS GENERAL: {ROS-GENERAL:23:: No weight [...] and itching } PSYCH: {PSYCHIATRIC INT MED ROS:30016:: Negative for sleep disturbance, mood disorder and [...] ECOG PERFORMANCE STATUS: {ECO} Dyspnea Score: {MRC DYSPNEA:52863} Health Screening {PUL HEALTH SCREENIN} There is [...] ,ALKPHOS,TBILI,AST,AL T SPIROMETRY WITH DILATOR IF OBSTRUCTED ([id number]) - ordered on 04/21/18 [facility] [address] [place] [address] Test Date: 2018-04-21 Pat Name: LILIYA SIDDIQUI Department: Room: Gender: Female Brewmaster: LIVE Glover : 1985 Requested By: Order Number: [id number] Reading MD: Forest Gonzalez Interpretive Statements Test no. 1 04/21/2018 11:57:35AM FVC is repeatable x 2, FEV1 x 3. ATS acceptability and repeatability standards for DLCO met. DLCO is not hemoglobin corrected. /cg IMPRESSION: Spirometry is normal. The diffusing capacity is normal. 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 Gisel Perez RN, RN 09/02/2018 10:11 AM Signed 09/02/2018: Navigator received call from the patient. 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 She [...] patient will anticipate a call from the paper cutting machine operator. Normal [facility] PROGRESSon 09-02-2018 PROGRESS HNO ID: [id number] Author: Trev Cruz Service: ? Author Type: [...] ,ALKPHOS,TBILI,AST,AL T SPIROMETRY WITH DILATOR IF OBSTRUCTED ([id number]) - ordered on 04/21/18 [facility] [address] [place] [address] Test Date: 2018-04-21 Pat Name: LILIYA SIDDIQUI Department: Room: Gender: Female Brewmaster: LIVE Glover : 1985 Requested By: Order Number: [id number] Reading MD: Forest Gonzalez Interpretive Statements Test no. 1 04/21/2018 11:57:35AM FVC is repeatable x 2, FEV1 x 3. ATS acceptability and repeatability standards for DLCO met. DLCO is not hemoglobin corrected. /cg IMPRESSION: Spirometry is normal. The diffusing capacity is normal. Electronically Signed On 04-21-2018 12:23:29 EST by Fellow Griselda Peters [facility] Electronically Signed On 9:29:49 EST by Forest Gonzalez [facility] [place] [facility] Pred N ULN Pre % Date 137130 Time 11:48AM -------- Height 174.2 Weight 72.4 [...] of the patient and have reviewed the PA/CALIBRATION SPECIALIST note. My fowler findings include: History as [...] AM CC: MD Travis Licea MD, PhD [facility] [place] [facility] PROGRESS HNO ID: [id number] Author: Travis Castro Service: ? Author Type: [...] was 25 minutes. Travis Castro MD, PhD [facility] [place] [facility] PT EDon 09-02-2018 PT ED HNO ID: [id number] Author: Jossie Larkin RN Service: Nursing Author Type: Registered Nurse Type: [...] By: Jossie Larkin RN In Department: ADMITTING [facility] [place] [facility] CNOVon 09-01-2018 CNOV Office Visit (EVELYN ) LILIYA SIDDIQUI ([id number]) 1985 F Date Time Provider Department 09/01/18 3:20 PM TRAVIS CASTRO During your visit today, we recorded the following information about you: Temperature Pulse Blood pressure Weight 98.2 degrees 111/minute 118/82 71 kg Height 1.803 m Travis Castro MD, PhD 09/02/2018 6:31 AM 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 DEPART[place] OF THORACIC AND CARDIOVASCULAR SURGERY NAME: LILIYA SIDDIQUI [facility] #: [id number] DATE: AGE: 33 PHYSICIAN: Travis Castro M.D., [...] warrant invasive assessment. Travis Castro M.D., Ph.D. SM:[id number] /[id number] cc: Virgilio Diallo, RN, RN 09/02/2018 10:38 AM Signed Pt [...] was 25 minutes. Travis Castro MD, PhD [employer]: Transcribed Clinic Note (annie) ID: [id number] 09/01/2018 6:43 PM Author: TRAVIS CASTRO * * * This document has not been signed * * * * * * DRAFT COPY. THIS DOCUMENT IS NOT AVAILABLE FOR PATIENT CARE * * * Document text: [place] [address] [place] DEPART[facility] OF THORACIC AND CARDIOVASCULAR SURGERY NAME: LILIYA SIDDIQUI [facility] #: [id number] DATE: AGE: 33 PHYSICIAN: Travis Castro M.D., [...] warrant invasive assessment. Travis Castro M.D., Ph.D. SM:[id number] /[id number] cc: Display document [id number] only ----- Referring Provider: TRAVIS CASTRO [[id number]] Allergies As of Date: 09/01/2018 Noted Allergy Reaction MORPHINE 04/21/2018 5 - Intolerance Date Reviewed: 09/01/2018 Reviewed by: Dameon Alarcon - Fully Assessed Reason for Visit: Established Patient [175] Visit Diagnoses:Hemoptysis [R04.2] Lung nodules [R91.8] Order(s):CT CHEST WO IVCON [0778919] Order #: [id number] FUTURE CONSULT TO PULM/CRITICAL CARE [694823] Order #: [id number]: 1 Prescriptions as of 09/01/2018 Sig: PREGABALIN [...] SLATER, TRAVIS Liz PHD on 09/02/18 Normal [facility] CT CHEST WO IVCONon 09-02-19 CT CHEST WO IVCON * * *Final Report* * * DATE OF EXAM: Sep 01 2018 2:37PM [facility] 0541 - CT CHEST WO IVCON / [...] suspicious pulmonary nodules. 2. No thoracic lymphadenopathy. Presentation Designer: KATRINA Transcribe Date/Time: Sep 01 2018 5:14P Dictated by : WENDI HUERTA MD This examination was interpreted and the report reviewed and electronically signed by: WENDI HUERTA MD on Sep 01 2018 5:35PM EST [id number] Normal [facility] PROGRESSon 09-01-2018 PROGRESS HNO ID: [id number] Author: Virgilio Constantino) FOX Diallo Service: ? Author Type: Registered [...] for risk assessment. Virgilio Diallo RN Normal [facility] PROGRESS HNO ID: [id number] Author: Niharika (Kellen) BENIGNO Plata Service: Radiology Author Type: Clinical Brewmaster Type: Progress Notes Filed: 09/01/2018 2:34 PM [...] Meir(R)(CT) September 01, 2018 2:34 PM Normal [facility] PROGRESS HNO ID: [id number] Author: Travis Castro Service: Thoracic Surgery Author Type: Physician Type: Progress Notes Filed: 07/10/2019 2:39 PM Note Text: [place] [address] [place] DEPART[place] OF THORACIC AND CARDIOVASCULAR SURGERY NAME: LILIYA SIDDIQUI [facility] #: [id number] DATE: AGE: 33 PHYSICIAN: Travis Castro M.D., [...] warrant invasive assessment. Travis Castro M.D., Ph.D. SM:[id number] /[id number] cc: Normal [facility] Vital Signs Date Time Vital Sign Value Performing Clinician Ana Luisa mayes 10-22-2023 18:14-0400 Diastolic blood pressure 89 mm[Hg] [employer] [facility] 10-22-2023 18:14-0400 Heart rate 78 /min [employer] [facility] 10-22-2023 18:14-0400 Hourly Rounding [employer] [facility] 10-22-2023 18:14-0400 Mean blood pressure 104 mm[Hg] David [employer] [facility] 10-22-2023 18:14-0400 Respiratory rate 16 /min [employer] [facility] 10-22-2023 18:14-0400 SaO2% (BldA) [Mass fraction] 97 % David [employer] [facility] 10-22-2023 18:14-0400 Systolic blood pressure 134 mm[Hg] David [employer] [facility] 10-22-2023 17:30-0400 Diastolic blood pressure 81 mm[Hg] David [employer] [facility] 10-22-2023 17:30-0400 Heart rate 77 /min [facility] [employer] [facility] 10-22-2023 17:30-0400 Mean blood pressure 97 mm[Hg] David [employer]ium [facility] 10-22-2023 17:30-0400 Respiratory rate 18 /min David [employer] [facility] 10-22-2023 17:30-0400 SaO2% (BldA) [Mass fraction] 99 % David Marium [facility] 10-22-2023 17:30-0400 Systolic blood pressure 128 mm[Hg] David [employer]ium [facility] 10-22-2023 16:48-0400 Diastolic blood pressure 78 mm[Hg] David [employer] 10-22-2023 16:48-0400 Heart rate 85 /min David [employer] 10-22-2023 16:48-0400 Hourly Rounding David Marium [facility] 10-22-2023 16:48-0400 Mean blood pressure 92 mm[Hg] David Marium [facility] 10-22-2023 16:48-0400 Respiratory rate 18 /min David Marium [facility] 10-22-2023 16:48-0400 SaO2% (BldA) [Mass fraction] 99 % David Causey [facility] 10-22-2023 16:48-0400 Systolic blood pressure 121 mm[Hg] David Causey [facility] 10-22-2023 15:44-0400 Hourly Rounding David Causey [facility] 10-22-2023 15:27-0400 Body temperature 97.88 [degF] David Causey [facility] 10-22-2023 15:27-0400 Heart rate 104 /min David Causey [facility] 06-13-2023 14:30-0400 Diastolic blood pressure 71 mm[Hg] Brandon Carlos A [facility] 06-13-2023 14:30-0400 Heart rate 83 /min Brandon Carlos A [facility] 06-13-2023 14:30-0400 Mean blood pressure 84 mm[Hg] Brandon Carlos A [facility] 06-13-2023 14:30-0400 Respiratory rate 17 /min Brandon Carlos A [facility] 06-13-2023 14:30-0400 SaO2% (BldA) [Mass fraction] 99 % Brandon Carlos A [facility] 06-13-2023 14:30-0400 Systolic blood pressure 111 mm[Hg] Brandon Carlos A [facility] 06-13-2023 14:00-0400 Diastolic blood pressure 80 mm[Hg] Brandon Carlos A [facility] 06-13-2023 14:00-0400 Heart rate 85 /min Brandon Carlos A [facility] 06-13-2023 14:00-0400 Mean blood pressure 92 mm[Hg] Brandonlucho Strauss [facility] 06-13-2023 14:00-0400 Respiratory rate 18 /min Brandonlucho Strauss [facility] 06-13-2023 14:00-0400 Systolic blood pressure 116 mm[Hg] Brandon Strauss [facility] 06-13-2023 13:30-0400 Diastolic blood pressure 69 mm[Hg] Brandon Strauss [facility] 06-13-2023 13:30-0400 Heart rate 95 /min Brandon Strauss [facility] 06-13-2023 13:30-0400 Mean blood pressure 84 mm[Hg] Brandon Strauss [facility] 06-13-2023 13:30-0400 Respiratory rate 16 /min Brandon Carlos A [facility] 06-13-2023 13:30-0400 SaO2% (BldA) [Mass fraction] 100 % Brandon Strauss [facility] 06-13-2023 13:30-0400 Systolic blood pressure 115 mm[Hg] Brandon Strauss [facility] 06-13-2023 13:05-0400 Body temperature 98.42 [degF] Brandon Strauss [facility] 06-13-2023 13:05-0400 Heart rate 97 /min Brandon Strauss [facility] Encounters Encounter Date Encounter Type Care Provider Facility Start: 10-22-2023 End: 10-22-2023 Emergency department patient visit David Causey [facility] Start: 09-06-2023 End: 09-06-2023 ambulatory STUART CALLES Not Available Start: 08-05-2023 End: 08-05-2023 ambulatory STUART Jatinder CALLES Not Available Start: 06-13-2023 End: 06-13-2023 Emergency department patient visit Brandon Strauss [facility] Start: 12-11-2022 ambulatory Jeffrey Elliott acility:[facility] Start: 06-12-2022 End: 06-13-[address] ARY MOHAN . Facility:[facility] Start: 03-22-2022 End: 03-22-[address] ARY MOHAN . Facility:[facility] Start: 03-21-2022 End: 03-22-[address] JORGE ALBERTO GARCIA Facility:[facility] Start: 02-26-2022 End: 02-27-[address] ARY MOHAN . Facility:[facility] Start: 01-17-2022 End: 01-18-[address] ARY MOHAN . Facility:[facility] Start: [...] Date Payer Category Payer Self-pay 2022 Medicaid [id number] 1985 Unknown [id number] 2.16.84 [id number] 1985 Unknown [id number] 2.16.84 0.1.177192.3.579.2.593 1985 Unknown [id number] 2.16.84 0.1.186024.3.579.2.593 1985 Unknown [id number] 2.16.84 0.1.212030.3.579.2.593 1985 Unknown [id number] 2.16.84 0.1.896305.3.579.2.593 1985 Unknown [id number] 2.16.84 0.1.278556.3.579.2.593 1985 Unknown [id number] 2.16.84 0.1.322462.3.579.2.593 1985 Unknown [id number] 2.16.84 0.1.131943.3.579.2.593 1985 Unknown [id number] 2.16.84 0.1.072582.3.579.2.593 1985 Unknown [id number] 2.16.84 0.1.708955.3.579.2.1259 1985 Unknown [id number] 2.16.8 40.1.391138.3.579.2.727 1985 Unknown [id number] 2.16.8 40.1.970158.3.579.2.727 1959 Unknown [id number] Unknown [id number] [id number] Social History Date Type Detail Facility Tobacco [facility] Comment on above: denies Tobacco smoking status No Smokin g Status Entered [facility] Sex Assigned At Female [facility] Medical Equipment Procedure Code Equipment Code Equipment Origin al Text Equipment Identifier Dates HERNIA REPAIR, R OBOT ASSISTED Cal PHAN MD 01/11/20 Non Biological Abdomen {[id number] FDA Start: 01-11-2020 Functional Status Date Assessment Result Facility 10-22-2023 Functional Status N/A [facility] 06-13-2023 Functional Status N/A [facility] Hospital Discharge instructions 10-22-2023 Note Date & Type Note Facility 10-22-2023 Hospital Discharg e instructions Patient Education 10/22/2023 17:40:01 Migraine Headache, Yvja-gy-Wxfi Migraine Headache A migraine headache is a very strong throbbing pain on one side or both sides of your head. This type of headache can also cause other symptoms. It can last from 4 hours to 3 days. Talk with your doctor about what things may bring on (trigger) this condition. What are the causes? The exact cause of this condition is not known. This condition may be triggered or caused by: Drinking alcohol. Smoking. Taking medicines, such as: ?Medicine used to treat chest pain (nitroglycerin). ? control pills. ?Estrogen. ?Some blood pressure medicines. Eating or drinking certain products. Doing physical activity. Other things that may trigger a migraine headache include: Having a menstrual period. . Hunger. Stress. Not getting enough sleep or getting too much sleep. Weather changes. Tiredness (fatigue). What increases the risk? Being [age] years old. Being female. Having a family history of migraine headaches. Being . Having depression or anxiety. Being very overweight. What are the signs or symptoms? A throbbing pain. This pain may: ?Happen in any area of the head, such as on one side or both sides. ?Make it hard to do daily activities. ?Get worse with physical activity. ?Get worse around bright lights or loud noises. Other symptoms may include: ?Feeling sick to your stomach (nauseous). ?Vomiting. ?Dizziness. ?Being sensitive to bright lights, loud noises, or smells. Before you get a migraine headache, you may get warning signs (an aura). An aura may include: ?Seeing flashing lights or having blind spots. ?Seeing bright spots, halos, or zigzag lines. ?Having tunnel vision or blurred vision. ?Having numbness or a tingling feeling. ?Having trouble talking. ?Having weak muscles. Some people have symptoms after a migraine headache (postdromal phase), such as: ?Tiredness. ?Trouble thinking (concentrating). How is this treated? Taking medicines that: ?Relieve pain. ?Relieve the feeling of being sick to your stomach. ?Prevent migraine headaches. Treatment may also include: ?Having acupuncture. ?Avoiding foods that bring on migraine headaches. ?Learning ways to control your body functions (biofeedback). ?Therapy to help you know and deal with negative thoughts (cognitive behavioral therapy). Follow these instructions at home: Medicines Take yrkt-xpv-tuuwjwf and prescription medicines only as told by your doctor. Ask your doctor if the medicine prescribed to you: ?Requires you to avoid driving or using heavy machinery. ?Can cause trouble pooping (constipation). You may need to take these steps to prevent or treat trouble pooping: ?Drink enough fluid to keep your pee (urine) pale yellow. ?Take ygvr-gvj-byidwbn or prescription medicines. ?Eat foods that are high in fiber. These include beans, whole grains, and fresh fruits and vegetables. ?Limit foods that are high in fat and sugar. These include fried or sweet foods. Lifestyle Do not drink alcohol. Do not use any products that contain nicotine or tobacco, such as cigarettes, e-cigarettes, and chewing tobacco. If you need help quitting, ask your doctor. Get at least 8 hours of sleep every night. Limit and deal with stress. General instructions Keep a journal to find out what may bring on your migraine headaches. For example, write down: ?What you eat and drink. ?How much sleep you get. ?Any change in what you eat or drink. ?Any change in your medicines. If you have a migraine headache: ?Avoid things that make your symptoms worse, such as bright lights. ?It may help to lie down in a dark, quiet room. ?Do not drive or use heavy machinery. ?Ask your doctor what activities are safe for you. Keep all follow-up visits as told by your doctor. This is important. Contact a doctor if: You get a migraine headache that is different or worse than others you have had. You have more than 15 headache days in one month. Get help right away if: Your migraine headache gets very bad. Your migraine headache lasts longer than 72 hours. You have a fever. You have a stiff neck. You have trouble seeing. Your muscles feel weak or like you cannot control them. You start to lose your balance a lot. You start to have trouble walking. You pass out (faint). You have a seizure. Summary A migraine headache is a very strong throbbing pain on one side or both sides of your head. These headaches can also cause other symptoms. This condition may be treated with medicines and changes to your lifestyle. Keep a journal to find out what may bring on your migraine headaches. Contact a doctor if you get a migraine headache that is different or worse than others you have had. Contact your doctor if you have more than 15 headache days in a month. This information is not intended to replace advice given to you by your health care provider. Make sure you discuss any questions you have with your health care provider. Document Revised: 06/30/2019 Document Reviewed: 04/20/2019 [employer] Patient Education 2022 [employer]. Follow Up Care 10/22/2023 15:24:16 With:Ary Mohan Address: [address] [place], [place] [id number] Business (1) When:10/25/2023 17:39:40 Comments:Call to schedule a follow-up appointment with your family physician for further management of care. Return to the ED with any worsening symptoms. [facility] Clinical Note 10-22-2023 Note Date & Type Note Facility 10-22-2023 Note ED Patient Education Note Neurology Migraine Headache A migraine headache is a very strong throbbing pain on one side or both sides of your head. This type of headache can also cause other symptoms. It can last from 4 hours to 3 days. Talk with your doctor about what things may bring on (trigger) this condition. What are the causes? The exact cause of this condition is not known. This condition may be triggered or caused by: ? Drinking alcohol. ? Smoking. ? Taking medicines, such as: ? Medicine used to treat chest pain (nitroglycerin). ? control pills. ? Estrogen. ? Some blood pressure medicines. ? Eating or drinking certain products. ? Doing physical activity. Other things that may trigger a migraine headache include: ? Having a menstrual period. ? . ? Hunger. ? Stress. ? Not getting enough sleep or getting too much sleep. ? Weather changes. ? Tiredness (fatigue). What increases the risk? ? Being 25?55 years old. ? Being female. ? Having a family history of migraine headaches. ? Being . ? Having depression or anxiety. ? Being very overweight. What are the signs or symptoms? ? A throbbing pain. This pain may: ? Happen in any area of the head, such as on one side or both sides. ? Make it hard to do daily activities. ? Get worse with physical activity. ? Get worse around bright lights or loud noises. ? Other symptoms may include: ? Feeling sick to your stomach (nauseous). ? Vomiting. ? Dizziness. ? Being sensitive to bright lights, loud noises, or smells. ? Before you get a migraine headache, you may get warning signs (an aura). An aura may include: ? Seeing flashing lights or having blind spots. ? Seeing bright spots, halos, or zigzag lines. ? Having tunnel vision or blurred vision. ? Having numbness or a tingling feeling. ? Having trouble talking. ? Having weak muscles. ? Some people have symptoms after a migraine headache (postdromal phase), such as: ? Tiredness. ? Trouble thinking (concentrating). How is this treated? ? Taking medicines that: ? Relieve pain. ? Relieve the feeling of being sick to your stomach. ? Prevent migraine headaches. ? Treatment may also include: ? Having acupuncture. ? Avoiding foods that bring on migraine headaches. ? Learning ways to control your body functions (biofeedback). ? Therapy to help you know and deal with negative thoughts (cognitive behavioral therapy). Follow these instructions at home: Medicines ? Take sagv-mwv-yblqhyq and prescription medicines only as told by your doctor. ? Ask your doctor if the medicine prescribed to you: ? Requires you to avoid driving or using heavy machinery. ? Can cause trouble pooping (constipation). You may need to take these steps to prevent or treat trouble pooping: ? Drink enough fluid to keep your pee (urine) pale yellow. ? Take yjcf-pde-ttdjdet or prescription medicines. ? Eat foods that are high in fiber. These include beans, whole grains, and fresh fruits and vegetables. ? Limit foods that are high in fat and sugar. These include fried or sweet foods. Lifestyle ? Do not drink alcohol. ? Do not use any products that contain nicotine or tobacco, such as cigarettes, e-cigarettes, and chewing tobacco. If you need help quitting, ask your doctor. ? Get at least 8 hours of sleep every night. ? Limit and deal with stress. General instructions ? Keep a journal to find out what may bring on your migraine headaches. For example, write down: ? What you eat and drink. ? How much sleep you get. ? Any change in what you eat or drink. ? Any change in your medicines. ? If you have a migraine headache: ? Avoid things that make your symptoms worse, such as bright lights. ? It may help to lie down in a dark, quiet room. ? Do not drive or use heavy machinery. ? Ask your doctor what activities are safe for you. ? Keep all follow-up visits as told by your doctor. This is important. Contact a doctor if: ? You get a migraine headache that is different or worse than others you have had. ? You have more than 15 headache days in one month. Get help right away if: ? Your migraine headache gets very bad. ? Your migraine headache lasts longer than 72 hours. ? You have a fever. ? You have a stiff neck. ? You have trouble seeing. ? Your muscles feel weak or like you cannot control them. ? You start to lose your balance a lot. ? You start to have trouble walking. ? You pass out (faint). ? You have a seizure. Summary ? A migraine headache is a very strong throbbing pain on one side or both sides of your head. These headaches can also cause other symptoms. ? This condition may be treated with medicines and changes to your lifestyle. ? Keep a journal to find out what may bring on your migraine headaches. ? Contact a doctor if you get a migraine headache that is d (more content not included)... [facility] Hospital Discharge instructions 06-13-2023 Note Date & [...] Follow these instructions at home: Medicines Take hzfe-ite-hacwskd and prescription medicines only as told by [...] Watch your condition for any changes. Take ullg-ltp-xoprgms and prescription medicines only as told by [...] provider. Document Revised: 04/26/2020 Document Reviewed: 07/17/2019 [employer] Patient Education 2022 [employer]. Follow Up Care 06/13/2023 13:03:57 With:Ary Mohan Address: [address] [place] [phone] Business (1) When:06/16/2023 17:10:37 Comments:Call the office [...] weakness, or any new or worsening symptoms. [facility] Evaluation + Plan note 06-13-2023 Note Date & Type Note Facility 06-13-2023 Evaluation + Plan note Extrac kaelyn from: Title:ED Note Author:Naseem BESS, Shan Monique te:06/13/23 1. Abdominal pain (R10.9: Un specified [...] Panel Lipase Level UA with Cult Rflx [facility] Clinical Note 02-26-2022 Note Date & Type Note Facility 02-26-2022 Note PROCEDURE: XR FOOT L T MIN 3 VIEWS COMPARISON: 10/16/2011 HISTORY: Pain in lower limb FINDINGS: BONES:No fracture, acute abnormality, or significant arthropathy. SOFT TISSUES:Negative. No visible soft tissue swelling. EFFUSION:None visible. OTHER: Negative. IMPRESSION: No acute abnormality Electronically authenticated by: THERESA PATEL Date: 2022-02-26 12:41 [facility] course Narrative Note Date & Type Note Facility Hospital course Narrative No data available for this section [facility] Progress note Note Date & Type Note Facility Progress note No data available for this section [facility] Summary Purpose Family History No Family History Records FoundNo Family History Records FoundNo Family History Records Found No data available for this section No Family History Records Found No data available for this section No Family History Records Found Advance Directives No Advanced Directives Records FoundNo Advanced Directives Records FoundNo Advanced Directives Records FoundNo Advanced Directives Records FoundNo Advanced Directives Records Found Additional Source Comments INFORMATION SOURCE (unrecogn ized section and content) DATE CREATED AUTHOR 07/10/2019 [facility] DATE CREATED AUTHOR AUTHOR'S ORGANIZ ATION 06/19/2022 [facility] DATE CREATED AUTHOR AUTHOR'S ORGANIZ ATION 02/25/2023 [facility] DATE CREATED AUTHOR AUTHOR'S ORGANIZ ATION [facility]07/2023 [facility] DATE CREATED AUTHOR AUTHOR'S ORGANIZ ATION 10/30/2023 [facility] Patient Care team informatio n (unrecognized section and content) Personnel Name: Ary Mohan MD Address: Address: [address] [place] [address] Personnel Name: Ary Mohan MD Address: Address: [address] [place] [address] FOR RECORDS PERTAINING TO PATIENTS WHO ARE [...] BE BASED ON THE PRIMARY CLINICAL RECORDS. [facility] [employer] [facility]. provides no warranty or guarantee of the accuracy or completeness of information in this document.
[2023-11-01 21:29] VITALS: BP 132/80; PULSE 98; TEMP 37.2; O2SAT 98; BMI 23.7
--- NOTE | 2023-11-01 21:47 | XR_ITS ---
The [address] [address] Patient Name: REGINA SIDDIQUI MRN: [id number] date: 1985 Sex: F Assigned Patient Location: ER Current Patient Location: ER Accession/Order Number: [id number] Exam Date: 11/01/2023 22:25 Report Date: 11/01/2023 22:54 At the request of: DONNA MARKER Procedure: XR hand LT min 3V EXAM: XR hand LT min 3V HISTORY: L ring finger injury COMPARISON: None. FINDINGS/IMPRESSION: 1. No acute fracture or dislocation. 2. Normal alignment of the bones of the hand and wrist. 3. No significant joint degeneration. Electronically authenticated by: EZEQUIEL PRO Date: 11/01/2023 22:54
[2023-11-01] MEDS: ONDANSETRON 4 MG RAPDIS TABLET SL (22:09)
[2023-11-01] MEDS: OXYCODONE HCL/ACETAMINOPHEN 5MG/325MG 1 TAB PO (22:09)
--- NOTE | 2023-11-01 23:11 | ED_ITS ---
HPI HPI - Extremity Injury (Upper) General Chief Complaint: Extremity Injury, Upper Stated Complaint: upper extremity injury Time Seen by Provider: 11/01/23 21:40 Source: patient Mode of arrival: walk-in History of Present Illness HPI narrative: This 38-year-old female who is right-hand dominant presents for evaluation of a left ring finger injury. The patient states her fibromyalgia is flaring and she has not slept. She was coming up the stairs from the basement earlier today and fell and struck her left ring finger that has a long acrylic nail overlying the fingernail on a stair causing an avulsion to the fingernail. She states it has been bleeding from the site of the nail and from underneath it. No additional injuries or complaints. Related Data Home Medications ?Medication ?Instructions ?Recorded ?Confirmed clindamycin HCl 300 mg capsule 300 mg PO Q6H 04/10/23 04/10/23 gabapentin 300 mg capsule 300 mg PO BID 04/10/23 04/10/23 triamcinolone acetonide 0.1 % 1 applic dental BID 04/10/23 04/10/23 dental paste Previous Rx's ?Medication ?Instructions ?Recorded tobramycin 0.3 % eye drops 1 drp ophthalmic (eye) Q4H #5 mL 12/20/22 ondansetron 4 mg disintegrating 4 mg PO Q6H PRN nausea #14 tabs 04/10/23 tablet Allergies Allergy/AdvReac Type Severity Reaction Status Date / Time morphine Allergy Severe Verified 04/10/23 17:54 Opioid HPI Opioid Management Most Recent Pain and Opioid Data: Last Pain Scale 10 11/01/23 22:09 Review of Systems ROS Status of ROS 10 or more systems reviewed and unremark able except as noted in history and below PFSH PFS Social History Smoking status: Current every day smoker Exam Narrative Exam Narrative: Vital signs and Nursing Notes reviewed: Patient is afebrile with a normal pulse, normal blood pressure, she is not hypoxic with pulse ox of 98% on room air General: Awake, alert, oriented, tearful female, no respiratory distress Chest: Lungs are clear to auscultation with good air entry, there is no wheezing rhonchi or rales appreciated no accessory muscle use, patient is speaking in complete sentences-no chest wall tenderness to palpation CVS: Regular rate and rhythm S1-S2, no murmurs rubs or gallops, pulses are brisk and equal bilaterally Extremities: The left ring finger has some notable bleeding from the medial aspect of the nailbed as well as underneath the nailbed. Patient has long acrylic fingernails. She resisted any movement of the fingernail however it does appear to be somewhat loose at the distal end of the nail but intact at the nailbed. Skin: Normal in appearance without rash,pallor, petechiae or purpura Neuro: No focal deficits Constitutional Vital Signs, click to edit/add: Last Vital Signs Temp 98.9 F 11/01/23 21:29 Pulse 98 H 11/01/23 21:29 Resp 16 11/01/23 21:29 BP 132/80 11/01/23 21:29 Pulse Ox 98 11/01/23 21:29 O2 Del Method Room Air 11/01/23 21:29 Course Vital Signs Vital signs: Vital Signs Temperature 98.9 F 11/01/23 21:29 Pulse Rate 98 H 11/01/23 21:29 Respiratory Rate 16 11/01/23 21:29 Blood Pressure 132/80 11/01/23 21:29 Pulse Oximetry 98 11/01/23 21:29 Oxygen Delivery Method Room Air 11/01/23 21:29 Temperature 98.9 F 11/01/23 21:29 Pulse Rate 98 H 11/01/23 21:29 Respiratory Rate 16 11/01/23 21:29 Blood Pressure 132/80 11/01/23 21:29 Pulse Oximetry 98 11/01/23 21:29 Oxygen Delivery Method Room Air 11/01/23 21:29 MDM - Extremity Injury (Upper) MDM Narrative Medical decision making narrative: This 38-year-old female presents for evaluation of a left fingernail injury. The patient was walking up the basement stairs and fell while walking up causing an avulsion of the fingernail on the left ring finger. I offered the patient to remove the fingernail completely as there is some bleeding on the medial aspect of the nail and also underneath the distal end of the nail although it does appear to be intact at the nailbed. I gently cut the fingernail down and was unable to appreciate anything different without the extended nail being in place. I offered the patient to remove the nail bed or otherwise to tape it down and give her a finger splint. She opted to have me tape it down and give her a finger splint. I explained to her that the fingernail will likely grow out normally and she should keep the tape and splint in place until it does. The patient states the reason that she fell was because she is having an flare of her fibromyalgia. She is on 800 mg of gabapentin 3 times daily. She requested something stronger for pain. She was given a dose of Percocet which she states barely took the edge off of her pain and requested something in addition. She will be given 2 doses of Percocet to take home to use later tonight. 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 She was given a note to be off of work and a note for her security flex utility officer indicating that she received Percocet while in the emergency department. She is otherwise stable for discharge. I encouraged her to soak her hand in warm Epsom salt water 3-4 times a day to encourage healing and otherwise keep the tape and splint in place to protect the finger from further injury. Medical Records Medical records narrative: The [address] [address] XRay Report Signed Patient: REGINA SIDDIQUI MR#: [id number] : 1985 Acct:[id number] Age/Sex: 38 / F ADM Date: 11/01/23 Loc: ER Attending Dr: Ordering Physician: Donna Montalvo Date of Service: 11/01/23 Procedure(s): XR hand LT min 3V Accession Number(s): [id number] cc: Baldomero Mohan M.D.; Donna Montalvo~ The [address] [address] Patient Name: REGINA SIDDIQUI MRN: [id number] date: 1985 Sex: F Assigned Patient Location: ER Current Patient Location: ER Accession/Order Number: [id number] Exam Date: 11/01/2023 22:25 Report Date: 11/01/2023 22:54 At the request of: DONNA MONTALVO Procedure: XR hand LT min 3V EXAM: XR hand LT min 3V HISTORY: L ring finger injury COMPARISON: None. FINDINGS/IMPRESSION: 1. No acute fracture or dislocation. 2. Normal alignment of the bones of the hand and wrist. 3. No significant joint degeneration. Discharge Plan Discharge Stand Alone Forms: Portal Instructions Chief Complaint: Extremity Injury, Upper Clinical Impression: Avulsed fingernail Patient Disposition: Home, Self-Care Time of Disposition Decision: 23:09 Condition: Good Prescriptions / Home Meds: No Action tobramycin 0.3 % drops 1 drp ophthalmic (eye) Q4H Qty: 5 0RF Rx Instructions: 1 drop to the right eye clindamycin HCl 300 mg capsule 300 mg PO Q6H gabapentin 300 mg capsule 300 mg PO BID triamcinolone acetonide 0.1 % paste 1 applic dental BID ondansetron 4 mg tablet,disintegrating 4 mg PO Q6H PRN (Reason: nausea) Qty: 14 0RF Print Language: Bruneian Instructions: Nail Avulsion (ED) Additional Instructions: Keep your nail taped down and keep the finger splint on to prevent reinjury. Soak your hand in warm Epsom salt water 3-4 times a day. Return to the emergency department for redness, swelling, signs of infection or any concerns. Referrals: Baldomero Mohan MD [Primary Care Provider] - 1 week
[2023-11-01] MEDS: OXYCODONE HCL/ACETAMINOPHEN 5MG/325MG 2 TAB PO (23:30)
== END 2023-11-01 23:36 | disposition home or self-care (01) ==
PROVIDERS: Emergency Provider Emergency Medicine; PCP Family Medicine
DX: S61.305A Unspecified open wound of left ring finger with damage to nail, initial encounter (principal); W10.9XXA Fall (on) (from) unspecified stairs and steps, initial encounter; F17.200 Nicotine dependence, unspecified, uncomplicated
CPT/HCPCS: 29130; 73130; 99284; Q0162

== ENCOUNTER 2024-02-14 08:21 | Outpatient (OUT) | payer MEDICAID, SELFPAY ==
--- OUTSIDE RECORDS SUMMARY | 2024-02-14 08:44 | XMS_ITS | CCD ---
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 Age: 38 Years Arrival Date: 06/13/2023 13:03:08 Discharge Diagnosis: 1:Abdominal pain Primary Care Physician: Ary Mohan MD Provider Information Primary Provider: Brandon Strauss DO Advanced Crop Roller:Shan Gusman PA-C The exam and treatment you received in the Emergency Department were for an urgent problem and are not intended as complete care. It is important that you follow up with a doctor, nurse practitioner, or physician?s psychiatric nursing assistant for ongoing care. If your symptoms become worse or you do not improve as expected and you are unable to reach your usual health care provider, you should return to the Emergency Department. We are available 24 hours a day. ARUTRGHAZALALILIYA Werner has been given the following list of patient education materials, prescriptions and follow-up instructions: Follow-up Instructions: With: Address: When: Ary Mohan [address] [facility], [address] [place] [id number] Business (1) In 3 days 06/16/2023 Comments: [...] opioids can be used to help relieve cygvvvwi-tx-lhlefh pain and are often prescribed following a [...] pain t (more content not included)... Normal [facility] HEMATOLOGYOrdered By: SYSTEM SYSTEM on 06-13-2023 [...] 06-13-2023 Albumin [Mass/Vol] 4.3 g/dL Normal 3.3-5.0 [facility] Comment on above: Performed By: #### 2 615049, [id number], 0670428, 3417780, 84896087, 2861442 ####[facility] [address] [place] [address] Albumin/Globulin (S) [Mass conc ratio] 1.5 Normal 1.1-2.2 [facility] Comment on above: Performed By: #### 2 627975, 30747268, 7167175, 2116088, 01469718, 5937558 ####[facility] [address] [place] [address] ALP [Catalytic activity/Vol] 64 Int._Unit/L Normal 21-98 [facility] Comment on above: Performed By: #### 2 179914, 47691491, 7733026, 1442245, 57607661, 5444126 ####[address] [address] ALT No additional P-5'-P [Catalytic activity/Vol] 10 Int._Unit/L Normal 6-46 [facility] Comment on above: Performed By: #### 2 063804, 03523680, 8434708, 4904844, 50275160, 6188001 ####[address] [address] AST [Catalytic activity/Vol] 13 Int._Unit/L Normal 5-43 [facility] Comment on above: Performed By: #### 2 673012, 76094591, 9062242, 7908808, 77199591, 9132287 ####[address] [address] Bilirubin [Mass/Vol] 0.7 mg/dL Normal 0.0-1.1 [facility] Comment on above: Performed By: #### 2 701464, 71863064, 1771309, 0397907, 89795892, 2958302 ####[address] [address] Bilirubin.direct [Mass/Vol] 0.1 mg/dL Normal 0.0-0.4 [facility] Comment on above: Performed By: #### 2 037174, 05285170, 4542906, 6476589, 28222400, 0747924 ####[facility] [address] [place] [address] Bilirubin.indirect [Mass or moles/Vol] 0.6 mg/dL Normal 0.1-0.9 [facility] Comment on above: Performed By: #### 2 350558, 91501242, 9732455, 1447296, 66175385, 9668899 ####[facility] [address] [place] [address] Globulin (S) [Mass/Vol] 2.8 g/dL Normal 1.4-4.0 [facility] Comment on above: Performed By: #### 2 861692, 24739613, 9245175, 0508982, 97671582, 3161557 ####[facility] [address] [place] [address] Protein [Mass/Vol] 7.1 g/dL Normal 6.0-7.8 [facility] Comment on above: Performed By: #### 2 160452, 58608885, 0113718, 0986140, 65971410, 6503432 ####[place] [address] [place] [address] Lipase Levelon 06-13-2023 Lipase [Catalytic activity/Vol] 78 U/L High 13-58 [facility] Comment on above: Performed By: #### 2 229569, 45170750, 7660571, 4621366, 45893966, 3981101 ####[facility] [address] [place] [address] Prescriptions/Work Noteson 0 06-13-2023 Prescriptions/Work Notes [id number] .00TIFF Normal [facility] RAD - Preliminary Cat Scan R eporton 06-13-2023 RAD - Preliminary Cat Scan Report [id number]#1 .00TIFF Normal [facility] SEROLOGYOrdered By: Nanci Hicks on 06-13-2023 Beta HCG ( test) Ql Negative (06/13/23 1:14 PM) Normal [facility] Man Sero UA with Cult Rflxon 06-13-19 24 Color (U) Light-Yellow Normal Yellow [facility] Comment on above: Result Comment: Micr oscopic readings are only performed on those samples that meet specific criteria set forth by [facility]. Performed By: #### 4 [id number] ####[place] [address] [place] [address] Glucose (U) [Mass/Vol] Negative Normal Negative [facility] Comment on above: Performed By: #### 4 [id number] ####[place] [address] [place] [address] Ketones Ql (U) Negative Normal Negative [facility] Comment on above: Performed By: #### 4 [id number] ####[place] [address] [place] [address] UA Blood Negative Normal Negative [facility] Comment on above: Performed By: #### 4 [id number] ####[address] [address] UA Clarity Clear Normal Clear [facility] Comment on above: Performed By: #### 4 [id number] ####[address] [address] UA Leuk Est Negative Normal Negative [facility] Comment on above: Performed By: #### 4 [id number] ####[facility] [address] [place] [address] UA Nitrite Negative Normal Negative [facility] Comment on above: Performed By: #### 4 [id number] ####[facility] [address] [place] [address] UA pH 6.0 Invalid Interpretation Code 5.0-9.0 [facility] Comment on above: Performed By: #### 4 [id number] ####[place] [address] [place] [address] UA Protein Negative Normal Negative [facility] Comment on above: Performed By: #### 4 [id number] ####[place] [address] [place] [address] UA Spec Grav >1.050 Normal 1.005-1.030 [facility] Comment on above: Performed By: #### 4 [id number] ####[facility] [address] [place] [address] UA Urobilinogen Negative Normal Negative [facility] Comment on above: Performed By: #### 4 [id number] ####[facility] [address] [place] [address] Urobilinogen (U) [Mass/Vol] Negative Normal Negative [facility] Comment on above: Performed By: #### 4 [id number] ####[facility] [address] [place] [address] UA Spec Desc Clean Catch Normal [facility] Comment on above: Performed By: #### 4 [id number] ####[facility] [address] [facility] [place] [address] URINALYSISOrdered By: Venessa Hicks on 06-13-2023 Color (U) Light-Yellow 1 (06/13/23 4:12 PM) Normal Yellow [facility] Auto SS Comment on above: Interpretive Data: M icroscopic readings are only performed on those samples that meet specific criteria set forth by [facility]. Glucose (U) [Mass/Vol] Negative Normal Negativemg/dL FT UA Auto SS Ketones Ql (U) Negative (06/13/23 4:12 PM) Normal Negative [facility] Auto SS UA Blood Negative Normal Negativegrade d/HPF [facility] UA Auto SS UA Clarity Clear (06/13/23 4:12 PM) Normal Clear [facility] UA Auto SS UA Leuk Est Negative (06/13/23 4:12 PM) Normal Negative [facility] UA Auto SS UA Nitrite Negative Normal Negativemg/dL FT UA Aut o SS UA pH 6.0 *NA* (06/13/23 4:12 PM) Invalid Interpretation Code 5.0 - 9.0 [facility] Auto SS UA Protein Negative Normal Negativemg/dL FT UA Aut o SS UA Spec Grav >1.050 (06/13/23 4:12 PM) Normal 1.005 - 1.030 [facility] Auto SS UA Urobilinogen Negative Normal Negative/HPF [facility]A Auto SS Urobilinogen (U) [Mass/Vol] Negative Normal Negativemg/dL FT UA Auto SS URINALYSISOrdered By: Shan Gusman on 06-13-2023 UA Spec Desc Clean Catch (06/13/23 4:12 PM) Normal [facility] UA Auto SS Work Phone: eGFRon 06-13-2023 eGFR 112 mL/min/1.73 m2 Normal >=59 [facility] Comment on above: Order Comment: Order added by Discern Expert. Performed By: #### 2 519118, 79534559, 9198679, 6661457, 84103924, 8314124 ####[facility] [address] [place] [address] US SINGLE QUAD RT UPPERon US SINGLE [...] by: THERESA MCCARTHY Date: 2022-06-12 08:37 Normal [facility] CT CSPINE WO CONon 3 CT [...] THERESA ESPAÑA Date: 2022-03-21 22:20 Normal [facility] CT FACIAL BONES WO CONon [...] THERESA ESPAÑA Date: 2022-03-21 22:43 Normal [facility] CT HEAD WO CONon 03-22-2022 [...] JOSEPH STACK Date: 2022-03-21 22:25 Normal [facility] DRUG SCREEN RAPID (URINE)on 03-22-2022 AMP Negative Normal NEGATIVE [facility] Comment on above: Performed By: #### E RUR, DRUGRPD ####[facility] [address] [place] [address]Dr. Eddy Lindsey BAR Negative Normal NEGATIVE [facility] Comment on above: Performed By: #### E RUR, DRUGRPD ####[facility] [address] [place] [address]Dr. Eddy Lindsey BUP Negative Normal NEGATIVE [facility] Comment on above: Performed By: #### E RUR, DRUGRPD ####[facility] [address] [place] [address]Dr. Eddy Lindsey BZO Negative Normal NEGATIVE [facility] Comment on above: Performed By: #### E RUR, DRUGRPD ####[facility] [address] [place] [address]Dr. Eddy Lindsey OCTAVIO Negative Normal NEGATIVE [facility] Comment on above: Performed By: #### E RUR, DRUGRPD ####[facility] [address] [place], [place] [address]Dr. Eddy Lindsey CUT-OFFS SEE BELOW Normal [facility] Comment on above: Result Comment: [...] ng/mL Performed By: #### E RUR, DRUGRPD ####[facility] [address] [place], [place] [address]Dr. landen Lindsey DRUG CUT HEADER DRUG CLASS TEST SYSTEM CUT-OFF CONCENTRATIONS ARE FOLLOWS: Normal [facility] Comment on above: Performed By: #### E RUR, DRUGRPD ####[facility] [address] [place], [place] [address]Dr. Eddy Lindsey mAMP Negative Normal NEGATIVE [facility] Comment on above: Performed By: #### E RUR, DRUGRPD ####[facility] [address] [place], [place] [address]Dr. Eddy Lindsey MTD Negative Normal NEGATIVE [facility] Comment on above: Performed By: #### E RUR, DRUGRPD ####[facility] [address] [place], [place] [address]Dr. Eddy Lindsey OPI Negative Normal NEGATIVE [facility] Comment on above: Performed By: #### E RUR, DRUGRPD ####[facility] [address]kt[address] [place], [place] [address]Dr. Eddy Lindsey OXY Negative Normal NEGATIVE [facility] Comment on above: Performed By: #### E RUR, DRUGRPD ####[facility] [address] [place], [place] [address]Dr. Eddy Lindsey PCP Negative Normal NEGATIVE [facility] Comment on above: Performed By: #### E RUR, DRUGRPD ####[facility] [address] [place], [place] [address]Dr. Eddy Lindsey PPX Negative Normal NEGATIVE [facility] Comment on above: Performed By: #### E RUR, DRUGRPD ####[facility] [address]utma[address] [place], [place] [address]Dr. Eddy Lindsey TCA Negative Normal NEGATIVE [facility] Comment on above: Performed By: #### E RUR, DRUGRPD ####[facility] Ifz[address]fevs[address] [place], [place] [address]Dr. Eddy Lindsey THC Negative Normal NEGATIVE [facility] Comment on above: Performed By: #### Tiff RUAlberto DRUGRPD ####[facility] Xwds[address] [place], [place] [address]Dr. Dorothealanden Lindsey ER URINE PROFILEon 3 Bilirubin Ql (U) Negative Normal NEGATIVE [facility] Comment on above: Performed By: #### Tiff RUAlberto DRUGRPD ####[facility] Ynb[address]kw[address] [place], [place] [address]Dr. Dorothealanden César Clarity (U) CLEAR Normal CLEAR [facility] Comment on above: Performed By: #### Tiff RUAlberto DRUGRPD ####[facility] [address]rt[address]kw[address] [place], [place] [address]Dr. Eddy Lindsey Color (U) LT. YELLOW Normal YELLOW [facility] Comment on above: Performed By: #### Tiff GALEAS DRUGRPD ####[facility] Dgtkunfux[address] [place], [place] [address]Dr. Eddy Lindsey ERUAHD A micrscopic examination will be performed if indicated. Normal [facility] Comment on above: Performed By: #### Tiff RUAlberto DRUGRPD ####[facility] [address] [place], [place] [address]Dr. Eddy Lindsey Glucose Ql (U) Negative Normal NEGATIVE [facility] Comment on above: Performed By: #### Tiff RUAlberto DRUGRPD ####[facility] Ittbtuugss[address] [place], [place] [address]Dr. Eddy Lindsey Hemoglobin Ql (U) Negative Normal NEGATIVE [facility] Comment on above: Performed By: #### Tiff RUR DRUGRPD ####[facility] Xxftnoyf[address] [place], [place] [address]Dr. Dorothealanden Lindsey Ketones Ql (U) Negative Normal NEGATIVE [facility] Comment on above: Performed By: #### Tiff RUR DRUGRPD ####[facility] Jepmtsnbxm[address] [place], [place] [address]Dr. Dorothealan Lindsey LEUKOCYTES Negative Normal NEGATIVE [facility] Comment on above: Performed By: #### Tiff RUR, DRUGRPD ####[facility] [address] [place] [address]Dr. Eddy Lindsey Nitrite Ql (U) Negative Normal NEGATIVE [facility] Comment on above: Performed By: #### E RUR, DRUGRPD ####[facility] [address] [place] [address]Dr. Eddy Lindsey pH (U) 5.0 [pH] Normal 5-9 [facility] Comment on above: Performed By: #### Tiff RUR, DRUGRPD ####[facility] [address] [place] [address]Dr. Eddy Lindsey SPEC GRAVITY <=1.005 Abnormal 1.005-<=1.025 [facility] Comment on above: Performed By: #### Tiff GALEAS, DRUGRPD ####[facility] [address]zl[address] [place], [place] [address]Dr. Eddy Lindsey UA PROTEIN Negative Normal NEGATIVE/ TRACE [facility] Comment on above: Performed By: #### Tiff GALEAS DRUGRPD ####[facility] Zulguc[address] [place], [place] [address]Dr. Eddy Lindsey UR MICRO IND NOT INDICATED Normal [facility] Comment on above: Performed By: #### Tiff RUAlberto, DRUGRPD ####[facility] [address] [place] [address]Dr. Eddy Lindsey Urobilinogen Qn (U) 0.2 {Nikki'U}/dL Normal 0.2 - 1. 0 [facility] Comment on above: Performed By: #### Tiff RUR, DRUGRPD ####[facility] [address]pt[address]ex[address] [place], [place] [address]Dr. Eddy Lindsey XR HAND NELLY MIN 3Von [...] delineate. Right hand: No fracture. Normal [facility] CBC AUTO DIFFon 03-21-2022 BASO # 0.1 103/ul Normal 0.0-0.1 [facility] Comment on above: Performed By: #### C BC ####[facility] [address] [place] [address]Dr. Eddy Lindsey Basophils/100 WBC (Bld) 0.5 % Normal 0.2-2.0 [facility] Comment on above: Performed By: #### C BC ####[facility] Gxrlearz[address] [place], [place] [address]Dr. Eddy Lindsey EO # 0.1 103/ul Normal 0.0-0.7 [facility] Comment on above: Performed By: #### C BC ####[facility] Wbylgfmcme[address] [place], [place] [address]Dr. Eddy Lindsey Eosinophils/100 WBC (Bld) 0.7 % Critically low 0.9-7.0 [facility] Comment on above: Performed By: #### C BC ####[facility] Ruotxatkgs[address] [place], [place] [address]Dr. Eddy Lindsey Erythrocyte distribution width (RBC) [Ratio] 11.7 % Normal 11.0-15.0 [facility] Comment on above: Performed By: #### C BC ####[facility] Radsaombjx[address] [place], [place] [address]Dr. Edyd Lindsey Hematocrit (Bld) [Volume fraction] 42.9 % Normal 36.0-48.0 [facility] Comment on above: Performed By: #### C BC ####[facility] Jlztuljcxo[address] [place], [place] [address]Dr. Eddy Lindsey Hemoglobin (Bld) [Mass/Vol] 14.6 g/dL Normal 12.0-16.0 [facility] Comment on above: Performed By: #### C BC ####[facility] Nwshbcrj[address] [place], [place] [address]Dr. Eddy Lindsey IG # 0.07 10e3/ul Critically high 0.00-0.03 [facility] Comment on above: Performed By: #### C BC ####[facility] [address]tt[address] [place] [address]DrWalt Eddy Lindsey IG % 0.7 % Critically high 0.0-0.5 [facility] Comment on above: Performed By: #### C BC ####[facility] [address]uexgj[address] [place] [address]DrWalt Eddy César LYMPH # 1.6 103/ul Normal 1.2-3.8 [facility] Comment on above: Performed By: #### C BC ####[facility] [address]xl[address]zm[address] [place] [address]DrWalt Eddy César Lymphocytes/100 WBC (Bld) 15.4 % Critically low 20.5-60.0 [facility] Comment on above: Performed By: #### C BC ####[facility] Y[address]msgvhsf[address] [place], [place] [address]DrWalt Eddy César MANUAL DIFF REQ NO Normal [facility] Comment on above: Performed By: #### C BC ####[facility] [address]sh[address] [place] [address]Dr. Eddy Lindsey MCH (RBC) [Entitic mass] 31.3 pg Normal 26.7-34.0 [facility] Comment on above: Performed By: #### C BC ####[facility] Ighcmrgmin[address] [place], [place] [address]Dr. Eddy César MCHC (RBC) [Mass/Vol] 34.0 g/dL Normal 29.9-35.2 [facility] Comment on above: Performed By: #### C BC ####[facility] [address]knj[address] [place] [address]DrWalt Eddy César MCV (RBC) [Entitic vol] 92.1 fL Normal 81.0-99.0 [facility] Comment on above: Performed By: #### C BC ####[facility] Lrtsoifvix[address] [place], [place] [address]DrWalt Dorothealanden Lindsey MONO # 0.5 103/ul Normal 0.3-0.8 [facility] Comment on above: Performed By: #### C BC ####[facility] [address] [place] [address]Dr. Eddy Lindsey Monocytes/100 WBC (Bld) 5.3 % Normal 1.7-12.0 [facility] Comment on above: Performed By: #### C BC ####[facility] [address] [place] [address]Dr. Eddy Lindsey NEUT # 7.8 103/ul Critically high 1.4-6.5 [facility] Comment on above: Performed By: #### C BC ####[facility] [address]zrds[address] [place] [address]Dr. Eddy Lindsey Neutrophils/100 WBC (Bld) 77.4 % Critically high 43.0-75.0 [facility] Comment on above: Performed By: #### C BC ####[facility] [address]ql[address]oc[address] [place], [place] [address]Dr. Eddy Lindsey Platelet mean volume (Bld) [Entitic vol] 9.0 fL Critically low 9.5-13.5 [facility] Comment on above: Performed By: #### C BC ####[facility] E[address]toxsl[address] [place], [place] [address]Dr. Eddy Lindsey PLT 291 103/ul Normal 150-450 [facility] Comment on above: Performed By: #### C BC ####[facility] [address]zzmi[address] [place] [address]Dr. Eddy Lindsey RBC 4.66 106/ul Normal 4.20-5.40 [facility] Comment on above: Performed By: #### C BC ####[facility] [address]qae[address] [place] [id number]. Eddy Lindsey WBC 10.1 103/ul Normal 4.0-11.0 [facility] Comment on above: Performed By: #### C BC ####[facility] [address] [place] [id number] Eddy Lindsey ETHANOL (BLD ALC)on 12-31-20 22 ALC NOTE NOTE: 80 mg/dl is e legal limit for a blood alcohol level Normal [facility] Comment on above: Performed By: #### E TH #### [facility] [address] [place] [address] [address] Eddy Lindsey Ethanol [Mass/Vol] 204 mg/dL Normal [facility] Comment on above: Performed By: #### E TH #### [facility] [address] [place] [address] [address] Eddy Lindsey PROF 14(COMP METB)on 022 Albumin [Mass/Vol] 3.9 g/dL Normal 3.4-5.0 [facility] Comment on above: Performed By: #### C MP ####[facility] Wux[address]mwp[address] [place], [place] [address]DrWalt Lindsey Albumin/Globulin [Mass ratio] 1.3 {ratio} Normal [facility] Comment on above: Performed By: #### C MP ####[facility] [address]ldszgr[address] [place], [place] [address]DrWalt Lindsey ALP [Catalytic activity/Vol] 78 U/L Normal 46-116 [facility] Comment on above: Performed By: #### C MP ####[facility] Mszhecfurs[address] [place] [address]DrWalt Lindsey ALT [Catalytic activity/Vol] 27 U/L Normal 14-59 [facility] Comment on above: Performed By: #### C MP ####[facility] [address]okcs[address] [place] [address]DrWalt Lindsey Anion gap [Moles/Vol] 18.2 mmol/L Normal [facility] Comment on above: Performed By: #### C MP ####[facility] [address]thysnce[address] [place] [address]DrWalt Lindsey AST [Catalytic activity/Vol] 22 U/L Normal 15-37 [facility] Comment on above: Performed By: #### C MP ####[facility] [address]rhxtqnf[address] [place], [place] [address]DrWalt Lindsey Bilirubin [Mass/Vol] 0.3 mg/dL Normal 0.2-1.0 [facility] Comment on above: Performed By: #### C MP ####[facility] [address]qbx[address]zxyoc[address] [place] [address]Dr. Eddy Lindsey Calcium [Mass/Vol] 8.7 mg/dL Normal 8.5-10.1 [facility] Comment on above: Performed By: #### C MP ####[facility] [address]rmco[address] [place] [address]Dr. Dorothealanden César Chloride [Moles/Vol] 102 mmol/L Normal 98-107 [facility] Comment on above: Performed By: #### C MP ####[facility] [address] [place] [address]Dr. Dorothealanden César CO2 [Moles/Vol] 20.1 mmol/L Critically low 21.0-32.0 [facility] Comment on above: Performed By: #### C MP ####[facility] [address]hxy[address] [place], [place] [address]Dr. Dorothealanden César Creatinine [Mass/Vol] 1.04 mg/dL Critically high 0.55-1.02 [facility] Comment on above: Performed By: #### C MP ####[facility] [address]ro[address] [place], [place] [address]Dr. Dorothealanden César EGFR-AF NIUEAN >60 Normal >=60 [facility] Comment on above: Performed By: #### C MP ####[facility] [address] [place], [place] [address]Dr. Eddy Lindsey EGFR-NON AF NIUEAN 59 mL/min/1.73m2 Critically low >=60 [facility] Comment on above: Performed By: #### C MP ####[facility] Hzawqr[address] [place], [place] [address]Dr. Eddy Lindsey Globulin (S) [Mass/Vol] 2.9 g/dL Normal [facility] Comment on above: Performed By: #### C MP ####[facility] [address] [place] [id number]. Eddy Lindsey Glucose [Mass/Vol] 132 mg/dL Critically high 74-106 [facility] Comment on above: Performed By: #### C MP ####[facility] [address] [place] [address]Dr. Eddy Lindsey Potassium [Moles/Vol] 3.3 mmol/L Critically low 3.5-5.1 [facility] Comment on above: Performed By: #### C MP ####[facility] [address] [place] [address]Dr. Eddy Lindsey Protein [Mass/Vol] 6.8 g/dL Normal 6.4-8.2 [facility] Comment on above: Performed By: #### C MP ####[facility] [address] [place] [address]Dr. Eddy Lindsey Sodium [Moles/Vol] 137 mmol/L Normal 136-145 [facility] Comment on above: Performed By: #### C MP ####[facility] [address] [place] [address]Dr. Eddy Lindsey Urea nitrogen [Mass/Vol] 18.0 mg/dL Normal 7.0-18.0 [facility] Comment on above: Performed By: #### C MP ####[facility] [address] [place] [address]Dr. Eddy Lindsey Urea nitrogen/Creatinine [Mass ratio] 17.3 mg/mg Normal [facility] Comment on above: Performed By: #### C MP ####[facility] [address] [place] [address]Dr. Eddy Lindsey XR CHEST 1 Von 03-21-2022 [...] by: THERESA ESPAÑA Date: 2022-03-21 21:30 Normal [facility] XR LSPINE MIN 4 VIEWSon 12-0 [...] THERESA PATEL Date: 2022-02-26 12:42 Normal [facility] CT CHEST W CONon 01-19-2022 CT [...] THERESA PATEL Date: 2022-01-19 07:48 Normal [facility] CT HUMERUS RT WO CONon [...] ESTHER VAZQUEZ Date: 2022-01-04 21:32 Normal [facility] US BLADDERon 11-13-2021 US BLADDER [...] by: ESTHER VAZQUEZ Date: 2021-11-13 06:53 Normal [facility] CULTURE URINEon 10-30-2021 CULTURE URINE Isolate [...] F Trimethoprim/Sulfamet hoxazole <=20 S F Normal [facility] Comment on above: Performed By: #### U RCX ####[facility] [address] [place], [place] [address]MhWalt [address] Lindsey CT ABD/PELV W CONon 10-30-19 CT ABD/PELV W CON EXAMINATION: CT ABD/PELV [...] THERESA PATEL Date: 2021-10-29 14:20 Normal [facility] CARDIAC JORGE ALBERTO ADMITon 022 CK [Catalytic activity/Vol] 18 U/L Critically low 26-192 [facility] Comment on above: Performed By: #### C JACKI TRACEY #### [facility] [address] [place] [address] [address] Eddy Lindsey CK.MB [Mass/Vol] ng/mL Normal <=3.60 [facility] Comment on above: Performed By: #### C JACKI RTACEY #### [facility] [address] [place] [address] [address] Eddy Lindsey HSTROP 4.1 pg/mL Normal 4.0-51.3 [facility] Comment on above: Result Comment: CUT- OFF POINTS HAVE BEEN ESTABLISHED BASED ON THE FOURTH UNIVERSAL DEFINITIONS OF MYOCARDIAL INFARCTION. THE UPPER REFERENCE LIMIT (URL) OF TROPONIN, DEFINED THE 99TH PERCENTILE OF cTnI DISTRIBUTION IN A REFERENCE POPULATION, HAS BEEN CONFIRMED THE DECISION THRESHOLD FOR W[place] DIAGNOSIS. Performed By: #### C JACKI TRACEY #### [facility] [address] [address] [address] Eddy Lindsey CHARLENE 35 ng/mL Normal 9-82 [facility] Comment on above: Performed By: #### C ALEXY, PAXTONDM #### [facility] [address] [address] [address] Eddy Lindsey CBC AUTO DIFFon 10-28-2021 BASO # 0.0 103/ul Normal 0.0-0.1 [facility] Comment on above: Performed By: #### C BC ####[facility] [address] [place] [address]DrWalt Lindsey Basophils/100 WBC (Bld) 0.3 % Normal 0.2-2.0 [facility] Comment on above: Performed By: #### C BC ####[facility] [address] [place] [address]DrWalt Lindsey EO # 0.0 103/ul Normal 0.0-0.7 [facility] Comment on above: Performed By: #### C BC ####[facility] [address] [place] [address]DrWalt Lindsey Eosinophils/100 WBC (Bld) 0.2 % Critically low 0.9-7.0 [facility] Comment on above: Performed By: #### C BC ####[facility] [address] [place] [address]DrWalt Lindsey Erythrocyte distribution width (RBC) [Ratio] 12.5 % Normal 11.0-15.0 [facility] Comment on above: Performed By: #### C BC ####[facility] [address] [place] [address]DrWalt Lindsey Hematocrit (Bld) [Volume fraction] 47.7 % Normal 36.0-48.0 [facility] Comment on above: Performed By: #### C BC ####[facility] [address] [place] [address]DrWalt Lindsey Hemoglobin (Bld) [Mass/Vol] 15.6 g/dL Normal 12.0-16.0 [facility] Comment on above: Performed By: #### C BC ####[facility] [address] [place] [id number]. Eddy Lindsey IG # 0.09 10e3/ul Critically high 0.00-0.03 [facility] Comment on above: Performed By: #### C BC ####[facility] [address] [place] [id number]. Eddy Lindsey IG % 1.0 % Critically high 0.0-0.5 [facility] Comment on above: Performed By: #### C BC ####[facility] [address] [place] [address]Dr. Eddy César LYMPH # 1.2 103/ul Normal 1.2-3.8 [facility] Comment on above: Performed By: #### C BC ####[facility] [address] [place] [address]Dr. Eddy Lindsey Lymphocytes/100 WBC (Bld) 12.7 % Critically low 20.5-60.0 [facility] Comment on above: Performed By: #### C BC ####[facility] [address] [place] [address]Dr. Eddy Lindsey MANUAL DIFF REQ NO Normal [facility] Comment on above: Performed By: #### C BC ####[facility] [address] [place] [address]Dr. Eddy Lindsey MCH (RBC) [Entitic mass] 32.2 pg Normal 26.7-34.0 [facility] Comment on above: Performed By: #### C BC ####[facility] [address] [place] [address]Dr. Eddy Lindsey MCHC (RBC) [Mass/Vol] 32.7 g/dL Normal 29.9-35.2 [facility] Comment on above: Performed By: #### C BC ####[facility] [address] [place] [address]Dr. Eddy Lindsey MCV (RBC) [Entitic vol] 98.6 fL Normal 81.0-99.0 [facility] Comment on above: Performed By: #### C BC ####[facility] [address] [place] [id number]. Eddy Lindsey MONO # 0.7 103/ul Normal 0.3-0.8 [facility] Comment on above: Performed By: #### C BC ####[facility] [address] [place] [id number]. Eddy Lindsey Monocytes/100 WBC (Bld) 8.0 % Normal 1.7-12.0 [facility] Comment on above: Performed By: #### C BC ####[facility] [address] [place] [id number]. Eddy Lindsey NEUT # 7.2 103/ul Critically high 1.4-6.5 [facility] Comment on above: Performed By: #### C BC ####[facility] [address] [place] [id number]. Eddy Lindsey Neutrophils/100 WBC (Bld) 77.8 % Critically high 43.0-75.0 [facility] Comment on above: Performed By: #### C BC ####[facility] [address] [place] [id number]. Eddy Lindsey Platelet mean volume (Bld) [Entitic vol] 8.7 fL Critically low 9.5-13.5 [facility] Comment on above: Performed By: #### C BC ####[facility] [address] [place] [id number]. Eddy Lindsey PLT 311 103/ul Normal 150-450 [facility] Comment on above: Performed By: #### C BC ####[facility] [address] [place] [id number]. Eddy Lindsey RBC 4.84 106/ul Normal 4.20-5.40 [facility] Comment on above: Performed By: #### C BC ####[facility] [address] [place] [id number]. Eddy Lindsey WBC 9.3 103/ul Normal 4.0-11.0 [facility] Comment on above: Performed By: #### C BC ####[facility] [address] [place] [id number]. Eddy Lindsey D-DIMERon 10-28-2021 D-DIMER 0.21 mg/L FEU Normal <=0.59 [facility] Comment on above: Performed By: #### D DIM ####[facility] [address] [place] [address]DrWalt Lindsey D-DIMER COMMENTS SEE BELOW Normal [facility] Comment on above: Result Comment: Incr eases [...] generalized hospitalization. Performed By: #### D DIM ####[facility] [address] [place] [address]Dr. Eddy Lindsey ER URINE PROFILEon 2 Bilirubin Ql (U) Negative Normal NEGATIVE [facility] Comment on above: Performed By: #### P ESTEVAN BATISTA, ERUR #### [facility] [address] [place] [address] [address] Eddy Lindsey Clarity (U) CLEAR Normal CLEAR [facility] Comment on above: Performed By: #### P ESTEVAN BATISTA, ERUR #### [facility] [address] [place] [address] [address] Eddy Lindsey Color (U) LT. YELLOW Normal YELLOW [facility] Comment on above: Performed By: #### P TAMARAUKATHERINEICRO, ERUR #### [facility] [address] [place] [address] [address] Eddy VASQUES A micrscopic examination will be performed if indicated. Normal [facility] Comment on above: Performed By: #### P REGU UMICRO, ERUR #### [facility] [address] [place] [address] [address] Eddy Lindsey Glucose Ql (U) Negative Normal NEGATIVE [facility] Comment on above: Performed By: #### P REGU, UMICRO, ERUR #### [facility] [address] [address] [address] Eddy Lindsey Hemoglobin Ql (U) Negative Normal NEGATIVE [facility] Comment on above: Performed By: #### P REGU, UMICRO, ERUR #### [facility] [address] [address] [address] Eddy Lindsey Ketones Ql (U) Negative Normal NEGATIVE [facility] Comment on above: Performed By: #### P REGU, UMICRO, ERUR #### [facility] [address] [place] [address] [address] Eddy Lindsey LEUKOCYTES Negative Normal NEGATIVE [facility] Comment on above: Performed By: #### P REGU, UMICRO, ERUR #### [facility] [address] [place] [address] [address] Eddy Lindsey Nitrite Ql (U) Positive Abnormal NEGATIVE [facility] Comment on above: Performed By: #### P REGU, UMICRO, ERUR #### [facility] [address] [place] [address] [address] Eddy Lindsey pH (U) 7.0 [pH] Normal 5-9 [facility] Comment on above: Performed By: #### P REGU, UMICRO, ERUR #### [facility] [address] [address] [address] Eddy Lindsey SPEC GRAVITY 1.015 Normal 1.005-<=1.025 [facility] Comment on above: Performed By: #### P REGU, UMICRO, ERUR #### [facility] [address] [address] [address] Eddy Lindsey UA PROTEIN Negative Normal NEGATIVE/ TRACE [facility] Comment on above: Performed By: #### P REGU, UMICRO, ERUR #### [facility] [address] [place] [address] [address] Eddy Lindsey UR MICRO IND INDICATED Normal [facility] Comment on above: Performed By: #### P REGU, UMICRO, ERUR #### [facility] [address] [place] [address] Dr. Eddy Lindsey Urobilinogen Qn (U) 0.2 {Nikki'U}/dL Normal 0.2 - 1. 0 [facility] Comment on above: Performed By: #### P ESTEVAN BATISTA, ERUR #### [facility] [address] [place] [address] Dr. Eddy Lindsey URon 10-28-2021 , QUAL Negative Normal NEGATIVE [facility] Comment on above: Performed By: #### P ESTEVAN BATISTA, ERUR #### [facility] [address] [place] [address] Dr. Eddy Lindsey PROF 14(COMP METB)on 022 Albumin [Mass/Vol] 3.5 g/dL Normal 3.4-5.0 [facility] Comment on above: Performed By: #### C JACKI TRACEY #### [facility] [address] [place] [address] Dr. Eddy Lindsey Albumin/Globulin [Mass ratio] 1.2 {ratio} Normal [facility] Comment on above: Performed By: #### C JACKI TRACEY #### [facility] [address] [place] [address] Dr. Eddy Lindsey ALP [Catalytic activity/Vol] 60 U/L Normal 46-116 [facility] Comment on above: Performed By: #### C JACKI TRACEY #### [facility] [address] [place] [address] Dr. Eddy Lindsey ALT [Catalytic activity/Vol] 26 U/L Normal 14-59 [facility] Comment on above: Performed By: #### C JACKI TRACEY #### [facility] [address] [place] [address] Dr. Eddy Lindsey Anion gap [Moles/Vol] 8.4 mmol/L Normal [facility] Comment on above: Performed By: #### C JACKI TRACEY #### [facility] [address] [place] [address] Dr. Eddy Lindsey AST [Catalytic activity/Vol] 15 U/L Normal 15-37 [facility] Comment on above: Performed By: #### C ALEXY, CMADM #### [facility] [address] [place] [address] [address] Eddy Lindsey Bilirubin [Mass/Vol] 0.7 mg/dL Normal 0.2-1.0 [facility] Comment on above: Performed By: #### C ALEXY, CMADM #### [facility] [address] [place] [address] Dr. Eddy Lindsey Calcium [Mass/Vol] 8.9 mg/dL Normal 8.5-10.1 [facility] Comment on above: Performed By: #### C ALEXY, CMADM #### [facility] [address] [place] [address] Dr. Eddy Lindsey Chloride [Moles/Vol] 104 mmol/L Normal 98-107 [facility] Comment on above: Performed By: #### C ALEXY, CMADM #### [facility] [address] [place] [address] Dr. Eddy Lindsey CO2 [Moles/Vol] 30.7 mmol/L Normal 21.0-32.0 [facility] Comment on above: Performed By: #### C ALEXY, CMADM #### [facility] [address] [place] [address] Dr. Eddy Lindsey Creatinine [Mass/Vol] 0.74 mg/dL Normal 0.55-1.02 [facility] Comment on above: Performed By: #### C ALEXY, CMADM #### [facility] [address] [place] [address] Dr. Eddy Lindsey EGFR-AF NIUEAN >60 Normal >=60 [facility] Comment on above: Performed By: #### C ALEXY, CMADM #### [facility] [address] [place] [address] Dr. Eddy Lindsey EGFR-NON AF NIUEAN >60 Normal >=60 [facility] Comment on above: Performed By: #### C ALEXY, CMADM #### [facility] [address] [place] [address] Dr. Eddy Lindsey Globulin (S) [Mass/Vol] 3.0 g/dL Normal [facility] Comment on above: Performed By: #### C JACKI TRACEY #### [facility] [address] [address] [address] Eddy Lindsey Glucose [Mass/Vol] 107 mg/dL Critically high 74-106 [facility] [place] [facility] Comment on above: Performed By: #### C JACKI TRACEY #### [facility] [address] [address] [address] Eddy Lindsey Potassium [Moles/Vol] 4.1 mmol/L Normal 3.5-5.1 [facility] Comment on above: Performed By: #### C JACKI TRACEY #### [facility] [address] [place] [address] Dr. Eddy Lindsey Protein [Mass/Vol] 6.5 g/dL Normal 6.4-8.2 [facility] Comment on above: Performed By: #### C JACKI TRACEY #### [facility] [address] [place] [address] Dr. Eddy Lindsey Sodium [Moles/Vol] 139 mmol/L Normal 136-145 [facility] Comment on above: Performed By: #### C JACKI TRACEY #### [facility] [address] [address] [address] Eddy Lindsey Urea nitrogen [Mass/Vol] 16.0 mg/dL Normal 7.0-18.0 [facility] Comment on above: Performed By: #### C JACKI TRACEY #### [facility] [address] [place] [address] Dr. dEdy Lindsey Urea nitrogen/Creatinine [Mass ratio] 21.6 mg/mg Normal [facility] Comment on above: Performed By: #### C JACKI TRACEY #### [facility] [address] [place] [address] Dr. Eddy Lindsey URINE MICROSCOPIC ONLYon BACTERIA SMALL Abnormal NONE SEEN [facility] Comment on above: Performed By: #### P ESTEVAN BATISTA ERUR #### [facility] [address] [address] [address] Eddy Lindsey Bacteria identified Cx Nom (U) INDICATED Normal [facility] Comment on above: Performed By: #### P ESTEVAN BATISTA, ERUR #### [facility] [address] [place] [address] Dr. Eddy Lindsey CAST NONE SEEN Normal NONE SEEN [facility] Comment on above: Performed By: #### ESTEVAN EHNLEY, ERUR #### [facility] [address] [place] [address] Dr. Eddy Lindsey Crystals LM Nom (Urine sed) NONE SEEN Normal NONE SEEN [facility] Comment on above: Performed By: #### ESTEVAN HENLEY, ERUR #### [facility] [address] [place] [address] Dr. Eddy Lindsey Epithelial cells LM Ql (Urine sed) RARE Normal NONE SEEN /RARE [facility] Comment on above: Performed By: #### ESTEVAN HENLEY, ERUR #### [facility] [address] [place] [address] Dr. Eddy Lindsey MUCOUS NONE SEEN Normal NONE SEEN [facility] Comment on above: Performed By: #### ESTEVAN HENLEY, ERUR #### [facility] [address] [place] [address] Dr. Eddy Lindsey RBC NONE SEEN Abnormal 0-2 [facility] Comment on above: Performed By: #### ESTEVAN HENLEY, ERUR #### [facility] [address] [place] [address] Dr. Eddy Lindsey WBC NONE SEEN Normal NONE SEEN [facility] Comment on above: Performed By: #### ESTEVAN HENLEY, ERUR #### [facility] [address] [place] [address] Dr. Eddy Lindsey XR CHEST 1 Von [...] by: THERESA MCCARTHY Date: 2021-10-28 10:56 Normal [facility] CNCOon 09-06-2018 CNCO Letter Text Normal [facility] ANES Nicholas 09-02-2018 ANES POST HNO ID: [id number] Author: Ravinder Benjamin Service: Anesthesiology Author Type: [...] 02, 2018 TIME: 4:38 PM PAGER/CONTACT #: [id number] Normal [facility] Basic Metabolic Panlon 09-02 Anion gap [Moles/Vol] 11 mmol/L Normal - [facility] Comment on above: Performed By: #### C BCSONA, BMP #### [facility] [address] [place] [address] Calcium [Mass/Vol] 9.9 mg/dL Normal 8.5-10.2 [facility] Comment on above: Performed By: #### C BCDIF, BMP #### [facility] [address] [place] [address] Chloride [Moles/Vol] 104 mmol/L Normal 97-105 [facility] Comment on above: Performed By: #### C BCDIF, BMP #### [place] [address] CO2 [Moles/Vol] 26 mmol/L Normal 22-30 [facility] Comment on above: Performed By: #### C BCDIF, BMP #### [place] [address] Creatinine [Mass/Vol] 0.77 mg/dL Normal 0.58-0.96 [facility] Comment on above: Performed By: #### C BCDIF, BMP #### [place] [address] [place] [address] eGFR- Amer. >60 Normal [facility] Comment on above: Performed By: #### C BCDIF, BMP #### [place] [address] [place] [address] GFR/1.73 sq M predicted among non-blacks MDRD (S/P/Bld) [Vol rate/Area] mL/min/{1.73_m2} Normal [facility] Comment on above: Result Comment: eGFR (Estimated [...] reflect actual GFR. Performed By: #### C ELIAS PINZON #### [facility] [email or web address] [address] [place], [place] [address] Glucose [Mass/Vol] 88 mg/dL Normal 74-99 [facility] Comment on above: Result Comment: The [place] [employer] (ADA) provides guidance for cutoff [...] Standards of Medical Care in Diabetes 2016, [place] [employer]. Diabetes Care. 2016.39(Suppl 1). Performed By: #### C ALBERTA BMP #### [facility] [address] [place], [place] [address] Potassium [Moles/Vol] 4.6 mmol/L Normal 3.7-5.1 [facility] Comment on above: Result Comment: Resu lts may be falsely increased due to interference by hemolysis. Suggest reorder as clinically indicated. Performed By: #### C ALBERTA BMP #### [facility] [employer] [address] [place], [place] [address] Sodium [Moles/Vol] 141 mmol/L Normal 136-144 [facility] Comment on above: Performed By: #### C ALBERTA, BMP #### [facility] [employer] [address] [place], [place] [address] Urea nitrogen [Mass/Vol] 10 mg/dL Normal 7-21 [facility] Comment on above: Performed By: #### C ALBERTA, BMP #### [facility] [employer] [address] [place] [address] CBC and Differentialon 09-02 Abs Baso 0.06 k/uL Normal <0.11 [facility] Comment on above: Performed By: #### C BCLUKE, BMP #### [place] [address] [place] [address] Abs Levy 0.65 k/uL Normal <0.87 [facility] Comment on above: Performed By: #### C BCLUKE, BMP #### [place] [address] Abs Neut 5.30 k/uL Normal 1.45-7.50 [facility] Comment on above: Performed By: #### C ALBERTA, BMP #### [place] [address] Absolute nRBC <0.01 Normal <0.01 [facility] Comment on above: Performed By: #### C BCDIF, BMP #### [place] [address] Basophils/100 WBC (Bld) 0.7 % Normal [facility] Comment on above: Performed By: #### C BCSONAF, BMP #### [place] [address] DTYPE Auto Diff Normal [facility] Comment on above: Performed By: #### C BCSONAF, BMP #### [place] [address] Eosinophils (Bld) [#/Vol] 0.06 10*3/uL Normal <0.46 [facility] Comment on above: Performed By: #### C BCDIF, BMP #### [place] [address] Eosinophils/100 WBC (Bld) 0.7 % Normal [facility] Comment on above: Performed By: #### C BCDIF, BMP #### [place] [address] [place], [place] [address] Erythrocyte distribution width (RBC) [Ratio] 12.3 % Normal 11.5-15.0 [facility] Comment on above: Performed By: #### C BCDIF, BMP #### [place] [address] [place] [address] Hematocrit (Bld) [Volume fraction] 49.5 % High 36.0-46.0 [facility] Comment on above: Performed By: #### C BCDIF, BMP #### [place] [address] Hemoglobin (Bld) [Mass/Vol] 16.4 g/dL High 11.5-15.5 [facility] Comment on above: Performed By: #### C BCDIF, BMP #### [place] [address] Lymphocytes (Bld) [#/Vol] 2.35 10*3/uL Normal 1.00-4.00 [facility] Comment on above: Performed By: #### C BCDIF, BMP #### [place] [address] Lymphocytes/100 WBC (Bld) 27.8 % Normal [facility] Comment on above: Performed By: #### C BCDIF, BMP #### [place] [address] MCH (RBC) [Entitic mass] 32.2 pG Normal 26.0-34.0 [facility] Comment on above: Performed By: #### C BCDIF, BMP #### [place] [address] MCHC (RBC) [Mass/Vol] 33.1 g/dL Normal 30.5-36.0 [facility] Comment on above: Performed By: #### C BCDIF, BMP #### [facility] [email or web address] [address] [place], [place] [address] MCV (RBC) [Entitic vol] 97.2 fL Normal 80.0-100.0 [facility] Comment on above: Performed By: #### C BCDIF, BMP #### [place] [id number] [place] [address] Monocytes/100 WBC (Bld) 7.7 % Normal [facility] Comment on above: Performed By: #### C BCDIF, BMP #### [place] [address] [place] [address] Neutrophils/100 WBC (Bld) 63.1 % Normal [facility] Comment on above: Performed By: #### C BCDIF, BMP #### [place] [address] [place] [address] NRBCs 0.0 /100 WBC Normal 0 [facility] Comment on above: Performed By: #### C BCDIF, BMP #### [place] [address] [place] [address] Platelet mean volume (Bld) [Entitic vol] 9.5 fL Normal 9.0-12.7 [facility] Comment on above: Performed By: #### C BCDIF, BMP #### [place] [address] [place] [address] Platelets (Bld) [#/Vol] 373 10*3/uL Normal 150-400 [facility] Comment on above: Performed By: #### C BCDIF, BMP #### [place] [address] [place] [address] RBC (Bld) [#/Vol] 5.09 10*6/uL Normal 3.90-5.20 [facility] [place] Comment on above: Performed By: #### C BCDIF, BMP #### [place] [address] [place] [address] WBC (Bld) [#/Vol] 8.44 10*3/uL Normal 3.70-11.00 [facility] [place] Comment on above: Performed By: #### C BCDIEarl, ELIAS #### [facility] [address] [place], [place] [address] CNOVon 09-02-2018 CNOV Office Visit (PUBRON ) LILIYA SIDDIQUI ([id number]) 1985 F Date Time Provider Department 09/02/18 [...] ,ALKPHOS,TBILI,AST,AL T SPIROMETRY WITH DILATOR IF OBSTRUCTED ([id number]) - ordered on 04/21/18 [facility] [address] [place] [address] Test Date: 2018-04-21 Pat Name: LILIYA SIDDIQUI Department: Room: Gender: Female Calculation Reviewer: CARLOS Glover : 1985 Requested By: Order Number: [id number] Reading MD: Forest Gonzalez Interpretive Statements Test no. 1 04/21/2018 11:57:35AM FVC is repeatable x 2, FEV1 x 3. ATS acceptability and repeatability standards for DLCO met. DLCO is not hemoglobin corrected. /carlos IMPRESSION: Spirometry is normal. The diffusing capacity is normal. Electronically Signed On 04-21-2018 12:23:29 EST by Fellow Griselda Peters [facility] Electronically Signed On 9:29:49 EST by Forest Gonzalez [facility] [place] [facility] Pred LLN ULGenoveva Pre % Date 970885 Time 11:48AM -------- Height 174.2 Weight 72.4 [...] of the patient and have reviewed the PA/CREDIT COLLECTION SPECIALIST note. 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] Preoperative examination [Z01.818] Order(s):CONSULT TO ENT [9008] Order #: [id number]: 1 FUTURE CONSULT TO GASTROENTEROLOGY [9010] Order #: [id number]: 1 FUTURE Prescriptions as of 09/02/2018 Sig: [...] by TREV CRUZ MD on 09/05/18 Normal [facility] 09-02-2018 [facility] Telephone ([id number]) LILIYA SIDDIQUI ([id number]) 1985 F Date Time Provider Department 09/02/18 GISEL PEREZ (RN) [id number] During your visit today, we recorded the [...] will need to find a responsible adult/ truck driver teamster Patient will return a call to the navigator if she can come in today or next week. Gisel Perez RN, RN 09/02/2018 10:11 AM Signed 09/02/2018: Navigator received call from the patient. She was able to find an adult to come with her but needed some more information to see if her truck driver teamster can commit to today. She will return [...] patient will anticipate a call from the surgery scheduler. 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 {Pain No Yes:89896:: No 0 on a scale of 0 [...] ,ALKPHOS,TBILI,AST,AL T SPIROMETRY WITH DILATOR IF OBSTRUCTED ([id number]) - ordered on 04/21/18 [facility] [address] [place] [address] Test Date: 2018-04-21 Pat Name: LLIIYA SIDDIQUI Department: Room: Gender: Female Calculation Reviewer: CARLOS Glover : 1985 Requested By: Order Number: [id number] Reading MD: Forest Gonzalez Interpretive Statements Test no. 1 04/21/2018 11:57:35AM FVC is repeatable x 2, FEV1 x 3. ATS acceptability and repeatability standards for DLCO met. DLCO is not hemoglobin corrected. /cg IMPRESSION: Spirometry is normal. The diffusing capacity is normal. Electronically Signed On 04-21-2018 12:23:29 EST by Branden Peters [facility] Electronically Signed On 9:29:49 EST by Forest Gonzalez [facility] [place] [facility] Function [facility] Pred YASMEEN NIDA Pre % Date [id number] Time 11:48AM -------- Height 174.2 Weight 72.4 [...] BHT 9.92 -------- -------- EKG RESULTS: {EKG RESULTS:62245} REVIEW OF SYSTEMS GENERAL: {ROS-GENERAL:23:: No weight [...] and itching } PSYCH: {PSYCHIATRIC INT MED ROS:78087:: Negative for sleep disturbance, mood disorder and [...] ECOG PERFORMANCE STATUS: {ECO} Dyspnea Score: {MRC DYSPNEA:38438} Health Screening {PUL HEALTH SCREENIN} There is [...] ,ALKPHOS,TBILI,AST,AL T SPIROMETRY WITH DILATOR IF OBSTRUCTED ([id number]) - ordered on 04/21/18 [facility] [address] [place] [address] Test Date: 2018-04-21 Pat Name: LILIYA SIDDIQUI Department: Room: Gender: Female Calculation Reviewer: CARLOS Glover : 1985 Requested By: Order Number: [id number] Reading MD: Forest Gonzalez Interpretive Statements Test no. 1 04/21/2018 11:57:35AM FVC is repeatable x 2, FEV1 x 3. ATS acceptability and repeatability standards for DLCO met. DLCO is not hemoglobin corrected. /carlos IMPRESSION: Spirometry is normal. The diffusing capacity is normal. Electronically Signed On 04-21-2018 12:23:29 EST by Fellow Griselda Peters [facility] Electronically Signed On 9:29:49 EST by Forest Gonzalez [facility] [place] Pul[facility] Function Lab Pred LLN ULN Pre % Date 144886 Time 11:48AM -------- Height 174.2 Weight 72.4 [...] September 02, 2018, 1:59 PM Progress Notes ([facility] PUL LAB H23): Gisel Perez RN, RN [...] will need to find a responsible adult/ truck driver teamster Patient will return a call to the navigator if she can come in today or next week. Gisel Perez RN, RN 09/02/2018 10:11 AM Signed 09/02/2018: Navigator received call from the patient. She was able to find an adult to come with her but needed some more information to see if her truck driver teamster can commit to today. She will return [...] patient will anticipate a call from the surgery scheduler. Normal [facility] PROGRESSon 09-02-2018 PROGRESS HNO ID: [id number] Author: Trev Cruz Service: ? Author Type: [...] ,ALKPHOS,TBILI,AST,AL T SPIROMETRY WITH DILATOR IF OBSTRUCTED ([id number]) - ordered on 04/21/18 [facility] [address] [place] [address] Test Date: 2018-04-21 Pat Name: LILIYA SIDDIQUI Department: Room: Gender: Female Calculation Reviewer: CARLOS Glover : 1985 Requested By: Order Number: [id number] Reading MD: Forest Gonzalez Interpretive Statements Test no. 1 04/21/2018 11:57:35AM FVC is repeatable x 2, FEV1 x 3. ATS acceptability and repeatability standards for DLCO met. DLCO is not hemoglobin corrected. /cg IMPRESSION: Spirometry is normal. The diffusing capacity is normal. Electronically Signed On 04-21-2018 12:23:29 EST by Fellow Griselda Peters [facility] Electronically Signed On 9:29:49 EST by Forest Gonzalez [facility] [place] [facility] Function Lab Pred LLN ULN Pre % Date 057430 Time 11:48AM -------- Height 174.2 Weight 72.4 [...] of the patient and have reviewed the PA/CREDIT COLLECTION SPECIALIST note. My fowler findings include: History [...] AM CC: MD Travis Licea MD, PhD [facility] PROGRESS HNO ID: [id number] Author: Travis Castro Service: ? Author Type: [...] was 25 minutes. Travis Castro MD, PhD [facility] PT EDon 09-02-2018 PT ED HNO ID: [id number] Author: Jossie Larkin RN Service: Nursing Author [...] Jossie Larkin RN In Department: ADMITTING Normal [facility] CNOVon 09-01-2018 CNOV Office Visit (THORMN ) LILIYA SIDDIQUI ([id number]) 1985 F Date Time Provider Department 09/01/18 3:20 PM TRAVIS CASTRO During your visit today, we recorded the following information about you: Temperature Pulse Blood pressure Weight 98.2 degrees 111/minute 118/82 71 kg Height 1.803 m Travis Castro MD, PhD 09/02/2018 6:31 AM Unsigned Geriatric Social Worker [place] [address] [place] DEPART[facility] OF THORACIC AND CARDIOVASCULAR SURGERY NAME: LILIYA SIDDIQUI [facility] #: [id number] DATE: AGE: 33 PHYSICIAN: Travis Castro M.D., [...] warrant invasive assessment. Travis Castro M.D., Ph.D. :[id number] /[id number] cc: Virgilio Diallo RN, RN 09/02/2018 10:38 [...] reviewed. See nurse's notes for risk assessment. KENNY Vidal MD, PhD 09/02/2018 10:38 AM Signed [...] was 25 minutes. Travis Castro MD, PhD Geriatric Social Worker: Transcribed Clinic Note (annie) ID: [id number] 09/01/2018 6:43 PM Author: TRAVIS CASTRO * * * This document has not been signed * * * * * * DRAFT COPY. THIS DOCUMENT IS NOT AVAILABLE FOR PATIENT CARE * * * Document text: [place] [address] [place] DEPART[facility] OF THORACIC AND CARDIOVASCULAR SURGERY NAME: LILIYA SIDDIQUI [facility] #: [id number] DATE: AGE: 33 PHYSICIAN: Travis Castro M.D., [...] warrant invasive assessment. Travis Castro M.D., Ph.D. [id number] /[id number] cc: Display document [id number] only ----- Referring Provider: TRAVIS CASTRO [[id number]] Allergies As of Date: 09/01/2018 Noted Allergy Reaction MORPHINE 04/21/2018 5 - Intolerance Date Reviewed: 09/01/2018 Reviewed by: Dameon Alarcon - Fully Assessed Reason for Visit: Established Patient [175] Visit Diagnoses:Hemoptysis [R04.2] Lung nodules [R91.8] Order(s):CT CHEST WO IVCON [9148387] Order #: [id number] FUTURE CONSULT TO PULM/CRITICAL CARE [19990529] Order #: [id number]: 1 Prescriptions as of 09/01/2018 Sig: PREGABALIN 25 MG CAPSULE Take 25 mg by mouth three jovanni* TEMAZEPAM 15 MG CAPSULE Take 15 mg by mouth at bedtim* DULOXETINE 60 MG CAPSULE,MARYANN* Take 60 mg by mouth once fabricio* CELECOXIB 200 MG CAPSULE Take 200 mg by mouth once grudeep* ALPHA LIPOIC ACID 600 MG CAPS* Take [...] LEW SLATER, TRAVIS Liz PHD on 09/02/18 [facility] CT CHEST WO IVCONon 09-02-[address] CHEST WO IVCON * * *Final Report* * * DATE OF EXAM: Sep 01 2018 2:37PM [facility] WO IVCON / [...] suspicious pulmonary nodules. 2. No thoracic lymphadenopathy. Bucket Wash Operator: KATRINA Transcribe Date/Time: Sep 01 2018 5:14P Dictated by : WENDI HUERTA MD This examination was interpreted and the report reviewed and electronically signed by: WENDI HUERTA MD on Sep 01 2018 5:35PM EST [id number] [facility] PROGRESSon 09-01-2018 PROGRESS HNO ID: [id number] Author: Virgilio Constantino) KENNY Diallo Service: ? Author Type: Registered Nurse [...] for risk assessment. Virgilio Diallo RN Normal [facility] PROGRESS HNO ID: [id number] Author: Niharika Brannon) BENIGNO Plata Service: Radiology Author Type: Clinical Calculation Reviewer Type: Progress Notes Filed: 09/01/2018 2:34 PM [...] Meir(R)(CT) September 01, 2018 2:34 PM Normal [facility] PROGRESS HNO ID: [id number] Author: Travis Castro Service: Thoracic Surgery Author Type: Physician Type: Progress Notes Filed: 07/10/2019 2:39 PM Note Text: [place] [address] [place] [facility] OF THORACIC AND CARDIOVASCULAR SURGERY NAME: LILIYA SIDDIQUI [facility] #: [id number] DATE: AGE: 33 PHYSICIAN: Travis Castro M.D., [...] warrant invasive assessment. Travis Castro M.D., Ph.D. :[id number] /[id number] cc: Normal [facility] Vital Signs Date Time Vital Sign Value Performing Clinician Ana Luisa sugey 10-22-2023 18:14-0400 Diastolic blood pressure 89 mm[Hg] David Kinseye [facility] 10-22-2023 18:14-0400 Heart rate 78 /min David Kinsey[facility] 10-22-2023 18:14-0400 Hourly Rounding David Kinseye [facility] 10-22-2023 18:14-0400 Mean blood pressure 104 mm[Hg] David Marium [facility] 10-22-2023 18:14-0400 Respiratory rate 16 /min David Mar[facility] 10-22-2023 18:14-0400 SaO2% (BldA) [Mass fraction] 97 % David Marium [facility] 10-22-2023 18:14-0400 Systolic blood pressure 134 mm[Hg] David Marium [facility] 10-22-2023 17:30-0400 Diastolic blood pressure 81 mm[Hg] David Marium [facility] 10-22-2023 17:30-0400 Heart rate 77 /min David Mar[facility] 10-22-2023 17:30-0400 Mean blood pressure 97 mm[Hg] David Marium [facility] 10-22-2023 17:30-0400 Respiratory rate 18 /min David Mar[facility] 10-22-2023 17:30-0400 SaO2% (BldA) [Mass fraction] 99 % David Marium [facility] 10-22-2023 17:30-0400 Systolic blood pressure 128 mm[Hg] David Kinseye [facility] 10-22-2023 16:48-0400 Diastolic blood pressure 78 mm[Hg] David Causey [facility] 10-22-2023 16:48-0400 Heart rate 85 /min David Cause[facility] 10-22-2023 16:48-0400 Hourly Rounding David Causey [facility] 10-22-2023 16:48-0400 Mean blood pressure 92 mm[Hg] David Causey [facility] 10-22-2023 16:48-0400 Respiratory rate 18 /min David [facility] 10-22-2023 16:48-0400 SaO2% (BldA) [Mass fraction] 99 % David Cause[facility] 10-22-2023 16:48-0400 Systolic blood pressure 121 mm[Hg] David Causey [facility] 10-22-2023 15:44-0400 Hourly Rounding David Causey [facility] 10-22-2023 15:27-0400 Body temperature 97.88 [degF] David Causey [facility] 10-22-2023 15:27-0400 Heart rate 104 /min David Causey [facility] 06-13-2023 14:30-0400 Diastolic blood pressure 71 mm[Hg] Brandon Strauss [facility] 06-13-2023 14:30-0400 Heart rate 83 /min Brandon Carlos A [facility] 06-13-2023 14:30-0400 Mean blood pressure 84 mm[Hg] Brandon Carlos A [facility] 06-13-2023 14:30-0400 Respiratory rate 17 /min Brandon Carlos A [facility] 06-13-2023 14:30-0400 SaO2% (BldA) [Mass fraction] 99 % Brandon Carlos A [facility] 06-13-2023 14:30-0400 Systolic blood pressure 111 mm[Hg] Brandon Carlos A [facility] 06-13-2023 14:00-0400 Diastolic blood pressure 80 mm[Hg] Brandon Carlos A [facility] 06-13-2023 14:00-0400 Heart rate 85 /min Brandon Carlos A [facility] 06-13-2023 14:00-0400 Mean blood pressure 92 mm[Hg] Brandon Carlos A [facility] 06-13-2023 14:00-0400 Respiratory rate 18 /min Brandon Carlos A [facility] 06-13-2023 14:00-0400 Systolic blood pressure 116 mm[Hg] Brandon Carlos A [facility] 06-13-2023 13:30-0400 Diastolic blood pressure 69 mm[Hg] Brandon Carlos A [facility] 06-13-2023 13:30-0400 Heart rate 95 /min Brandon Carlos A [facility] 06-13-2023 13:30-0400 Mean blood pressure 84 mm[Hg] Brandon Carlos A [facility] 06-13-2023 13:30-0400 Respiratory rate 16 /min Brandon Strauss [facility] 06-13-2023 13:30-0400 SaO2% (BldA) [Mass fraction] 100 % Brandon Strauss [facility] 06-13-2023 13:30-0400 Systolic blood pressure 115 mm[Hg] Brandon Strauss [facility] 06-13-2023 13:05-0400 Body temperature 98.42 [degF] Brandon Strauss [facility] 06-13-2023 13:05-0400 Heart rate 97 /min Brandon Stra[facility] Encounters Encounter Date Encounter Type Care Provider Facility Start: 02-10-2024 End: 02-10-2024 Bamboo flowsheet Stuart Lewis MD Work Phone: [facility] Start: 02-10-2024 End: 02-10-2024 Bamboo flowsheet Stuart Lewis MD Work Phone: [facility] Start: 02-10-2024 End: 02-10-2024 ambulatory STUART W LEWIS Not Available Start: 02-08-2024 ambulatory STUART W LEWIS Not Arleen ilable Start: 01-18-2024 End: 01-18-2024 Telephone encounter Bibi Rebolledo Other Phone: [facility] Start: 12-16-2023 End: 12-16-2023 ambulatory STUART W LEWIS Not Available Start: 10-22-2023 End: 10-22-2023 Emergency department patient visit David Causey [facility] Start: 09-06-2023 End: 09-06-2023 ambulatory STUART LEWIS Not Available Start: 08-05-2023 End: 08-05-2023 ambulatory STUART W LEWIS Not Available Start: 06-13-2023 End: 06-13-2023 Emergency department patient visit Brandon Strauss [facility] Start: 12-11-2022 ambulatory Jeffrey Khan Earl acility:[facility] Start: 06-12-2022 End: 06-13-[address] ARY [...] End: 10-28-[address] ARY MOHAN . Facility: Procedures Date Procedure Procedure Detail Performing Clinician Start: 01-11-2020 Umbilical hernioplasty Brandon Strauss Comment on above: robotic assisted Plan of Treatment Date Care Activity Detail Author Start: 02-10-2024 End: 02-10-2024 Patient encounter procedure [facility] Comment on above: Arrived Start: 2024 Screening for malign ant neoplasm of breast Mammogram [facility] Start: 11-21-2023 Influenza vaccination Influenza Vacc ine (#1) [facility] Start: 01-27-2014 Screening for malign ant neoplasm of cervix [facility] Start: 01-27-2005 Screening for malign ant neoplasm of cervix Pap Smear [facility] Payers Date Payer Category Payer Private Health Insurance [id number] 2022 Self-pay 2022 Medicaid [employer] [facility] [id number] 2022 Medicaid [id number] 1985 Unknown [id number] 2.16.840.1.592742.3.579.2. 593 1985 Unknown [id number] 2.16.840.1.166229.3.579.2. 593 1985 Unknown [id number] 2.16.840.1.666916.3.579.2. 593 1985 Unknown [id number] 2.16.840.1.813128.3.579.2. 593 1985 Unknown [id number] 2.16.840.1.684417.3.579.2. 593 1984 Unknown [id number] 2.16.840.1.175810.3.579.2. 593 1985 Unknown [id number] 2.16.840.1.356241.3.579.2. 593 1984 Unknown [id number] 2.16.840.1.072092.3.579.2. 593 1984 Unknown [id number] 2.16.840.1.413186.3.579.2. 593 1984 Unknown [id number] 2.16.840.1.518013.3.579.2. 727 1984 Unknown [id number] 2.16.840.1.140599.3.579.2. 727 1984 Unknown [id number] 2.16.840.1.498579.3.579.2. 1259 1984 Unknown [id number] 2.16.840.1.451765.3.579.2. 1259 1984 Unknown [id number] 2.16.840.1.862271.3.579.2. 1259 1984 Unknown [id number] 2.16.840.1.550989.3.579.2. 1259 1984 Unknown [id number] 2.16.840.1.575819.3.579.2. 1259 1959 Unknown [id number] Unknown [id number] 2.16.840.1.426395.3.579.2. 531 Social History Date Type Detail Facility Tobacco Former smoker [facility] Comment on above: denies Tobacco smoking status No Smokin g Status Entered [facility] Start: 08-05-2023 Sex Assigned At Female F [facility] Start: 08-05-2023 Tobacco smoking stat [facility] Ex-smoker [facility] History of tobacco use Current smoker [facility] History of tobacco use Cigarette Smoker [facility] Start: 08-05-2023 Tobacco use and exposure Smokeless tobacco non-user [facility] Start: 08-05-2023 Alcoholic beverage intake Ex-drinker (finding) [facility] Start: 08-05-2023 History of Social function [facility] Start: 1985 Sex assigned at Not on file [facility] Medical Equipment Procedure Code Equipment Code Equipment Origin al Text Equipment Identifier Dates HERNIA REPAIR, R OBOT ASSISTED Cal PHAN MD 01/11/20 Non Biological Abdomen {[id number]{[id number] FDA Start: 01-11-2020 Functional Status Date Assessment Result Facility 10-22-2023 Functional Status N/A [facility] 06-13-2023 Functional Status N/A [facility] Telephone encounter Note 01-18-2024 Telephone Encounter - Adam Rob T. - 01/18/2024 9:36 AM EDT Note Date & Type Note Facility 01-18-2024 Telephone encounter Note Pt called for Gabapentin refill to be sent to [facility]. [facility] Work Phone: Note 01-18-2024 Telephone Encounter - Adam Rob. - 01/18/2024 9:36 AM EDT Note Date & Type Note Facility 01-18-2024 Miscellaneous Notes Formattin g of this note might be different from the original. Pt called for Gabapentin refill to be sent to [facility]. documented in this encounter [facility] Hospital Discharge instructions 10-22-2023 Note Date & Type Note Facility 10-22-2023 Hospital Discharg e instructions Patient Education 10/22/2023 17:40:01 Migraine Headache, Kwey-rw-Ejoq Migraine Headache A migraine headache is a [...] Follow these instructions at home: Medicines Take euac-gsn-fgqjecz and prescription medicines only as told by your doctor. Ask your doctor if the medicine prescribed to you: ?Requires you to avoid driving or using heavy machinery. ?Can cause trouble pooping (constipation). You may need to take these steps to prevent or treat trouble pooping: ?Drink enough fluid to keep your pee (urine) pale yellow. ?Take jhep-asr-bmxoqjz or prescription medicines. ?Eat foods that are [...] provider. Document Revised: 06/30/2019 Document Reviewed: 04/20/2019 [employer] Patient Education 2022 [employer]. Follow Up Care 10/22/2023 15:24:16 With:Ary Mohan Address: [address] [place], [place] [address]- Business (1) When:10/25/2023 17:39:40 Comments:Call to schedule a follow-up appointment with your family physician for further management of care. Return to the ED with any worsening symptoms. [facility] Clinical Note 10-22-2023 Note Date & [...] these instructions at home: Medicines ? Take pxqo-woh-bsfvuve and prescription medicines only as told by your doctor. ? Ask your doctor if the medicine prescribed to you: ? Requires you to avoid driving or using heavy machinery. ? Can cause trouble pooping (constipation). You may need to take these steps to prevent or treat trouble pooping: ? Drink enough fluid to keep your pee (urine) pale yellow. ? Take bcmr-mie-gfbjqts or prescription medicines. ? Eat foods that [...] that is d (more content not included)... [facility] Hospital Discharge instructions 06-13-2023 Note Date [...] Follow these instructions at home: Medicines Take cxex-ouv-enfpqec and prescription medicines only as told by [...] Watch your condition for any changes. Take wxuh-ltt-mijkzfi and prescription medicines only as told by [...] provider. Document Revised: 04/26/2020 Document Reviewed: 07/17/2019 [employer] Patient Education 2022 [employer]. Follow Up Care 06/13/2023 13:03:57 With:Ary Mohan Address: [address] [place], [place] [address] Business (1) When:06/16/2023 17:10:37 Comments:Call the office [...] or any new or worsening symptoms. [facility] Evaluation + Plan note 06-13-2023 Note [...] Lipase Level UA with Cult Rflx [facility] Clinical Note 02-26-2022 Note Date & Type Note Facility 02-26-2022 Note PROCEDURE: XR FOOT L T MIN 3 VIEWS COMPARISON: 10/16/2011 HISTORY: Pain in lower limb FINDINGS: BONES:No fracture, acute abnormality, or significant arthropathy. SOFT TISSUES:Negative. No visible soft tissue swelling. EFFUSION:None visible. OTHER: Negative. IMPRESSION: No acute abnormality Electronically authenticated by: THERESA PATEL Date: 2022-02-26 12:41 [facility] Evaluation note Note Date & Type Note Facility Evaluation note Diagnosis Acute lumbar radiculopathy Idiopathic progressive neuropathy Fibromyalgia Unspecified myalgia and myositis documented in this encounter [facility] Hospital course Narrative Note Date & Type Note Facility Hospital course Narrative No data available for this section [facility] Progress note Note Date & Type Note Facility Progress note No data available for this section [facility] Summary Purpose Family History No Family History Records FoundNo Family History Records FoundNo Family History Records Found No data available for this section No data available for this section No Family History Records FoundNo Family History Records Found Advance Directives No Advanced Directives Records FoundNo Advanced Directives Records FoundNo Advanced Directives Records FoundNo Advanced Directives Records FoundNo Advanced Directives Records Found Additional Source Comments INFORMATION SOURCE (unrecogn ized section and content) DATE CREATED AUTHOR 07/10/2019 [facility] DATE CREATED AUTHOR AUTHOR'S ORGANIZ ATION 06/19/2022 [facility] DATE CREATED AUTHOR AUTHOR'S ORGANIZ ATION 02/25/2023 [facility] DATE CREATED AUTHOR AUTHOR'S ORGANIZ ATION 10/30/2023 Werner Champion [facility] DATE CREATED AUTHOR AUTHOR'S ORGANIZ ATION 02/11/2024 [facility] EPIC Patient Care team informatio n (unrecognized section and content) Electrician Locomotive Relationship Specialty Start Date End Date Ary Mohan MD [address] [place] [address] PCP - General Family Medicine 12/16/23 Electrician Locomotive Relationship Specialty Start Date End Date Ary Mohan MD [address] [place] [address] PCP - General Family Medicine 12/16/23 FOR RECORDS PERTAINING TO PATIENTS WHO ARE [...] BE BASED ON THE PRIMARY CLINICAL RECORDS. [facility] [employer] provides no warranty or guarantee of the accuracy or completeness of information in this document.
[2024-02-14 09:03] LABS: Basophils Percent Auto 0.7 % (0.2-2.0); Eosinophils Absolute Auto 0.1 10^3/uL (0.0-0.7); Eosinophils Percent Auto 1.2 % (0.9-7.0); Hematocrit 45.1 % (36.0-48.0); Hemoglobin 14.6 g/dL (12.0-16.0); Immature Granulocytes Abs Auto 0.03 10^3/uL (0.00-0.03); Immature Granulocytes Pct Auto 0.5 % (0.0-0.5); Lymphocytes Absolute Auto 2.9 10^3/uL (1.2-3.8); Lymphocytes Percent Auto 48.3 % (20.5-60.0); Mean Corpuscular HGB Conc 32.4 g/dL (29.9-35.2); Mean Corpuscular Volume 92.8 fL (81.0-99.0); Mean Platelet Volume 11.1 fL (9.5-13.5); Monocytes Absolute Auto 0.5 10^3/uL (0.3-0.8); Monocytes Percent Auto 7.8 % (1.7-12.0); Neutrophils Absolute Auto 2.5 10^3/uL (1.4-6.5); Neutrophils Percent Auto 41.5 % (43.0-75.0); Platelet Count 198 10^3/uL (150-450); Red Blood Count 4.86 10^6/uL (4.20-5.40); Red Cell Distribution Width 11.7 % (11.0-15.0); White Blood Count 5.9 10^3/uL (4.0-11.0)
[2024-02-14 09:13] LABS: Estimated Average Glucose 111 mg/dL; Glycohemoglobin A1C 5.5 % (4.5-6.2)
[2024-02-14 09:37] LABS: Alanine Aminotransferase 38 U/L (14-59); Albumin Globulin Ratio 1.1; Albumin Level 3.2 g/dL (3.4-5.0); Alkaline Phosphatase 65 U/L (46-116); Anion Gap 13.4; Aspartate Amino Transferase 20 U/L (15-37); BUN Creatinine Ratio 13.5; Bilirubin Total 0.4 mg/dL (0.2-1.0); Calcium 8.5 mg/dL (8.5-10.1); Carbon Dioxide 26.8 mmol/L (21.0-32.0); Chloride 106 mmol/L (98-107); Chol HDL Ratio 3.3; Cholesterol 137 mg/dL (<=200); Estimated GFR (African America >60 (>=60 mL/min/1.73m^2); Estimated GFR (Non-African Ame >60 (>=60 mL/min/1.73m^2); Free T3 3.97 pg/mL (2.18-3.98); Globulin 2.8 g/dL; Glucose 83 mg/dL (74-106); HDL Cholesterol 42 mg/dL (40-60); Potassium 4.2 mmol/L (3.5-5.1); Sodium 142 mmol/L (136-145); Thyroid Stimulating Hormone 3.856 uIU/mL (0.358-3.740); Triglycerides 70 mg/dL (<=150)
[2024-02-15 04:07] LABS: Insulin 6.8 uIU/mL (2.6-24.9)
== END 2024-02-14 08:22 | disposition home or self-care (01) ==
LOC: LAB 08:22
PROVIDERS: PCP Family Medicine; Visit Provider Family Medicine
DX: Z00.00 Encounter for general adult medical examination without abnormal findings (principal)
CPT/HCPCS: 36415; 80053; 80061; 83036; 83525; 84436; 84443; 84481; 85025

== ENCOUNTER 2024-09-25 09:01 | Outpatient (OUT) | payer OTHER, MEDICAID, SELFPAY ==
--- OUTSIDE RECORDS SUMMARY | 2024-09-14 12:17 | XMS_ITS ---
Author Name Auto Generated Organization OHIP Care Team Providers Care Tool Checker Name Role Phone Jeffrey Khan Attending Unavailab Jeffrey Lewis Admitting UnavailBaldomero Arnold Primary Care Unavailable EVELYNE AMADO Attending Mehdiab EVELYNE Diehl Attending Unavailab STUART Gregory Attending Unavailable STUART CALLES Referring Unavailable STUART CALLES Referring Unavailable STUART CALLES Attending Unavailable EVELYNE AMADO Attending Unavailab David Nagy Attending Unavailable PROBLEMS No Problem Records Found PROCEDURES No Procedure Records Found RESULTS MR LUMBAR SPINE WO CONTRAST Observed: 9:23 AM Status: F Source: [facility] EPIC Exam: MR LUMBAR SPINE WO CON TRAST Clinical History: Low back pain for one [...] signed and approved by the interpreting Radiologist. XR LUMBAR SPINE AP/LAT/FLEX/EXT/OBLIQUES Observed: 12/16/2023 3:42 PM Status: F Source: [facility] TITLE OF EXAM: XR - LUMBAR S PINE W FLEX EXTENSION REASON FOR EXAM: Posterior [...] Electronically Signed Fermin Brooke M.D. 2023-12-16 17:35:39 XR CERVICAL SPINE AP/LAT/FLEX/EXT/OBLIQUES Observed: 12/16/2023 3:42 PM Status: F Source: [facility] TITLE OF EXAM: XR - CERVICAL SPINE [...] Electronically Signed Fermin Brooke M.D. 2023-12-16 17:36:38 ED PATIENT EDUCATION NOTE Observed: 04/2023 6:15 PM Status: C Source: [facility] ED Patient Education Note Neurology Migraine Headache [...] these instructions at home: Medicines ? Take pkhw-kld-jznvocw and prescription medicines only as told by your doctor. ? Ask your doctor if the medicine prescribed to you: ? Requires you to avoid driving or using heavy machinery. ? Can cause trouble pooping (constipation). You may need to take these steps to prevent or treat trouble pooping: ? Drink enough fluid to keep your pee (urine) pale yellow. ? Take vhho-jkt-dtvrwje or prescription medicines. ? Eat foods that [...] worse than others you have had. ? Contact your doctor if you have more than 15 headache days in a month. This information is not intended to replace advice given to you by your health care provider. Make sure you discuss any questions you have with your health care provider. Document Revised: 06/30/2019 Document Reviewed: 04/20/2019 [employer] Patient Education ? 2022 [employer]. ED PATIENT SUMMARY Observed: 10/22/2023 6:15 PM Status: C Source: [facility] ED Patient Summary [place] [id number] Patient Discharge Instructions Person Information Name: LILIYA SIDDIQUI Age: 38 Years Arrival Date: 10/22/2023 15:19:54 Discharge Diagnosis: Cerumen impaction; Headache; Muscle pain, fibromyalgia Primary Care Physician: Baldomero Mohan MD Provider Information Primary Provider: David Causey DO Advanced Telephone Repairer:Ada Aggarwal PA-C The exam and treatment you received in the Emergency Department were for an urgent problem and are not intended as complete care. It is important that you follow up with a doctor, nurse practitioner, or physician?s social worker assistant for ongoing care. If your symptoms become worse or you do not improve as expected and you are unable to reach your usual health care provider, you should return to the Emergency Department. We are available 24 hours a day. LILIYA SIDDIQUI has been given the following list of patient education materials, prescriptions and follow-up instructions: Follow-up Instructions: With: Address: When: Baldomero Mohan [facility], [address] [place] [id number] [place] (1) In 3 days 10/25/2023 Comments: Call to schedule a follow-up appointment with your family physician for further management of care. Return to the ED with any worsening symptoms. In the event that this physician does not participate in your insurance network, please consult with your insurance company to find a nearby participating provider. Patient Education Materials: Migraine Headache, Mirl-om-Jwiz A MESSAGE TO ALL PATIENTS REGARDING OPIOIDS PRESCRIPTION OPIOIDS: WHAT YOU NEED TO KNOW Prescription opioids can be used to help relieve dqsowxtq-bo-crkoks pain and are often prescribed following a [...] unused prescription opioids: Find your community drug take- back program or your pharmacy mail-back program, or flush them down the toilet, following guidance from the Food and Drug Administration (www.fda.gov/Drugs/ResourcesForYou). ? Visit www.cdc.gov/drugoverdose to learn about the risks of opioids abuse and overdose. ? If you believe you may be struggling with addiction, tell your health child day care teacher and ask for guidance or call [facility] National Helpline at 2-678-761-RFJW. v Source: US Department of Health and Human Services/Center for Disease Control & Prevention [facility] Medications Given: Medication Dose Route Sodium Chloride 0.9% intravenous solution 1000.00 mL IV Right Antecubit [place] diphenhydrAMINE 25.00 mg IV Push Right Antecubit Belle ketorolac 30.00 mg IV Push Right Antecubit Belle Sodium Chloride 0.9% intravenous solution 50.00 mL IV Piggyback Right Antecubit Belle promethazine 12.50 mg IV Piggyback Right Antecubit [place] magnesium sulfate 2.00 gm IV Piggyback Right Antecubit Belle dexamethasone 8.00 mg IV Push Right Antecubit Belle Medication Information: Medications to Continue with No Changes Other Medications amitriptyline (amitriptyline 100 mg oral tablet) 1.5 Tablets By Mouth once a day (at bedtime). amphetamine-dextroamphetamine (amphetamine-dextroamphetamine 30 mg oral tablet) 1 Tablets By [...] Mouth 3 times a day. rheumatoid arthritis. Comment: Pharmacy Information: Patient Portal You may access all of your results and other medical record information on our secure patient portal. If you are not signed up for this yet, please contact [employer] at [phone] to get signed up today. STEPHEN Award Nomination The STEPHEN (Diseases Attacking the Immune SYstem) Award is an international recognition program that honors and celebrates the skillful, compassionate care nurses provide every day. Anyone who experiences or observes amazing care being provided by a nurse is encouraged to submit a nomination. To nominate your nurse, use your smart phone to scan the QR code below. You may receive a survey from [employer] asking you to rate your care experience. Your feedback is important and will help us understand what we do well and how we can improve the quality of care we provide to you, your loved ones and our community. It?s an honor to serve you. Thank you for choosing [facility] Patient Education Materials: Migraine Headache A migraine headache is a [...] these instructions at home: Medicines ? Take otxy-kcz-jrwdghi and prescription medicines only as told by your doctor. ? Ask your doctor if the medicine prescribed to you: ? Requires you to avoid driving or using heavy machinery. ? Can cause trouble pooping (constipation). You may need to take these steps to prevent or treat trouble pooping: ? Drink enough fluid to keep your pee (urine) pale yellow. ? Take adzx-pkk-znqvmnl or prescription medicines. ? Eat foods that [...] worse than others you have had. ? Contact your doctor if you have more than 15 headache days in a month. This information is not intended to replace advice given to you by your health care provider. Make sure you discuss any questions you have with your health care provider. Document Revised: 06/30/2019 Document Reviewed: 04/20/2019 [employer] Patient Education ? 2022 [employer] ARTUR Arboleda LINDSEY M , have received the following patient education materials/instructions and have verbalized understanding: Patient Education Materials: Migraine Headache, Zqsl-ts-Bkae Follow-up Instructions: With: Address: When: Baldomero Kimberlee [facility] [place], [place] [id number] Business (1) In 3 days 10/25/2023 Comments: Call to schedule a follow-up appointment with your family physician for further management of care. Return to the ED with any worsening symptoms. Patient Signature Date Clinician/Nurse Signature Date 10/22/2023 18:15:52 ED CLINICAL SUMMARY Observed: 10/22/2023 6:15 PM Status: C Source: [facility] ED Clinical Summary [address] [address] ED Clinical Summary Person Information Name: LILIYA SIDDIQUI [place] Age: 38 Years : 1985 Sex: Female Language: Turkmen PCP: Baldomero Mohan MD Marital Status: Single Phone: [phone] Visit Id: Visit Reason: Nausea; Headache; SEVERE [...] 10/22/2023 18:15:50 10/22/2023 18:15:50 10/22/2023 18:15:50 ADDRESS: [address] [place] [phone] PHYS DOC NOTES: MEDICAL INFORMATION: Prescriptions Given: Medications to Continue with No Changes Other Medications amitriptyline (amitriptyline 100 mg oral tablet) 1.5 Tablets By Mouth once a day (at bedtime). amphetamine-dextroamphetamine (amphetamine-dextroamphetamine 30 mg oral tablet) 1 Tablets By [...] arthritis. PATIENT EDUCATION INFORMATION: Instructions: Migraine Headache, Rkgv-ru-Oqkb Follow up: With: Address: When: Baldomero Mohan [address] [place] [address], [facility] [place] [address] [address] [place] ([employer] In 3 days 10/25/2023 Comments: Call to schedule a follow-up appointment with your family physician for further management of care. Return to the ED with any worsening symptoms. DIAGNOSIS: Cerumen impaction; Headache; Muscle pain, fibromyalgia ED NOTE-PHYSICIAN Observed: 10/22/2023 3:44 PM Status: F Source: [facility] ED Note-Physician Basic Information Time Seen: Jasen [...] Inj 1 mL, 8 mg, IV Push diphenhydrAMINE 50 mg/mL Inj, 25 mg, IV Push ketorolac 30 mg/mL Inj 1 mL, 30 mg, IV Push NS 1000 ml Bolus, 1000 mL, IV premix generic diluent 50 mL + magnesium additive 2 gm, IV Piggyback [id number] [F] 12.5 mg + Sodium Chloride 0.9% IV Lazara 50 mL [F] 50 mL, IV Piggyback Disposition Plan Patient Discharge Condition improved Discharge Disposition home Discharge Prescription List Prescriptions No active prescription medications Follow-up With When Contact Information Baldomero Mohan In 3 days 10/25/2023 EDT [address] [place] [address]- Business (1) Additional Instructions: Call to schedule a follow-up appointment with your family physician for further management of care. Return to the ED with any worsening symptoms. Patient Education Migraine Headache, Zfyp-yq-Ntck Attestation Patient seen and evaluated by the physician social worker assistant. Attending physician was present in the emergency department and supervised care. This visit was performed by both the physician and an APC. I performed all aspects of the MDM as documented. This report was transcribed using voice recognition software. Every effort was made to ensure accuracy, however, inadvertently computerized lacing operator mistakes may be present. Appropriate healthcare PPE was used in evaluating this patient. The patient was placed in a mask. The healthcare provider was wearing mask, gloves, and utilizing proper hand hygiene. All equipment was properly cleansed. I performed a substantive part of the MDM during the patient?s E/M visit. I personally made or approved the documented management plan and acknowledge its risk of complications. (Independent Interpretation) My (EKG/X-Ray/US/CT as applicable) interpretation as above. (Discussion) Management/test interpretation discussed with APC. Problem List/Past Medical History Ongoing Acute postoperative pain of abdomen ADHD Depression with suicidal ideation Diastasis recti Fibromyalgia IBS (irritable bowel syndrome) Lumbar radiculopathy Peripheral neuropathy Pulmonary nodule Umbilical hernia Historical Fibromyalgia Lupus Migraine Procedure/Surgical History Repair of umbilical hernia using surgical mesh (01/11/2020). Medications Inpatient diphenhydrAMINE 50 mg/mL Inj, 25 mg= 0.5 mL, IV Push, Once ketorolac 30 mg/mL Inj 1 mL, 30 mg= 1 mL, IV Push, Once NS 1000 ml Bolus, 1000 mL, IV, Once promethazine additive 12.5 mg + Sodium Chloride 0.9% IV Lazara 50 mL (INT) 50 mL Home [employer] SureClick 70 mg/mL subcutaneous solution, 70 mg, SubCutaneous, qMonth amitriptyline 100 mg oral tablet, 150 mg= 1.5 tab(s), Oral, Once a day (at bedtime) amphetamine-dextroamphetamine 30 mg oral tablet, 30 mg= 1 tab(s), Oral, BID, Not taking: hasn't picked up from pharmacy Bentyl 10 mg Cap, 10 mg= 1 cap(s), Oral, QID, PRN CeleBREX 100 mg Cap, 100 mg= 1 [...] tab(s), Oral, Daily valproic acid 250 mg oral capsule, 500 mg= 2 cap(s), Oral, TID Xyzal 5 mg oral tablet, 2.5 mg= 0.5 tab(s), Oral, qPM Zofran 4 mg Tab, 4 mg= 1 tab(s), Oral, q6hr Zofran ODT 4 mg Tab-Dis, 4 mg= 1 tab(s), Oral, TID Allergies morphine (Itching) Social History Alcohol - Low Risk, 06/30/2016 Current, Beer, Wine, Liquor, 1-2 times per week, 12/13/2019 Substance Abuse - Denies Substance Abuse, 06/30/2016 Tobacco - Denies Tobacco Use, 06/30/2016 Former smoker, quit more than 30 days ago Tobacco Use:. Stopped age 16 Years., 01/11/2020 Family History Family history is negative Lab Results No qualifying data available.Diagnostic Results No qualifying data available. Result Comment: Electronical ly Signed By: Ada Aggarwal PA-C\.br\Date and Time Signed: 10/22/23 17:41 EDT\.br\Electronically Co-Signed By: Ada Aggarwal PA-C\.br\Date and Time Co-Signed: 10/22/23 17:43 EDT\.br\Electronically Co-Signed By: David Causey DO\.br\Date and Time Co-Signed: 10/23/23 07:45 EDT ALLERGIES DATE TYPE / CODE NAME / CODE REACTION SEVERITY SOURCE 06/21/2020 Drug Allergy/[id number](SNOM ED CT) morphine/K57604 1545(RXNORM) Difficulty Breathing Severe (Severity Modifier) (Qualifier Value) [facility] /[id number] 6(SNOMED CT) morphine itching [facility] ENCOUNTERS ADMIT/DISCHARGE ACCOUNT NUMBER ADMITTING ENCOUNTER CLASS LOCATION SOURCE 09/14/2024/09/15/19 25 [id number] Ambulatory Building:[facility] 08/08/2024 [id number] Jeffrey Khan [facility] 05/11/2024/05/11/19 [id number] Ambulatory Building:NOM S NEURO [facility] EPIC 03/09/2024/03/09/20 24 [id number] Ambulatory Building:NOM S NEURO [facility] EPIC 02/10/2024/02/10/20 24 [id number] Ambulatory Building:NOM S NEURO [facility] EPIC 02/08/2024/02/08/20 24 [id number] Ambulatory Building:FNR MR [facility] EPIC 12/16/2023/12/16/19 24 [id number] Ambulatory Building:NOM SSWSIMG [facility] EPIC 12/16/2023/12/16/19 24 [id number] Ambulatory Building:NOM S NEURO [facility] EPIC 10/22/2023/10/22/19 24 [id number] Emergency [facility] :EDRoom: [facility] PAYERS ENCOUNTER GUARANTOR PAYER SUBSCRIBER SOURCE 09/14/2024 LILIYA ANGEL: [place], [place] [address]Nul: (HP) Primary Insurance:[employer]: [id number] ve Date:2022-04-22 LILIYA ANGEL: [id number] [address] [facility] 09/14/2024 Secondary Insurance:AETNAPoli cy Number: [id number] Date:4750-55-24Intf Name:SABAS [place] [id number] [address]GT: LILIYA ANGEL: [id number] [address] [facility] EPIC 08/08/[address] [place] [address]Spb: (HP) Primary Insurance:Self PayPolicy Number: Effective Date:2022-07-03 [facility] LILIYA RAMOSB: [place], [place] [address]Izk: (HP) Primary Insurance:[facility] MED[place]ID [place] Number: [id number] ve Date:2022-04-22 LILIYA RAMOSB: [id number] [place] [address] [facility] EPIC 05/11/2024 Secondary Insurance:AETNAPoli cy Number: [id number] Date:5429-27-41Nncc Name:[facility] [address] [place] [id number]: LILIYA RAMOSB: [id number] [place], [place] [id number] [place] [address] [facility] EPIC 03/09/2024 LILIYA RAMOSB: [place], [place] [address]Tly: (HP) Primary Insurance:[employer] [place] Number: [id number] ve Date:2022-04-22 LILIYA RAMOSB: [id number] [place] [address] [facility] EPIC 03/09/2024 Secondary Insurance:AETNAPoli cy Number: [id number] Date:1158-79-15Unyz Name:[facility] [id number] [place] [id number]: LILIYA RAMOSB: [id number] [place] [address] [facility] EPIC 02/10/2024 LILIYA RAMOSB: [place], [place] [address]Qnd: (HP) Primary Insurance:[facility] MEDICAID [place] Number: [id number] ve Date:2022-04-22 LILIYA RAMOSB: [id number] [place] [address] [facility] EPIC 02/08/2024 LILIYA RAMOSB: [place], [place] [address]Vua: (HP) Primary Insurance:[facility] MED[place]ID [place] Number: [id number] ve Date:2022-04-22 LILIYA RAMOSB: [id number] [address] [facility] EPIC 02/08/2024 Secondary Insurance:AETNAPoli cy Number: [id number] Date:2636-58-38Htbo Name:[facility] [place] [address]CL: LILIYA RAMOSB: [id number] [address] [facility] EPIC 12/16/2023 LILIYA RAMOSB: [place], [place] [address]Egz: (HP) Primary Insurance:[employer] [place]ID [place] Number: [id number] ve Date:2022-04-22 LILIYA RAMOSB: [id number] [place] [id number] [facility] EPIC 12/16/2023 LILIYA RAMOSB: [place], [place] [address]Lup: (HP) Primary Insurance:[employer] [place] Number: [id number] ve Date:2022-04-22 LILIYA RAMOSB: [id number] [place] [id number] [facility] EPIC 10/22/2023 LILIYA RAMOSB: [facility]: [id number] (HP) Primary Insurance:[facility]icaidS[facility] Centericy Number: [id number] ve Date:2023-10-22P.Walt Little [address] [address]QO: LILIYA RUSSELL [facility]
--- OUTSIDE RECORDS SUMMARY | 2024-09-14 12:30 | XMS_ITS | Encounter Summary ---
Author Organization [facility] Address [address] [place] [address] Care Team Providers Care Museum Host/Hostess Name Role Phone Baldomero Mohan MD Primary Care Provider [phone] Encounter Details Date Type Department Care Team (Late st Contact Info) Description 09/14/2024 12:30 PM EDT Procedure Visit [facility] [address] [facility] [address] [place] [address] Lori Felix NP [address] [address] Cervical dystonia (Primary Dx) Social History Tobacco Use Types Packs/Day Years Used Date Smoking Tobacco: Former Cigarettes Smokeless Tobacco: Never Alcohol Use Standard Drinks/Week Comments Not Currently 0 (1 standard drink = 0.6 oz pur e alcohol) Comments Unknown Sex and Gender Information Value Date Recorded Sex Assigned at Not on file Legal Sex Female 7:16 PM EDT Gender Identity Not on file Sexual Orientation Not on file documented as of this encounter Last Filed Vital Signs Vital Sign Reading Time Taken Comments Blood Pressure 122/80 09/14/2024 12:30 PM EDT Pulse - - Temperature - - Respiratory Rate - - Oxygen Saturation - - Inhaled Oxygen Concentration - - Weight 74.8 kg (165 lb) 09/14/2024 12:30 PM EDT Height 181.6 cm (5' 11.5 ) 09/14/2024 12:30 PM E DT Body Mass Index 22.69 09/14/2024 12:30 PM EDT documented in this encounter Progress Notes * Lori Felix NP - 09/14/2024 12:30 PM EDT Images from the original note were not included. Subjective Liliya Yanez is a 39 y.o. female who presents for neck pain, headaches, dystonia History of Present Illness The patient presents for evaluation of neck pain. She is accompanied by her mother. She reports that the Botox treatment has been beneficial in alleviating her neck pain, muscle spasm, stiffness. She has more range of movement. However, she experienced severe fatigue post-treatment after her first injections which lasted for approximately 3 days. She also mentions that her right side is more affected than the left. She is currently on gabapentin, but it does not seem to provide relief for her neck pain. She has previously tried Zanaflex, but its efficacy remains uncertain. Shehas not yet tried Flexeril. Additionally, she expresses a need for assistance with sleep management. She has been experiencing headaches associated with her neck pain. Her fibromyalgia has been exacerbated due to the change in season, which in turn has worsened her irritable bowel syndrome (IBS). She was recently prescribed medication by her primary care physician,but it appears to have aggravated her condition. She has scheduled another appointment with her primary care physician. MEDICATIONS Current: Gabapentin. Past: Zanaflex. Review of Systems Constitutional: Negative for chills, fatigue and fever. HENT: Negative for tinnitus. Eyes: Negative for photophobia. Respiratory: Negative for shortness of breath. Cardiovascular: Negative for chest pain. Gastrointestinal: Negative for nausea and vomiting. Genitourinary: Negative for frequency. Musculoskeletal: Positive for neck pain and neck stiffness. Negative for back pain and gait problem. Neurological: Positive for headaches. Negative for dizziness, tremors, weakness, light-headedness and numbness. Psychiatric/Behavioral: Positive for sleep disturbance. Objective Blood pressure 122/80, height 5' 11.5 , weight 165 lb. Physical Exam Vital Signs Blood pressure is 122/80. Results Assessment & Plan 1. Neck pain/dystonia. The patient's neck pain/dystonia is being managed with Botox injections. She reported significant fatigue after the last injection, which is an uncommon side effect. Despite this, the treatment has been effective in reducing her pain. A prescription for Flexeril, to be taken once at bedtime, has been provided to aid in sleep. If the Flexeril proves ineffective, she is advised to inform us so thatan alternative medication can be considered. The plan is to continue with the Botox injections for three treatment rounds. If the debilitating fatigue persists, the continuation of this treatment will be reassessed. 2. Headaches. She experiences headaches associated with her neck pain. The current treatment plan includes continuing Botox injections to manage these symptoms. If the headaches persist or worsen, further evaluation and alternative treatments will be considered. 3. Irritable bowel syndrome (IBS). Her IBS symptoms have worsened, potentially due to her fibromyalgia. She is currently on gabapentin, which has not been effective. She has an upcoming appointment with her primary care provider to reassess her IBS management. Follow-up The patient will follow up in December 2024. PROCEDURE Botox injections were administered today. Procedure - Therapeutic injection, Botulinum Toxin- Dystonia Indication Dystonia Consent The procedure was explained to the patient. Informed consent for the procedure was obtained and risk associated with Botox treatments. Any further questions were answered during this visit. Site Prep The areas to be injected were sterilized with 70% isopropanol. Buy/bill Botox 200U, 100U Lot #[id number], [id number] Dilution Per 200 units diluted with 4mL of 0.9% Sodium Chloride Per 100 units diluted with 2 mL of 0.9% Sodium Chloride Procedure was completed with EMG guidance R trap 75 units L trap 50 units Bilateral longissimus 25 units each R SCM 25 units L SCM 12.5 units R splenius capitis 25 units L splenius capitis 12.5 units TOTAL UNITS INJECTED 250 WASTED 50 Disposition The patient tolerated the procedure well. Post-op care was discussed. The patient is aware that duration of action is 3 months, and that delay in reinjection often results in recurrence of symptoms. Patient Care Instructions Do not rub massage or touch injection sites for 24 hours. Do not lay down for 4 hours after treatment. Avoid hot showers, exercise, and spicy foods for 24 hours to avoid bruising and minimize redness. Discussed signs and symptoms of anaphylaxis and when to seek emergent treatment. Procedure Codes 16323-53 Chemodenervation of neck muscles, bilateral 97131 [EMG] Guidance for chemodenervation J0585 Botulinum toxin a per unit, Units: 250 Follow Up 3 months Botox documented in this encounter Plan of Treatment Upcoming Encounters Date Type Department Care Team (Late st Contact Info) Description 12/28/2024 11:00 AM EDT Procedure Visit [facility] [address] [facility] [address] [place] [address] Lori Felix, PROPERTY MANAGEMENT BOOKKEEPER [address] [place] [address] [phone] documented as of this encounter Visit Diagnoses Diagnosis Cervical dystonia- Primary Spasmodic torticollis documented in this encounter Administered Medications Inactive Administered Medications - up to 3 most recent administrations Medication Order MAR Action Action Date Dose Rate Site onabotulinumtoxinA (Botox) injection 200 Units 200 Units, Intramuscular, Once, On Zahra 09/14/24 at 1300, For 1 dose, Charging context for this clinic-administered medication: Medically Necessary/InsuranceIndication s:Cervical dystonia Given 09/14/2024 12:50 PM EDT 200 Units Other onabotulinumtoxinA (Botox) injection 50 Units 50 Units, Intramuscular, Once, On Zahra 09/14/24 at 1300, For 1 dose, Charging context for this clinic-administered medication: Medically Necessary/InsuranceIndication s:Cervical dystonia Given 09/14/2024 12:50 PM EDT 50 Units Other documented in this encounter Care Teams Museum Host/Hostess Relationship Specialty Start Date End Date Baldomero Mohan MD PCP - General Family Medicine 12/16/23 documented as of this encounter
--- OUTSIDE RECORDS SUMMARY | 2024-09-25 09:09 | XMS_ITS | Clinical Summary ---
Author Organization [facility] Address [address] [place] [address] Care Team Providers Care Bell Valet Name Role Phone Baldomero Mohan MD Primary Care Provider [phone] Allergies Active Allergy Reactions Criticality Noted Date Comments Egg-Derived Products Nausea And Vomiting Low 2014 Morphine Other High 08/05/2023 Burn blisters Medications gabapentin (Neurontin) 800 MG tabletIndication s:Acute lumbar radiculopathy,Id iopathic progressive neuropathy,Fibro myalgia Take 1 tablet (800 mg) by mouth in the morning and 1 tablet (800 mg) in the evening and 1 tablet (800 mg) before bedtime. 270 tablet 02/10/2024 Active dexAMETHasone (Decadron) 2 MG tabletIndication s:Neck pain 2mg 3 pills po X3 days,2 pills po daily X3 days , then 1 pill po daily X3 days then stop 9 days 18 pills 18 tablet 05/19/2024 Active cyclobenzaprine (Flexeril) 10 MG tabletIndication s:Cervical dystonia Take 1 tablet (10 mg) by mouth at bedtime 90 tablet 09/14/2024 12/14/19 25 Active Hospital, Clinic, or Other Facility Administered Medication Ordered Dose Route Frequency Start Date End Date Status onabotulinumtoxinA (Botox) injection 200 UnitsIndications:Cervical dystonia 200 Units IM Once 09/14/2024 09/14/2024 Ended onabotulinumtoxinA (Botox) injection 50 UnitsIndications:Cervical dystonia 50 Units IM Once 09/14/2024 09/14/2024 Ended Active Problems Problem Noted Date Diagnosed Date Cervical dystonia 03/09/2024 Acute postoperative pain of abdomen 12/16/2023 ADHD 12/16/2023 Depression with suicidal ideation 12/16/2023 Diastasis recti 12/16/2023 IBS (irritable bowel syndrome) 12/16/2023 Umbilical hernia 12/16/2023 Cervical paraspinal muscle spasm 12/16/2023 Claustrophobia 12/16/2023 Arthralgia of hand 08/05/2023 Acute lumbar radiculopathy 08/05/2023 Fibromyalgia 08/05/2023 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 Hemoptysis 09/02/2018 Lung nodule 09/02/2018 Encounters Date Type Department Care Team Description 09/14/2024 12:30 PM EDT Procedure Visit [facility] [address] [facility] [address] [place] [phone] Lori Felix NP Cervical dystonia (Primary Dx) 09/14/2024 Bamboo flowsheet [facility] [address] [place] [phone] Lori Felix NP 09/14/2024 Travel 09/07/2024 Travel 08/23/2024 Travel from Last 3 Months Family History Relation Name Status Comments Father Mother Alive Social History Tobacco Use Types Packs/Day Years Used Date Smoking Tobacco: Former Cigarettes Smokeless Tobacco: Never Tobacco Cessation:Counseling Given: Not Answered Alcohol Use Standard Drinks/Week Comments Not Currently 0 (1 standard drink = 0.6 oz pur e alcohol) Comments Unknown Sex and Gender Information Value Date Recorded Sex Assigned at Not on file Legal Sex Female 7:16 PM EDT Gender Identity Not on file Sexual Orientation Not on file Last Filed Vital Signs Vital Sign Reading [...] Mass Index 22.69 09/14/2024 12:30 PM EDT Plan of Treatment Upcoming Encounters Date Type Department Care Team (Late st Contact Info) Description 12/28/2024 11:00 AM EDT Procedure Visit [facility] [address] [facility] [address] [place] [address] Lori Felix, MANAGER PHYSICAL [address] [facility] [address] [place] [address] Health Maintenance Due Date Last Done Comments Pap Smear 01/27/2005 Cervical Cancer Screening 01/27/2014 HPV/Cotest 01/27/2014 Mammogram 2024 Influenza Vaccine (#1) [address] [place] [address] [place] [facility] Care Teams Bell Valet Relationship Specialty Start Date End Date Baldomero Mohan MD PCP - General Family Medicine 12/16/23
--- OUTSIDE RECORDS SUMMARY | 2024-09-25 09:09 | XMS_ITS | Encounter Summary ---
Author Organization [facility] Address [address] [place] [address] Care Team Providers Care Unarmed Security Officer Name Role Phone Baldomero Mohan MD Primary Care Provider [phone] Encounter Details Date Type Department Care Team (Late Contact Info) Description 09/14/2024 Bamboo flowsheet [facility] [address] [place] [phone] Lori Felix, PRIMING MACHINE OPERATOR [address] [place] [address] [phone] Social History Tobacco Use Types Packs/Day Years [...] on file documented as of this encounter Plan of Treatment Upcoming Encounters Date Type Department Care Team (Late st Contact Info) Description 12/28/2024 11:00 AM EDT Procedure Visit [facility] [address] [facility] [address] [place] [address] Lori Felix, PRIMING MACHINE OPERATOR [address] [place] [address] [phone] documented as of this encounter Visit Diagnoses Not on filedocumented in this encounter Care Teams Unarmed Security Officer Relationship Specialty Start Date End Date Baldomero Mohan MD PCP - General Family Medicine 12/16/23 documented as of this encounter
--- OUTSIDE RECORDS SUMMARY | 2024-09-25 09:09 | XMS_ITS | Encounter Summary ---
Author Organization [facility] Address [address] [place] [address] Care Team Providers Care Brushing Operator Name Role Phone Baldomero Mohan MD Primary Care Provider [phone] Encounter Details Date Type Department Care Team (Latest Contact Info) Description 09/14/2024 Travel Social History Tobacco Use Types Packs/Day Years [...] Procedure Visit [facility] [address] [facility] [address] [place] [phone] Lori Felix, BRANCH OPERATIONS MANAGER [address] [address] documented as of this encounter Visit Diagnoses Not on filedocumented in this encounter Care Teams Brushing Operator Relationship Specialty Start Date End Date Baldomero Mohan MD PCP - General Family Medicine 12/16/23 documented as of this encounter
--- OUTSIDE RECORDS SUMMARY | 2024-09-25 09:09 | XMS_ITS | Clinical Summary ---
Author Organization [facility] Address [address] [place] [address] Care Team Providers Care Sap Bw Consultant Name Role Phone Baldomero Mohan MD Primary Care Provider [phone] Allergies Active Allergy Reactions Criticality Noted Date Comments Egg GI Upset Low 05/06/2014 Morphine Intolerance 04/21/2018 Medications DULoxetine (CYMBALTA) 60 mg capsule Take 60 mg by mouth once daily. Active celecoxib (CELEBREX) 200 mg capsule Take 200 mg by mouth once daily. Active Alpha Lipoic Acid 600 mg cap Take by mouth once daily. Active HYOSCYAMINE ORAL Take 0.125 mg by mouth daily at bedtime. Active VALPROIC ACID ORAL Take 250 mg by mouth twice daily. Active pregabalin (LYRICA) 25 mg capsule Take 25 mg by mouth three times daily as needed. Active temazepam (RESTORIL) 15 mg cap Take 15 mg by mouth at bedtime as needed. Active Active Problems Problem Noted Date Diagnosed Date Lung nodule 09/02/2018 Hemoptysis 09/02/2018 Family History Medical History Relation Comments Hypertension Mother IBS Sister Relation Status Comments Mother Sister Social History Tobacco Use Types Packs/Day Years Used Date Smoking Tobacco: Former Cigarettes 0.5 2 0 09/02/1996 - 06/16/1998 Smokeless Tobacco: Never Area Deprivation Index Answer Date Javier rded National Score (1-100), lower number is lower ri sk Not on file 02/29/2020 State Score (1-10), lower number is lower risk N ot on file 02/29/2020 Data from: https://www.neighborhoodatlas.medicine.[facility].edu/. 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 Not on file Not on file Last Filed Vital Signs Vital Sign Reading Time Taken Comments Blood Pressure 141/81 09/02/2018 4:28 PM EDT Pulse 102 09/02/2018 4:28 PM EDT Temperature 36.8 C (98.2 F) 09/02/2018 3:41 PM EDT Respiratory Rate 16 09/02/2018 4:28 PM EDT Oxygen Saturation 100% 09/02/2018 4:28 PM EDT Inhaled Oxygen Concentration - - Weight 71 kg (156 lb 9.6 oz) 09/01/2018 3:48 PM EDT Height 180.3 cm (5' 11 ) 09/01/2018 3:48 PM EDT Body Mass Index 21.84 09/01/2018 3:48 PM EDT Plan of Treatment Health Maintenance Due Date Last Done Comments Anxiety Screening 01/27/2002 Depression Screening 01/27/2002 HIV Screening 01/27/2002 Hepatitis C Screening 01/27/2002 DTaP,Tdap,Td Vaccine (1 - Tdap) 01/27/2003 Hepatitis B Vaccine (1 of 3 - 19+ 3-dose series) 01/27 Cervical Cancer Screening 01/27/2005 Covid-19 Vaccine ( season) 2023 Mammogram Screening 2024 Influenza Vaccine (Season Ended) 2024 Insurance [employer] MEDICAID OF [place] Care Teams Sap Bw Consultant Relationship Specialty Start Date End Date Baldomero Mohan MD PCP - General Family Medicine 02/08/18
[2024-09-25 09:49] LABS: INR 1.01; Partial Thromboplastin Time 24.5 sec (22.3-36.2); Prothrombin Time 10.7 sec (9.0-11.6)
[2024-09-25 09:51] LABS: Alanine Aminotransferase 38 U/L (14-59); Albumin Globulin Ratio 1.1; Albumin Level 3.6 g/dL (3.4-5.0); Alkaline Phosphatase 72 U/L (46-116); Anion Gap 11.5; Aspartate Amino Transferase 18 U/L (15-37); Blood Urea Nitrogen 11.0 mg/dL (7.0-18.0); Calcium 9.2 mg/dL (8.5-10.1); Carbon Dioxide 28.6 mmol/L (21.0-32.0); Chloride 104 mmol/L (98-107); Estimated GFR (African America >60 (>=60 mL/min/1.73m^2); Estimated GFR (Non-African Ame >60 (>=60 mL/min/1.73m^2); Globulin 3.4 g/dL; Glucose 93 mg/dL (74-106); Potassium 4.1 mmol/L (3.5-5.1); Sodium 140 mmol/L (136-145); Total Protein 7.0 g/dL (6.4-8.2)
== END 2024-09-25 09:02 | disposition home or self-care (01) ==
LOC: LAB 09:07
PROVIDERS: PCP Family Medicine; Visit Provider Family Medicine
DX: T14.8XXA Other injury of unspecified body region, initial encounter (principal)
CPT/HCPCS: 36415; 80053; 85610; 85652; 85730; 86140

== ENCOUNTER 2024-10-10 14:24 | Outpatient (OUT) | payer OTHER, MEDICAID, SELFPAY ==
--- NOTE | 2024-10-10 14:35 | CT_ITS ---
The [address] [address] Patient Name: REGINA SIDDIQUI MRN: [id number] date: 1985 Sex: F Assigned Patient Location: CT Current Patient Location: CT Accession/Order Number: [id number] Exam Date: 10/10/2024 15:16 Report Date: 10/10/2024 15:19 At the request of: ARY HUDSON MD Procedure: CT chest wo con CT CHEST WITHOUT IV CONTRAST: CLINICAL HISTORY: Solitary Pulmonary Nodule COMPARISON: CT chest 09/29/2023 as well as others dating back to 01/19/2022 TECHNIQUE: Spiral images were obtained through the chest without IV contrast. This CT exam was performed using one or more following dose reduction techniques: Automated exposure control, adjustment of the mA and/or kV according to patient size, or use of iterative reconstruction technique. FINDINGS: Mediastinum:Vascular appears normal in caliber. Pulmonary trunk appears nondilated. No pleural effusion or lymphadenopathy. The esophagus is grossly unremarkable. Lungs:Mild lung scarring/atelectasis. No consolidation pneumothorax or pleural effusion. Calcified granuloma right middle lobe. No suspicious noncalcified pulmonary nodule. Abd:No acute findings. Soft tissues/Bones: No acute findings. Osseous structures and degenerative change. CT/CT chest wo con IMPRESSION: Granuloma right middle lobe. No suspicious noncalcified pulmonary nodule. Impression dictated by: Sabina Hargrove Jr.OWalt 10/10/2024 3:19 PM Dictation Location: [place] [address] Electronically authenticated by: [id number] Y Date: 10/10/2024 15:19
== END 2024-10-10 14:25 | disposition home or self-care (01) ==
LOC: CT 14:24
PROVIDERS: PCP Family Medicine; Visit Provider Family Medicine
DX: R91.1 Solitary pulmonary nodule (principal)
CPT/HCPCS: 71250

== ENCOUNTER 2024-11-09 09:11 | Outpatient (OUT) | payer OTHER, MEDICAID, SELFPAY ==
--- NOTE | 2024-11-09 09:16 | XR_ITS ---
The [place] [id number] Patient Name: REGINA SIDDIQUI MRN: [id number] date: 1985 Sex: F Assigned Patient Location: [facility] Current Patient Location: [facility] Accession/Order Number: [id number] Exam Date: 11/09/2024 12:48 Report Date: 11/09/2024 13:18 At the request of: ARY HUDSON MD Procedure: XR acute abdomen series Acute abdominal series COMPARISON: 10/10/2024, 10/29/2021 HISTORY: Right lower quadrant pain for 2 weeks. Nausea THORAX: No acute chest findings. Similar right midlung nodularity. This is seen with CT of the chest 10/10/2024 and has characteristics likely representing granuloma. FREE AIR: Supine position limits assessment BOWEL: No gaseous intestinal distention. STOOL: No significant stool RENAL STONES: 4 mm nonobstructing left inferior renal calculus. Similar finding compared to prior CT examination dated 1021 VASCULAR CALCIFICATIONS: pelvic vascular calcifications SOFT TISSUE: Unremarkable BONES: Unremarkable POSTSURGICAL CHANGES: None XR/XR acute abdomen series IMPRESSION: No acute chest or abdominal findings. Similar left nephrolithiasis. Similar right mid lung nodule Impression dictated by: Isidoro Lubin M.D. 11/09/2024 1:18 PM Dictation Location: [place] [address] Electronically authenticated by: [id number] Y Date: 11/09/2024 13:18
--- OUTSIDE RECORDS SUMMARY | 2024-11-09 09:20 | XMS_ITS | CCD ---
Author Organization [facility] Care Team Providers Care Supervisor Beam Department Name Role Phone BECCA ., DR MCALLISTER [...] Unavailable JUSTICE ., ROMARIO Admitting Unavailable JUSTICE Godoy, ROMARIO Consulting Unavailable ENEDELIA, DR JORGE ALBERTO Dominguez Attending Unavailable ENEDELIA, DR JORGE ALBERTO Dominguez Admitting Unavailable ENEDELIA, DR JORGE ALBERTO Dominguez Consulting Unavailable BECCA Godoy, DR MCALLISTER Primary Care Unavailable AMARILIS PRESCOTT Consulting Unavailable JOSEPH STACK Consulting Unavailable THERESA ESPAÑA Consulting Unavailable BECCA Godoy, DR MCALLISTER Primary Care Unavailable LAURA ., DR NEW Attending Unavailable HAY ., DR NEW Admitting Unavailable LAURA ., DR NEW Consulting Unavailable BECCA ., DR MCALLISTER Primary Care Unavailable BECCA ., DR MCALLISTER Attending Unavailable BECCA ., DR MCALLISTER Admitting Unavailable TAYLOR, DR ESTHER Dominguez Consulting Unavailable HOY ., DR MCALLISTER Consulting Unavailable BECCA ., DR MCALLISTER Primary Care Unavailable BECCA ., DR MCALLISTER Attending Unavailable EBCCA ., DR MCALLISTER Admitting Unavailable TAYLOR, DR ESTHER Dominguez Consulting Unavailable HOY ., DR MCALLISTER Consulting Unavailable HOY ., DR MCALLISTER Attending Unavailable BECCA ., DR MCALLISTER Admitting Unavailable BECCA ., DR MCALLISTER Primary Care Unavailable GRAND FORKS, DR THERESA Peterson Consulting Unavailable Baldomero Hudson Primary Care Physician Baldomero Hudson MD Primary Care Provider [phone] Unavailable Primary Care Provider UnavailBaldomero Kyle MD Primary Care Provider [phone] LORI AMADO Attending Unavailab LORI Diehl Attending Unavailab STUART Gregory Attending Unavailable STUART LEWIS Referring Unavailable STUART LEWIS Referring Unavailable STUART LEWIS Attending Unavailable LORI AMADO Attending Unavailab Baldomero Khan MD Primary Care Provider [phone] Jeffrey Khan MD Attending Provider [phone] Kehernesto HAGER Chase A Emergency Provider David Causey Attending Unavailable Brandon Strauss Attending Unavailable Hawade, Astrit H Attending Unavailable Hawade, Astrit H Attending Unavailable Ly DOBlainee L Attending Provider [phone] Ly DO Marianela Belen Other Provider [phone] Ly, Marianela L Admitting Unavailable Marybeth Marianela L Attending Unavailable Baldomero Hudson Primary Care Unavailable Baldomero Hudson Primary Care Unavailable Kehernesto Chase A Admitting Unavailable Chase Villalta Attending Unavailable Baldomero Hudson Primary Care Unavailable Jeffrey Khan Admitting Unavailab Jeffrey Lewis Attending Unavailab yolanda Allergies Allergy Classification Reported Allergen(s) Allergy Type Date of Onset Reaction(s) Facility (1 source) Lactose Drug Allergy [facility] Repository (6 sources) Morphine; Translations: [morphine] Drug Allergy 6 Difficulty Breathing [facility] Repository Comment on above: RASH (16 sources) Morphine; Translations: [morphine] Drug Allergy 4 Other [facility] (14 sources) Egg-Derived Products Drug Intolerance 5 Nausea And Vomiting [facility] (1 source) Morphine Drug Allergy 5 [facility] Repository Medications Current Medications Medication Drug Class(es) Dates Sig (Normalized) Sig (Original) amylase 067767 unt / lipase 40066 unt / protease 92001 unt delayed release oral capsule (2 sources) Start: 12-11-2019 take 1 capsule by mouth three times daily Creon 24,000 units oral delayed release capsule = 1 cap(s), Oral, TID, appetite stimulation, Refills(s) 0, Other (see comment) Start Date: 12/11/19 Status: Ordered celecoxib 100 mg oral capsule (2 sources) Nonsteroidal Anti-inflammatory Drug Start: 01-04-2020 take 1 capsule by mouth twice daily CeleBREX 100 mg Cap 100 mg = 1 cap(s), Oral, BID, Arthritis Start Date: 01/04/20 Status: Ordered citalopram 20 mg oral tablet (2 sources) Serotonin Reuptake Inhibitor Start: 10-12-2024 take 1 tablet by mouth once daily Citalopram 20 mg tablet Active 20 MG PO Daily October 12, 2024 12:00am Complies with drug therapy cyclobenzaprine hydrochloride 10 mg oral tablet (1 source) Muscle Relaxant Start: 09-14-2024 End: 12-13-2024 take 1 tablet by mouth at bedtime cyclobenzaprine (Flexeril) 10 MG tablet Indications: Cervical dystonia Take 1 tablet (10 mg) by mouth at bedtime 90 tablet 09/14/2024 12/13/2024 Active Cymbalta 60 mg Cap-DR (2 sources) Start: 12-11-2019 take 1 capsule by mouth twice daily Cymbalta 60 mg Cap-DR 60 mg, Oral, BID, fibromyalgia, Refills(s) 0, Other (see comment) Start Date: 12/11/19 Status: Ordered dexamethasone 2 mg oral tablet (7 sources) Corticosteroid Start: 05-19-2024 dexAMETHasone (Decadron) 2 MG tablet Indications: Neck pain 2mg 3 pills po X3 days,2 pills po daily X3 days , then 1 pill po daily X3 days then stop 9 days 18 pills 18 tablet 05/19/2024 Active Start: 02-10-2024 End: 03-09-2024 dexAMETHasone (Decadron) 2 M G tablet Indications: Acute lumbar radiculopathy , Fibromyalgia 2mg 3 pills po X3 days,2 pills po daily X3 days , then 1 pill po daily X3 days then stop 9 days 18 pills 18 tablet 1 02/10/2024 03/09/2024 Discontinued Diclofenac 75mg Tab-DR (2 sources) Start: 12-11-2019 take 1 tablet by mouth twice daily Diclofenac 75mg Tab-DR 75 mg, Oral, BID, Refills(s) 0, Muscle pain Start Date: 12/11/19 Status: Ordered dicyclomine hydrochloride 20 mg oral tablet (4 sources) Anticholinergic Start: 10-30-2024 take 1 tablet by mouth four times daily as needed for pain Dicyclomine 20 mg tablet Active 20 MG PO Four times daily as needed for abdominal pain October 30, 2024 12:00am Complies with drug therapy Start: 06-13-2023 take 1 capsule by mo [facility] four times daily as needed Bentyl 10 mg Cap 10 mg = 1 cap(s), Oral, QID, PRN Other (see comment), For abdominal cramping, # 16 cap(s), Refills(s) 0, Pharmacy: [facility]/pharmacy #[id number], 180.3, cm, 06/13/23 13:08:00 EDT, Height/Length Dosing, 68.5, kg, 06/13/23 13:08:00 EDT, Weight Dosing Start Date: 06/13/23 Status: Ordered 1 ml erenumab-aooe 70 mg/ml auto-injector (2 sources) Start: 12-11-2019 inject 70 mg by subcutaneous injection every month Aimovig SureClick 70 mg/mL subcutaneous solution 70 mg, SubCutaneous, qMonth, Refills(s) 0, Migraine headache Start Date: 12/11/19 Status: Ordered gabapentin 800 mg oral tablet (20 sources) Anti-epilept ic Agent Start: 10-12-2024 take 1 tablet by mouth three times daily Gabapentin 800 mg tablet Active 800 MG PO Three times daily October 12, 2024 12:00am Complies with drug therapy Start: 09-09-2023 End: 05-10-2024 take 1 tablet by mouth in the [...] mg) before bedtime. 270 tablet 02/10/2024 Active levocetirizine dihydrochloride 5 mg oral tablet (2 sources) Histamine-1 Receptor Antagonist Start: 01-11-2020 take 1 tablet by mouth once daily in the evening Xyzal 5 mg oral tablet 2.5 mg, 0.5 tab(s), Oral, qPM, Allergy symptoms Start Date: 01/11/20 Status: Ordered lidocaine 0.05 mg/mg medicated patch (1 source) Antiarrhythmic , Amide Local Anesthetic Start: 11-06-2024 Lidocaine 5 % adhesive patch,medicated Active 0 TOPICAL .COMPLEX November 06, 2024 12:00am leave on most painful area for up to 12 hrs Complies with drug therapy 1 ml medroxyPROGESTERone acetate 150 mg/ml prefilled syringe (4 sources) Progestin Start: 10-12-2024 inject 150 mg by intramuscular injection every three months Medroxyprogesterone 150 mg/mL syringe Active 150 MG IM EVERY 3 MONTHS October 12, 2024 12:00am Complies with drug therapy Start: 12-11-2019 inject 150 mg by int ramuscular injection every three months Depo-Provera 150mg/mL intramuscular suspension 150 mg, IntraMuscular, q3mo, Refills(s) 0, control/menstrual regulation Start Date: 12/11/19 Status: Ordered ondansetron 4 mg oral tablet (2 sources) Serotonin-3 Receptor Antagonist Start: 12-11-2019 take 1 tablet by mouth every six hours Zofran 4 mg Tab 4 mg = 1 tab(s), Oral, q6hr, Refills(s) 0, Nausea Start Date: 12/11/19 Status: Ordered polyethylene glycol 3350 81049 mg powder for oral solution (1 source) Osmotic Laxative Start: 06-13-2023 End: 06-20-2023 take 17 g by mouth once daily Miralax 3350 17 gram packet 17 gm, Oral, Daily, X 7 day(s), # 250 gm, Refills(s) 0, Pharmacy: [facility]/pharmacy #[id number], 180.3, cm, 06/13/23 13:08:00 EDT, Height/Length Dosing, 68.5, kg, 06/13/23 13:08:00 EDT, Weight Dosing Start Date: 06/13/23 Stop Date: 06/20/23 Status: Ordered pregabalin 50 mg oral capsule (2 sources) Start: 12-11-2019 take 1 capsule by mouth three times daily Lyrica 50 mg Cap 50 mg = 1 cap(s), Oral, TID, fibromyalgia, Refills(s) 0, Other (see comment) Start Date: 12/11/19 Status: Ordered rizatriptan 10 mg oral tablet (2 sources) Serotonin-1b and Serotonin-1d Receptor Agonist Start: 12-11-2019 take 1 tablet by mouth once Maxalt 10 mg Tab 10 mg = 1 tab(s), Oral, Once, Refills(s) 0, Migraine headache Start Date: 12/11/19 Status: Ordered valproic acid 250 mg oral capsule (2 sources) Mood Stabilizer, Anti-epileptic Agent Start: 12-11-2019 take 2 capsules by mouth three times daily valproic acid 250 mg oral capsule 500 mg = 2 cap(s), Oral, TID, rheumatoid arthritis, Refills(s) 0, Other (see comment) Start Date: 12/11/19 Status: Ordered Zofran ODT 4 mg Tab-Dis (2 sources) Start: 05-21-2020 take 1 tablet by mouth three times daily Zofran ODT 4 mg Tab-Dis 4 mg = 1 tab(s), Oral, TID, # 15 tab(s), Refills(s) 0, Pharmacy: [facility]/pharmacy #[id number], 180, cm, 05/21/20 13:19:00 EST, Height/Length Dosing, 82, kg, 05/21/20 13:19:00 EST, Weight Dosing Start Date: 05/21/20 Status: Ordered Completed/Discontinued Medications Medication Drug Class(es) Dates Sig (Normalized) Sig (Original) amitriptyline hydrochloride 100 mg oral tablet (4 sources) Tricyclic Antidepressant Start: 12-11-2019 End: 10-12-2024 Amitriptyline 100 mg tablet Discontinued 150 MG PO Daily June 21, 2020 12:00am October 12, 2024 10:20am amphetamine aspartate 7.5 mg / amphetamine sulfate 7.5 mg / dextroamphetamine saccharate 7.5 mg / dextroamphetamine sulfate 7.5 mg oral tablet (4 sources) Central Nervous System Stimulant Start: 06-21-2020 End: 10-12-2024 take 1 tablet by mouth once daily Dextroamphetamine -Amphetamine 30 mg tablet Discontinued 30 MG PO Daily June 21, 2020 12:00am October 12, 2024 10:20am Start: 02-18-2016 take 1 tablet by valentino twice daily amphetamine-dextroamphetamine 30 mg oral tablet 30 mg, 1 tab(s), Oral, BID, Refill(s) 0, Anxiety Start Date: 02/18/16 Status: Ordered onabotulinumtoxina 200 unt injection (6 sources) Acetylcholine Release Inhibitor Start: 09-14-2024 End: 09-14-2024 onabotulinumtoxinA (Botox) injection 50 Units Start: 09-14-2024 End: 09-14-2024 inject 50 [IU] by intramuscular injection once 50 Units, Intramuscular, Once, On Zahra 09/14/24 at 1300, For 1 dose, Charging context for this clinic-administered medication: Medically Necessary/Insurance Start: 09-14-2024 End: 09-14-2024 onabotulinumtoxinA (Botox) i njection 200 Units Start: 09-14-2024 End: 09-14-2024 inject 200 [IU] by intramuscular injection once 200 Units, Intramuscular, Once, On Zahra 09/14/24 at 1300, For 1 dose, Charging context for this clinic-administered medication: Medically Necessary/Insurance Start: 05-11-2024 End: 05-11-2024 onabotulinumtoxinA (Botox) i njection 200 Units Start: 05-11-2024 End: 05-11-2024 inject 200 [IU] by intramuscular injection once 200 Units, Intramuscular, Once, On Zahra 05/11/24 at 1100, For 1 dose, Charging context for this clinic-administered medication: Medically Necessary/Insurance DULoxetine 60 mg delayed release oral capsule (2 sources) Serotonin and Norepinephrine Reuptake Inhibitor Start: 06-21-2020 End: 10-12-2024 take 1 capsule by mouth twice daily Duloxetine 60 mg capsule,delayed release(DR/EC) Discontinued 60 MG PO Twice daily June 21, 2020 12:00am October 12, 2024 10:21am LORazepam 0.5 mg oral tablet (9 sources) Benzodiazepine Start: 12-16-2023 End: 03-09-2024 take 1 tablet by mouth once LORazepam (Ativan) 0.5 MG tablet Indications: Claustrophobia (CMS/HCC) Take 1 tablet (0.5 mg) by mouth every 12 (twelve) hours if needed for anxiety for up to 1 day 2 tablet 12/16/2023 03/09/2024 Discontinued OXcarbazepine 150 mg oral tablet (10 sources) Anti-epileptic Agent Start: 09-06-2023 End: 09-05-2024 take 1 tablet by mouth in the morning OXcarbazepine (Trileptal) 150 MG tablet Indications: Acute lumbar radiculopathy Take 1 tablet (150 mg) by mouth in the morning and 1 tablet (150 mg) before bedtime. 60 tablet 2 09/06/2023 03/09/2024 Discontinued QUEtiapine 100 mg oral tablet (4 sources) Atypical Antipsychotic Start: 02-01-2020 End: 10-12-2024 take 1 tablet by mouth once daily at bedtime Quetiapine 100 mg tablet Discontinued 100 MG PO Daily at bedtime June 21, 2020 12:00am October 12, 2024 10:21am tiZANidine 4 mg oral tablet (9 sources) Central alpha-2 Adrenergic Agonist Start: 12-16-2023 End: 03-09-2024 take 1 tablet by mouth at bedtime tiZANidine (Zanaflex) 4 MG tablet Indications: Acute lumbar radiculopathy , Idiopathic progressive neuropathy , Fibromyalgia Take 1 tablet (4 mg) by mouth at bedtime for 10 days 30 tablet 3 12/16/2023 03/09/2024 Discontinued Problems Active Problems Problem Classification Problem Date Documented Da te Episodic/Chronic Abdominal pain (9 sources) Right upper quadrant pain; Translations: [Abdominal pain] Onset: 06-12-2022 Episodic Anxiety disorders (15 sources) Claustrophobia; Translations: [Claustrophobia] Onset: 12-16-2023 12-16-2023 Chronic Attention-deficit, conduct, and disruptive behavior disorders (15 sources) Attention deficit hyperactivity disorder; Translations: [Attention-deficit [...] Translations: [HEADACHE UNSPECIFIED] Onset: 03-21-2022 Mood disorders (17 sources) Depressive disorder; Translations: [Depression with suicidal ideation] Onset: 12-16-2023 01-18-2020 Chronic Other diseases of bladder and urethra (5 sources) Other specified disorders of bladder; Translations: [OTHER SPECIFIED DISORDERS BLADDER] Onset: 10-31-2021 Chronic Other ear and sense organ disorders (1 source) Impacted cerumen; Translations: [Impacted cerumen, unspecified ear] Onset: 10-22-2023 Episodic Other gastrointestinal disorders (15 sources) Irritable bowel syndrome; Translations: [Irritable bowel syndrome without diarrhea] Onset: 12-16-2023 12-11-2019 Chronic Other hereditary and degenerative nervous system conditions (12 sources) Isolated cervical dystonia; Translations: [Spasmodic torticollis] Onset: 03-09-2024 03-09-2024 Chronic Other nervous system disorders (2 sources) Peripheral nerve disease 12-11-2019 Chronic Other nervous system disorders (19 sources) Neuropathy; Translations: [Idiopathic progressive neuropathy] Onset: 08-05-2023 01-18-2024 Chronic Other non-traumatic joint disorders (3 sources) [...] part of head, initial encounter; Translations: [CONTUS OT PRT HEAD INITIAL ENCNTR] Onset: 03-30-2022 Episodic Systemic lupus erythematosus and connective tissue disorders (2 sources) Systemic lupus erythematosus 02-18-2016 Chronic Past or Other Problems Problem Classification Problem Date Documented Date Episodic/Chronic Abdominal hernia (19 sources) Unspecified abdominal hernia without obstruction or gangrene; Translations: [Umbilical hernia] Onset: 10-29-2021 Episodic Nonspecific chest pain (4 sources) Chest pain, unspecified; Translations: [CHEST PAIN UNSPECIFIED] Onset: 10-28-2021 Episodic Other aftercare (1 source) Other assistant terminal manager (current) drug therapy; Translations: [OTH [facility] CURRENT DRUG THERAPY] Onset: 10-30-2021 Episodic Other connective tissue disease (4 sources) Pain in leg, unspecified; Translations: [PAIN IN LEG UNSPECIFIED] Onset: 02-26-2022 Episodic Other connective tissue disease (1 source) Fibromyalgia; Translations: [FIBROMYALGIA] Onset: 10-30-2021 Episodic Other connective tissue disease (15 sources) Diastasis recti; Translations: [Separation of muscle (nontraumatic), other site] Onset: 12-16-2023 12-13-2019 Episodic Other connective tissue disease (20 sources) Fibromyalgia; Translations: [Fibromyalgia] Onset: 08-05-2023 02-18-2016 Episodic Other connective tissue disease (15 sources) Spasm of cervical paraspinous muscle; Translations: [Other muscle spasm] Onset: 12-16-2023 12-16-2023 Episodic Other lower respiratory disease (4 sources) Other nonspecific abnormal finding of lung field; Translations: [OTH NONSPECIFIC ABN FIND LNG FIELD] Onset: 01-17-2022 Episodic Other lower respiratory disease (15 sources) Nodule of lung; Translations: [Solitary pulmonary nodule] Onset: 09-02-2018 12-11-2019 Episodic Other lower respiratory disease (13 sources) Hemoptysis; Translations: [Hemoptysis] Onset: 09-02-2018 12-16-2023 Episodic Other nervous system disorders (13 sources) Acute abdominal pain; Translations: [Other acute postprocedural pain] Onset: 12-16-2023 12-16-2023 Episodic Other non-traumatic joint disorders (14 sources) Hand joint pain; Translations: [Pain in joints of unspecified hand] Onset: 08-05-2023 08-05-2023 Episodic Other skin disorders (4 sources) Localized swelling, mass and lump, right upper limb; Translations: [LOC SWELL MASS LUMP RT UPPER LIMB] Onset: 01-03-2022 Episodic Spondylosis; intervertebral disc disorders; other back problems (20 sources) Lumbar radiculopathy; Translations: [Radiculopathy, lumbar region] Onset: 08-05-2023 12-11-2019 Episodic Results Test Name Value Interpretation Reference Range Facility HCG,Urineon 11-06-2024 Beta HCG ( test) Ql (U) Negative Normal [facility] Comment on above: Result Comment: PERF ORMED BY: [place] [address] PATHOLOGIST BODY PRESSER CHANTALE YUAN M.D. Performed By: #### U HCG #### [address] 11-06-2024 L ------ Specimen: [id number] Received: 11/06/24 Status: FERNANDA Barrios Num: [id number] Spec Type: Surgical Subm Dr: Marianela Rueda DO Tissues: A Small Intestine - Biopsy/Polyp (SMALL BOWEL BX) B Gastric Biopsy (GASTRIC BX) C Colon Biopsy (RT COLON BX) D Colon Biopsy (LEFT COLON BX) Procedures: ROLLY/Jordan, Gross/Micro L4/4 Age/ Patient Sex Location Account Attending Physician Liliya Siddiqui 39/F [id number] Marianela Rueda DO SPEC NUM: [id number] RECD: 11/06/24 STATUS: FERNANDA CORINNE NUM: [id number] VINCENT: 11/06/24-1036 [facility] DR: Marianela Rueda DO ENTERED: 11/06/24-[address] [facility] [address]: CELESTINO TYPE: Surgical DEPT: S ORDERED: HE/8, Gross/Micro L4/4 ORDERED: HE/8, Gross/Micro L4/4 Pathological Diagnosis A. Small bowel, biopsy: - Benign small bowel mucosa with no significant histopathology. - No evidence of celiac disease identified. B. Stomach, biopsy: - Antral and oxyntic-type gastric mucosa with reactive gastropathy. - No Helicobacter pylori microorganisms identified with routine H E stain. C. Right colon, biopsy: - Benign colonic mucosa with small lymphoid aggregates. - No evidence of chronic, active or microscopic colitis identified. D. Left colon, biopsy: - Benign colonic mucosa with no significant histopathology. - No evidence of chronic, active or microscopic colitis identified. Clinical Information Irritable bowel syndrome, diarrhea, Part A rule out celiac, Part B rule out H. pylori Specimen: [id number] Received: 11/06/24 Status: FERNANDA Barrios Num: [id number] Spec Type: Surgical Subm Dr: Marianela Rueda DO Tissues: A Small Intestine - Biopsy/Polyp (SMALL BOWEL BX) B Gastric Biopsy (GASTRIC BX) C Colon Biopsy (RT COLON BX) D Colon Biopsy (LEFT COLON BX) Procedures: /Jordan, Gross/Micro L4/4 Patient: Liliya Siddiqui [id number] (Continued) Specimen: [id number] Received: 11/06/24 (Continued) Signed (signature on file) Lucas Thompson MD 11/07/24 0931 Specimen: [id number] Received: 11/06/24 Status: FERNANDA Barrios Num: [id number] Spec Type: Surgical Subm Dr: Marianela Rueda DO Tissues: A Small Intestine - Biopsy/Polyp (SMALL BOWEL BX) B Gastric Biopsy (GASTRIC BX) C Colon Biopsy (RT COLON BX) D Colon Biopsy (LEFT COLON BX) Procedures: HE/8, Gross/Micro L4/4 Patient: Liliya Siddiqui [id number] (Continued) Specimen: [id number] Received: 11/06/24 (Continued) Gross Description Part A is received in formalin labeled with the patients name, date of , and small bowel BX are two suarez-colin, focally erythematous, friable, 0.2 and 0.3 cm in greatest dimension tissue bits. The specimen is entirely submitted in a single cassette. (1, ns, [id number] A) J Part B is received in formalin labeled with the patients name, date of , and gastric BX are two suarez-colin, focally erythematous, friable, 0.2 and 0.3 cm in greatest dimension tissue bits. The specimen is entirely submitted in a single cassette. (1, ns, [id number] B) JG Part C is received in formalin labeled with the patients name, date of , and right colon BX are four suarez-colin, focally erythematous, friable, 0.2 to 0.4 cm in greatest dimension tissue bits. The specimen is entirely submitted in a single cassette. (1, ns, [id number] C) JG Part D is received in formalin labeled with the patients name, date of , and left colon BX are three suarez-colin, focally erythematous, friable, 0.3 cm each in greatest dimension tissue bits. The specimen is entirely submitted in a single cassette. (1, ns, [id number] D) Microscopic Description A-D: Microscopic examination is performed. CPT Codes 64342 x4 Specimen: [id number] Received: 11/06/24 Status: FERNANDA Barrios Num: [id number] Spec Type: Surgical Subm (more content not included)... Normal [facility] C Urineon 11-03-2024 Bacteria identified Cx Nom (U) Microbiology PROCEDURE: Urine Culture [R1] SOURCE: U CleanCatch BODY SITE: COLLECTED DATE/TIME: 11/01/2024 10:55 EDT RECEIVED DATE/TIME: 11/01/2024 12:06 EDT START DATE/TIME: 11/01/2024 12:06 EDT FREE TEXT SOURCE: Claudine Irvin, Juan Miguel Chow M.D., [facility] FINAL REPORTS Final Report [] Verified Date/Time: 11/03/2024 06:47 EDT 2,000 cfu/ml Mixed skin contaminants Performing Locations R1: This test was performed at: [facility], [address] [place] [address], [address]- , [place], Normal [facility] Comment on above: Performed By: #### 2 [id number] #### [facility] [address] [place] [address] BMPon 11-01-2024 Anion gap [Moles/Vol] 9 mmol/L Normal 6-16 [facility] Comment on above: Performed By: #### 2 [id number] #### [facility] [address] [place] [address] BUN/Creat Ratio 10 No Units Normal 10-20 [facility] Comment on above: Performed By: #### 2 [id number] #### [facility] [address] [place] [address]11 Calcium [Mass/Vol] 8.5 mg/dL Low 8.9-11.1 [facility] Comment on above: Performed By: #### 2 [id number] #### [facility] [address] [place] [address] 77411 Chloride [Moles/Vol] 110 mmol/L Normal 101-111 [facility] Comment on above: Performed By: #### 2 [id number] #### [facility] [address] [place] [address] 95118 CO2 [Moles/Vol] 26 mmol/L Normal 21-31 [facility] Comment on above: Performed By: #### 2 [id number] #### [facility] [address] [place] [address] 78284 Creatinine [Mass/Vol] 0.8 mg/dL Normal 0.5-1.3 [facility] Comment on above: Performed By: #### 2 [id number] #### [facility] [address] [place] [address] 57322 Glucose [Mass/Vol] 86 mg/dL Normal 55-199 [facility] Comment on above: Performed By: #### 2 [id number] #### [facility] [address] [place] [address] 32575 Potassium [Moles/Vol] 3.5 mmol/L Normal 3.5-5.3 [facility] Comment on above: Performed By: #### 2 [id number] #### [facility] [address] [place] [address] 59019 Sodium [Moles/Vol] 141 mmol/L Normal 135-145 [facility] Comment on above: Performed By: #### 2 [id number] #### [facility] [address] [place] [address] Urea nitrogen [Mass/Vol] 8 mg/dL Normal 5-21 [facility] Comment on above: Performed By: #### 2 [id number] #### [facility] [address] [place] [address] C Urineon 11-01-2024 Bacteria identified Cx Nom (U) Microbiology PROCEDURE: Urine Culture [R1] SOURCE: U CleanCatch BODY SITE: COLLECTED DATE/TIME: 10/30/2024 18:22 EDT RECEIVED DATE/TIME: 10/30/2024 20:56 EDT START DATE/TIME: 10/30/2024 20:56 EDT FREE TEXT SOURCE: David Causey DO, DO, David FINAL REPORTS Final Report [] Verified Date/Time: 11/01/2024 07:37 EDT <10,000 cfu/ml Mixed skin contaminants Performing Locations R1: This test was performed at: [facility], [address] [place] [address], [id number] , , [facility] Comment on above: Performed By: #### 2 [id number] #### [facility] [address] [place] [address] CBC w/ Auto Diffon 5 Basophil Absolute 0.0 E9/L Normal 0.0-0.2 [facility] Comment on above: Performed By: #### 2 [id number] #### [facility] [address] [place] [address] Basophils/100 WBC (Bld) 0.3 % Normal 0.0-2.0 [facility] Comment on above: Performed By: #### 2 [id number] #### [facility] [address] [place] [address] Eos Absolute 0.1 E9/L Normal 0.0-0.5 [facility] Comment on above: Performed By: #### 2 [id number] #### [facility] [address] [place] [address] Eosinophils/100 WBC (Bld) 0.8 % Normal 0.0-8.0 [facility] Comment on above: Performed By: #### 2 [id number] #### [facility] [address] [place] [address] Erythrocyte distribution width (RBC) [Ratio] 12.9 % Normal 10.9-14.2 [facility] Comment on above: Performed By: #### 2 [id number] #### [facility] [address] [place] [address] Hematocrit (Bld) [Volume fraction] 40.3 % Normal 34.0-46.0 [facility] Comment on above: Performed By: #### 2 [id number] #### [facility] [address] [place] [address] Hemoglobin (Bld) [Mass/Vol] 13.5 g/dL Normal 12.0-16.0 [facility] Comment on above: Performed By: #### 2 [id number] #### [facility] [address] [place] [address] Lymph Absolute 2.1 E9/L Normal 1.0-4.0 [facility] Comment on above: Performed By: #### 2 [id number] #### [facility] [address] [place] [address] Lymphocytes/100 WBC (Bld) 30.4 % Normal 14.0-50.0 [facility] Comment on above: Performed By: #### 2 [id number] #### [facility] [address] [place] [address] MCH (RBC) [Entitic mass] 30.5 pg Normal 27.0-34.0 [facility] Comment on above: Performed By: #### 2 [id number] #### [facility] [address] [place] [address] MCHC (RBC) [Mass/Vol] 33.4 g/dL Normal 31.4-36.0 [facility] Comment on above: Performed By: #### 2 [id number] #### [facility] [address] [place] [address] MCV (RBC) [Entitic vol] 91.4 fL Normal 80.0-100.0 [facility] Comment on above: Performed By: #### 2 [id number] #### [facility] [address] [place] [address] Gaines Absolute 0.6 E9/L Normal 0.2-1.0 [facility] Comment on above: Performed By: #### 2 [id number] #### [facility] [address] [place] [address] Monocytes/100 WBC (Bld) 9.0 % Normal 4.0-14.0 [facility] Comment on above: Performed By: #### 2 287459 #### [facility] [address] [place] [address] Neutro Absolute 4.1 E9/L Normal 2.0-7.5 [facility] Comment on above: Performed By: #### 2 [id number] #### [facility] [address] [place] [address] Neutro Auto 59.5 % Normal 36.0-75.0 [facility] Comment on above: Performed By: #### 2 020419 #### [facility] [address] [place] [address] Platelet 279.0 E9/L Normal 150.0-500.0 [facility] Comment on above: Performed By: #### 2 [id number] #### [facility] [address] [place] [address] Platelet mean volume (Bld) [Entitic vol] 7.8 fL Normal 6.4-10.8 [facility] Comment on above: Performed By: #### 2 [id number] #### [facility] [address] [place] [address] RBC 4.4 E12/L Normal 4.3-5.9 [facility] Comment on above: Performed By: #### 2 488417 #### [facility] [address] [place] [address] WBC 6.9 E9/L Normal 4.0-11.0 [facility] Comment on above: Performed By: #### 2 [id number] #### [facility] [address] [place] [address] CT Abdomen/Pelvis w/ Contras ton 11-01-2024 CT Abdomen/Pelvis w/ Contrast Exam Date/Time: 11/01/2024 11:56 EDT Reason for Exam: ABDOMINAL PAIN, ACUTE, NONLOCALIZED;Other (please specify) Report IMPRESSION: Nonspecific soft tissue density between the transverse colon and anterior abdominal wall within the right upper quadrant, with similar appearance to the findings on the CT from 06/13/2023 but located in the left abdomen on the prior study, with these left-sided findings interval resolved. Again findings could relate to segmental colitis or focal inflammatory process. HISTORY: Left-sided abdominal pain. Nausea and vomiting. History of hernia repair. TECHNIQUE: CT of the abdomen and pelvis was performed using standard technique with intravenous contrast, scanning from just above the dome of the diaphragm to the symphysis pubis. Including delayed images through the kidneys. Including sagittal and coronal reconstructions on both phases. Unless otherwise stated, incidental findings identified in this report do not require routine follow-up imaging. All CT scans at this facility use dose modulation, iterative reconstruction, and/or weight based dosing when appropriate to reduce radiation dose to as low as reasonably achievable. COMPARISON: CT 06/13/2023. RESULT: Liver: Subcentimeter low-attenuation lesions, too small to characterize but likely benign and probably represent hemangiomas. Biliary: Gallbladder unremarkable. No biliary ductal dilation. Pancreas: No mass or duct dilation. Spleen: No mass or splenomegaly. Adrenals: No mass. Kidneys: Multiple small left renal calculi. No hydronephrosis. Subcentimeter right renal cyst. Delayed phase images unremarkable. GI tract/mesentery/peritoneum /retroperitoneum: Nonspecific focal geographic area of soft tissue attenuation/prominence within the right abdomen between the anterior abdominal wall and proximal transverse colon near the hepatic flexure, measuring around 6.0 x 1.5 x 5.0 cm (series 2 image 40, series 42 image 91). On the CT from 06/13/2023, similar process was present within the left abdomen, which now appears resolved at that prior location. No associated loculated fluid collection, pneumatosis, or bowel dilation. Appendix unremarkable. No evidence for diverticulitis. Lymph nodes: No abdominal or pelvic lymphadenopathy. Report Vasculature: The celiac axis and SMA are patent. The portal vein and branches, splenic vein, SMV, and hepatic veins are patent. No abdominal aortic or iliac artery aneurysm. Pelvis: Small volume free fluid, similar to prior. Bladder decompressed. Uterus grossly unremarkable. Small left adnexal cyst/follicle. Bones: No acute osseous findings. Soft tissues: Unremarkable. Lower thorax: Bibasilar atelectasis/scarring. Tech Comments: GFR (mL/min/1/73m2) na Contrast: Isovue 300 Contrast amount in ml's: 100.00 Ordering Provider: Juan Miguel Chow FINAL REPORT Dictated: 11/01/2024 12:41 pm Collin Newell MD. Signed (Electronic Signature): 11/01/2024 12:41 pm Signed by: Collin Newell MD Transcribed by: RASHEEDA Technologist: EARNEST Thompson [facility] ED Clinical Summaryon 2024 ED Clinical Summary ED Clinical Summary [address] [address] ED Clinical Summary Person Information Name: LILIYA SIDDIQUI [facility] Age: 39 Years : 1985 Sex: Female Language: Turkish PCP: Baldomero Hudson MD Marital Status: Single Phone: [phone] Visit Id: Visit Reason: Nausea; Abdominal pain; ABD PAIN Speciality: Acuity: 3 Enc Type: Emergency Med Service: Emergency Arrival: 11/01/2024 10:10:03 Discharge: 11/01/2024 14:26:00 LOS: 000 04:16 Checkin: 11/01/2024 10:10:03 Checkout: 11/01/2024 14:26:00 Dispo Type: Home (Routine DC) EVENTS: Event Name Event Status Request Date/Time Start Date/Time Complete Date/Time Arrive Complete 11/01/2024 10:10:03 11/01/2024 10:10:03 11/01/2024 10:10:03 Document Home Meds Request 11/01/2024 10:10:03 Triage Complete 11/01/2024 10:10:03 11/01/2024 10:23:56 11/01/2024 10:23:56 Bed Assign Complete 11/01/2024 10:18:22 11/01/2024 10:18:22 11/01/2024 10:18:22 Dr Exam Complete 11/01/2024 10:18:22 11/01/2024 10:20:46 11/01/2024 10:20:46 RN Exam Complete 11/01/2024 10:18:22 11/01/2024 10:42:00 11/01/2024 10:42:00 Registration Complete 11/01/2024 10:20:46 11/01/2024 10:56:14 11/01/2024 10:56:14 CT Complete 11/01/2024 10:32:57 11/01/2024 11:49:25 11/01/2024 11:56:01 Pending Labs Complete 11/01/2024 10:32:57 11/01/2024 11:25:55 Lab Complete 11/01/2024 10:32:57 11/01/2024 11:25:55 Meds Admin Complete 11/01/2024 10:32:57 11/01/2024 10:50:38 Patient Care Complete 11/01/2024 10:32:57 11/01/2024 10:54:23 Urine Collect Complete 11/01/2024 10:32:57 11/01/2024 11:08:24 Reg Complete Request 11/01/2024 10:56:14 Reg Bed Request Complete 11/01/2024 10:56:14 11/01/2024 10:56:14 11/01/2024 10:56:14 Pending Labs Complete 11/01/2024 10:58:51 11/01/2024 10:58:51 11/01/2024 11:25:55 Lab Complete 11/01/2024 10:58:51 11/01/2024 10:58:51 11/01/2024 11:25:55 Pending Labs Inlab 11/01/2024 11:05:46 11/01/2024 11:05:46 Lab Inlab 11/01/2024 11:05:46 11/01/2024 11:05:46 Pending Labs Complete 11/01/2024 11:07:19 11/01/2024 11:07:19 11/01/2024 11:07:19 Meds Admin Complete 11/01/2024 11:23:54 11/01/2024 11:30:24 Meds Admin Complete 11/01/2024 13:31:08 11/01/2024 13:56:45 Meds Admin Complete 11/01/2024 13:46:42 11/01/2024 13:56:45 Discharge Complete 11/01/2024 13:47:46 11/01/2024 14:33:33 11/01/2024 14:33:33 Transfer Complete 11/01/2024 14:33:33 11/01/2024 14:33:33 11/01/2024 14:33:33 ADDRESS: [address] [facility] [id number] PHYS DOC NOTES: MEDICAL INFORMATION: Prescriptions Given: New Medications [id number], [address], [place] [id number], [phone] ciprofloxacin (Cipro 500 mg Tab) 1 Tablets By Mouth 2 times a day. Refills: 0. metronidazole (Flagyl 500 mg Tab) 1 Tablets By Mouth every 8 hours for 7 Days. Refills: 0. Medications to Continue with No Changes Other Medications amitriptyline (amitriptyline 100 mg oral tablet) 1.5 Tablets By Mouth once a day (at bedtime). amphetamine-dextroamphetam ine (amphetamine-dextroampheta mine 30 mg oral tablet) 1 Tablets By Mouth 2 times a day. celecoxib (CeleBREX 100 mg Cap) 1 Capsules By Mouth 2 times a day. cephalexin (Keflex 500 mg Cap) 1 Capsules By Mouth every 12 hours for 5 Days. Refills: 0. diclofenac (Diclofenac 75mg Tab-DR) 75 Milligram By [...] Mouth 3 times a day. appetite stimulation. phenazopyridine (Pyridium 200 mg Tab) 1 Tablets By Mouth 3 times a day for 3 Days. Refills: 0. pregabalin (Lyrica 50 mg Cap) 1 Capsules By Mouth 3 times a day. fibromyalgia. quetiapine (SEROquel 100 mg Tab) 1 Tablets By Mouth every day. rizatriptan (Maxalt 10 mg Tab) 1 Tablets By Mouth Once. valproic acid (valproic acid 250 mg oral capsule) 2 Capsules By Mouth 3 times a day. rheumatoid arthritis. PATIENT EDUCATION INFORMATION: Instructions: Colitis Follow up: With: Address: When: Monet Willingham [address] [place] [address], [address], [address] [phone] Business (1) In 3 days 11/04/2024 Comments: Make sure to follow-up with Dr. Willingham as discussed. Return to the emergency room if your pain gets worse, vomiting, fever or any new symptoms. With: Address: When: Baldomero Hudson [address] [facility], (more content not included)... Normal [facility] ED Note-Physicianon 11-02-19 ED Note-Physician ED Note-Physician Basic Information Time Seen: Juan Miguel Chow M.D. 11/01/2024 10:20 Chief Complaint seen here and [facility] in last 2 days ago, pain RLQ with nausea. sent home with Rx for percocet and unknown diagnosis. pain has returned. has not taken percocet today History of Present Illness The patient is a 39-year-old female who presented to the emergency room with right lower quadrant, abdominal pain. The patient states she has had this pain since Wednesday. The patient is not able to describe the pain. She states the pain gets worse when she pushes on it. The patient reports nausea today. She denies any vomiting. The patient reports diarrhea for past couple of months. Denies any black or bloody stool. The patient denies any burning with urination. Denies any hematuria. She denies any vaginal bleeding or vaginal discharge. The patient denies any fever, denies any chills. The patient states she was seen at [facility] on Wednesday. She came to the emergency room here on Wednesday and she was discharged home. The patient states the CAT scan at [facility] was without contrast. She states she saw her primary doctor who wanted to do the CT with IV contrast, however she has not heard back from the hospital. The patient denies any other associated symptoms. Review of Systems Additional ROS info: Except as noted in the above Review of Systems and in the History of Present Illness all other systems have been reviewed and are negative or noncontributory. Physical Exam Vitals & Measurements T: 36.7 ???C(Oral) HR: 67(Monitored) RR: 18 BP: 117/88 SpO2: 100% HT: 167 cm WT: 77.3 kg BMI: 27.72 General: alert, no acute distress Skin: warm, dry Head: no trauma, normocephalic Neck: Trachea midline, no tenderness, supple Eye: normal conjunctiva, sclera clear, PERRL, EOMI, vision unchanged ENMT: Oral mucosa moist, no pharyngeal erythema or exudate Cardiovascular: regular rate and rhythm Respiratory: Lungs CTA, respirations non labored, breath sounds equal Gastrointestinal: soft, non distended, moderate tenderness right lower quadrant, no guarding Extremities: no deformity, no trauma Neurological: Alert and oriented, speech normal, no focal neuro deficits Psychiatric: cooperative, affect appropriate for age Medical Decision Making MEDICAL DECISION MAKING Number and Complexity of Problems Differential Diagnosis: [] [facility] Data External documents reviewed: [] My EKG interpretation: [] My CT interpretation: [] My X-ray interpretation: [] My Ultrasound interpretation: [] Decision rules/scores evaluated: [] Discussed with: Dr. Dodd Treatment and Disposition ED Course: The patient presented with a right lower quadrant abdominal pain. She reports diarrhea for past couple of months. Her abdomen is soft however she has tenderness in the right lower quadrant. There is no guarding. Blood work reviewed unremarkable. White count is normal. CT of the abdomen and pelvis with IV contrast was done and showed soft tissue between the transverse colon and abdominal wall. The CT findings were discussed with surgery Dr. Dodd who thinks this is more likely of inflammatory cause and recommends GI follow-up. Her pain has improved after Dilaudid. Will discharge patient home with Toniro and yl and have her follow-up with GI. She is instructed to return to the emergency room if her pain gets worse, vomiting, fever or any new symptoms. Shared decision making: [] Code status: [] Assessment/Plan 1. Abdominal pain (R10.9: Unspecified abdominal pain) 2. Colitis (K52.9: Noninfective gastroenteritis and colitis, unspecified) Orders: ciprofloxacin, 500 mg = 1 tab(s), Oral, BID, # 14 tab(s), Refills(s) 0, Pharmacy: [id number], 167, cm, 11/01/24 10:23:00 EDT, Height/Length Dosing, 77.3, kg, 11/01/24 10:23:00 EDT, Weight Dosing diphenhydrAMINE, 25 mg = 0.5 mL, Injection, IV Push, Once, Stop date 11/01/24 13:46:00 EDT, STAT, Start date 11/01/24 13:46:00 EDT, 11/01/24 13:46:00 EDT HYDROmorphone, 0.5 mg = 0.5 mL, Injection, IV Push, Once, Stop date 11/01/24 13:30:00 EDT, STAT, Start date 11/01/24 13:30:00 EDT, 11/01/24 13:30:00 EDT ketorolac, 30 mg = 1 mL, Injection, IV Push, Once, Stop date 11/01/24 10:32:00 EDT, STAT, Start date 11/01/24 10:32:00 EDT, 11/01/24 10:32:00 EDT metronidazole, 500 mg = 1 tab(s), Oral, q8hr, X 7 day(s), # 21 tab(s), Refills(s) 0, Pharmacy: [facility]/pharmacy #[id number], 167, cm, 11/01/24 10:23:00 EDT, Height/Length Dosing, 77.3, kg, 11/01/24 10:23:00 EDT, Weight Dosing ondansetron, 4 mg = 2 mL, Injection, IV Push, Once, Stop date 11/01/24 10:32:00 EDT, STAT, Start date 11/01/24 10:32:00 EDT, 11/01/24 10:32:00 EDT Sodium Chloride 0.9% intravenous solution, 1,000 mL, Soln-IV, IV, Once, Stop date 11/01/24 11:23:00 EDT, STAT, Start date 11/01/24 11:23:00 EDT, Infuse over 61, minute(s) Basic Metabolic Panel CBC w/ Auto Diff CT Abdomen/Pelvis w/ Contrast eGFR Extra SST Tube Hepatic (more content not included)... Normal [facility] Comment on above: Result Comment: Elec tronically Signed By: Juan Miguel Chow M.D..ceci\Date and Time Signed: 11/01/24 15:31 EDT ED Patient Summaryon 025 ED Patient Summary ED Patient Summary [address] [place] [id number] Patient Discharge Instructions Person Information Name: LILIYA SIDDIQUI Age: 39 Years Arrival Date: 11/01/2024 10:10:03 Discharge Diagnosis: 1:Abdominal pain; 2:Colitis Primary Care Physician: Baldomero Hudson MD Provider Information Primary Provider: Juan Miguel Chow M.D. Advanced Validation Consultant:None The exam and treatment you received in the Emergency Department were for an urgent problem and are not intended as complete care. It is important that you follow up with a doctor, nurse practitioner, or physician???s administration assistant for ongoing care. If your symptoms become worse or you do not improve as expected and you are unable to reach your usual health care provider, you should return to the Emergency Department. We are available 24 hours a day. LILIYA SIDDIQUI has been given the following list of patient education materials, prescriptions and follow-up instructions: Follow-up Instructions: With: Address: When: Monet Willingham [address] [place] [address] [id number] [id number] [phone] Business (1) In 3 days 11/04/2024 Comments: Make sure to follow-up with Dr. Willingham as discussed. Return to the emergency room if your pain gets worse, vomiting, fever or any new symptoms. With: Address: When: Baldomero Hosonya [address] [facility] [place] [phone] Business (1) In 3 days In the event that this physician does not participate in your insurance network, please consult with your insurance company to find a nearby participating provider. Patient Education Materials: Colitis A MESSAGE TO ALL PATIENTS REGARDING OPIOIDS PRESCRIPTION OPIOIDS: WHAT YOU NEED TO KNOW Prescription opioids can be used to help relieve loarcrrp-px-dzoyhq pain and are often prescribed following a [...] as well, even when taken as directed: ??? Tolerance???meaning you might need to take more of the medication for the same pain relief ??? Physical dependence???meaning you have symptoms of withdrawal when a medication is stopped ??? Increased sensitivity to pain ??? Constipation ??? Nausea, vomiting, and dry mouth ??? Sleepiness and dizziness ??? Confusion ??? Depression ??? Low levels of testosterone that can result in lower sex drive, energy, and strength ??? Itching and sweating RISKS ARE GREATER WITH: ??? History of drug misuse, substance use disorder, or overdose ??? Mental health conditions (such as depression or anxiety) ??? Sleep apnea ??? Older age (65 years and older) ??? Avoid alcohol while taking prescription opioids. Also, unless specifically advised by your health care provider, medications to avoid include: ??? Benzodiazepines (such as Xanax or Valium) ??? Muscle relaxants (such as Soma or Flexeril) ??? Hypnotics (such as Ambien or Lunesta) ??? Other prescription opioids KNOW YOUR OPTIONS Talk to your health care provider about ways to manage your pain that don???t involve prescription opioids. Some of these options may actually work better and have fewer risks and side effects. Options may include: ??? Pain relievers such as acetaminophen, ibuprofen, and naproxen ??? Some medication that are also used for depression or seizures ??? Physical therapy and exercise ??? Cognitive behavioral therapy, a psychological, goal-directed approach, in which patients learn how to modify physical, behavioral, and emotional triggers of pain and stress. IF YOU ARE PRESCRIBED OPIOIDS FOR PAIN: ??? Never take opioids in greater amounts or more often than prescribed. ??? Follow up with your primary health care provider. o Work together to create a plan on how to manage your pain. o Talk about ways to help manage your pain that don???t involve prescription opioids. o Talk about any and all concerns and side effects. ??? Help prevent misuse and abuse o Never sell or share prescription opioids. o Never use another person???s prescription opioids. ??? Store prescription opioids in a secure place and out of reach of others (this may include visitors, children, friends, and family). ??? Safely dispose of unused prescription opioids: Find your community drug take-back program or your pharmacy mail-back program, or flush them down the toilet, follo (more content not included)... Normal [facility] Hep Func Panelon 11-01-2024 Albumin [Mass/Vol] 3.5 g/dL Normal 3.3-5.0 [facility] Comment on above: Performed By: #### 2 [id number] #### [facility] [address] [place] [address] Albumin/Globulin [Mass ratio] 1.5 {ratio} Normal 1.1-2.2 [facility] Comment on above: Performed By: #### 2 [id number] #### [facility] [address] [place] [address] Alk Phos 45 Int._Unit/L Normal 21-98 [facility] Comment on above: Performed By: #### 2 [id number] #### [facility] [address] [place] [address] ALT 11 Int._Unit/L Normal 6-46 [facility] Comment on above: Performed By: #### 2 [id number] #### [facility] [address] [place] [address] AST 13 Int._Unit/L Normal 5-43 [facility] Comment on above: Performed By: #### 2 [id number] #### [facility] [address] [place] [address] Bili Direct 0.1 mg/dL Normal 0.0-0.4 [facility] Comment on above: Performed By: #### 2 [id number] #### [facility] [address] [place] [address] Bili Indirect 0.4 mg/dL Normal 0.1-0.9 [facility] Comment on above: Performed By: #### 2 [id number] #### [facility] [address] [place] [address] Bili Total 0.5 mg/dL Normal 0.0-1.1 [facility] Comment on above: Performed By: #### 2 [id number] #### [facility] [address] [place] [address] Globulin (S) [Mass/Vol] 2.3 g/dL Normal 1.4-4.0 [facility] Comment on above: Performed By: #### 2 [id number] #### [facility] [address] [place] [address] Protein [Mass/Vol] 5.8 g/dL Low 6.0-7.8 [facility] Comment on above: Performed By: #### 2 [id number] #### [facility] [address] [place] [address] Lipase Levelon 11-01-2024 Lipase Lvl 44 unit/L Normal 13-58 [facility] Comment on above: Performed By: #### 2 [id number] #### [facility] [address] [place] [address] PT & PTTon 11-01-2024 INR Coag (PPP) [Relative time] 1.05 {INR} Invalid Interpretation Code [facility] Comment on above: Result Comment: INR results are specifically intended to assess patients stabilized on long-term Anticoagulation therapy suggested INR???s ???Less Intensive Anticoagulation??? 2.0 ??? 3.0 Conventional Range 3.0 ??? 4.5 Performed By: #### 1 [id number] #### [facility] [address] [place] [address] PT 11.8 second(s) Normal 9.4-12.5 [facility] Comment on above: Result Comment: 15 d ays - 4 weeks 1 - 5 months 6 -11 months 1- 5 years 6-10 years 11 -17 years Mean: 11.2 (9.5-12.6) Mean: 11.0 (9.7-12.8) Mean: 11.0 (9.8-13.0) Mean: 11.3 (9.9-13.4) Mean: 11.7 (10.0-14.6) Mean: 11.8 (10.0 - 14.1) Pediatric Reference ranges were obtained from a study by Hari An et al. prepared from 1437 samples obtained at 7 different centers using the same coagulation reagent and instrumentation as [facility]. Currently there are no coagulation studies available worldwide for children to 14 days, and no normal ranges. Performed By: #### 1 [id number] #### [facility] [address] [place] [address] PTT 28.3 second(s) Normal 25.1-36.5 [facility] Comment on above: Result Comment: Para meter 15 days - 4 weeks 1 - 5 months 6 - 11 months 1 - 5 years 6 - 10 years 11 - 17 years PTT Mean: 35.4 (27.6-45.6) Mean: 33.5 (24.8-40.7) Mean: 32.4 (25.1-40.7) Mean: 31.6 (24.0-39.2) Mean: 31.6 (26.9-38.7) Mean: 31.0 (24.6-38.4) Pediatric Reference ranges were obtained from a study by mackenzie Taylor al. prepared from 1437 samples obtained at 7 different centers using the same coagulation reagent and instrumentation as [facility]. Currently there are no coagulation studies available worldwide for children to 14 days, and no normal ranges. Heparin therapeutic range (represented by Anti-Factor Xa activity of 0.2 - 0.4 U/mL) corresponds to PTT of 56.6 - 109.0 sec. Performed By: #### 1 [id number] #### [facility] [address] [place] [address] U BetaHcg Qualon 11-01-2024 U beta hCG Ql Negative Normal [facility] Comment on above: Performed By: #### 2 [id number] #### [facility] [address] [place] [address] UA with Cult Rflxon 11-02-19 25 Color (U) Yellow Normal Yellow [facility] Comment on above: Result Comment: Micr oscopic readings are only performed on those samples that meet specific criteria set forth by [facility]. Performed By: #### 4 [id number] #### [facility] [address] [place] [address] Glucose (U) [Mass/Vol] Negative Normal Negative [facility] Comment on above: Performed By: #### 4 [id number] #### [facility] [address] [place] [address] Ketones Ql (U) Negative Normal Negative [facility] Comment on above: Performed By: #### 4 [id number] #### [facility] [address] [place] [address] UA Blood Negative Normal Negative [facility] Comment on above: Performed By: #### 4 [id number] #### [facility] [address] [place] [address] UA Bacteria 1+ /HPF Abnormal Trace [facility] Comment on above: Performed By: #### 4 [id number] #### [facility] [address] [place] [address] UA Clarity Clear Normal Clear [facility] Comment on above: Performed By: #### 4 [id number] #### [facility] [address] [place] [address] UA Leuk Est 75 Mark/uL Abnormal Negative [facility] Comment on above: Performed By: #### 4 [id number] #### [facility] [address] [place] [address] UA Mucous Negative Normal Negative [facility] Comment on above: Performed By: #### 4 [id number] #### [facility] [address] [place] [address] UA Nitrite Negative Normal Negative [facility] Comment on above: Performed By: #### 4 [id number] #### [facility] [address] [place] [address] UA pH 6.0 Invalid Interpretation Code 5.0-9.0 [facility] Comment on above: Performed By: #### 4 [id number] #### [facility] [address] [place] [address] UA Protein Negative Normal Negative [facility] Comment on above: Performed By: #### 4 [id number] #### [facility] [address] [place] [address] UA Spec Grav 1.020 Invalid Interpretation Code 1.005-1.030 [facility] Comment on above: Performed By: #### 4 [id number] #### [facility] [address] [place] [address] UA Squam Epithelial 3-4 Invalid Interpretation Code [facility] Comment on above: Performed By: #### 4 [id number] #### [facility] [address] [place] [address] UA Urobilinogen Negative Normal Negative [facility] Comment on above: Performed By: #### 4 [id number] #### [facility] [address] [place] [address] UA WBC 0-5 Normal 0-5 [facility] Comment on above: Performed By: #### 4 [id number] #### [facility] [address] [place] [address] Urobilinogen (U) [Mass/Vol] Negative Normal Negative [facility] Comment on above: Performed By: #### 4 [id number] #### [facility] [address] [place] [address] UA Spec Desc Clean Catch Normal [facility] Comment on above: Performed By: #### 4 [id number] #### [facility] [address] [place] [address] eGFRon 11-01-2024 eGFR 95 mL/min/1.73 m2 Normal >=59 [facility] Comment on above: Performed By: #### 1 [id number] #### [facility] [address] [place] [address] Alanine aminotransferase [En zymatic activity/volume] in Serum or PlasmaOrdered By: Chase Villalta on 10-30-2024 ALT [Catalytic activity/Vol] 16 U/L Normal 7-52 [facility] Comment on above: Performed By: #### L IPASE, PT, PTT, BMP, CBC, HEPATIC #### [facility] [address] [place] [address] [place] Albumin [Mass/volume] in Ser um or Plasma by Bromocresol green (BCG) dye binding methoOrdered By: Chase Villalta on 10-30-2024 Albumin BCG dye [Mass/Vol] 4.1 g/dL 3.5-5.7 [facility] Alkaline phosphatase [Enzyma tic activity/volume] in Serum or PlasmaOrdered By: Chase Villalta on 10-30-2024 ALP [Catalytic activity/Vol] 59 U/L Normal 34-104 [facility] Comment on above: Performed By: #### L IPASE, PT, PTT, BMP, CBC, HEPATIC #### [facility] [address] Appearance of UrineOrdered B y: Chase Villalta on 10-30-2024 Appearance (U) Clear Normal Clear [facility] Comment on above: Order Comment: Name Collection Type:: Clean-Voided Midstream Performed By: #### U HCG, ADDONUAPLUS, CUU #### [facility] [address] [place] [address] [place] Aspartate aminotransferase [ Enzymatic activity/volume] in Serum or PlasmaOrdered By: Chase Villalta on 10-30-2024 AST [Catalytic activity/Vol] 15 U/L Normal 13-39 [facility] Comment on above: Performed By: #### L IPASE, PT, PTT, BMP, CBC, HEPATIC #### [facility] [address] [place] [address] [place] Bacteria [Presence] in Urine by AutomatedOrdered By: Chase Villalta on 10-30-2024 Bacteria Auto Ql (U) Rare [HPF] None Seen [facility] Basic Metabolic Panelon 10-20 Creatinine Clr Calc Pharmacy 109.98 Normal [facility] Comment on above: Performed By: #### L IPASE, PT, PTT, BMP, CBC, HEPATIC #### [facility] [address] [place] [id number] [place] GFR/1.73 sq M.predicted MDRD (S/P/Bld) [Vol rate/Area] mL/min/{1.73_m2} Normal [facility] Comment on above: Performed By: #### L IPASE, PT, PTT, BMP, CBC, HEPATIC #### [facility] [address] Basophils [#/volume] in Bloo d by Automated countOrdered By: Chase Villalta on 10-30-2024 Basophils (Bld) [#/Vol] 0.0 10*3/uL Normal 0.0-0.2 [facility] Comment on above: Result Comment: PERF ORMED BY: [place] [address] PATHOLOGIST BODY PRESSER CHANTALE YUAN M.D. Performed By: #### L IPASE, PT, PTT, BMP, CBC, HEPATIC #### [address] Basophils/100 leukocytes in Blood by Automated countOrdered By: Chase Villalta on 10-30-2024 Basophils/100 WBC (Bld) 0.5 % Normal . [facility] Comment on above: Performed By: #### L IPASE, PT, PTT, BMP, CBC, HEPATIC #### [address] Bilirubin Test strip Ql (U)O rdered By: Chase Villalta on 10-30-2024 Bilirubin Ql (U) Negative Negative [facility] Bilirubin.direct [Mass/volum e] in Serum or PlasmaOrdered By: Chase Villalta on 10-30-2024 Bilirubin.direct [Mass/Vol] 0.10 mg/dL 0.03-0.18 [facility] Bilirubin.total [Mass/volume ] in Serum or PlasmaOrdered By: Chase Villalta on 10-30-2024 Bilirubin [Mass/Vol] 0.9 mg/dL Normal 0.3-1.0 [facility] Comment on above: Performed By: #### L IPASE, PT, PTT, BMP, CBC, HEPATIC #### [address] abdomen pelvis wo conon 0 10-30-2024 CT abdomen pelvis wo con [facility] [place] [address] [place] [address] CT Scan Report Signed Patient: Liliya Siddiqui MR#: [id number] 32 : 1985 Acct:[id number] Age/Sex: 39 / F ADM Date: 10/30/24 Loc: ER Room: Type: [facility] ER Attending Dr: Copies to: Chase Villalta DO Ordering Provider: Chase Villalta DO Date of Service: 10/30/24 CT/CT abdomen pelvis wo con: Abdominal Pain CT ABDOMEN AND PELVIS WITHOUT INTRAVENOUS CONTRAST: CLINICAL HISTORY: Right lower quadrant pain. COMPARISON: None TECHNIQUE: Spiral images were obtained through the abdomen and pelvis without intravenous contrast. This CT exam was performed using one or more following dose reduction techniques: Automated exposure control, adjustment of the mA and/or kV according to patient size, or use of iterative reconstruction technique. FINDINGS: Lung Bases: [Bibasilar atelectasis] Organs:Suboptimal evaluation due to lack of IV contrast. Liver gallbladder spleen pancreas and adrenal glands all appear unremarkable. Right kidney appears unremarkable. 4 mm stone left kidney. Aorta appears normal in caliber.[ GI: Stomach is grossly unremarkable. Small bowel appears nondilated. Appendix is normal. No acute colonic abnormality is seen. Sigmoid diverticulosis.[ Pelvis:[Urinary bladder and uterus appear unremarkable.] Peritoneum/Retroperitoneum :Small amount of free fluid seen within the pelvis. No free air or lymphadenopathy.[There appears to be omental thickening involving the right mid abdominal wall. No fluid collection to suggest abscess. Abd wall/Bones:Abdominal wall demonstrates no acute findings. Osseous structures demonstrate degenerative change.[ CT/CT abdomen pelvis wo con IMPRESSION: No acute process. Left nephrolithiasis. Omental thickening involving the right mid abdominal wall. Finding likely relates to the history of hernia repair.No fluid collection to suggest abscess. Impression dictated by: Forest Simmons Jr., D.O. 10/30/2024 9:25 AM Dictation Location: [place] [address] Transcribed By: [facility] 10/30/24924 Dictated By: Forest Simmons Jr, DO 10/30/24914 Signed By: 10/30/24924 Normal [facility] Calcium [Mass/volume] in Ser um or PlasmaOrdered By: Chase Villalta on 10-30-2024 Calcium [Mass/Vol] 9.0 mg/dL Normal 8.6-10.3 [facility] Comment on above: Performed By: #### L IPASE, PT, PTT, BMP, CBC, HEPATIC #### [address] Carbon dioxide, total [Moles /volume] in Serum or PlasmaOrdered By: Chase Villalta on 10-30-2024 CO2 [Moles/Vol] 28.2 mmol/L Normal 21.0-31.0 [facility] Comment on above: Performed By: #### L IPASE, PT, PTT, BMP, CBC, HEPATIC #### [place] [address] [place] Chloride [Moles/volume] in S leydi or PlasmaOrdered By: Chase Villalta on 10-30-2024 Chloride [Moles/Vol] 106 mmol/L Normal 98-107 [facility] Comment on above: Performed By: #### L IPASE, PT, PTT, BMP, CBC, HEPATIC #### [address] Color of Urine by AutoOrdere d By: Chase Villalta on 10-30-2024 Color (U) Light-yellow Normal Yellow [facility] Comment on above: Order Comment: Name Collection Type:: Clean-Voided Midstream Performed By: #### U HCG, ADDONUAPLUS, CUU #### [address] Complete Blood Count Auto Di ffon 10-30-2024 Mean Corpuscular HGB Conc 33.8 g/dL Normal 32.0-35.0 [facility] Comment on above: Performed By: #### L IPASE, PT, PTT, BMP, CBC, HEPATIC #### [place] [address] [place] Monocytes/100 WBC (Bld) 16.70 % Normal 0.00-20.00 [facility] Comment on above: Performed By: #### L IPASE, PT, PTT, BMP, CBC, HEPATIC #### [address] [place] [address] [place] NRBC% 0.1 /100{WBC} Normal 0-0.5 [facility] Comment on above: Performed By: #### L IPASE, PT, PTT, BMP, CBC, HEPATIC #### [facility] [address] White Blood Count 7.6 [CFU]/mL Normal 3.8-11.6 [facility] Comment on above: Performed By: #### L IPASE, PT, PTT, BMP, CBC, HEPATIC #### [address] Creatinine [Mass/volume] in Serum or PlasmaOrdered By: Chase Villalta on 10-30-2024 Creatinine [Mass/Vol] 0.76 mg/dL Normal 0.60-1.20 [facility] Comment on above: Performed By: #### L IPASE, PT, PTT, BMP, CBC, HEPATIC #### [place] [address] [place] Dipstick and Microscopicon 0 10-30-2024 Bacteria,Urine Rare Normal None Seen [facility] Comment on above: Order Comment: Name Collection Type:: Clean-Voided Midstream Performed By: #### U HCG, ADDONUAPLUS, CUU #### [place] [address] [place] Bilirubin,Urine Negative Normal Negative [facility] Comment on above: Order Comment: Name Collection Type:: Clean-Voided Midstream Performed By: #### U HCG, ADDONUAPLUS, CUU #### [place] [address] [place] Glucose Ql (U) Normal Normal Normal [facility] Comment on above: Order Comment: Name Collection Type:: Clean-Voided Midstream Performed By: #### U HCG, ADDONUAPLUS, CUU #### [place] [address] [place] Hyaline Casts,Urine None Normal 0-8 [facility] Comment on above: Order Comment: Name Collection Type:: Clean-Voided Midstream Performed By: #### U HCG, ADDONUAPLUS, CUU #### [address] Nitrite,Urine Negative Normal Negative [facility] Comment on above: Order Comment: Name Collection Type:: Clean-Voided Midstream Performed By: #### U HCG, ADDONUAPLUS, CUU #### [address] Occult Blood,Urine Trace Normal Negative [facility] Comment on above: Order Comment: Name Collection Type:: Clean-Voided Midstream Performed By: #### U HCG, ADDONUAPLUS, CUU #### [address] Protein,Urine Negative Normal Negative [facility] Comment on above: Order Comment: Name Collection Type:: Clean-Voided Midstream Performed By: #### U HCG, ADDONUAPLUS, CUU #### [address] RBC,Urine 1-2 Normal 0-4 [facility] Comment on above: Order Comment: Name Collection Type:: Clean-Voided Midstream Performed By: #### U HCG, ADDONUAPLUS, CUU #### [address] Specificy [place],Urine 1.018 Normal 1.001-1.030 [facility] Comment on above: Order Comment: Name Collection Type:: Clean-Voided Midstream Performed By: #### U HCG, ADDONUAPLUS, CUU #### [address] Squamous Epithelial Cell,Urine 5-9 Normal 0-2 [facility] Comment on above: Order Comment: Name Collection Type:: Clean-Voided Midstream Performed By: #### U HCG, ADDONUAPLUS, CUU #### [address] Urobilinogen,Urine Normal Normal Normal [facility] Comment on above: Order Comment: Name Collection Type:: Clean-Voided Midstream Performed By: #### U HCG, ADDONUAPLUS, CUU #### [facility] [address] [place] [id number] [facility] WBC,Urine 5-9 Normal 0-4 [facility] Comment on above: Order Comment: Name Collection Type:: Clean-Voided Midstream Performed By: #### U HCG, KENNEY, CUU #### [facility] [address] [place] [id number] [facility] ED Clinical Summaryon 2024 ED Clinical Summary ED Clinical Summary [place] [address] ED Clinical Summary Person Information Name: LILIYA SIDDIQUI [place] Age: 39 Years : 1985 Sex: Female Language: Turkish PCP: Baldomero Hudson MD Marital Status: Single Phone: [phone] Visit Id: Visit Reason: Itching; Abdominal pain; ABD PAIN, RIGHT SIDE PAIN Speciality: Acuity: 3 Enc Type: Emergency Med Service: Emergency Arrival: 10/30/2024 17:19:51 Discharge: 10/30/2024 20:44:28 LOS: 000 03:25 Checkin: 10/30/2024 17:19:51 Checkout: 10/30/2024 20:44:28 Dispo Type: Home (Routine DC) EVENTS: Event Name Event Status Request Date/Time Start Date/Time Complete Date/Time Arrive Complete 10/30/2024 17:19:51 10/30/2024 17:19:51 10/30/2024 17:19:51 Document Home Meds Request 10/30/2024 17:19:51 Triage Complete 10/30/2024 17:19:51 10/30/2024 17:29:39 10/30/2024 17:29:39 Bed Assign Complete 10/30/2024 17:26:19 10/30/2024 17:26:19 10/30/2024 17:26:19 Dr Exam Complete 10/30/2024 17:26:19 10/30/2024 17:27:30 10/30/2024 17:27:30 RN Exam Complete 10/30/2024 17:26:19 10/30/2024 18:19:03 10/30/2024 18:19:03 Registration Complete 10/30/2024 17:27:30 10/30/2024 17:58:41 10/30/2024 17:58:41 Pending Labs Complete 10/30/2024 17:37:50 10/30/2024 19:09:07 Meds Admin Complete 10/30/2024 17:37:50 10/30/2024 18:16:56 Reg Complete Request 10/30/2024 17:58:41 Reg Bed Request Complete 10/30/2024 17:58:42 10/30/2024 17:58:42 10/30/2024 17:58:42 Meds Admin Complete 10/30/2024 18:30:33 10/30/2024 18:38:49 Pending Labs Collected 10/30/2024 19:09:08 10/30/2024 19:09:08 Lab Collected 10/30/2024 19:09:08 10/30/2024 19:09:08 Dr Exam Complete 10/30/2024 19:46:14 10/30/2024 19:46:14 10/30/2024 19:46:14 Registration Complete 10/30/2024 19:46:14 10/30/2024 20:04:44 10/30/2024 20:04:44 Meds Admin Complete 10/30/2024 20:28:16 10/30/2024 20:38:25 Discharge Complete 10/30/2024 20:29:09 10/30/2024 20:44:39 10/30/2024 20:44:39 Transfer Complete 10/30/2024 20:44:39 10/30/2024 20:44:39 10/30/2024 20:44:39 ADDRESS: [address] [facility] [id number] PHYS DOC NOTES: Addendum by Brandon Strauss DO on October 30, 2024 20:29:45 EDT MEDICAL INFORMATION: Prescriptions Given: New Medications [id number], [address], [place] [id number], [phone] cephalexin (Keflex 500 mg Cap) 1 Capsules By Mouth every 12 hours for 5 Days. Refills: 0. phenazopyridine (Pyridium 200 mg Tab) 1 Tablets By Mouth 3 times a day for 3 Days. Refills: 0. Medications to Continue with No Changes Other Medications amitriptyline (amitriptyline 100 mg oral tablet) 1.5 Tablets By Mouth once a day (at bedtime). amphetamine-dextroamphetam ine (amphetamine-dextroampheta mine 30 mg oral tablet) 1 Tablets By [...] day. rheumatoid arthritis. PATIENT EDUCATION INFORMATION: Instructions: Pain Without a Known Cause; Abdominal Pain, Adult, [id number] Follow up: With: Address: When: Baldomero Hudson [address] [place] [address], [facility] [place] [address] Business (1) In 3 days DIAGNOSIS: Abdominal pain; Pruritus Normal [facility] ED Clinical Summary ED Clinical Summary [address] [address] ED Clinical Summary Person Information Name: LILIYA SIDDIQUI [place] Age: 39 Years : 1985 Sex: Female Language: Turkish PCP: Baldomero Hudson MD Marital Status: Single Phone: [phone] Visit Id: Visit Reason: Itching; Abdominal pain; ABD PAIN, RIGHT SIDE PAIN Speciality: Acuity: 3 Enc Type: Emergency Med Service: Emergency Arrival: 10/30/2024 17:19:51 Discharge: LOS: 000 01:14 Checkin: 10/30/2024 17:19:51 Checkout: Dispo Type: EVENTS: Event Name Event Status Request Date/Time Start Date/Time Complete Date/Time Arrive Complete 10/30/2024 17:19:51 10/30/2024 17:19:51 10/30/2024 17:19:51 Document Home Meds Request 10/30/2024 17:19:51 Triage Complete 10/30/2024 17:19:51 10/30/2024 17:29:39 10/30/2024 17:29:39 Bed Assign Complete 10/30/2024 17:26:19 10/30/2024 17:26:19 10/30/2024 17:26:19 Dr Exam Complete 10/30/2024 17:26:19 10/30/2024 17:27:30 10/30/2024 17:27:30 RN Exam Complete 10/30/2024 17:26:19 10/30/2024 18:19:03 10/30/2024 18:19:03 Registration Complete 10/30/2024 17:27:30 10/30/2024 17:58:41 10/30/2024 17:58:41 Pending Labs Collected 10/30/2024 17:37:50 Meds Admin Complete 10/30/2024 17:37:50 10/30/2024 18:16:56 Reg Complete Request 10/30/2024 17:58:41 Reg Bed Request Complete 10/30/2024 17:58:42 10/30/2024 17:58:42 10/30/2024 17:58:42 Meds Admin Request 10/30/2024 18:30:33 ADDRESS: [address] [place] [id number] PHYS DOC NOTES: MEDICAL INFORMATION: Prescriptions Given: Medications to Continue with No Changes Other Medications amitriptyline (amitriptyline 100 mg oral tablet) 1.5 Tablets By Mouth once a day (at bedtime). amphetamine-dextroamphetam ine (amphetamine-dextroampheta mine 30 mg oral tablet) 1 Tablets By [...] arthritis. PATIENT EDUCATION INFORMATION: Instructions: Abdominal Pain, Adult, Vhuu-[id number]; Pain Without a Known Cause Follow up: With: Address: When: Baldomero Hudson [address] [facility], [place] [address] Business (1) In 3 days DIAGNOSIS: Abdominal pain; Pruritus Normal [facility] ED Note-Physicianon 10-31-19 25 ED Note-Physician ED Note-Physician Basic Information Time Seen: David Causey DO 10/30/2024 17:27 39 female presents emergency department with right lower quadrant abdominal pain. Patient states this started over the last 24 to 48 hours. Chief Complaint pt reports RLQ pain that started yesterday into today. seen at [facility]. was given a sister shot to morphine and is allergic and is itching. thinks its her appendix. but dc'd from [facility]. History of Present Illness She states that she was in [place] in the emergency department today is very unhappy because they did not do anything for her. Despite this I did review her records it does look like the patient had negative urinalysis, negative hCG, negative labs and negative CT scan of the abdomen. She is very concerned that she was given what she describes as a sister shot to morphine and is allergic to morphine and is very puzzled as to why anyone would give her something close to morphine. She then saw her primary care physician this afternoon and ended up coming into this emergency department for a 2nd or 3rd opinion. Patient denies any chance of she has no urinary symptoms denies any chest pain or difficulty breathing no urinary symptoms with this. Patient denies any nausea vomiting or diarrhea. No other aggravating or relieving factors no other associated symptoms no other prior treatments or complaints. Family: Reviewed and noncontributory Social: lives at home Review of systems negative unless otherwise specified in the HPI. Physical Exam Vitals & Measurements T: 36.7 ???C(Tympanic) HR: 81(Peripheral) RR: 17 BP: 137/74 SpO2: 99% HT: 167 cm WT: 80.8 kg BMI: 28.97 General: The patient appears well and in no apparent distress. Patient is resting comfortably on cart. Skin: Warm, dry, no pallor noted. Head: Normocephalic, atraumatic Neck: No JVD Eye: PERRLA, EOMI ENT: Moist mucus membranes Cardiovascular: Regular rate normal peripheral perfusion Respiratory: No respiratory distress no accessory muscle use no obvious audible wheezing Chest Wall: no deformity Musculoskeletal: normal ROM, no deformity, no swelling GI: Soft no obvious distention. No rebound or rigidity. Patient guards everywhere I palpate which greatly limits the utility and accuracy of the exam. Neurological: A&O moves all extremities equal strength and symmetry. Cranial nerves grossly intact as tested Psychiatric: Cooperative and appropriate Medical Decision Making I did review records from [place] patient had negative UA, hCG, labs, and CT scan of the abdomen and pelvis. I did explain to the patient that that at this point we will try to control her symptoms. We will recheck the urinalysis today because she did have some positive findings on the urinalysis from earlier today in [place]. She was agreeable to some Benadryl for her pruritus, diazepam which may help control her pain and anxiousness about everything, and then Percocet for her pain as well. She was also given intramuscular Toradol as well. Ultimately patient will be signed out to the oncoming physician for final disposition and treatment plan. Patient is educated on return precautions as well. Assessment/Plan Abdominal pain (R10.9: Unspecified abdominal pain) Pruritus (L29.9: Pruritus, unspecified) Orders: acetaminophen-oxycodone, 1 tab(s), Tab, Oral, Once, Stop date 10/30/24 18:29:00 EDT, STAT, Start date 10/30/24 18:29:00 EDT diazepam, 5 mg = 1 mL, Injection, IntraMuscular, Once, Stop date 10/30/24 18:30:00 EDT, STAT, Start date 10/30/24 18:30:00 EDT, 10/30/24 18:30:00 EDT diphenhydrAMINE, 25 mg = 1 cap(s), Cap, Oral, Once, Stop date 10/30/24 18:30:00 EDT, STAT, Start date 10/30/24 18:30:00 EDT, 10/30/24 18:30:00 EDT ketorolac, 60 mg = 2 mL, Injection, IntraMuscular, Once, Stop date 10/30/24 17:37:00 EDT, STAT, Start date 10/30/24 17:37:00 EDT, 10/30/24 17:37:00 EDT UA with Cult Rflx Medications Administered Given ketorolac 60 mg/2 mL Injection, 60 mg, IntraMuscular Disposition Plan Discharge Prescription List Prescriptions No active prescription medications Follow-up With When Contact Information Baldomero Hudson In 3 days [address] [facility] [address] [place] [phone]- Business (1) Additional Instructions: Patient Education Pain Without a Known Cause Abdominal Pain, Adult, Nlbu-jf-Qjib Problem List/Past Medical History Ongoing Acute postoperative pain of abdomen ADHD Depression with suicidal ideation Diastasis recti Fibromyalgia IBS (irritable bowel syndrome) Lumbar radiculopathy Peripheral neuropathy Pulmonary nodule Umbilical hernia Historical Fibromyalgia Lupus Migraine Procedure/Surgical History Repair of umbilical hernia using surgical mesh (01/11/2020). Medications Inpatient ketorolac 60 mg/2 mL Injection, 60 mg= 2 mL, IntraMuscular, Once Home Aimovig SureClick 70 mg/mL subcutaneous solution, 70 mg, SubCutaneous, qMonth amitriptyline 100 mg oral tablet, 15 (more content not included)... Normal [facility] Comment on above: Result Comment: Elec tronically Signed By: Brandon Strauss DO\.br\Date and Time Signed: 10/30/24 20:31 EDT ED Note-Physician ED Note-Physician Basic Information Time Seen: David Causey DO 10/30/2024 17:27 39 female presents emergency department with right lower quadrant abdominal pain. Patient states this started over the last 24 to 48 hours. Chief Complaint pt reports RLQ pain that started yesterday into today. seen at [facility]. was given a sister shot to morphine and is allergic and is itching. thinks its her appendix. but dc'd from [facility]. History of Present Illness She states that she was in [place] in the emergency department today is very unhappy because they did not do anything for her. Despite this I did review her records it does look like the patient had negative urinalysis, negative hCG, negative labs and negative CT scan of the abdomen. She is very concerned that she was given what she describes as a sister shot to morphine and is allergic to morphine and is very puzzled as to why anyone would give her something close to morphine. She then saw her primary care physician this afternoon and ended up coming into this emergency department for a 2nd or 3rd opinion. Patient denies any chance of she has no urinary symptoms denies any chest pain or difficulty breathing no urinary symptoms with this. Patient denies any nausea vomiting or diarrhea. No other aggravating or relieving factors no other associated symptoms no other prior treatments or complaints. Family: Reviewed and noncontributory Social: lives at home Review of systems negative unless otherwise specified in the HPI. Physical Exam Vitals & Measurements T: 36.7 ???C(Tympanic) HR: 81(Peripheral) RR: 17 BP: 137/74 SpO2: 99% HT: 167 cm WT: 80.8 kg BMI: 28.97 General: The patient appears well and in no apparent distress. Patient is resting comfortably on cart. Skin: Warm, dry, no pallor noted. Head: Normocephalic, atraumatic Neck: No JVD Eye: PERRLA, EOMI ENT: Moist mucus membranes Cardiovascular: Regular rate normal peripheral perfusion Respiratory: No respiratory distress no accessory muscle use no obvious audible wheezing Chest Wall: no deformity Musculoskeletal: normal ROM, no deformity, no swelling GI: Soft no obvious distention. No rebound or rigidity. Patient guards everywhere I palpate which greatly limits the utility and accuracy of the exam. Neurological: A&O moves all extremities equal strength and symmetry. Cranial nerves grossly intact as tested Psychiatric: Cooperative and appropriate Medical Decision Making I did review records from [place] patient had negative UA, hCG, labs, and CT scan of the abdomen and pelvis. I did explain to the patient that that at this point we will try to control her symptoms. We will recheck the urinalysis today because she did have some positive findings on the urinalysis from earlier today in [place]. She was agreeable to some Benadryl for her pruritus, diazepam which may help control her pain and anxiousness about everything, and then Percocet for her pain as well. She was also given intramuscular Toradol as well. Ultimately patient will be signed out to the oncoming physician for final disposition and treatment plan. Patient is educated on return precautions as well. Assessment/Plan Abdominal pain (R10.9: Unspecified abdominal pain) Pruritus (L29.9: Pruritus, unspecified) Orders: acetaminophen-oxycodone, 1 tab(s), Tab, Oral, Once, Stop date 10/30/24 18:29:00 EDT, STAT, Start date 10/30/24 18:29:00 EDT diazepam, 5 mg = 1 mL, Injection, IntraMuscular, Once, Stop date 10/30/24 18:30:00 EDT, STAT, Start date 10/30/24 18:30:00 EDT, 10/30/24 18:30:00 EDT diphenhydrAMINE, 25 mg = 1 cap(s), Cap, Oral, Once, Stop date 10/30/24 18:30:00 EDT, STAT, Start date 10/30/24 18:30:00 EDT, 10/30/24 18:30:00 EDT ketorolac, 60 mg = 2 mL, Injection, IntraMuscular, Once, Stop date 10/30/24 17:37:00 EDT, STAT, Start date 10/30/24 17:37:00 EDT, 10/30/24 17:37:00 EDT UA with Cult Rflx Medications Administered Given ketorolac 60 mg/2 mL Injection, 60 mg, IntraMuscular Disposition Plan Discharge Prescription List Prescriptions No active prescription medications Follow-up With When Contact Information Baldomero Hudson In 3 days [address] [place] [address]- Business (1) Additional Instructions: Patient Education Pain Without a Known Cause Abdominal Pain, Adult, Muka-an-Qyir Problem List/Past Medical History Ongoing Acute postoperative pain of abdomen ADHD Depression with suicidal ideation Diastasis recti Fibromyalgia IBS (irritable bowel syndrome) Lumbar radiculopathy Peripheral neuropathy Pulmonary nodule Umbilical hernia Historical Fibromyalgia Lupus Migraine Procedure/Surgical History Repair of umbilical hernia using surgical mesh (01/11/2020). Medications Inpatient ketorolac 60 mg/2 mL Injection, 60 mg= 2 mL, IntraMuscular, Once Home Aimovig SureClick 70 mg/mL subcutaneous solution, 70 mg, SubCutaneous, qMonth amitriptyline 100 mg oral tablet, 15 (more content not included)... Normal [facility] Comment on above: Result Comment: Elec tronically Signed By: David Causey DO\.br\Date and Time Signed: 10/30/24 18:33 EDT ED Patient Summaryon 025 ED Patient Summary ED Patient Summary [address] [address] Patient Discharge Instructions Person Information Name: LILIYA SIDDIQUI Age: 39 Years Arrival Date: 10/30/2024 17:19:51 Discharge Diagnosis: Abdominal pain; Pruritus Primary Care Physician: Baldomero Hudson MD Provider Information Primary Provider: David Causey DO Advanced Validation Consultant:None The exam and treatment you received in the Emergency Department were for an urgent problem and are not intended as complete care. It is important that you follow up with a doctor, nurse practitioner, or physician???s administration assistant for ongoing care. If your symptoms become worse or you do not improve as expected and you are unable to reach your usual health care provider, you should return to the Emergency Department. We are available 24 hours a day. LILIYA SIDDIQUI has been given the following list of patient education materials, prescriptions and follow-up instructions: Follow-up Instructions: With: Address: When: Baldomero Becca [address] [place] [address], [address] [place] [phone] Business (1) In 3 days In the event that this physician does not participate in your insurance network, please consult with your insurance company to find a nearby participating provider. Patient Education Materials: Pain Without a Known Cause; Abdominal Pain, Adult, Knga-fd-Pqlz A MESSAGE TO ALL PATIENTS REGARDING OPIOIDS PRESCRIPTION OPIOIDS: WHAT YOU NEED TO KNOW Prescription opioids can be used to help relieve pofjruhv-jp-zgwaxi pain and are often prescribed following a [...] as well, even when taken as directed: ??? Tolerance???meaning you might need to take more of the medication for the same pain relief ??? Physical dependence???meaning you have symptoms of withdrawal when a medication is stopped ??? Increased sensitivity to pain ??? Constipation ??? Nausea, vomiting, and dry mouth ??? Sleepiness and dizziness ??? Confusion ??? Depression ??? Low levels of testosterone that can result in lower sex drive, energy, and strength ??? Itching and sweating RISKS ARE GREATER WITH: ??? History of drug misuse, substance use disorder, or overdose ??? Mental health conditions (such as depression or anxiety) ??? Sleep apnea ??? Older age (65 years and older) ??? Avoid alcohol while taking prescription opioids. Also, unless specifically advised by your health care provider, medications to avoid include: ??? Benzodiazepines (such as Xanax or Valium) ??? Muscle relaxants (such as Soma or Flexeril) ??? Hypnotics (such as Ambien or Lunesta) ??? Other prescription opioids KNOW YOUR OPTIONS Talk to your health care provider about ways to manage your pain that don???t involve prescription opioids. Some of these options may actually work better and have fewer risks and side effects. Options may include: ??? Pain relievers such as acetaminophen, ibuprofen, and naproxen ??? Some medication that are also used for depression or seizures ??? Physical therapy and exercise ??? Cognitive behavioral therapy, a psychological, goal-directed approach, in which patients learn how to modify physical, behavioral, and emotional triggers of pain and stress. IF YOU ARE PRESCRIBED OPIOIDS FOR PAIN: ??? Never take opioids in greater amounts or more often than prescribed. ??? Follow up with your primary health care provider. o Work together to create a plan on how to manage your pain. o Talk about ways to help manage your pain that don???t involve prescription opioids. o Talk about any and all concerns and side effects. ??? Help prevent misuse and abuse o Never sell or share prescription opioids. o Never use another person???s prescription opioids. ??? Store prescription opioids in a secure place and out of reach of others (this may include visitors, children, friends, and family). ??? Safely dispose of unused prescription opioids: Find your community drug take-back program or your pharmacy mail-back program, or flush them down the toilet, following guidance from the Food and Drug Administration (www.fda.gov/Drugs/Resourc esForYou). ??? Visit www.cdc.gov/drugoverdose to learn about the risks of opioids abuse and overdose. ??? If you believe you may be struggling with addiction, tell your health (more content not included)... Normal [facility] ED Patient Summary ED Patient Summary [address] [address] Patient Discharge Instructions Person Information Name: LILIYA SIDDIQUI Age: 39 Years Arrival Date: 10/30/2024 17:19:51 Discharge Diagnosis: Abdominal pain; Pruritus Primary Care Physician: Baldomero Hudson MD Provider Information Primary Provider: David Causey DO Advanced Validation Consultant:None The exam and treatment you received in the Emergency Department were for an urgent problem and are not intended as complete care. It is important that you follow up with a doctor, nurse practitioner, or physician???s administration assistant for ongoing care. If your symptoms become worse or you do not improve as expected and you are unable to reach your usual health care provider, you should return to the Emergency Department. We are available 24 hours a day. LILIYA SIDDIQUI has been given the following list of patient education materials, prescriptions and follow-up instructions: Follow-up Instructions: With: Address: When: Baldomero Hudson [address] [place] [address], [facility] [place] [address] Business (1) In 3 days In the event that this physician does not participate in your insurance network, please consult with your insurance company to find a nearby participating provider. Patient Education Materials: Abdominal Pain, Adult, Ybqg-ai-Rzpl; Pain Without a Known Cause A MESSAGE TO ALL PATIENTS REGARDING OPIOIDS PRESCRIPTION OPIOIDS: WHAT YOU NEED TO KNOW Prescription opioids can be used to help relieve rbpwbkpi-bw-vcdvet pain and are often prescribed following a [...] as well, even when taken as directed: ??? Tolerance???meaning you might need to take more of the medication for the same pain relief ??? Physical dependence???meaning you have symptoms of withdrawal when a medication is stopped ??? Increased sensitivity to pain ??? Constipation ??? Nausea, vomiting, and dry mouth ??? Sleepiness and dizziness ??? Confusion ??? Depression ??? Low levels of testosterone that can result in lower sex drive, energy, and strength ??? Itching and sweating RISKS ARE GREATER WITH: ??? History of drug misuse, substance use disorder, or overdose ??? Mental health conditions (such as depression or anxiety) ??? Sleep apnea ??? Older age (65 years and older) ??? Avoid alcohol while taking prescription opioids. Also, unless specifically advised by your health care provider, medications to avoid include: ??? Benzodiazepines (such as Xanax or Valium) ??? Muscle relaxants (such as Soma or Flexeril) ??? Hypnotics (such as Ambien or Lunesta) ??? Other prescription opioids KNOW YOUR OPTIONS Talk to your health care provider about ways to manage your pain that don???t involve prescription opioids. Some of these options may actually work better and have fewer risks and side effects. Options may include: ??? Pain relievers such as acetaminophen, ibuprofen, and naproxen ??? Some medication that are also used for depression or seizures ??? Physical therapy and exercise ??? Cognitive behavioral therapy, a psychological, goal-directed approach, in which patients learn how to modify physical, behavioral, and emotional triggers of pain and stress. IF YOU ARE PRESCRIBED OPIOIDS FOR PAIN: ??? Never take opioids in greater amounts or more often than prescribed. ??? Follow up with your primary health care provider. o Work together to create a plan on how to manage your pain. o Talk about ways to help manage your pain that don???t involve prescription opioids. o Talk about any and all concerns and side effects. ??? Help prevent misuse and abuse o Never sell or share prescription opioids. o Never use another person???s prescription opioids. ??? Store prescription opioids in a secure place and out of reach of others (this may include visitors, children, friends, and family). ??? Safely dispose of unused prescription opioids: Find your community drug take-back program or your pharmacy mail-back program, or flush them down the toilet, following guidance from the Food and Drug Administration (www.fda.gov/Drugs/Resourc esForYou). ??? Visit www.cdc.gov/drugoverdose to learn about the risks of opioids abuse and overdose. ??? If you believe you may be struggling with addiction, tell your health (more content not included)... Normal [facility] Eosinophils [#/volume] in Bl ood by Automated countOrdered By: Chase Villalta on 10-30-2024 Eosinophils (Bld) [#/Vol] 0.1 10*3/uL Normal 0.0-0.45 [facility] Comment on above: Performed By: #### L IPASE, PT, PTT, BMP, CBC, HEPATIC #### [facility] [address] [place] [address] [place] Eosinophils/100 leukocytes i n Blood by Automated countOrdered By: Chase Villalta on 10-30-2024 Eosinophils/100 WBC (Bld) 1.7 % Normal . [facility] Comment on above: Performed By: #### L IPASE, PT, PTT, BMP, CBC, HEPATIC #### [facility] [address] Epithelial cells.squamous [# /area] in Urine sediment by Automated countOrdered By: Chase Villalta on 10-30-2024 Epithelial cells.squamous Auto (Urine sed) [#/Area] 5-9 [HPF] High 0-2 [facility] Erythrocyte distribution wid th [Ratio] by Automated countOrdered By: Chase Villalta on 10-30-2024 Erythrocyte distribution width (RBC) [Ratio] 12.8 % Normal 11.9-15.3 [facility] Comment on above: Performed By: #### L IPASE, PT, PTT, BMP, CBC, HEPATIC #### [facility] [address] [place] [address] [place] Erythrocytes [#/area] in Uri ne sediment by Automated countOrdered By: Chase Villalta on 10-30-2024 RBC Auto (Urine sed) [#/Area] 1-2 [HPF] 0-4 [facility] Erythrocytes [#/volume] in B lood by Automated countOrdered By: Chase Villalta on 10-30-2024 RBC (Bld) [#/Vol] 4.81 10*6/uL Normal 3.60-5.00 [facility] Comment on above: Performed By: #### L IPASE, PT, PTT, BMP, CBC, HEPATIC #### [facility] [address] Glucose [Mass/volume] in Ser um or PlasmaOrdered By: Chase Villalta on 10-30-2024 Glucose [Mass/Vol] 95 mg/dL Normal 70-100 [facility] Comment on above: ADA recommended refe rence rangeRandom Glucose Reference Range is dependent on time and content of last meal. Glucose of more than 200 mg/dL in a nonstressed, ambulatory subject supports the diagnosis of Diabetes Mellitus. Result Comment: [place] om Glucose Reference Range is dependent on time and content of last meal. Glucose of more than 200 mg/dL in a nonstressed, ambulatory subject supports the diagnosis of Diabetes Mellitus. ADA recommended reference range Performed By: #### L IPASE, PT, PTT, BMP, CBC, HEPATIC #### [facility] [address] [place] [address] [place] Glucose [Mass/volume] in Uri ne by Test stripOrdered By: Chase Villalta on 10-30-2024 Glucose Test strip (U) [Mass/Vol] Normal mg/dL Normal [facility] HCG ( test) IA.rapi d Ql (U)Ordered By: Chase Villalta on 10-30-2024 HCG ( test) Ql (U) Negative [facility] HCG,Urineon 10-30-2024 Beta HCG ( test) Ql (U) Negative Normal [facility] Comment on above: Order Comment: Name Collection Type:: Clean-Voided Midstream Result Comment: PERF ORMED BY: [place] [address] PATHOLOGIST BODY PRESSER CHANTALE YUAN M.D. Performed By: #### L IPASE, PT, PTT, BMP, CBC, HEPATIC #### [facility] [address] Hematocrit [Volume Fraction] of Blood by Automated countOrdered By: Chase Villalta on 10-30-2024 Hematocrit (Bld) [Volume fraction] 44.2 % Normal 34.0-46.4 [facility] Comment on above: Performed By: #### L IPASE, PT, PTT, BMP, CBC, HEPATIC #### [facility] [address] Hemoglobin Test strip Ql (U) Ordered By: Chase Villalta on 10-30-2024 Hemoglobin Ql (U) Trace High Negative [facility] Hemoglobin [Mass/volume] in BloodOrdered By: Chase Villalta on 10-30-2024 Hemoglobin (Bld) [Mass/Vol] 14.9 g/dL Normal 11.8-15.4 [facility] Comment on above: Performed By: #### L IPASE, PT, PTT, BMP, CBC, HEPATIC #### [address] Hepatic Panelon 10-30-2024 Albumin [Mass/Vol] 4.1 g/dL Normal 3.5-5.7 [facility] Comment on above: Performed By: #### L IPASE, PT, PTT, BMP, CBC, HEPATIC #### [address] Bilirubin,Indirect 0.8 mg/dL Normal [facility] Comment on above: Performed By: #### L IPASE, PT, PTT, BMP, CBC, HEPATIC #### [address] Bilirubin.indirect [Mass/Vol] 0.10 mg/dL Normal 0.03-0.18 [facility] Comment on above: Performed By: #### L IPASE, PT, PTT, BMP, CBC, HEPATIC #### [address] Hyaline casts [#/area] in Ur ine sediment by Automated countOrdered By: Chase Villalta on 10-30-2024 Hyaline casts Auto (Urine sed) [#/Area] None [LPF] 0-8 [facility] INR in Platelet poor plasma by Coagulation assayOrdered By: Chase Villalta on 10-30-2024 INR Coag (PPP) [Relative time] 1.1 {INR} Normal [facility] Comment on above: INR Therapeutic Rang e A) Pre- and Peroperative OAT started two weeks before surgery. NOT HIP SURGERY: 1.5 - 2.5 HIP SURGERY: 2 - 3B) Primary and secondary prevention of venous THROMBOSIS: 2 - 3C) Active venous thrombosis, pulmonary embolismand prevention of recurrent venous thrombosis: 2 - 3D) Prevention of arterial thromboembolismincluding patients with mechanical heart valves: 3 - 4.5 Result Comment: INR Therapeutic Range A) Pre- and Peroperative OAT started two weeks before surgery. NOT HIP SURGERY: 1.5 - 2.5 HIP SURGERY: 2 - 3 B) Primary and secondary prevention of venous THROMBOSIS: 2 - 3 C) Active venous thrombosis, pulmonary embolism and prevention of recurrent venous thrombosis: 2 - 3 D) Prevention of arterial thromboembolism including patients with mechanical heart valves: 3 - 4.5 Performed By: #### L IPASE, PT, PTT, BMP, CBC, HEPATIC #### [facility] [address] [place] [id number] [place] Ketones [Presence] in Urine by Test stripOrdered By: Chase Villalta on 10-30-2024 Ketones Ql (U) Negative Normal Negative [facility] Comment on above: Order Comment: Name Collection Type:: Clean-Voided Midstream Performed By: #### U HCG, ADDONUAPLUS, CUU #### [facility] [address] [place] [id number] [place] Leukocyte esterase [Presence ] in Urine by Test stripOrdered By: Chase Villalta on 10-30-2024 Leukocyte esterase Test strip Ql (U) 3+ Normal Negative [facility] Comment on above: Order Comment: Name Collection Type:: Clean-Voided Midstream Performed By: #### U HCG, ADDONUAPLUS, CUU #### [facility] [address] [place] [id number] [place] Leukocytes [#/area] in Urine sediment by Automated countOrdered By: Chase Villalta on 10-30-2024 WBC Auto (Urine sed) [#/Area] 5-9 [HPF] High 0-4 [facility] Leukocytes [#/volume] correc kaelyn for nucleated erythrocytes in Blood by Automated counOrdered By: Chase Villalta on 10-30-2024 WBC corrected for nucl RBC Auto (Bld) [#/Vol] 7.6 10*3/uL 3.8-11.6 [facility] Leukocytes [#/volume] in Blo od by Automated countOrdered By: Chase Villalta on 10-30-2024 WBC (Bld) [#/Vol] 7.6 10*3/uL Normal 3.8-11.6 [facility] Comment on above: Performed By: #### L IPASE, PT, PTT, BMP, CBC, HEPATIC #### [facility] [address] [place] [address] Lipase [Enzymatic activity/v olume] in Serum or PlasmaOrdered By: Chase Villalta on 10-30-2024 Lipase [Catalytic activity/Vol] 65.0 U/L Normal 11.0-82.0 [facility] Comment on above: Result Comment: PERF ORMED BY: [place] [address] PATHOLOGIST BODY PRESSER CHANTALE YUAN M.D. Performed By: #### L IPASE, PT, PTT, BMP, CBC, HEPATIC #### [address] Lymphocytes [#/volume] in Bl ood by Automated countOrdered By: Chase Villalta on 10-30-2024 Lymphocytes (Bld) [#/Vol] 1.4 10*3/uL Normal 1.00-4.8 [facility] Comment on above: Performed By: #### L IPASE, PT, PTT, BMP, CBC, HEPATIC #### [facility] [address] [place] [address] [place] Lymphocytes/100 leukocytes i n Blood by Automated countOrdered By: Chase Villalta on 10-30-2024 Lymphocytes/100 WBC (Bld) 17.9 % Normal . [facility] Comment on above: Performed By: #### L IPASE, PT, PTT, BMP, CBC, HEPATIC #### [facility] [address] [place] [address] [place] MCH [Entitic mass] by Automa kaelyn countOrdered By: Chase Villalta on 10-30-2024 MCH (RBC) [Entitic mass] 31.0 pg Normal 24.7-34.3 [facility] Comment on above: Performed By: #### L IPASE, PT, PTT, BMP, CBC, HEPATIC #### [facility] [address] MCHC Auto (RBC) [Mass/Vol]Or dered By: Chase Villalta on 10-30-2024 MCHC (RBC) [Mass/Vol] 33.8 g/dL 32.0-35.0 [facility] MCV [Entitic volume] by Auto mated countOrdered By: Chase Villalta on 10-30-2024 MCV (RBC) [Entitic vol] 91.8 fL Normal 80-100 [facility] Comment on above: Performed By: #### L IPASE, PT, PTT, BMP, CBC, HEPATIC #### [facility] [address] Monocyte distribution width [Entitic volume] in Blood by AutomatedOrdered By: Chase Villalta on 10-30-2024 Monocyte distribution width Auto (Bld) [Entitic vol] 16.70 % 0.00-20.00 [facility] Monocytes [#/volume] in Bloo d by Automated countOrdered By: Chase Villalta on 10-30-2024 Monocytes (Bld) [#/Vol] 0.7 10*3/uL Normal 0.0-0.8 [facility] Comment on above: Performed By: #### L IPASE, PT, PTT, BMP, CBC, HEPATIC #### [facility] [address] [place] [address] [place] Monocytes/100 leukocytes in Blood by Automated countOrdered By: Chase Villalta on 10-30-2024 Monocytes/100 WBC (Bld) 8.8 % Normal . [facility] Comment on above: Performed By: #### L IPASE, PT, PTT, BMP, CBC, HEPATIC #### [facility] [address] [place] [address] [place] Neutrophils [#/volume] in Bl ood by Automated countOrdered By: Chase Villalta on 10-30-2024 Neutrophils (Bld) [#/Vol] 5.4 10*3/uL Normal 1.8-7.7 [facility] Comment on above: Performed By: #### L IPASE, PT, PTT, BMP, CBC, HEPATIC #### [facility] [address] Neutrophils/100 leukocytes i n Blood by Automated countOrdered By: Chase Villalta on 10-30-2024 Neutrophils/100 WBC (Bld) 71.1 % Normal . [facility] Comment on above: Performed By: #### L IPASE, PT, PTT, BMP, CBC, HEPATIC #### [facility] [address] Nitrite Test strip Ql (U)Ord ered By: Chase Villalta on 10-30-2024 Nitrite Ql (U) Negative Negative [facility] No Panel InformationOrdered By: Chase Villalta on 10-30-2024 Estimated GFR (CKD-EPI) > 60.0 mL/Min [facility] Creatinine Clearance (Chem 109.98 [facility] Nucleated erythrocytes [Pres ence] in Blood by Automated countOrdered By: Chase Villalta on 10-30-2024 Nucleated RBC Auto Ql (Bld) 0.1 /100{WBC} 0-0.5 [facility] Partial Thromboplastin Timeo n 10-30-2024 aPTT Coag (Bld) [Time] 29.5 s Normal 25.1-36.5 [facility] Comment on above: Result Comment: A he matocrit value greater than 55% may lead to inaccurate results in coagulation testing. Patients having hematocrit values >55% require a special collection tube for coagulation studies. Please contact the laboratory at [phone] for redraw instructions. PERFORMED BY: [place] [address] PATHOLOGIST BODY PRESSER CHANTALE YUAN M.D. Performed By: #### L IPASE, PT, PTT, BMP, CBC, HEPATIC #### [place] [id number] [place] Platelet mean volume [Entiti c volume] in Blood by Automated countOrdered By: Chase Villalta on 10-30-2024 Platelet mean volume (Bld) [Entitic vol] 7.8 fL Normal 6.3-10.7 [facility] Comment on above: Performed By: #### L IPASE, PT, PTT, BMP, CBC, HEPATIC #### [facility] [address] Platelets [#/volume] in Bloo d by Automated countOrdered By: Chase Villalta on 10-30-2024 Platelets (Bld) [#/Vol] 299 10*3/uL Normal 150-450 [facility] Comment on above: Performed By: #### L IPASE, PT, PTT, BMP, CBC, HEPATIC #### [address] Potassium [Moles/volume] in Serum or PlasmaOrdered By: Chase Villalta on 10-30-2024 Potassium [Moles/Vol] 4.4 mmol/L Normal 3.5-5.1 [facility] Comment on above: Performed By: #### L IPASE, PT, PTT, BMP, CBC, HEPATIC #### [address] Protein Test strip (U) [Mass /Vol]Ordered By: Chase Villalta on 10-30-2024 Protein (U) [Mass/Vol] Negative Negative [facility] Protein [Mass/volume] in Ser um or PlasmaOrdered By: Chase Villalta on 10-30-2024 Protein [Mass/Vol] 6.8 g/dL Normal 6.4-8.9 [facility] Comment on above: Performed By: #### L IPASE, PT, PTT, BMP, CBC, HEPATIC #### [address] Prothrombin time (PT)Ordered By: Chase Villalta on 10-30-2024 PT Coag (PPP) [Time] 12.1 s Normal 9.0-12.9 [facility] Comment on above: A hematocrit value g reater than 55% may lead to inaccurate results in coagulation testing. Patients having hematocrit values >55% require a special collection tube for coagulation studies. Please contact the laboratory at [phone] for redraw instructions. Result Comment: A he matocrit value greater than 55% may lead to inaccurate results in coagulation testing. Patients having hematocrit values >55% require a special collection tube for coagulation studies. Please contact the laboratory at [phone] for redraw instructions. Performed By: #### L IPASE, PT, PTT, BMP, CBC, HEPATIC #### [address] Serum globulin measurement b y calculation (mass/volume)Ordered By: Chsae Villalta on 10-30-2024 Globulin (S) [Mass/Vol] 2.7 g/dL [facility] Comment on above: Performed By: #### L IPASE, PT, PTT, BMP, CBC, HEPATIC #### [address] Serum or plasma albumin/glob ulin mass ratioOrdered By: Chase Villalta on 10-30-2024 Albumin/Globulin [Mass ratio] 1.5 {ratio} [facility] Comment on above: Performed By: #### L IPASE, PT, PTT, BMP, CBC, HEPATIC #### [address] Serum or plasma anion gap de terminationOrdered By: Chase Villalta on 10-30-2024 Anion gap [Moles/Vol] 8.2 mmol/L Normal 6.0-15.0 [facility] Comment on above: Performed By: #### L IPASE, PT, PTT, BMP, CBC, HEPATIC #### [address] Serum or plasma non-glucuron idated bilirubin measurement (mass/volume)Ordered By: Chase Villalta on 10-30-2024 Bilirubin.indirect [Mass/Vol] 0.8 mg/dL [facility] Sodium [Moles/volume] in Ser um or PlasmaOrdered By: Chase Villalta on 10-30-2024 Sodium [Moles/Vol] 138 mmol/L Normal 136-145 [facility] Comment on above: Performed By: #### L IPASE, PT, PTT, BMP, CBC, HEPATIC #### [facility] [address] [place] [address] [place] Specific gravity Test strip (U) [Rel density]Ordered By: Chase Villalta on 10-30-2024 Specific gravity (U) [Rel density] 1.018 1.001-1.030 [facility] UA with Cult Rflxon 10-31-19 25 Color (U) Colorless Abnormal Yellow [facility] Comment on above: Result Comment: Micr oscopic readings are only performed on those samples that meet specific criteria set forth by [facility]. Performed By: #### 4 [id number] #### [facility] [address] [place] [address] Glucose (U) [Mass/Vol] Negative Normal Negative [facility] Comment on above: Performed By: #### 4 [id number] #### [facility] [address] [place] [address] Ketones Ql (U) Negative Normal Negative [facility] Comment on above: Performed By: #### 4 [id number] #### [facility] [address] [place] [address] UA Blood Negative Normal Negative [facility] Comment on above: Performed By: #### 4 [id number] #### [facility] [address] [place] [address] UA Bacteria 1+ /HPF Abnormal Trace [facility] Comment on above: Performed By: #### 4 [id number] #### [facility] [address] [place] [address] UA Clarity Clear Normal Clear [facility] Comment on above: Performed By: #### 4 [id number] #### [facility] [address] [place] [address] UA Leuk Est 500 Mark/uL Abnormal Negative [facility] Comment on above: Performed By: #### 4 [id number] #### [facility] [address] [place] [address] UA Mucous Negative Normal Negative [facility] Comment on above: Performed By: #### 4 [id number] #### [facility] [address] [place] [address] UA Nitrite Negative Normal Negative [facility] Comment on above: Performed By: #### 4 [id number] #### [facility] [address] [place] [address] UA pH 7.0 Invalid Interpretation Code 5.0-9.0 [facility] Comment on above: Performed By: #### 4 [id number] #### [facility] [address] [place] [address] UA Protein Negative Normal Negative [facility] Comment on above: Performed By: #### 4 [id number] #### [facility] [address] [place] [address] UA RBC 0-3 Normal 0-3 [facility] Comment on above: Performed By: #### 4 [id number] #### [facility] [address] [place] [address] UA Spec Grav 1.004 Invalid Interpretation Code 1.005-1.030 [facility] Comment on above: Performed By: #### 4 [id number] #### [facility] [address] [place] [address] UA Squam Epithelial 0-2 Invalid Interpretation Code [facility] Comment on above: Performed By: #### 4 [id number] #### [facility] [address] [place] [address] UA Urobilinogen Negative Normal Negative [facility] Comment on above: Performed By: #### 4 [id number] #### [facility] [address] [place] [address] UA WBC 6-15 Abnormal 0-5 [facility] Comment on above: Performed By: #### 4 [id number] #### [facility] [address] [place] [address] Urobilinogen (U) [Mass/Vol] Negative Normal Negative [facility] Comment on above: Performed By: #### 4 [id number] #### [facility] [address] [place] [address] UA Spec Desc Clean Catch Normal [facility] Comment on above: Performed By: #### 4 [id number] #### [facility] [address] [place] [address] Urea nitrogen [Mass/volume] in Serum or PlasmaOrdered By: Chase Villalta on 10-30-2024 Urea nitrogen [Mass/Vol] 12 mg/dL Normal 7-25 [facility] Comment on above: Performed By: #### L IPASE, PT, PTT, BMP, CBC, HEPATIC #### [facility] [address] Urine Cultureon 10-30-2024 Bacteria identified Cx Nom (U) Urine Culture Results >100,000 col/ml Mixed Rody with Mixed Gram Neg Bacilli PERFORMED BY: [place] [address] PATHOLOGIST BODY PRESSER CHANTALE YUAN M.D. Normal [facility] Comment on above: Performed By: #### L IPASE, PT, PTT, BMP, CBC, HEPATIC #### [facility] [address] Urine cultureOrdered By: Eleni Villalta on 10-30-2024 Bacteria identified Cx Nom (U) [facility] Urobilinogen Test strip (U) [Mass/Vol]Ordered By: Chase Villalta on 10-30-2024 Urobilinogen (U) [Mass/Vol] Normal mg/dL Normal [facility] aPTT in Platelet poor plasma by Coagulation assayOrdered By: Chase Villalta on 10-30-2024 aPTT Coag (PPP) [Time] 29.5 s 25.1-36.5 [facility] Comment on above: A hematocrit value g reater than 55% may lead to inaccurate results in coagulation testing. Patients having hematocrit values >55% require a special collection tube for coagulation studies. Please contact the laboratory at [phone] for redraw instructions. pH of Urine by Test stripOrd ered By: Chase Villalta on 10-30-2024 pH (U) 6.0 [pH] Normal 5.0-9.0 [facility] Comment on above: Order Comment: Name Collection Type:: Clean-Voided Midstream Performed By: #### U KENNEY BRANHAM CUU #### [facility] [address] [place] [id number] [facility] MR LUMBAR SPINE WO CONTRASTo n 02-03-2024 [...] SPINE AP/LAT/FLE X/EXT/OBLIQUESon 12-16-2023 XR CERVICAL SPINE AP/LAT/FLEX/EXT/OBLIQU ES TITLE OF EXAM: XR - CERVICAL SPINE [...] SPINE AP/LAT/FLEX/ EXT/OBLIQUESon 12-16-2023 XR LUMBAR SPINE AP/LAT/FLEX/EXT/OBLIQU ES TITLE OF EXAM: XR - LUMBAR SPINE [...] Brooke M.D. 2023-12-16 17:35:39 Normal Not Available CHEMISTRYOrdered By: SYSTEM SYSTEM on 06-13-2023 Albumin [...] 10 mmol/L Normal 6 - 16 mEq/L Remisol Chem AST [Catalytic activity/Vol] 13 [iU]/d Normal [...] Chem eGFR 112 mL/min/1.73 m2 Normal >=59mL/mi n/ 1.73 m2 Remisol Chem Globulin (S) [Mass/Vol] 2.8 [...] mg/mg Normal 10 - 20 Remisol Chem HEMATOLOGYOrdered By: SYSTEM SYSTEM on 06-13-2023 Basophils/100 [...] Normal 4.0 - 11.0 E9/L Remisol Heme SEROLOGYOrdered By: Nanci Hicks on 06-13-2023 Beta HCG ( test) Ql Negative (06/13/23 1:14 PM) Normal [facility] URINALYSISOrdered By: Venessa Hicks on 06-13-2023 Color (U) Light-Yellow 1 (06/13/23 4:12 PM) Normal Yellow [facility] UA Auto SS Comment on above: Interpretive Data: M icroscopic readings are only performed on those samples that meet specific criteria set forth by [facility]. Glucose (U) [Mass/Vol] Negative Normal Negat ivemg/ dL [facility] UA Auto SS Ketones Ql (U) Negative (06/13/23 4:12 PM) Normal Negative [facility] UA Auto SS UA Blood Negative Normal Negativegra ded/HPF [facility] UA Auto SS UA Clarity Clear (06/13/23 4:12 PM) Normal Clear [facility] UA Auto SS UA Leuk Est Negative (06/13/23 4:12 PM) Normal Negative [facility] UA Auto SS UA Nitrite Negative Normal Negativemg/ dL [facility] UA Auto SS UA pH 6.0 *NA* (06/13/23 4:12 PM) Invalid Interpretation Code 5.0 - 9.0 [facility] UA Auto SS UA Protein Negative Normal Negativemg/ dL [facility] UA Auto SS UA Spec Grav >1.050 (06/13/23 4:12 PM) Normal 1.005 - 1.030 [facility] UA Auto SS UA Urobilinogen Negative Normal Negative/HP F [facility] UA Auto SS Urobilinogen (U) [Mass/Vol] Negative Normal Negativemg/ dL [facility] UA Auto SS URINALYSISOrdered By: Shan Gusman on 06-13-2023 UA Spec Desc Clean Catch (06/13/23 4:12 PM) Normal [facility] UA Auto SS Work Phone: US SINGLE QUAD RT UPPERon US SINGLE [...] by: THERESA MCCARTHY Date: 2022-06-12 08:37 Normal [facility] CT CSPINE WO CONon 3 CT [...] THERESA ESPAÑA Date: 2022-03-21 22:20 Normal [facility] CT FACIAL BONES WO CONon CT FACIAL BONES WO CON EXAMINATION: CT F ACIAL BONES WO CON HISTORY: Edema and bruising [...] THERESA ESPAÑA Date: 2022-03-21 22:43 Normal [facility] CT HEAD WO CONon 03-22-2022 CT HEAD WO CON CT HEAD WO CON: 02/21 9:05 PM EST CLINICAL HISTORY: 37 years [...] JOSEPH STACK Date: 2022-03-21 22:25 Normal [facility] DRUG SCREEN RAPID (URINE)on 03-22-2022 AMP Negative Normal NEGATIVE [facility] Comment on above: Performed By: #### E RUR, DRUGRPD ####[facility] [address] [place] [address]Dr. Dorothealanden Lindsey BAR Negative Normal NEGATIVE [facility] Comment on above: Performed By: #### E RUR, DRUGRPD ####[facility] [address] [place] [address]Dr. Eddy Lindsey BUP Negative Normal NEGATIVE [facility] Comment on above: Performed By: #### E RUR, DRUGRPD ####[facility] [address] [place], [place] [address]Dr. Eddy Lindsey BZO Negative Normal NEGATIVE [facility] Comment on above: Performed By: #### E RUR, DRUGRPD ####[facility] [address] [place], [place] [address]Dr. Eddy Lindsey OCTAVIO Negative Normal NEGATIVE [facility] Comment on above: Performed By: #### E RUR, DRUGRPD ####[facility] [address] [place], [place] [address]Dr. Eddy Lindsey CUT-OFFS SEE BELOW Normal [facility] Comment on above: Result Comment: AMP [...] ng/mL Performed By: #### E RUR, DRUGRPD ####[facility] X[address] [place], [place] [address]Dr. Eddy Lindsey DRUG CUT HEADER DRUG CLASS TEST SYST EM CUT-OFF CONCENTRATIONS ARE FOLLOWS: Normal [facility] Comment on above: Performed By: #### E RUR, DRUGRPD ####[facility] [address] [place] [address]Dr. Eddy Lindsey mAMP Negative Normal NEGATIVE [facility] Comment on above: Performed By: #### E RUR, DRUGRPD ####[facility] [address] [place], [place] [address]Dr. Eddy Lindsey MTD Negative Normal NEGATIVE [facility] Comment on above: Performed By: #### E RUR, DRUGRPD ####[facility] [address] [place], [place] [address]Dr. Eddy Lindsey OPI Negative Normal NEGATIVE [facility] Comment on above: Performed By: #### E RUR, DRUGRPD ####[facility] A[address] [place], [place] [address]Dr. Eddy Lindsey OXY Negative Normal NEGATIVE [facility] Comment on above: Performed By: #### E RUR, DRUGRPD ####[facility] T[address] [place], [place] [address]Dr. Eddy Lindsey PCP Negative Normal NEGATIVE [facility] Comment on above: Performed By: #### E RUR, DRUGRPD ####[facility] [address] [place], [place] [address]Dr. Eddy Lindsey PPX Negative Normal NEGATIVE [facility] Comment on above: Performed By: #### E RUR, DRUGRPD ####[facility] [address] [place], [place] [address]Dr. Eddy Lindsey TCA Negative Normal NEGATIVE [facility] Comment on above: Performed By: #### E RUR, DRUGRPD ####[facility] [address] [place], [place] [address]Dr. Eddy Lindsey THC Negative Normal NEGATIVE [facility] Comment on above: Performed By: #### E RUR, DRUGRPD ####[facility] [address] [place], [place] [address]Dr. Eddy Lindsey ER URINE PROFILEon 3 Bilirubin Ql (U) Negative Normal NEGATIVE [facility] Comment on above: Performed By: #### E RUR, DRUGRPD ####[facility] [address] [place] [address]Dr. Eddy Lindsey Clarity (U) CLEAR Normal CLEAR [facility] Comment on above: Performed By: #### E RUR, DRUGRPD ####[facility] [address] [place] [address]Dr. Yilan Lindsey Color (U) LT. YELLOW Normal YELLOW [facility] Comment on above: Performed By: #### E RUR, DRUGRPD ####[facility] [address] [place], [place] [address]Dr. Eddy Lindsey ERUAHD A micrscopic examina tion will be performed if indicated. Normal [facility] Comment on above: Performed By: #### E RUR, DRUGRPD ####[facility] [address] [place], [place] [address]Dr. Eddy Lindsey Glucose Ql (U) Negative Normal NEGATIVE [facility] Comment on above: Performed By: #### E RUR, DRUGRPD ####[facility] [address] [place], [place] [address]Dr. Eddy Lindsey Hemoglobin Ql (U) Negative Normal NEGATIVE [facility] Comment on above: Performed By: #### E RUR, DRUGRPD ####[facility] [address] [place], [place] [address]Dr. Eddy Lindsey Ketones Ql (U) Negative Normal NEGATIVE [facility] Comment on above: Performed By: #### E RUR, DRUGRPD ####[facility] [address] [place], [place] [address]Dr. Dorothealan Lindsey LEUKOCYTES Negative Normal NEGATIVE [facility] Comment on above: Performed By: #### E RUR, DRUGRPD ####[facility] [address] [place], [place] [address]Dr. Dorothealan Lindsey Nitrite Ql (U) Negative Normal NEGATIVE [facility] Comment on above: Performed By: #### E RUR, DRUGRPD ####[facility] [address] [place] [id number]. Eddy Lindsey pH (U) 5.0 [pH] Normal 5-9 [facility] Comment on above: Performed By: #### Tiff GALEAS DRUGRPD ####[facility] [address] [place] [id number]. Eddy Lindsey SPEC GRAVITY <=1.005 Abnormal 1.005-<=1.0 25 [facility] Comment on above: Performed By: #### Tiff GALEAS DRUGRPD ####[facility] [address] [place] [address]Dr. Eddy Lindsey UA PROTEIN Negative Normal NEGATIVE/ TRACE [facility] Comment on above: Performed By: #### Tiff GALEAS DRUGRPD ####[facility] [address] [place] [address]Dr. Dorothealanden Lindsey UR MICRO IND NOT INDICATED Normal [facility] Comment on above: Performed By: #### Tiff GALEAS DRUGRPD ####[facility] [address] [place] [address]Dr. Dorothealanden Lindsey Urobilinogen Qn (U) 0.2 {Nikki'U}/dL Normal 0.2 - 1. 0 [facility] Comment on above: Performed By: #### Tiff GALEAS DRUGRPD ####[facility] [address] [place] [address]Dr. Dorothealanden Lindsey XR HAND NELLY MIN 3Von [...] delineate. Right hand: No fracture. Normal [facility] CBC AUTO DIFFon 03-21-2022 BASO # 0.1 103/ul Normal 0.0-0.1 [facility] Comment on above: Performed By: #### C BC ####[facility] [address] [place] [id number]. Eddy Lindsey Basophils/100 WBC (Bld) 0.5 % Normal 0.2-2.0 [facility] Comment on above: Performed By: #### C BC ####[facility] [address] [place], [place] [address]Dr. Eddy Lindsey EO # 0.1 103/ul Normal 0.0-0.7 [facility] Comment on above: Performed By: #### C BC ####[facility] [address] [place], [place] [address]Dr. Eddy Lindsey Eosinophils/100 WBC (Bld) 0.7 % Critically low 0.9-7.0 [facility] Comment on above: Performed By: #### C BC ####[facility] [address] [place], [place] [address]Dr. Eddy Lindsey Erythrocyte distribution width (RBC) [Ratio] 11.7 % Normal 11.0-15.0 [facility] Comment on above: Performed By: #### C BC ####[facility] [address] [place], [place] [address]Dr. Eddy Lindsey Hematocrit (Bld) [Volume fraction] 42.9 % Normal 36.0-48.0 [facility] Comment on above: Performed By: #### C BC ####[facility] [address] [place], [place] [address]Dr. Eddy Lindsey Hemoglobin (Bld) [Mass/Vol] 14.6 g/dL Normal 12.0-16.0 [facility] Comment on above: Performed By: #### C BC ####[facility] Subhis[address] [place], [place] [address]Dr. Eddy Lindsey IG # 0.07 10e3/ul Critically high 0.00-0.03 [facility] Comment on above: Performed By: #### C BC ####[facility] U[address] [place], [place] [address]Dr. Eddy Lindsey IG % 0.7 % Critically high 0.0-0.5 [facility] Comment on above: Performed By: #### C BC ####[facility] [address] [place] [id number]. Eddy Lindsey LYMPH # 1.6 103/ul Normal 1.2-3.8 [facility] Comment on above: Performed By: #### C BC ####[facility] Ewmpjddzrx30[address] [place] [id number]. Eddy Lindsey Lymphocytes/100 WBC (Bld) 15.4 % Critically low 20.5-60.0 [facility] Comment on above: Performed By: #### C BC ####[facility] [address] [place] [address]Dr. Eddy Lindsey MANUAL DIFF REQ NO Normal [facility] Comment on above: Performed By: #### C BC ####[facility] Oxpjgpxnnd[address] [place] [address]Dr. Eddy César MCH (RBC) [Entitic mass] 31.3 pg Normal 26.7-34.0 [facility] Comment on above: Performed By: #### C BC ####[facility] Sqhkywiurw[address] [place] [id number]. Eddy Lindsey MCHC (RBC) [Mass/Vol] 34.0 g/dL Normal 29.9-35.2 [facility] Comment on above: Performed By: #### C BC ####[facility] [address]sp[address] [place] [address]Dr. Eddy Lindsey MCV (RBC) [Entitic vol] 92.1 fL Normal 81.0-99.0 [facility] Comment on above: Performed By: #### C BC ####[facility] Fiktxjhqdv[address] [place] [id number]. Eddy Lindsey MONO # 0.5 103/ul Normal 0.3-0.8 [facility] Comment on above: Performed By: #### C BC ####[facility] Rlbuv[address] [place], [place] [id number]. Eddy Lindsey Monocytes/100 WBC (Bld) 5.3 % Normal 1.7-12.0 [facility] Comment on above: Performed By: #### C BC ####[facility] Wlpzludglp[address] [place] [id number]. Dorothealanden Lindsey NEUT # 7.8 103/ul Critically high 1.4-6.5 [facility] Comment on above: Performed By: #### C BC ####[facility] Eedlnxmqpb4[address] [place] [address]Dr. Eddy Lindsey Neutrophils/100 WBC (Bld) 77.4 % Critically high 43.0-75.0 [facility] Comment on above: Performed By: #### C BC ####[facility] Aoznbcxwke[address] [place] [id number]. Eddy Lindsey Platelet mean volume (Bld) [Entitic vol] 9.0 fL Critically low 9.5-13.5 [facility] Comment on above: Performed By: #### C BC ####[facility] [address] [place] [phone]. Eddy Lindsey PLT 291 103/ul Normal 150-450 [facility] Comment on above: Performed By: #### C BC ####[facility] Cvsebqwpxs11[address] [place] [address]Dr. Eddy Lindsey RBC 4.66 106/ul Normal 4.20-5.40 [facility] Comment on above: Performed By: #### C BC ####[facility] Cbvetaqxcb88[address] [place] [phone]. Eddy Lindsey WBC 10.1 103/ul Normal 4.0-11.0 [facility] Comment on above: Performed By: #### C BC ####[facility] Pmknewnssu[address] [place] [id number] Lindsey ETHANOL (BLD ALC)on 03-21-20 ALC NOTE NOTE: 80 mg/dl is th e legal limit for a blood alcohol level Normal [facility] Comment on above: Performed By: #### E TH #### [facility] [address] [place], [place] [address] Dr. Eddy Lindsey Ethanol [Mass/Vol] 204 mg/dL Normal [facility] Comment on above: Performed By: #### E TH #### [facility] [address] [place] [address] [address] Eddy Lindsey PROF 14(COMP METB)on 022 Albumin [Mass/Vol] 3.9 g/dL Normal 3.4-5.0 [facility] Comment on above: Performed By: #### C MP ####[facility] Ecevykkidj[address] [place] [phone]. Eddy Lindsey Albumin/Globulin [Mass ratio] 1.3 {ratio} Normal [facility] Comment on above: Performed By: #### C MP ####[facility] Lhaccpxhso[address] [place] [address]Dr. Eddy Lindsey ALP [Catalytic activity/Vol] 78 U/L Normal 46-116 [facility] Comment on above: Performed By: #### C MP ####[facility] Qjnhtylgvm[address] [place] [address]Dr. Eddy Lindsey ALT [Catalytic activity/Vol] 27 U/L Normal 14-59 [facility] Comment on above: Performed By: #### C MP ####[facility] Dcaxsemffv[address] [place] [address]Dr. Eddy Lindsey Anion gap [Moles/Vol] 18.2 mmol/L Normal [facility] Comment on above: Performed By: #### C MP ####[facility] Wwamsinzby[address] [place] [address]Dr. Eddy Lindsey AST [Catalytic activity/Vol] 22 U/L Normal 15-37 [facility] Comment on above: Performed By: #### C MP ####[facility] Ldxxtmvdhb[address] [place] [address]Dr. Eddy Lindsey Bilirubin [Mass/Vol] 0.3 mg/dL Normal 0.2-1.0 [facility] Comment on above: Performed By: #### C MP ####[facility] Rizwhyjwwy4[address] [place] [address]Dr. Eddy Lindsey Calcium [Mass/Vol] 8.7 mg/dL Normal 8.5-10.1 [facility] Comment on above: Performed By: #### C MP ####[facility] Mxmmldacrk4257 [place] [phone]. Eddy Lindsey Chloride [Moles/Vol] 102 mmol/L Normal 98-107 [facility] Comment on above: Performed By: #### C MP ####[facility] Zuqqfpszxs9063 [place] [phone]. Eddy Lindsey CO2 [Moles/Vol] 20.1 mmol/L Critically low 21.0-32.0 [facility] Comment on above: Performed By: #### C MP ####[facility] Inillwhcze[address] [place] [address]Dr. Eddy Lindsey Creatinine [Mass/Vol] 1.04 mg/dL Critically high 0.55-1.02 [facility] Comment on above: Performed By: #### C MP ####[facility] Bvwpaumjgs[address] [place] [address]Dr. Dorothealanden César EGFR-AF GEORGIAN >60 Normal >=60 [facility] Comment on above: Performed By: #### C MP ####[facility] Xuroynkl[address] [place], [place] [address]Dr. Eddy César EGFR-NON AF GEORGIAN 59 mL/min/1.73m2 Critically low >=60 [facility] Comment on above: Performed By: #### C MP ####[facility] [address]kw[address] [place], [place] [address]Dr. Eddy César Globulin (S) [Mass/Vol] 2.9 g/dL Normal [facility] Comment on above: Performed By: #### C MP ####[facility] Yyukbrbxno[address] [place] [address]Dr. Eddy Lindsey Glucose [Mass/Vol] 132 mg/dL Critically high 74-106 [facility] Comment on above: Performed By: #### C MP ####[facility] Egcddbzavm[address] [place], [place] [address]Dr. Dorothealanden César Potassium [Moles/Vol] 3.3 mmol/L Critically low 3.5-5.1 [facility] Comment on above: Performed By: #### C MP ####[facility] [address]shhc[address] [place], [place] [address]Ch. Eddy Lindsey Protein [Mass/Vol] 6.8 g/dL Normal 6.4-8.2 [facility] Comment on above: Performed By: #### C MP ####[facility] Wyqlyabsub6844 [place], [place] [address]Du. Eddy Lindsey Sodium [Moles/Vol] 137 mmol/L Normal 136-145 [facility] Comment on above: Performed By: #### C MP ####[facility] Pmtasinlrb9515 [place], [place] [address]Av. Eddy Lindsey Urea nitrogen [Mass/Vol] 18.0 mg/dL Normal 7.0-18.0 [facility] Comment on above: Performed By: #### C MP ####[facility] Tjvzpnhvxa38[address] [place], [place] [address]Zu. Eddy Lindsey Urea nitrogen/Creatinine [Mass ratio] 17.3 mg/mg Normal [facility] Comment on above: Performed By: #### C MP ####[facility] Diydnuuebk4110 [place], [place] [address]Vd. Eddy Lindsey XR CHEST 1 Von 03-21-2022 [...] by: THERESA ESPAÑA Date: 2022-03-21 21:30 Normal [facility] XR LSPINE MIN 4 VIEWSon 12-0 XR LSPINE MIN 4 VIEWS EXAMINATION: XR LS PINE MIN 4 VIEWS HISTORY: Pain in lower limb COMPARISON: No relevant comparison available. FINDINGS: BONES: No acute fracture or dislocation. Minimal degenerative spondylosis and facet osteoarthropathy DISC SPACES: Normal. No significant disc height narrowing, subluxation, or endplate abnormality. PARASPINOUS: Negative. No paraspinous abnormality is seen. OTHER: Negative. IMPRESSION: Minimal degenerative change Electronically authenticated by: THERESA PATEL Date: 2022-02-26 12:42 Normal [facility] CT CHEST W CONon 01-19-2022 [...] THERESA PATEL Date: 2022-01-19 07:48 Normal [facility] CT HUMERUS RT WO CONon 01-04 CT HUMERUS RT WO CON EXAMINATION: CT HUM ERUS RT WO CON HISTORY: Localized swelling of [...] ESTHER VAZQUEZ Date: 2022-01-04 21:32 Normal [facility] US BLADDERon 11-13-2021 US BLADDER EXAMINATION: US BLAD [place] HISTORY: Bladder distention, frequent urinary tract infections COMPARISON: No relevant comparison available. TECHNIQUE: Ultrasound examination was performed of the urinary bladder. FINDINGS: BLADDER: No visible wall thickening, mass, or calculi. Prevoid volume: 2 45 mL. Post void residual: 6 mL URETERAL JETS: Visualized bilaterally. IMPRESSION: 1. Normal appearance of urinary bladder. Electronically authenticated by: ESTHER VAZQUEZ Date: 2021-11-13 06:53 Normal [facility] CULTURE URINEon 10-30-2021 CULTURE URINE Isolate 1 Klebsiella pneumoniae >100,000 cfu/mL of ORGANISM 1 Klebsiella pneumoniae ANTIBIOTIC M.I.C RX STATUS Ampicillin 16 R F Ampicillin/Sulbactam 4 S F Piperacillin/Tazobactam <=4 S F Cefazolin <=4 S F Ceftazidime <=1 S F Ceftriaxone <=1 S F Ertapenem <=0.5 S F Imipenem <=0.25 S F Amikacin <=2 S F Gentamicin <=1 S F Tobramycin <=1 S F Ciprofloxacin <=0.25 S F Levofloxacin <=0.12 S F Nitrofurantoin 64 I F Trimethoprim/Sulfamethoxaz ole <=20 S F Normal [facility] Comment on above: Performed By: #### U RCX ####[facility] [address]vds4[address] [place], [place] [address]Dy. Eddy César CT ABD/PELV W CONon 10-30-[address] ABD/PELV W CON EXAMINATION: CT ABD/ PELV W CON, 10/29/2021 9:12 AM EDT HISTORY: [...] THERESA PATEL Date: 2021-10-29 14:20 Normal [facility] CARDIAC JORGE ALBERTO ADMITon 022 CK [Catalytic activity/Vol] 18 U/L Critically low 26-192 [facility] Comment on above: Performed By: #### C JACKI TRACEY #### [facility] [address] [place] [address] Dr. Eddy Lindsey CK.MB [Mass/Vol] ng/mL Normal <=3.60 [facility] Comment on above: Performed By: #### C JACKI TRACEY #### [facility] [address] [place] [address] [address] Eddy Lindsey HSTROP 4.1 pg/mL Normal 4.0-51.3 [facility] Comment on above: Result Comment: CUT- OFF POINTS HAVE BEEN ESTABLISHED BASED ON THE FOURTH UNIVERSAL DEFINITIONS OF MYOCARDIAL INFARCTION. THE UPPER REFERENCE LIMIT (URL) OF TROPONIN, DEFINED THE 99TH PERCENTILE OF cTnI DISTRIBUTION IN A REFERENCE POPULATION, HAS BEEN CONFIRMED THE DECISION THRESHOLD FOR [place] DIAGNOSIS. Performed By: #### C PAXTON TRACEYDM #### [facility] [address] [place] [address] [address] Eddy Lindsey CHARLENE 35 ng/mL Normal 9-82 [facility] Comment on above: Performed By: #### C JACKI TRACEY #### [facility] [address] [place] [address] Dr. Eddy Lindsey CBC AUTO DIFFon 10-28-2021 BASO # 0.0 103/ul Normal 0.0-0.1 [facility] Comment on above: Performed By: #### C BC ####[facility] Umnzyxxgon[address] [place] [address]Dr. Eddy César Basophils/100 WBC (Bld) 0.3 % Normal 0.2-2.0 [facility] Comment on above: Performed By: #### C BC ####[facility] [address]xwqvcmh[address] [place], [place] [address]Dr. Eddy Lindsey EO # 0.0 103/ul Normal 0.0-0.7 [facility] Comment on above: Performed By: #### C BC ####[facility] Ypxdxlmqyy[address] [place], [place] [address]Dr. Dorothealanden Lindsey Eosinophils/100 WBC (Bld) 0.2 % Critically low 0.9-7.0 [facility] Comment on above: Performed By: #### C BC ####[facility] Vdttvpqnyd[address] [place], [place] [address]Dr. Eddy César Erythrocyte distribution width (RBC) [Ratio] 12.5 % Normal 11.0-15.0 [facility] Comment on above: Performed By: #### C BC ####[facility] Hnyufbltdz[address] [place], [place] [address]Dr. Eddy Lindsey Hematocrit (Bld) [Volume fraction] 47.7 % Normal 36.0-48.0 [facility] Comment on above: Performed By: #### C BC ####[facility] Xvtzzzozdq[address] [place], [place] [address]Dr. Eddy Lindsey Hemoglobin (Bld) [Mass/Vol] 15.6 g/dL Normal 12.0-16.0 [facility] Comment on above: Performed By: #### C BC ####[facility] Qntwjbebab[address] [place], [place] [address]Dr. Eddy Lindsey IG # 0.09 10e3/ul Critically high 0.00-0.03 [facility] Comment on above: Performed By: #### C BC ####[facility] Ziebzpkiag[address] [place], [place] [address]Dr. Eddy Lindsey IG % 1.0 % Critically high 0.0-0.5 [facility] Comment on above: Performed By: #### C BC ####[facility] [address]wvbdjad[address] [place] [address]Dr. Dorothealanden Lindsey LYMPH # 1.2 103/ul Normal 1.2-3.8 [facility] Comment on above: Performed By: #### C BC ####[facility] T[address]efrtzw[address] [place] [address]Dr. Dorothealanden Lindsey Lymphocytes/100 WBC (Bld) 12.7 % Critically low 20.5-60.0 [facility] Comment on above: Performed By: #### C BC ####[facility] [address]unwkgjzlw[address] [place], [place] [address]Dr. Dorothealanden Lindsey MANUAL DIFF REQ NO Normal [facility] Comment on above: Performed By: #### C BC ####[facility] [address]kmuyweidf[address] [place], [place] [address]Dr. Eddy César MCH (RBC) [Entitic mass] 32.2 pg Normal 26.7-34.0 [facility] Comment on above: Performed By: #### C BC ####[facility] Hjlikuliba[address] [place], [place] [address]Dr. Eddy Lindsey MCHC (RBC) [Mass/Vol] 32.7 g/dL Normal 29.9-35.2 [facility] Comment on above: Performed By: #### C BC ####[facility] Rzfdqtrjfp[address] [place], [place] [address]Dr. Eddy Lindsey MCV (RBC) [Entitic vol] 98.6 fL Normal 81.0-99.0 [facility] Comment on above: Performed By: #### C BC ####[facility] Pvtnogajuf[address] [place], [place] [address]DrWalt Lindsey MONO # 0.7 103/ul Normal 0.3-0.8 [facility] Comment on above: Performed By: #### C BC ####[facility] Twkqwargpk[address] [place], [place] [address]Dr. Eddy Lindsey Monocytes/100 WBC (Bld) 8.0 % Normal 1.7-12.0 [facility] Comment on above: Performed By: #### C BC ####[facility] [address] [place] [address]Dr. Eddy Lindsey NEUT # 7.2 103/ul Critically high 1.4-6.5 [facility] Comment on above: Performed By: #### C BC ####[facility] Vxzjryaktr[address] [place] [address]Dr. Eddy César Neutrophils/100 WBC (Bld) 77.8 % Critically high 43.0-75.0 [facility] Comment on above: Performed By: #### C BC ####[facility] Snehjnewly[address] [place], [place] [address]Dr. Eddy Lindsey Platelet mean volume (Bld) [Entitic vol] 8.7 fL Critically low 9.5-13.5 [facility] Comment on above: Performed By: #### C BC ####[facility] Ocdndsiulk[address] [place], [place] [address]Dr. Eddy César PLT 311 103/ul Normal 150-450 [facility] Comment on above: Performed By: #### C BC ####[facility] Ilwlytiubl[address] [place], [place] [address]Dr. Eddy César RBC 4.84 106/ul Normal 4.20-5.40 [facility] Comment on above: Performed By: #### C BC ####[facility] Qsriaescck[address] [place], [place] [address]Dr. Eddy Lindsey WBC 9.3 103/ul Normal 4.0-11.0 [facility] Comment on above: Performed By: #### C BC ####[facility] Mubdkqojfc[address] [place], [place] [address]Dr. Eddy Lindsey D-DIMERon 10-28-2021 D-DIMER 0.21 mg/L FEU Normal <=0.59 [facility] Comment on above: Performed By: #### D DIM ####[facility] Jaopwoknjo[address] [place], [place] [address]Dr. Eddy Lindsey D-DIMER COMMENTS SEE BELOW Normal [facility] Comment on above: Result Comment: Incr [...] generalized hospitalization. Performed By: #### D DIM ####[facility] [address]vfoowovj[address] [place] [address]Dr. Eddy RANDOLPH URINE PROFILEon 2 Bilirubin Ql (U) Negative Normal NEGATIVE [facility] Comment on above: Performed By: #### P ESTEVAN BATISTA, ERUR #### [facility] [address] [place] [address] [address] Eddy Lindsey Clarity (U) CLEAR Normal CLEAR [facility] Comment on above: Performed By: #### P ESTEVAN BATISTA, ERUR #### [facility] [address] [place] [address] [address] Eddy Lindsey Color (U) LT. YELLOW Normal YELLOW [facility] Comment on above: Performed By: #### ESTEVAN HENLEY, ERUR #### [facility] [address] [place] [address] [address] Eddy MORED A micrscopic examina tion will be performed if indicated. Normal [facility] Comment on above: Performed By: #### P TAMARAUKATHERINEICRO, ERUR #### [facility] [address] [place] [address] [address] Eddy Lindsey Glucose Ql (U) Negative Normal NEGATIVE [facility] Comment on above: Performed By: #### P ESTEVAN BATISTA, ERUR #### [facility] [address] [place] [address] [address] Eddy Lindsey Hemoglobin Ql (U) Negative Normal NEGATIVE [facility] Comment on above: Performed By: #### P ESTEVAN BATISTA, ERUR #### [facility] [address] [place] [address] [address] Eddy Lindsey Ketones Ql (U) Negative Normal NEGATIVE [facility] Comment on above: Performed By: #### ESTEVAN HENLEY, CYNTHIAR #### [facility] [address] [place] [address] [address] Eddy Lindsey LEUKOCYTES Negative Normal NEGATIVE [facility] Comment on above: Performed By: #### ESTEVAN HENLEY, ERUR #### [facility] [address] [place] [address] [address] Eddy Lindsey Nitrite Ql (U) Positive Abnormal NEGATIVE [facility] Comment on above: Performed By: #### ESTEVAN HENLEY ERUR #### [facility] [address] [place] [address] [address] Eddy Lindsey pH (U) 7.0 [pH] Normal 5-9 [facility] Comment on above: Performed By: #### ESTEVAN HENLEY, CYNTHIAR #### [facility] [address] [place] [address] [address] Eddy Lindsey SPEC GRAVITY 1.015 Normal 1.005-<=1.0 25 [facility] Comment on above: Performed By: #### ESTEVAN HENLEY ERUR #### [facility] [address] [place] [address] [address] Eddy Lindsey UA PROTEIN Negative Normal NEGATIVE/ TRACE [facility] Comment on above: Performed By: #### ESTEVAN HENLEY, CYNTHIAR #### [facility] [address] [place] [address] [address] Eddy Lindsey UR MICRO IND INDICATED Normal [facility] Comment on above: Performed By: #### ESTEVAN HENLEY ERUR #### [facility] [address] [place] [address] [address] Eddy Lindsey Urobilinogen Qn (U) 0.2 {Nikki'U}/dL Normal 0.2 - 1. 0 [facility] Comment on above: Performed By: #### ESTEVAN HENLEY, CYNTHIAR #### [facility] [address] [place] [address] [address] Eddy Lindsey URon 10-28-2021 , QUAL Negative Normal NEGATIVE [facility] Comment on above: Performed By: #### P ESTEVAN BATISTA, ERUR #### [facility] [address] [place] [address] [address] Eddy Lindsey PROF 14(COMP METB)on 022 Albumin [Mass/Vol] 3.5 g/dL Normal 3.4-5.0 [facility] Comment on above: Performed By: #### C MP, CMADM #### [facility] [address] [place] [address] [address] Eddy Lindsey Albumin/Globulin [Mass ratio] 1.2 {ratio} Normal [facility] Comment on above: Performed By: #### C MP, CMADM #### [facility] [address] [place] [address] [address] Eddy Lindsey ALP [Catalytic activity/Vol] 60 U/L Normal 46-116 [facility] Comment on above: Performed By: #### C MP, CMADM #### [facility] [address] [place] [address] [address] Eddy Lindsey ALT [Catalytic activity/Vol] 26 U/L Normal 14-59 [facility] Comment on above: Performed By: #### C MP, CMADM #### [facility] [address] [place] [address] [address] Eddy Lindsey Anion gap [Moles/Vol] 8.4 mmol/L Normal [facility] Comment on above: Performed By: #### C MP, CMADM #### [facility] [address] [place] [address] [address] Eddy Lindsey AST [Catalytic activity/Vol] 15 U/L Normal 15-37 [facility] Comment on above: Performed By: #### C MP, CMADM #### [facility] [address] [place] [address] [address] Eddy Lindsey Bilirubin [Mass/Vol] 0.7 mg/dL Normal 0.2-1.0 [facility] Comment on above: Performed By: #### C MP, CMADM #### [facility] [address] [place] [address] [address] Eddy Lindsey Calcium [Mass/Vol] 8.9 mg/dL Normal 8.5-10.1 [facility] Comment on above: Performed By: #### C MP, CMADM #### [facility] [address] [place] [address] [address] Eddy Lindsey Chloride [Moles/Vol] 104 mmol/L Normal 98-107 [facility] Comment on above: Performed By: #### C MP, CMADM #### [facility] [address] [place] [address] [address] Eddy Lindsey CO2 [Moles/Vol] 30.7 mmol/L Normal 21.0-32.0 [facility] Comment on above: Performed By: #### C MP, CMADM #### [facility] [address] [place] [address] [address] Eddy Lindsey Creatinine [Mass/Vol] 0.74 mg/dL Normal 0.55-1.02 [facility] Comment on above: Performed By: #### C MP, CMADM #### [facility] [address] [place] [address] Dr. Eddy Lindsey EGFR-AF GEORGIAN >60 Normal >=60 [facility] Comment on above: Performed By: #### C MP, CMADM #### [facility] [address] [place] [address] [address] Eddy Lindsey EGFR-NON AF GEORGIAN >60 Normal >=60 [facility] Comment on above: Performed By: #### C MP, CMADM #### [facility] [address] [place] [address] [address] Eddy Lindsey Globulin (S) [Mass/Vol] 3.0 g/dL Normal [facility] Comment on above: Performed By: #### C MP, CMADM #### [facility] [address] [place] [address] [address] Eddy Lindsey Glucose [Mass/Vol] 107 mg/dL Critically high 74-106 [facility] Comment on above: Performed By: #### C MP, CMADM #### [facility] [address] [place] [address] [address] Eddy Lindsey Potassium [Moles/Vol] 4.1 mmol/L Normal 3.5-5.1 [facility] Comment on above: Performed By: #### C MP, CMADM #### [facility] [address] [place] [address] [address] Eddy Lindsey Protein [Mass/Vol] 6.5 g/dL Normal 6.4-8.2 [facility] Comment on above: Performed By: #### C MP, CMADM #### [facility] [address] [place] [address] [address] Eddy Lindsey Sodium [Moles/Vol] 139 mmol/L Normal 136-145 [facility] Comment on above: Performed By: #### C ALEXY, CMADM #### [facility] [address] [place] [address] Dr. Eddy Lindsey Urea nitrogen [Mass/Vol] 16.0 mg/dL Normal 7.0-18.0 [facility] Comment on above: Performed By: #### C ALEXY, CMADM #### [facility] [address] [place], [place] [address] Dr. Eddy Lindsey Urea nitrogen/Creatinine [Mass ratio] 21.6 mg/mg Normal [facility] Comment on above: Performed By: #### C ALEXY, CMADM #### [facility] [address] [place] [address] Dr. Eddy Lindsey URINE MICROSCOPIC ONLYon BACTERIA SMALL Abnormal NONE SEEN [facility] Comment on above: Performed By: #### P REGESTEVAN Ryan, ERUR #### [facility] [address] [address] [address] Eddy Lindsey Bacteria identified Cx Nom (U) INDICATED Normal [facility] Comment on above: Performed By: #### P REGU UMICRO, ERUR #### [facility] [address] [place] [address] Dr. Eddy Lindsey CAST NONE SEEN Normal NONE SEEN [facility] Comment on above: Performed By: #### P REGU, UMICRO, ERUR #### [facility] [address] [address] [address] Eddy Lindsey Crystals LM Nom (Urine sed) NONE SEEN Normal NONE SEEN [facility] Comment on above: Performed By: #### P REGU, UMICRO, ERUR #### [facility] [address] [address] [address] Edyd Lindsey Epithelial cells LM Ql (Urine sed) RARE Normal NONE SEEN /RARE [facility] Comment on above: Performed By: #### P REGU, UMICRO, ERUR #### [facility] [address] [address] [address] Eddy Lindsey MUCOUS NONE SEEN Normal NONE SEEN [facility] Comment on above: Performed By: #### P REGU, UMICRO, ERUR #### [facility] [address] [address] [address] Eddy Lindsey RBC NONE SEEN Abnormal 0-2 [facility] Comment on above: Performed By: #### P REGU, UMICRO, ERUR #### [facility] [address] [address] [address] Eddy Lindsey WBC NONE SEEN Normal NONE SEEN [facility] Comment on above: Performed By: #### P REGU, UMICRO, ERUR #### [facility] [address] [address] [address] Eddy Lindsey XR CHEST 1 Von [...] by: THERESA MCCARTHY Date: 2021-10-28 10:56 Normal [facility] CNCOon 09-06-2018 CNCO Letter Text Normal [facility] ANES Nicholas 09-02-2018 ANES POST HNO ID: [id number] Author: Ravinder Benjamin Service: Anesthesiology Author Type: [...] 02, 2018 TIME: 4:38 PM PAGER/CONTACT #: [phone] Normal [facility] Basic Metabolic Panlon 09-02 Anion gap [Moles/Vol] 11 mmol/L Normal 9-18 [facility] Comment on above: Performed By: #### C BCDIF, BMP #### [facility] [address] [place], [place] [address] Calcium [Mass/Vol] 9.9 mg/dL Normal 8.5-10.2 [facility] Comment on above: Performed By: #### C BCDIF, BMP #### [facility] [address] [place], [place] [address] Chloride [Moles/Vol] 104 mmol/L Normal 97-105 [facility] Comment on above: Performed By: #### C ALBERTA, BMP #### [facility] [address] [place] [address] CO2 [Moles/Vol] 26 mmol/L Normal 22-30 [facility] Comment on above: Performed By: #### C ALBERTA, BMP #### [address] [place] [address] Creatinine [Mass/Vol] 0.77 mg/dL Normal 0.58-0.96 [facility] Comment on above: Performed By: #### C ALBERTA, BMP #### [address] [place] [address] eGFR- Amer. >60 Normal [facility] Comment on above: Performed By: #### C JANIEF, BMP #### [address] [place] [address] GFR/1.73 sq M predicted among non-blacks MDRD (S/P/Bld) [Vol rate/Area] mL/min/{1.73_m2} Normal [facility] Comment on above: Result Comment: eGFR (Estimated [...] Performed By: #### C BCDIF, BMP #### [facility] [address] [address] Glucose [Mass/Vol] 88 mg/dL Normal 74-99 [facility] Comment on above: Result Comment: The [place] [employer] (ADA) provides guidance for cutoff [...] Standards of Medical Care in Diabetes 2016, [place] [employer]. Diabetes Care. 2016.39(Suppl 1). Performed By: #### C BCDIF, BMP #### [facility] [address] [place], [place] [address] Potassium [Moles/Vol] 4.6 mmol/L Normal 3.7-5.1 [facility] Comment on above: Result Comment: Resu lts may be falsely increased due to interference by hemolysis. Suggest reorder as clinically indicated. Performed By: #### C BCDIF, BMP #### [facility] [address] [place], [place] [address] Sodium [Moles/Vol] 141 mmol/L Normal 136-144 [facility] Comment on above: Performed By: #### C BCDIF, BMP #### [facility] [address] [place], [place] [address] Urea nitrogen [Mass/Vol] 10 mg/dL Normal 7-21 [facility] Comment on above: Performed By: #### C BCDIF, BMP #### [facility] [address] [place], [place] [address] CBC and Differentialon 09-02 Abs Baso 0.06 k/uL Normal <0.11 [facility] Comment on above: Performed By: #### C BCDIF, BMP #### [facility] [address] [place], [place] [address] Abs Gaines 0.65 k/uL Normal <0.87 [facility] Comment on above: Performed By: #### C BCDIF, BMP #### [address] [place] [phone] Abs Neut 5.30 k/uL Normal 1.45-7.50 [facility] Comment on above: Performed By: #### C BCDIF, BMP #### [place] [phone] Absolute nRBC <0.01 Normal <0.01 [facility] Comment on above: Performed By: #### C BCDIF, BMP #### [address] [place] [phone] Basophils/100 WBC (Bld) 0.7 % Normal [facility] Comment on above: Performed By: #### C BCDIF, BMP #### [place] [phone] DTYPE Auto Diff Normal [facility] Comment on above: Performed By: #### C BCDIF, BMP #### [phone] Eosinophils (Bld) [#/Vol] 0.06 10*3/uL Normal <0.46 [facility] Comment on above: Performed By: #### C BCDIF, BMP #### [address] [place] [phone] Eosinophils/100 WBC (Bld) 0.7 % Normal [facility] Comment on above: Performed By: #### C BCDIF, BMP #### [address] [address] [phone] Erythrocyte distribution width (RBC) [Ratio] 12.3 % Normal 11.5-15.0 [facility] Comment on above: Performed By: #### C BCDIF, BMP #### [address] [place] [phone] Hematocrit (Bld) [Volume fraction] 49.5 % High 36.0-46.0 [facility] Comment on above: Performed By: #### C BCDIF, BMP #### [address] [place], [place] [address] Hemoglobin (Bld) [Mass/Vol] 16.4 g/dL High 11.5-15.5 [facility] Comment on above: Performed By: #### C BCDIF, BMP #### [address] [address] Lymphocytes (Bld) [#/Vol] 2.35 10*3/uL Normal 1.00-4.00 [facility] Comment on above: Performed By: #### C BCDIF, BMP #### [address] [address] Lymphocytes/100 WBC (Bld) 27.8 % Normal [facility] Comment on above: Performed By: #### C BCDIF, BMP #### [address] [address] MCH (RBC) [Entitic mass] 32.2 pG Normal 26.0-34.0 [facility] Comment on above: Performed By: #### C BCDIF, BMP #### [address] [address] MCHC (RBC) [Mass/Vol] 33.1 g/dL Normal 30.5-36.0 [facility] Comment on above: Performed By: #### C BCDIF, BMP #### [address] [place], [place] [address] MCV (RBC) [Entitic vol] 97.2 fL Normal 80.0-100.0 [facility] Comment on above: Performed By: #### C BCDIF, BMP #### [address] [place] [id number] Monocytes/100 WBC (Bld) 7.7 % Normal [facility] Comment on above: Performed By: #### C BCLUKE, BMP #### [address] [place], [place] [address] Neutrophils/100 WBC (Bld) 63.1 % Normal [facility] Comment on above: Performed By: #### C BCLUKE, BMP #### [address] [place] [address] NRBCs 0.0 /100 WBC Normal 0 [facility] Comment on above: Performed By: #### C ALBERTA, BMP #### [address] [address] Platelet mean volume (Bld) [Entitic vol] 9.5 fL Normal 9.0-12.7 [facility] Comment on above: Performed By: #### Agusto PINZON, BMP #### [address] [address] Platelets (Bld) [#/Vol] 373 10*3/uL Normal 150-400 [facility] Comment on above: Performed By: #### C ALBERTA, BMP #### [address] [address] RBC (Bld) [#/Vol] 5.09 10*6/uL Normal 3.90-5.20 [facility] Comment on above: Performed By: #### C BCSONAF, BMP #### [address] [place] [address] WBC (Bld) [#/Vol] 8.44 10*3/uL Normal 3.70-11.00 [facility] Comment on above: Performed By: #### C BCDIF, BMP #### [address] [place] [id number] CNOVon 09-02-2018 CNOV Office Visit (PUBRON ) -- LILIYA SIDDIQUI ([id number]) 1985 F Date Time Provider Department 09/02/18 [...] CMP: No results found for this basename: GLUC,BUN,CREAT,NA,K,CHLOR, CO2,TPROT,ALB,CA,ALKPHOS,T BILI,AST,ALT SPIROMETRY WITH DILATOR IF OBSTRUCTED ([id number]) - ordered on 04/21/18 [facility] [address] [place] [address] Test Date: 2018-04-21 Pat Name: LILIYA SIDDIQUI Department: Room: Gender: Female Family Nurse: LIVE Glover : 1985 Requested By: Order Number: [id number] [place] MD: Forest Gonzalez Interpretive Statements Test no. 1 04/21/2018 11:57:35AM FVC is repeatable x 2, FEV1 x 3. ATS acceptability and repeatability standards for DLCO met. DLCO is not hemoglobin corrected. /cg IMPRESSION: Spirometry is normal. The diffusing capacity is normal. Electronically Signed On 04-21-2018 12:23:29 EST by Fellow Griselda Peters [facility] Electronically Signed On 9:29:49 EST by Forest Gonzalez [facility] [place] [facility] Pred YASMEEN ALVA Pre % Date 100163 Time 11:48AM Height 174.2 Weight 72.4 FVC 4.33 3.54 5.13 4.41 102 FEV [...] 8.36 FETPEF 0.05 VBe%FV 1.88 VBEex 0.08 DLCOSB 26.37 19.86 32.88 29.37 111 DL/VA 4.64 3.32 5.96 5.01 108 VA 5.81 4.71 6.91 5.86 101 SHANICE 4.33 3.54 5.13 4.44 102 BHT 9.92 EKG RESULTS: N/A REVIEW OF SYSTEMS GENERAL: [...] of the patient and have reviewed the PA/DECATOR OPERATOR note. 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] Preoperative examination [Z01.818] Order(s):CONSULT TO ENT [9008] Order #: [id number]: 1 FUTURE CONSULT TO GASTROENTEROLOGY [9010] Order #: [id number]: 1 FUTURE Prescriptions as of 09/02/2018 Sig: [...] Status:Closed by TREV CRU[facility]ORPUL[facility]AB H23[facility] -- ARTURLILIYA ([id number]) 1985 F Date Time Provider Department 09/02/18 GISEL PEREZ (RN) [id number] During your visit today, we recorded the [...] will need to find a responsible adult/ hammer driver Patient will return a call to the navigator if she can come in today or next week. Gisel Perez RN, RN 09/02/2018 10:11 AM Signed 09/02/2018: Navigator received call from the patient. She was able to find an adult to come with her but needed some more information to see if her hammer driver can commit to today. She will [...] patient will anticipate a call from the flap curer. 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 {Pain No Yes:25700:: No 0 on a scale of 0 [...] CMP: No results found for this basename: GLUC,BUN,CREAT,NA,K,CHLOR, CO2,TPROT,ALB,CA,ALKPHOS,T BILI,AST,ALT SPIROMETRY WITH DILATOR IF OBSTRUCTED ([id number]) - ordered on 04/21/18 [facility] [address] [place] [address] Test Date: 2018-04-21 Pat Name: LILIYA SIDDIQUI Department: Room: Gender: Female Family Nurse: LIVE Glover : 1985 Requested By: Order Number: [id number] [place] MD: Forest Gonzalez Interpretive Statements Test no. 1 04/21/2018 11:57:35AM FVC is repeatable x 2, FEV1 x 3. ATS acceptability and repeatability standards for DLCO met. DLCO is not hemoglobin corrected. /cg IMPRESSION: Spirometry is normal. The diffusing capacity is normal. Electronically Signed On 04-21-2018 12:23:29 EST by Fellow Griselda Peters [facility] Electronically Signed On 9:29:49 EST by Forest Gonzalez [facility] [place] [facility] Pred LLN ULN Pre % Date [id number] Time 11:48AM Height 174.2 Weight 72.4 FVC 4.33 3.54 5.13 4.41 102 FEV [...] 8.36 FETPEF 0.05 VBe%FV 1.88 VBEex 0.08 DLCOSB 26.37 19.86 32.88 29.37 111 DL/VA 4.64 3.32 5.96 5.01 108 VA 5.81 4.71 6.91 5.86 101 SHANICE 4.33 3.54 5.13 4.44 102 BHT 9.92 EKG RESULTS: {EKG RESULTS:07060} REVIEW OF SYSTEMS GENERAL: {ROS-GENERAL:23:: No weight loss, malaise or fevers } HEENT: {ROS - HEENT:30:: Negative for frequent or significant headaches , No changes in hearing or vision, no nose bleeds or other nasal problems } NECK: {ROS NECK:34:: Negative for lumps, goiter, pain and significant neck swelling } RESPIRATORY: {pat respiratory:37:: Negative for cough, hemoptysis, wheezing, COPD, dyspnea or shortness of breath } CARDIOVASCULAR: {ROS-CARDIAC:53:: Negative for chest pain, leg swelling, hypertension, CHF or palpitations } GI: {ROS- GI:56:: No nausea, vomiting, or diarrhea } : {ROS- :58:: No history of dysuria, frequency or incontinence } MUSCULOSKELETAL: {MUSCULOSKELETAL INTMED ROS:232:: Negative for joint pain or swelling, back pain or muscle pain } SKIN: {SKIN INT MED ROS:238:: Negative for lesions, rash, and itching } PSYCH: {PSYCHIATRIC INT MED ROS:34648:: Negative for sleep disturbance, mood disorder and recent psychosocial stressors } HEMATOLOGY/LYMPHOLOGY: {HEMATOLOGY/LYMPHATIC/IMMU NOLOGY INT MED ROS:244:: Negative for prolonged bleeding, bruising easily or swollen nodes } ENDOCRINE: {ENDOCRINE INT MED ROS:247:: Negative for cold or heat intolerance, polyuria, polydipsia and goiter } NEURO: {ROS - NEURO:900:: No history of headaches, syncope, paralysis, seizures or tremors } ECOG PERFORMANCE STATUS: {ECO} Dyspnea Score: {MRC DYSPNEA:43998} Health Screening {PUL HEALTH SCREENIN} There is [...] suspicious rashes or lesions } Head: {head:301:: Normocephalic, no masses, lesions, tenderness or abnormalities } [...] cyanosis. Good capillary refill. } Musculoskeletal: {musculoskeletal:803:: Spi ne range of motion normal. Muscular strength intact , No joint swelling, deformity, or tenderness } Peripheral pulses: {pulses:502:: Normal } Neuro: {neuro:901:: Gait normal. Reflexes normal and symmetric. Sensation grossly intact. } Impression/Plan: Please see DrWalt note below for further impression and plan [...] CMP: No results found for this basename: GLUC,BUN,CREAT,NA,K,CHLOR, CO2,TPROT,ALB,CA,ALKPHOS,T BILI,AST,ALT SPIROMETRY WITH DILATOR IF OBSTRUCTED ([id number]) - ordered on 04/21/18 [facility] [address] [place] [address] Test Date: 2018-04-21 Pat Name: LILIYA SIDDIQUI Department: Room: Gender: Female Family Nurse: LIVE Glover : 1985 Requested By: Order Number: [id number] [place] MD: Forest Gonzalez Interpretive Statements Test no. 1 04/21/2018 11:57:35AM FVC is repeatable x 2, FEV1 x 3. ATS acceptability and repeatability standards for DLCO met. DLCO is not hemoglobin corrected. /cg IMPRESSION: Spirometry is normal. The diffusing capacity is normal. Electronically Signed On 04-21-2018 12:23:29 EST by Fellow Griselda Peters [facility] Electronically Signed On 9:29:49 EST by Forest Gonzalez [facility] [place] [facility] Pred YASMEEN ALVA Pre % Date 008450 Time 11:48AM Height 174.2 Weight 72.4 FVC 4.33 3.54 5.13 4.41 102 FEV [...] 8.36 FETPEF 0.05 VBe%FV 1.88 VBEex 0.08 DLCOSB 26.37 19.86 32.88 29.37 111 DL/VA 4.64 3.32 5.96 5.01 108 VA 5.81 4.71 6.91 5.86 101 SHANICE 4.33 3.54 5.13 4.44 102 BHT 9.92 EKG RESULTS: N/A REVIEW OF SYSTEMS GENERAL: [...] September 02, 2018, 1:59 PM Progress Notes (HOSP [facility] H23): Gisel Perez RN, RN 09/02/2018 [...] will need to find a responsible adult/ hammer driver Patient will return a call to the navigator if she can come in today or next week. Gisel Perez RN, RN 09/02/2018 10:11 AM Signed 09/02/2018: Navigator received call from the patient. She was able to find an adult to come with her but needed some more information to see if her hammer driver can commit to today. She will [...] patient will anticipate a call from the flap curer. Normal [facility] PROGRESSon 09-02-2018 PROGRESS HNO ID: [id number] Author: Trev Cruz Service: ? Author Type: [...] CMP: No results found for this basename: GLUC,BUN,CREAT,NA,K,CHLOR, CO2,TPROT,ALB,CA,ALKPHOS,T BILI,AST,ALT SPIROMETRY WITH DILATOR IF OBSTRUCTED ([id number]) - ordered on 04/21/18 [facility] [address] [place] [address] Test Date: 2018-04-21 Pat Name: LILIYA SIDDIQUI Department: Room: Gender: Female Family Nurse: LIVE Glover : 1985 Requested By: Order Number: [id number] [place] MD: Forest Gonzalez Interpretive Statements Test no. 1 04/21/2018 11:57:35AM FVC is repeatable x 2, FEV1 x 3. ATS acceptability and repeatability standards for DLCO met. DLCO is not hemoglobin corrected. /cg IMPRESSION: Spirometry is normal. The diffusing capacity is normal. Electronically Signed On 04-21-2018 12:23:29 EST by Fellow Griselda Peters [facility] Electronically Signed On 9:29:49 EST by Forest Gonzalez [facility] [place] [facility] Pred LLN ULN Pre % Date 202037 Time 11:48AM Height 174.2 Weight 72.4 FVC 4.33 3.54 5.13 4.41 102 FEV [...] 8.36 FETPEF 0.05 VBe%FV 1.88 VBEex 0.08 DLCOSB 26.37 19.86 32.88 29.37 111 DL/VA 4.64 3.32 5.96 5.01 108 VA 5.81 4.71 6.91 5.86 101 SHANICE 4.33 3.54 5.13 4.44 102 BHT 9.92 EKG RESULTS: N/A REVIEW OF SYSTEMS GENERAL: [...] of the patient and have reviewed the PA/DECATOR OPERATOR note. My fowler findings include: History as [...] AM CC: MD Travis Licea MD, PhD [facility] [place] PROGRESS HNO ID: [id number] Author: Travis Castro Service: ? Author Type: [...] was 25 minutes. Travis Castro MD, PhD [facility] [place] PT EDon 09-02-2018 PT ED HNO ID: [id number] Author: Jossie Larkin RN Service: Nursing Author [...] By: Jossie Larkin RN In Department: ADMITTING [facility] [place] CNOVon 09-01-2018 CNOV Office Visit (THORMN ) -- LILIYA SIDDIQUI ([id number]) 1985 F Date Time Provider Department 09/01/18 3:20 PM TRAVIS CASTRO During your visit today, we recorded the following information about you: Temperature Pulse Blood pressure Weight 98.2 degrees 111/minute 118/82 71 kg Height 1.803 m Travis Castro MD, PhD 09/02/2018 6:31 AM Unsigned Board Lining Machine Operator [place] [address] [place] DEPART[place] OF THORACIC AND CARDIOVASCULAR SURGERY NAME: LILIYA SIDDIQUI CLINIC #: [id number] DATE: AGE: 33 PHYSICIAN: Travis Castro M.D., [...] warrant invasive assessment. Travis Castro M.D., Ph.D. :[id number] /[id number] cc: Virgilio Diallo RN, RN 09/02/2018 10:38 [...] was 25 minutes. Travis Castro MD, PhD Board Lining Machine Operator: Transcribed Clinic Note (annie) ID: [id number] 09/01/2018 6:43 PM Author: TRAVIS CASTRO * * * This document has not been signed * * * * * * DRAFT COPY. THIS DOCUMENT IS NOT AVAILABLE FOR PATIENT CARE * * * Document text: [facility] [address] [place] [address] [place] DEPARTMENT OF THORACIC AND CARDIOVASCULAR SURGERY NAME: LILIYA SIDDIQUI [facility] #: [id number] DATE: AGE: 33 PHYSICIAN: Travis Castro M.D., [...] warrant invasive assessment. Travis Castro M.D., Ph.D. SM:[id number] /[id number] cc: Display document [id number] only Referring Provider: TRAVIS CASTRO [[id number]] Allergies As of Date: 09/01/2018 Noted Allergy Reaction MORPHINE 04/21/2018 5 - Intolerance Date Reviewed: 09/01/2018 Reviewed by: Dameon Alarcon - Fully Assessed Reason for Visit: Established Patient [175] Visit Diagnoses:Hemoptysis [R04.2] Lung nodules [R91.8] Order(s):CT CHEST WO IVCON [9529632] Order #: [id number] FUTURE CONSULT TO PULM/CRITICAL CARE [19990529] Order #: [id number]: 1 Prescriptions as of 09/01/2018 Sig: PREGABALIN [...] and Disposition History Recorded Encounter Status:Closed by TRAVIS CASTRO MD PHD on 09/02/18 [facility] [place] CT CHEST WO IVCONon 09-02-19 CT CHEST WO IVCON * * *Final Report* * * DATE OF EXAM: Sep 01 2018 2:37PM [facility] [place] CHEST WO IVCON / [...] 01/05/2018 and 02/01/2017 and is likely post infectious/inflammatory. Attention on follow-up exam is recommended. No new or enlarging suspicious pulmonary nodules. 2. No thoracic lymphadenopathy. Supervisor Lens Generating: PSCKris Transcribe Date/Time: Sep 01 2018 5:14P Dictated by : WENDI HUERTA MD This examination was interpreted and the report reviewed and electronically signed by: WENDI HUERTA MD on Sep 01 2018 5:35PM EST [id number] Normal [facility] PROGRESSon 09-01-2018 PROGRESS HNO ID: [id number] Author: Virgilio Constantino) KENNY Diallo Service: ? [...] notes for risk assessment. Virgilio Diallo RN [facility] [place] PROGRESS HNO ID: [id number] Author: Niharika (Kellen) BENIGNO Plata Service: Radiology Author Type: Clinical Family Nurse Type: Progress Notes Filed: 09/01/2018 2:34 PM [...] IV DATA: Not applicable SIGNED BY: RT Meir(Alberto)(CT) September 01, 2018 2:34 PM [facility] [place] PROGRESS HNO ID: [id number] Author: Travis Castro Service: Thoracic Surgery Author Type: Physician Type: Progress Notes Filed: 07/10/2019 2:39 PM Note Text: [place] [address] [place] DEPART[place] OF THORACIC AND CARDIOVASCULAR SURGERY NAME: LILIYA SIDDIQUI [facility] #: [id number] DATE: AGE: 33 PHYSICIAN: Travis Castro M.D., [...] warrant invasive assessment. Travis Castro M.D., Ph.D. SM:[id number] /[id number] cc: Normal [facility] Vital Signs Date Time Vital Sign Value Performing Clinician Facility 11-06-2024 11:25-0400 Diastolic blood pressure 63 mm[Hg] Baldomero Hudson MD Work Phone: [facility] 11-06-2024 11:25-0400 Heart rate 65 /min Baldomero Hudson MD Work Phone: [facility] 11-06-2024 11:25-0400 Respiratory rate 16 /min Baldomero Hudson MD Work Phone: [facility] 11-06-2024 11:25-0400 SaO2% (BldA) [Mass fraction] 99 % Baldomero Hudson MD Work Phone: [facility] 11-06-2024 11:25-0400 Systolic blood pressure 96 mm[Hg] Baldomero Hudson MD Work Phone: [facility] 11-06-2024 08:50-0400 Body height 180.34 cm Baldomero Hudson MD Work Phone: [facility] 11-06-2024 08:50-0400 Body weight 77.11 kg Baldomero Hudson MD Work Phone: [facility] 10-30-2024 10:25-0400 Body temperature 98.3 [degF] Baldomero Hudson MD Work Phone: [facility] 10-30-2024 10:25-0400 Diastolic blood pressure 68 mm[Hg] Baldomero Hudson MD Work Phone: [facility] 10-30-2024 10:25-0400 Heart rate 75 /min Baldomero Hudson MD Work Phone: [facility] 10-30-2024 10:25-0400 Respiratory rate 18 /min Baldomero Hudson MD Work Phone: [facility] 10-30-2024 10:25-0400 SaO2% (BldA) [Mass fraction] 99 % Baldomero Hudson MD Work Phone: [facility] 10-30-2024 10:25-0400 Systolic blood pressure 111 mm[Hg] Baldomero Hudson MD Work Phone: [facility] 10-30-2024 09:01-0400 Diastolic blood pressure 69 mm[Hg] Baldomero Hudson MD Work Phone: [facility] 10-30-2024 09:01-0400 Heart rate 70 /min Baldomero Hudson MD Work Phone: [facility] 10-30-2024 09:01-0400 SaO2% (BldA) [Mass fraction] 98 % Baldomero Hudson MD Work Phone: [facility] 10-30-2024 09:01-0400 Systolic blood pressure 110 mm[Hg] Baldomero Hudson MD Work Phone: [facility] 10-30-2024 08:03-0400 Body temperature 98.5 [degF] Baldomero Hudson MD Work Phone: [facility] 10-30-2024 08:03-0400 Respiratory rate 18 /min Baldomero Hudson MD Work Phone: [facility] 10-30-2024 07:23-0400 Body height 180.34 cm Baldomero Hudson MD Work Phone: [facility] 10-30-2024 07:23-0400 Body weight 76 kg Baldomero Hudson MD Work Phone: [facility] 09-14-2024 12:30-0400 Body height 181.6 cm Lori Shafferi RECREATION THERAPY DIRECTOR Work Phone: [facility] 09-14-2024 12:30-0400 Body mass index (BMI) [Ratio] 22.69 kg/m2 Lori Dasiani RECREATION THERAPY DIRECTOR Work Phone: [facility] 09-14-2024 12:30-0400 Body weight 74.84 kg Lori Dasiani RECREATION THERAPY DIRECTOR Work Phone: [facility] 09-14-2024 12:30-0400 Diastolic blood pressure 80 mm[Hg] Lori Rashidiani RECREATION THERAPY DIRECTOR Work Phone: [facility] 09-14-2024 12:30-0400 Systolic blood pressure 122 mm[Hg] Lori Rashidiani RECREATION THERAPY DIRECTOR Work Phone: [facility] 05-11-2024 11:00-0500 Body height 180.3 cm Lori Shafferi RECREATION THERAPY DIRECTOR Work Phone: [facility] 05-11-2024 11:00-0500 Body mass index (BMI) [Ratio] 22.32 kg/m2 Lori Amado RECREATION THERAPY DIRECTOR Work Phone: [facility] 05-11-2024 11:00-0500 Body weight 72.58 kg Lori Amado RECREATION THERAPY DIRECTOR Work Phone: [facility] 03-09-2024 14:43-0500 Body height 180.3 cm Lori Amado RECREATION THERAPY DIRECTOR Work Phone: [facility] 03-09-2024 14:43-0500 Body mass index (BMI) [Ratio] 23.01 kg/m2 Lori Amado RECREATION THERAPY DIRECTOR Work Phone: [facility] 03-09-2024 14:43-0500 Body weight 74.84 kg Lori Amado RECREATION THERAPY DIRECTOR Work Phone: [facility] 02-10-2024 14:11-0500 Body height 180.3 cm Stuart Lewis MD Work Phone: [facility] 02-10-2024 14:11-0500 Body mass index (BMI) [Ratio] 22.32 kg/m2 Stuart Lewis MD Work Phone: [facility] 02-10-2024 14:11-0500 Body weight 72.58 kg Stuart Lewis MD Work Phone: [facility] 12-16-2023 15:25-0400 Body height 180.3 cm Stuart Lewis MD Work Phone: [facility] 12-16-2023 15:25-0400 Body mass index (BMI) [Ratio] 22.59 kg/m2 Stuart Lewis MD Work Phone: [facility] 12-16-2023 15:25-0400 Body weight 73.48 kg Stuart Lewis MD Work Phone: [facility] 10-22-2023 18:14-0400 Diastolic blood pressure 89 mm[Hg] David Kinseye [facility] 10-22-2023 18:14-0400 Heart rate 78 /min David Kinseye [facility] 10-22-2023 18:14-0400 Hourly Rounding David Kinseye [facility] 10-22-2023 18:14-0400 Mean blood pressure 104 mm[Hg] David Marium [facility] 10-22-2023 18:14-0400 Respiratory rate 16 /min David Marium [facility] 10-22-2023 18:14-0400 SaO2% (BldA) [Mass fraction] 97 % David Marium [facility] 10-22-2023 18:14-0400 Systolic blood pressure 134 mm[Hg] David Marium [facility] 10-22-2023 17:30-0400 Diastolic blood pressure 81 mm[Hg] David Marium [facility] 10-22-2023 17:30-0400 Heart rate 77 /min David Kinseye [facility] 10-22-2023 17:30-0400 Mean blood pressure 97 mm[Hg] David Kinseye [facility] 10-22-2023 17:30-0400 Respiratory rate 18 /min David Marium [facility] 10-22-2023 17:30-0400 SaO2% (BldA) [Mass fraction] 99 % David Marium [facility] 10-22-2023 17:30-0400 Systolic blood pressure 128 mm[Hg] David Marium [facility] 10-22-2023 16:48-0400 Diastolic blood pressure 78 mm[Hg] David Causey [facility] 10-22-2023 16:48-0400 Heart rate 85 /min David Causey [facility] 10-22-2023 16:48-0400 Hourly Rounding David Causey [facility] 10-22-2023 16:48-0400 Mean blood pressure 92 mm[Hg] aDvid Causey [facility] 10-22-2023 16:48-0400 Respiratory rate 18 /min David Causey [facility] 10-22-2023 16:48-0400 SaO2% (BldA) [Mass fraction] 99 % David Causey [facility] 10-22-2023 16:48-0400 Systolic blood pressure 121 mm[Hg] David Causey [facility] 10-22-2023 15:44-0400 Hourly Rounding David Causey [facility] 10-22-2023 15:27-0400 Body temperature 97.88 [degF] David Causey [facility] 10-22-2023 15:27-0400 Heart rate 104 /min David Causey [facility] 06-13-2023 14:30-0400 Diastolic blood pressure 71 mm[Hg] Brandon Strauss [facility] 06-13-2023 14:30-0400 Heart rate 83 /min Brandon Carlos A [facility] 06-13-2023 14:30-0400 Mean blood pressure 84 mm[Hg] Brandon Strauss [facility] 06-13-2023 14:30-0400 Respiratory rate 17 /min Brandon Carlos A [facility] 06-13-2023 14:30-0400 SaO2% (BldA) [Mass fraction] 99 % Brandon Carlos A [facility] 06-13-2023 14:30-0400 Systolic blood pressure 111 mm[Hg] Brandon Carlos A [facility] 06-13-2023 14:00-0400 Diastolic blood pressure 80 mm[Hg] Brandon Carlos A [facility] 06-13-2023 14:00-0400 Heart rate 85 /min Brandon Carlos A [facility] 06-13-2023 14:00-0400 Mean blood pressure 92 mm[Hg] Brandon Carlos A [facility] 06-13-2023 14:00-0400 Respiratory rate 18 /min Brandon Carlos A [facility] 06-13-2023 14:00-0400 Systolic blood pressure 116 mm[Hg] Brandon Carlos A [facility] 06-13-2023 13:30-0400 Diastolic blood pressure 69 mm[Hg] Brandon Carlos A [facility] 06-13-2023 13:30-0400 Heart rate 95 /min Brandon Carlos A [facility] 06-13-2023 13:30-0400 Mean blood pressure 84 mm[Hg] Brandon Carlos A [facility] 06-13-2023 13:30-0400 Respiratory rate 16 /min Brandon Carlos A [facility] 06-13-2023 13:30-0400 SaO2% (BldA) [Mass fraction] 100 % Brandon Carlos A [facility] 06-13-2023 13:30-0400 Systolic blood pressure 115 mm[Hg] Brandon Strauss [facility] 06-13-2023 13:05-0400 Body temperature 98.42 [degF] Brandon Strauss [facility] 06-13-2023 13:05-0400 Heart rate 97 /min Brandon Strauss [facility] Encounters Encounter Date Encounter Type Care Provider Facility Start: 11-06-2024 End: 11-06-2024 ambulatory Marianela L Ly Facility:[facility] Start: 11-06-2024 Non-patient / Non-visit Marianela L Ly [facility] Work Phone: Start: 11-01-2024 End: 11-01-2024 Emergency department patient visit Juan Miguel Daviswade Facility:[facility] Start: 10-30-2024 End: 10-30-2024 Emergency department patient visit David Causey Facility:[facility] Start: 10-30-2024 End: 10-30-2024 Emergency department patient visit Baldomero Hudson MD Work Phone: -Emergency Room Work Phone: Start: 09-14-2024 End: 09-14-2024 Bamboo flowsheet Lori Amado RECREATION THERAPY DIRECTOR Work Phone: [facility] Start: 09-14-2024 End: 09-14-2024 Bamboo flowsheet Lori Amado RECREATION THERAPY DIRECTOR Work Phone: [facility] Start: 09-14-2024 End: 09-14-2024 Patient encounter procedure Lori Amado RECREATION THERAPY DIRECTOR Work Phone: [facility] Comment on above: Cervical dystonia (P rimary Dx) Start: 09-14-2024 End: 09-14-2024 ambulatory LORI AMADO Not Available Start: 08-08-2024 ambulatory Baldomero Hudson Facility: [facility] Start: 08-08-2024 Registered Recurring Clover Khan MD -[facility] Start: 05-11-2024 End: 05-11-2024 Bamboo flowsheet Lori Werner Dasperla RECREATION THERAPY DIRECTOR Work Phone: [facility] Start: 05-11-2024 End: 05-11-2024 Bamboo flowsheet Lori Werner Elvira RECREATION THERAPY DIRECTOR Work Phone: [facility] Start: 05-11-2024 End: 05-11-2024 Patient encounter procedure Lori Werner Dasperla RECREATION THERAPY DIRECTOR Work Phone: [facility] Comment on above: Cervical dystonia (P rimary Dx) Start: 05-11-2024 End: 05-11-2024 ambulatory LORI Werner DASPERLA Not Available Start: 03-09-2024 End: 03-09-2024 Office outpatient visit 25 minutes Lori Werner Elvira RECREATION THERAPY DIRECTOR Work Phone: [facility] Comment on above: Cervical dystonia (P rimary Dx) Start: 03-09-2024 End: 03-09-2024 ambulatory LORI Werner SHAFFERNkechi Not Available Start: 03-09-2024 End: 03-09-2024 Bamboo flowsheet Lori Werner Amado RECREATION THERAPY DIRECTOR Work Phone: [facility] Start: 03-09-2024 End: 03-09-2024 Bamboo flowsheet Lori Werner Elvira RECREATION THERAPY DIRECTOR Work Phone: [facility] Start: 02-10-2024 End: 02-10-2024 Bamboo flowsheet Stuart Lewis MD Work Phone: [facility] Start: 02-10-2024 End: 02-10-2024 Bamboo flowsheet Stuart Lewis MD Work Phone: [facility] Start: 02-10-2024 End: 02-10-2024 Office outpatient visit 25 minutes Stuart Lewis MD Work Phone: [facility] Comment on above: Acute lumbar radicul opathy; Idiopathic progressive neuropathy; Fibromyalgia Start: 02-10-2024 End: 02-10-2024 ambulatory STUART LEWIS Not Available Start: 02-08-2024 End: 02-08-2024 ambulatory STUART LEWIS Not Available Start: 01-18-2024 End: 01-18-2024 Telephone encounter Bibi Liv Rebolledo Other Phone: [facility] Start: 12-16-2023 End: 12-16-2023 Office outpatient visit 25 minutes Stuart Lewis MD Work Phone: [facility] Comment on above: Cervical paraspinal muscle spasm (Primary Dx); Acute lumbar radiculopathy; Idiopathic progressive neuropathy; Fibromyalgia; Claustrophobia ([facility]/HCC) Start: 12-16-2023 End: 12-16-2023 ambulatory STUART LEWIS Not Available Start: 12-16-2023 End: 12-16-2023 Bamboo flowsheet Stuart Lewis MD Work Phone: [facility] Start: 12-16-2023 End: 12-16-2023 Bamboo flowsheet Stuart Lewis MD Work Phone: [facility] Start: 10-22-2023 End: 10-22-2023 Emergency department patient visit David Causey [facility] Start: 06-13-2023 End: 06-13-2023 Emergency department patient visit Brandon Strauss [facility] Start: 06-12-2022 End: 06-13-[address] BALDOMERO HUDSON . Facility:[facility] Start: 03-22-2022 End: 03-22-[address] BALDOMERO HUDSON . Facility:[facility] Start: 03-21-2022 End: 03-22-[address] JORGE ALBERTO GARCIA Facility:[facility] Start: 02-26-2022 End: 02-27-[address] BALDOMERO HUDSON . Facility:[facility] Start: 01-17-2022 End: 01-18-[address] BALDOMERO HUDSON . Facility:[facility] Start: 01-03-2022 End: 01-04-[address] BALDOMERO HUDSON . Facility:[facility] Start: 11-12-2021 End: 11-13-[address] BALDOMERO HUDSON . Facility:[facility] Start: 10-29-2021 End: 10-30-[address] BALDOMERO HUDSON . Facility:[facility] Start: 10-28-2021 End: 10-28-[address] BALDOMERO HUDSON . Facility: Procedures Date Procedure Procedure Detail Performing Clinician Start: 10-30-2024 Urine culture Baldomero perrin MD Work Phone: Start: 10-30-2024 CT of abdomen and pe lvis without contrast Baldomero Hudson MD Work Phone: Start: 01-11-2020 Umbilical hernioplasty Brandon Strauss Comment on above: robotic assisted Plan of Treatment Date Care Activity Detail Author Start: 12-28-2024 End: 12-28-2024 Patient encounter procedure 12/28/2024 11:00 AM EDT Procedure Visit [facility] [address] [facility] [address] [place] [address] Lori Amado, RECREATION THERAPY DIRECTOR [address] [place] [address] [place] [id number] [facility] Start: 11-20-2024 Influenza vaccination Influenz a Vaccine (Season Ended) [facility] Start: 11-06-2024 [facility] Start: 10-30-2024 Bacteria identified in Urine by Culture Urine Culture [facility] Start: 10-30-2024 Urine culture [facility] Start: 09-18-2024 Influenza vaccination Influenza Vacc ine (#1) [facility] Comment on above: Postponed from 11/20 (Patient Refused) Start: 09-14-2024 End: 09-14-2024 Patient encounter procedure 09/14/2024 12:30 PM EDT Procedure Visit [facility] [address] [place] [id number] Lori Amado, RECREATION THERAPY DIRECTOR [address] [place] [place] [address], [place] [address] Arrived [facility] Comment on above: Arrived Start: 08-24-2024 End: 08-24-2024 Patient encounter procedure 08/24/2024 11:00 AM EDT Procedure Visit [facility] [address] [place] [address] Lori Amado, RECREATION THERAPY DIRECTOR [address] [place] [place] [address], [place] [address] [facility] Start: 06-27-2024 End: 06-27-2024 Telemedicine consultation with patient 06/27/2024 4:00 PM EDT Telemedicine [facility] [address] [facility] [address] [place] [address], [place] [address] Lori Amado, RECREATION THERAPY DIRECTOR [address] [place] [place] [address], [place] [address] [facility] [address] Start: 05-11-2024 End: 05-11-2024 Patient encounter procedure 05/11/2024 11:00 AM EST Procedure Visit [facility] [address] [place] [address] Lori Amado, RECREATION THERAPY DIRECTOR [address] [place] [address], [place] [address] Arrived [facility] Comment on above: Arrived Start: 05-05-2024 End: 05-05-2024 Patient encounter procedure 05/05/2024 11:00 AM EST Procedure Visit [facility] [address] [place] [phone] Lori Amado, RECREATION THERAPY DIRECTOR [address] [address] [facility] Start: 03-09-2024 End: 03-09-2024 Patient encounter procedure [facility] Comment on above: Arrived Start: 02-10-2024 End: 02-10-2024 Patient encounter procedure [facility] Comment on above: Arrived Start: 2024 Screening for malign ant neoplasm of breast Mammogram [facility] Start: 12-16-2023 End: 12-16-2023 Patient encounter procedure 12/16/2023 3:30 PM EDT Office Visit [facility] [address] [facility] [address] [place] [address] Stuart Lewis MD [address], [place] [id number] Arrived [facility] Comment on above: Arrived Start: 12-16-2023 End: 12-15-2024 MR Lumbar spine WO contrast MR lumbar spine wo contrast Imaging Routine Acute lumbar radiculopathy Expected: 12/16/2023, Expires: 12/15/2024 [facility] Work Phone: Comment on above: Expected: 12/16/2023 , Expires: 12/15/2024 Start: 11-21-2023 Influenza vaccination Influenza Vacc ine (#1) [facility] Start: 01-27-2014 Screening for malign ant neoplasm of cervix [facility] Start: 01-27-2005 Screening for malign ant neoplasm of cervix Pap Smear [facility] Patient Education [facility] Work Phone: Patient referral [facility] Work Phone: Payers Date Payer Category Payer Managed Care HMO (unspecified) [employer] [id number] 2023 Private Health Insurance [id number] 2022 Self-pay 2022 Medicaid [id number] 2022 Medicaid [id number] 1984 Unknown [id number] 2.16.840.1.435446.3.579. 2.593 1984 Unknown [id number] 2.16.840.1.560695.3.579. 2.593 1984 Unknown [id number] 2.16.840.1.323213.3.579. 2.593 1984 Unknown [id number] 2.16.840.1.452926.3.579. 2.593 1984 Unknown [id number] 2.16.840.1.911739.3.579. 2.593 1984 Unknown [id number] 2.16.840.1.938614.3.579. 2.593 1984 Unknown [id number] 2.16.840.1.837723.3.579. 2.593 1984 Unknown [id number] 2.16.840.1.228180.3.579. 2.593 1984 Unknown [id number] 2.16.840.1.626904.3.579. 2.593 1984 Unknown [id number] 2.16.840.1.869448.3.579. 2.1259 1984 Unknown [id number] 2.16.840.1.264689.3.579. 2.1259 1984 Unknown [id number] 2.16.840.1.568957.3.579. 2.9 1984 Unknown [id number] 2.16.840.1.116246.3.579. 2.9 1984 Unknown [id number] 2.16.840.1.315121.3.579. 2.1258 1984 Unknown [id number] 2.16840.1.495150.3.579. 2.1258 1984 Unknown [id number] 2.840.1.050508.3.579. 2.1258 1984 Unknown [id number] 2.840.1.718653.3.579. 2. 1984 Unknown [id number] 2.840.1.955092.3.579. 2. 1984 Unknown [id number] 2.840.1.570286.3.579. 2. 1984 Unknown [id number] 2.840.1.113952.3.579. 2.727 1959 Unknown [id number] Unknown [place] BC/BS [id number] Unknown [place] Advantage [id number] Unknown HCAP/HFA/FAP Active [id number] Unknown [id number] 2.840.1.551113.3.579. 2.531 Unknown [id number] 2.16840.1.409424.3.579. 2.531 Unknown [id number] 2.840.1.781517.3.579. 2.531 Social History Date Type Detail Facility Tobacco Former smoker [facility] Comment on above: denies Tobacco smoking status No Smoking Status Entered [facility] Start: 08-05-2023 End: 09-14-2024 Sex Assigned At Female [facility] Start: 08-05-2023 End: 11-06-2024 Tobacco smoking status NHIS Ex-smoker [facility] History of tobacco use Current smoker [facility] History of tobacco use Cigarette Smoker [facility] Start: 08-05-2023 Tobacco use and exposure Smokeless tobacco non-user [facility] Start: 08-05-2023 End: 09-14-2024 Alcoholic beverage intake Ex-drinker (finding) [facility] Start: 08-05-2023 End: 09-14-2024 History of Social function [facility] Start: 1985 Sex assigned at Not on file [facility] Sex Female (finding) [facility] Start: 1985 Sex Assigned At Female [facility] NEGATED: Highlighted row Not [facility] Medical Equipment Procedure Code Equipment Code Equipment Origin al Text Equipment Identifier Dates HERNIA REPAIR, R OBOT ASSISTED Cal PHAN MD 01/11/20 Non Biological Abdomen {[id number] FDA Start: 01-11-2020 Functional Status Date Assessment Result Facility 10-22-2023 Functional Status N/A [facility] 06-13-2023 Functional Status N/A [facility] Clinical Notes 02-26-2022 to 11-01-2024 Lori Amado NP - 09/14/2024 12:30 PM Maxim Amado NP - 05/11/2024 11:00 AM Mason Amado NP - 03/09/2024 2:30 PM Zachariah Lewis MD - 02/10/2024 2:00 PM EST Note Date & Type Note Facility 11-01-2024 Note ED Patient Education Note Gastroenterology Colitis Colitis is a condition in which the colon is inflamed. It can cause diarrhea, blood in the stool, and abdominal pain. Colitis can last a short time (be acute), or it may last a long time (become chronic). What are the causes? This condition may be caused by: ??? Infections from viruses or bacteria. ??? A reaction to medicine. ??? Certain autoimmune diseases, such as Crohn's disease or ulcerative colitis. ??? Radiation treatment. ??? Decreased blood flow to the bowel (ischemia). What are the signs or symptoms? Symptoms of this condition include: ??? Diarrhea, blood in the stool, or black, tarry stool. ??? Pain in the joints or abdominal pain. ??? Fever or fatigue. ??? Vomiting. ??? Weight loss. ??? Bloating. ??? Having fewer bowel movements than usual. ??? A strong and sudden urge to have a bowel movement. ??? Feeling like the bowel is not empty after a bowel movement. How is this diagnosed? This condition may be diagnosed based on a stool test and a blood test. You may also have other tests, such as: ??? X-rays. ??? CT scan. ??? Colonoscopy. ??? Endoscopy. ??? Biopsy. How is this treated? Treatment for this condition depends on the cause. This condition may be treated with: ??? Steps to rest the bowel, such as not eating or drinking for a period of time. ??? Fluids that are given through an IV. ??? Medicine for pain and diarrhea. ??? Antibiotic medicines. ??? Cortisone medicines. ??? Surgery. Follow these instructions at home: Eating and drinking ??? Follow instructions from your health care provider about eating or drinking restrictions. ??? Drink enough fluid to keep your urine pale yellow. ??? Work with a dietitian to determine whether certain foods cause your condition to flare up. ??? Avoid foods or drinks that cause flare-ups. ??? Eat a well-balanced diet. General instructions ??? If you were prescribed an antibiotic medicine, take it as told by your health care provider. Do not stop taking the antibiotic even if you start to feel better. ??? Take esbr-zml-eihxeiz and prescription medicines only as told by your health care provider. ??? Keep all follow-up visits. This is important. Contact a health care provider if: ??? Your symptoms do not go away. ??? You develop new symptoms. Get help right away if: ??? You have a fever that does not go away with treatment. ??? You develop chills. ??? You have extreme weakness, fainting, or dehydration. ??? You vomit repeatedly. ??? You develop severe pain in your abdomen. ??? You pass bloody or tarry stool. Summary ??? Colitis is a condition in which the colon is inflamed. Colitis can last a short time (be acute), or it may last a long time (become chronic). ??? Treatment for this condition depends on the cause and may include resting the bowel, taking medicines, or having surgery. ??? If you were prescribed an antibiotic medicine, take it as told by your health care provider. Do not stop taking the antibiotic even if you start to feel better. ??? Get help right away if you develop severe pain in your abdomen. ??? Keep all follow-up visits. This is important. This information is not intended to replace advice given to you by your health care provider. Make sure you discuss any questions you have with your health care provider. Document Revised: 11/12/2020 Document Reviewed: 11/12/2020 [employer] Patient Education ? 2023 [employer]. [facility] 10-30-2024 Note ED Patient Education Note Gastroenterology Abdominal Pain, Adult Many things can cause belly (abdominal) pain. In most cases, belly pain is not a serious problem and can be watched and treated at home. But in some cases, it can be serious. Your doctor will try to find the cause of your belly pain. Follow these instructions at home: Medicines ??? Take diuk-kui-lbpsmte and prescription medicines only as told by your doctor. ??? Do not take medicines that help you poop (laxatives) unless told by your doctor. General instructions ??? Watch your belly pain for any changes. Tell your doctor if the pain gets worse. ??? Drink enough fluid to keep your pee (urine) pale yellow. Contact a doctor if: ??? Your belly pain changes or gets worse. ??? You have very bad cramping or bloating in your belly. ??? You vomit. ??? Your pain gets worse with meals, after eating, or with certain foods. ??? You have trouble pooping or have watery poop for more than 2?3 days. ??? You are not hungry, or you lose weight without trying. ??? You have signs of not getting enough fluid or water (dehydration). These may include: ? Dark pee, very little pee, or no pee. ? Cracked lips or dry mouth. ? Feeling sleepy or weak. ??? You have pain when you pee or poop. ??? Your belly pain wakes you up at night. ??? You have blood in your pee. ??? You have a fever. Get help right away if: ??? You cannot stop vomiting. ??? Your pain is only in one part of your belly, like on the right side. ??? You have bloody or black poop, or poop that looks like tar. ??? You have trouble breathing. ??? You have chest pain. These symptoms may be an emergency. Get help right away. Call 911. ??? Do not wait to see if the symptoms will go away. ??? Do not drive yourself to the hospital. This information is not intended to replace advice given to you by your health care provider. Make sure you discuss any questions you have with your health care provider. Document Revised: 12/23/2022 Document Reviewed: 12/23/2022 [employer] Patient Education ? 2023 [employer] Orthopedics Pain Without a Known Cause Pain can occur in any part of the body and can range from mild to severe. Sometimes no cause can be found for pain. Some common types of pain that can occur without a known cause include: ??? Headache. ??? Back pain. ??? Abdominal pain. ??? Neck pain. Your health care provider may do tests to try to find the cause of your pain. If no cause is found, your health care provider will treat you for pain without a known cause. In some cases, your health care provider may do more tests, repeat tests that have already been done, and look further for a possible cause. Follow these instructions at home: Medicines ??? Take ctrt-npq-bmhexjr and prescription medicines only as told by your health care provider. ??? Ask your health care provider if the medicine prescribed to you: ? Requires you to avoid driving or using machinery. ? Can cause constipation. You may need to take these actions to prevent or treat constipation: ? Drink enough fluid to keep your urine pale yellow. ? Take bhqg-nkg-avphvyl or prescription medicines. ? Eat foods that are high in fiber, such as beans, whole grains, and fresh fruits and vegetables. ? Limit foods that are high in fat and processed sugars, such as fried and sweet foods. Managing pain, stiffness, and swelling ??? If directed, put ice on the painful area. To do this: ? Put ice in a plastic bag. ? Place a towel between your skin and the bag. ? Leave the ice on for 20 minutes, 2?3 times a day. ? Remove the ice if your skin turns bright red. This is very important. If you cannot feel pain, heat, or cold, you have a greater risk of damage to the area. ??? If directed, apply heat to the affected area. Use the heat source that your health care provider recommends, such as a moist heat pack or a heating pad. ? Place a towel between your skin and the heat source. ? Leave the heat on for 20?30 minutes. ? Remove the heat if your skin turns bright red. This is especially important if you are unable to feel pain, heat, or cold. You may have a greater risk of getting burned. General instructions ??? Stop any activities that cause pain. Rest as told by your health care provider during periods of severe pain. ??? Return to your normal activities as told by your health care provider. Ask your health care provider what activities are safe for you. ??? Exercise regularly. ??? Reduce your stress with activities such as yoga or meditation. Talk with your health care provider about other ways to reduce stress. ??? Eat a balanced diet that includes fruits and vegetables, whole grains, lean meat, and low-fat dairy. Talk with your health care provider if you have any questions about your d (more content not included)... [facility] 10-30-2024 Note ED Patient Education Note Gastroenterology Abdominal Pain, Adult Many things can cause belly (abdominal) pain. In most cases, belly pain is not a serious problem and can be watched and treated at home. But in some cases, it can be serious. Your doctor will try to find the cause of your belly pain. Follow these instructions at home: Medicines ??? Take mrjv-lgs-nextkqr and prescription medicines only as told by your doctor. ??? Do not take medicines that help you poop (laxatives) unless told by your doctor. General instructions ??? Watch your belly pain for any changes. Tell your doctor if the pain gets worse. ??? Drink enough fluid to keep your pee (urine) pale yellow. Contact a doctor if: ??? Your belly pain changes or gets worse. ??? You have very bad cramping or bloating in your belly. ??? You vomit. ??? Your pain gets worse with meals, after eating, or with certain foods. ??? You have trouble pooping or have watery poop for more than 2?3 days. ??? You are not hungry, or you lose weight without trying. ??? You have signs of not getting enough fluid or water (dehydration). These may include: ? Dark pee, very little pee, or no pee. ? Cracked lips or dry mouth. ? Feeling sleepy or weak. ??? You have pain when you pee or poop. ??? Your belly pain wakes you up at night. ??? You have blood in your pee. ??? You have a fever. Get help right away if: ??? You cannot stop vomiting. ??? Your pain is only in one part of your belly, like on the right side. ??? You have bloody or black poop, or poop that looks like tar. ??? You have trouble breathing. ??? You have chest pain. These symptoms may be an emergency. Get help right away. Call 911. ??? Do not wait to see if the symptoms will go away. ??? Do not drive yourself to the hospital. This information is not intended to replace advice given to you by your health care provider. Make sure you discuss any questions you have with your health care provider. Document Revised: 12/23/2022 Document Reviewed: 12/23/2022 [employer] Patient Education ? 2023 [employer] Orthopedics Pain Without a Known Cause Pain can occur in any part of the body and can range from mild to severe. Sometimes no cause can be found for pain. Some common types of pain that can occur without a known cause include: ??? Headache. ??? Back pain. ??? Abdominal pain. ??? Neck pain. Your health care provider may do tests to try to find the cause of your pain. If no cause is found, your health care provider will treat you for pain without a known cause. In some cases, your health care provider may do more tests, repeat tests that have already been done, and look further for a possible cause. Follow these instructions at home: Medicines ??? Take lmej-vfx-kejmsww and prescription medicines only as told by your health care provider. ??? Ask your health care provider if the medicine prescribed to you: ? Requires you to avoid driving or using machinery. ? Can cause constipation. You may need to take these actions to prevent or treat constipation: ? Drink enough fluid to keep your urine pale yellow. ? Take lccw-egy-gdcgmgy or prescription medicines. ? Eat foods that are high in fiber, such as beans, whole grains, and fresh fruits and vegetables. ? Limit foods that are high in fat and processed sugars, such as fried and sweet foods. Managing pain, stiffness, and swelling ??? If directed, put ice on the painful area. To do this: ? Put ice in a plastic bag. ? Place a towel between your skin and the bag. ? Leave the ice on for 20 minutes, 2?3 times a day. ? Remove the ice if your skin turns bright red. This is very important. If you cannot feel pain, heat, or cold, you have a greater risk of damage to the area. ??? If directed, apply heat to the affected area. Use the heat source that your health care provider recommends, such as a moist heat pack or a heating pad. ? Place a towel between your skin and the heat source. ? Leave the heat on for 20?30 minutes. ? Remove the heat if your skin turns bright red. This is especially important if you are unable to feel pain, heat, or cold. You may have a greater risk of getting burned. General instructions ??? Stop any activities that cause pain. Rest as told by your health care provider during periods of severe pain. ??? Return to your normal activities as told by your health care provider. Ask your health care provider what activities are safe for you. ??? Exercise regularly. ??? Reduce your stress with activities such as yoga or meditation. Talk with your health care provider about other ways to reduce stress. ??? Eat a balanced diet that includes fruits and vegetables, whole grains, lean meat, and low-fat dairy. Talk with your health care provider if you have any questions about your d (more content not included)... [facility] 10-30-2024 Radiology Diagnostic study note [facility] Main [place] [address] [place] [address] CT Scan Report Signed Patient: Liliya Siddiqui MR#: [id number] : 1985 Acct:[id number] Age/Sex: 39 / F ADM Date: 5 Loc: ER Room: Type: [facility] ER Attending Dr: Copies to: Chase Villalta DO~ Ordering Provider: Chase Villalta DO Date of Service: 10/30/24 CT/CT abdomen pelvis wo con: Abdominal Pain CT ABDOMEN AND PELVIS WITHOUT INTRAVENOUS CONTRAST: CLINICAL HISTORY: Right lower quadrant pain. COMPARISON: None TECHNIQUE: Spiral images were obtained through the abdomen and pelvis without intravenous contrast. This CT exam was performed using one or more following dose reduction techniques: Automated exposure control, adjustment of the mA and/or kV according to patient size, or use of iterative reconstruction technique. FINDINGS: Lung Bases: [Bibasilar atelectasis] Organs:Suboptimal evaluation due to lack of IV contrast. Liver gallbladder spleen pancreas and adrenal glands all appear unremarkable. Right kidney appears unremarkable. 4 mm stone left kidney. Aorta appears normal in caliber.[ GI: Stomach is grossly unremarkable. Small bowel appears nondilated. Appendix is normal. No acute colonic abnormality is seen. Sigmoid diverticulosis.[ Pelvis:[Urinary bladder and uterus appear unremarkable.] Peritoneum/Retroperitoneum:Small amount of free fluid seen within the pelvis. No free air or lymphadenopathy.[There appears to be omental thickening involving the right mid abdominal wall. No fluid collection to suggest abscess. Abd wall/Bones:Abdominal wall demonstrates no acute findings. Osseous structures demonstrate degenerative change.[ CT/CT abdomen pelvis wo con IMPRESSION: No acute process. Left nephrolithiasis. Omental thickening involving the right mid abdominal wall. Finding likely relates to the history of hernia repair.No fluid collection to suggest abscess. Impression dictated by: Forest Simmons Jr., Narciso 10/30/2024 9:25 AM Dictation Location: [place] [address] Transcribed By: [facility] 10/30/24924 Dictated By: Forest Simmons Jr, DO 10/30/24914 Signed By: 10/30/24924 [facility] 09-14-2024 History of Present illness Narrative Images from the original note were not included. Subjective Liliya Siddiqui is a 39 y.o. female who presents [...] tried Zanaflex, but its efficacy remains uncertain. She has not yet tried Flexeril. Additionally, she expresses a need for assistance with sleep management. She has been experiencing headaches associated with her neck pain. Her fibromyalgia has been exacerbated due to the change in season, which in turn has worsened her irritable bowel syndrome (IBS). She was recently prescribed medication by her primary care physician, but it appears to have aggravated her condition. [...] she is advised to inform us so that an alternative medication can be considered. The plan [...] 70% isopropanol. Buy/bill Botox 200U, 100U Lot #[id number], [id number] Dilution Per 200 units diluted with 4mL [...] when to seek emergent treatment. Procedure Codes 35647-97 Chemodenervation of neck muscles, bilateral 43147 [EMG] Guidance for chemodenervation J0585 Botulinum toxin a per unit, Units: 250 Follow Up 3 months Botox documented in this encounter [facility] 05-11-2024 History of Present illness Narrative Images from the original note were not included. CHIEF COMPLAINT REASON FOR VISIT : dystonia botox HPI: Liliya Siddiqui is a 39 y.o. female who presents for first botox injections. Neck pain causes her headaches. She has tried ice, heat, massage, PT. Medications tried: tizanidine, trileptal, neurontin, lyrica, mobic, cymbalta, diclofenac, celebrex. She has tried epidural injections. CURRENT MEDICATIONS: ALLERGIES/DISCONTINUE MEDICATIONS Current Outpatient Medications Medication Instructions dexAMETHasone (Decadron) 2 MG tablet 2mg 3 pills po X3 days,2 pills po daily X3 days , then 1 pill po daily X3 days then stop 9 days 18 pills gabapentin (NEURONTIN) 800 mg, Oral, 3 times daily Allergies Allergen Reactions Morphine Other Burn blisters Egg-Derived Products Nausea And Vomiting There are no discontinued medications. PAST MEDICAL HISTORY: SURGICAL/SOCIAL/FAMILY HISTORY DEPRESSION SCREEN: Past Medical History: Diagnosis Date Acute lumbar radiculopathy 08/05/2023 ADHD (attention deficit hyperactivity disorder) ([facility]/HCC) Arthritis Brain concussion, with loss of consciousness of 30 minutes or less, initial encounter De Quervain's disease (tenosynovitis) Fibromyalgia 08/05/2023 Hepatic lesion Hernia, umbilical Irritable bowel Lung nodule Neuropathy Radiculopathy, cervicothoracic region Past Surgical History: Procedure Laterality Date HERNIA REPAIR Social History Tobacco Use Smoking status: Former Types: Cigarettes Smokeless tobacco: Never Substance Use Topics Alcohol use: Not Currently Drug use: Never No family history on file. Depression: Not on file REVIEW OF SYMPTOMS: Review of Systems Constitutional: Negative for chills, fatigue and fever. HENT: Negative for tinnitus. Eyes: Negative for photophobia. Respiratory: Negative for shortness of breath. Cardiovascular: Negative for chest pain. Gastrointestinal: Negative for nausea and vomiting. Genitourinary: Negative for frequency. Musculoskeletal: Positive for neck pain and neck stiffness. Negative for back pain and gait problem. Neurological: Negative for dizziness, tremors, weakness, light-headedness, numbness and headaches. Psychiatric/Behavioral: Negative. OBJECTIVE: 03/09/2024 2:43 PM 02/10/2024 2:11 PM 12/16/2023 3:25 PM Vitals BMI 23.01 kg/m2 22.32 kg/m2 22.59 kg/m2 BSA (m2) 1.94 m2 1.91 m2 1.92 m2 Height (in) 5' 11 5' 11 5' 11 Weight (lb) 165 160 162 Visit Report Report Report Report EXAM: Neurological Exam Mental Status Awake, alert and oriented to person, place and time. Oriented to person, place and time. Speech is normal. Language is fluent with no aphasia. Motor Increased muscle tone. Increased cervical/neck paraspinal muscles. PROCEDURE: Procedure - Therapeutic injection, Botulinum Toxin- Dystonia Indication Dystonia Consent The procedure was explained to the patient. Informed consent for the procedure was obtained and risk associated with Botox treatments. Any further questions were answered during this visit. Site Prep The areas to be injected were sterilized with 70% isopropanol. Buy/bill- Botox 200U Lot # [id number] Dilution Per 200 units diluted with 4mL of 0.9% Sodium Chloride Procedure was completed with EMG guidance B/l upper trap 50 units each B/l SCM 25 units each B/l splenis capitis 25 units each TOTAL UNITS INJECTED 200 WASTED 0 Disposition The patient tolerated the procedure well. [...] when to seek emergent treatment. Procedure Codes 45395-32 Chemodenervation of neck muscles, bilateral 27781 [EMG] Guidance for chemodenervation J0585 Botulinum toxin a per unit, Units: 200 Follow Up 3 months Botox ASSESSMENT AND PLAN: Diagnoses and all orders for this visit: Cervical dystonia 39 year old female with neck pain, muscle spasm consistent with dystonia. She has had neck pain for years. She has tried years of provider directed treatment. She has difficulty sleeping, driving, working at desk and reading a book. She has pulling/drawing of neck muscles. documented in this encounter [facility] 03-09-2024 History of Present illness Narrative Images from the original note were not included. CHIEF COMPLAINT REASON FOR VISIT : neck pain/dystonia botox consult HPI: Liliya Siddiqui is a 39 y.o. female who presents for botox consult. She has had neck pain for years. She has trouble driving, working at desk, sleeping. Right side pulling/drawing of neck muscles. Right side worse than left. She has tried ice, heat, massage. Medications tried: tizanidine, trileptal, neurontin, lyrica, mobic, cymbalta, diclofenac, celebrex. She has tried epidural injections. Pain level today 6/10. CURRENT MEDICATIONS: ALLERGIES/DISCONTINUE MEDICATIONS Current Outpatient Medications Medication Instructions dexAMETHasone (Decadron) 2 MG tablet 2mg 3 pills po X3 days,2 pills po daily X3 days , then 1 pill po daily X3 days then stop 9 days 18 pills gabapentin (NEURONTIN) 800 mg, Oral, 3 times daily LORazepam (ATIVAN) 0.5 mg, Oral, Every 12 hours PRN OXcarbazepine (TRILEPTAL) 150 mg, Oral, 2 times daily tiZANidine (ZANAFLEX) 4 mg, Oral, Nightly Allergies Allergen Reactions Morphine Other Burn blisters Egg-Derived Products Nausea And Vomiting There are no discontinued medications. PAST MEDICAL HISTORY: SURGICAL/SOCIAL/FAMILY HISTORY DEPRESSION SCREEN: Past Medical History: Diagnosis Date Acute lumbar radiculopathy 08/05/2023 ADHD (attention deficit hyperactivity disorder) (CMS/HCC) Arthritis Brain concussion, with loss of consciousness of 30 minutes or less, initial encounter De Quervain's disease (tenosynovitis) Fibromyalgia 08/05/2023 Hepatic lesion Hernia, umbilical Irritable bowel Lung nodule Neuropathy Radiculopathy, cervicothoracic region Past Surgical History: Procedure Laterality Date HERNIA REPAIR Social History Tobacco Use Smoking status: Former Types: Cigarettes Smokeless tobacco: Never Substance Use Topics Alcohol use: Not Currently Drug use: Never No family history on file. Depression: Not on file REVIEW OF SYMPTOMS: Review of Systems Constitutional: Negative for chills, [...] dizziness, tremors, weakness, light-headedness and numbness. Psychiatric/Behavioral: Negative. OBJECTIVE: 03/09/2024 2:43 PM 02/10/2024 2:11 PM 12/16/2023 3:25 PM Vitals BMI 23.01 kg/m2 22.32 kg/m2 22.59 kg/m2 BSA (m2) 1.94 m2 1.91 m2 1.92 m2 Height (in) 5' 11 5' 11 5' 11 Weight (lb) 165 160 162 Visit Report Report Report Report EXAM: Neurological Exam Mental Status Awake, alert and oriented to person, place and time. Oriented to person, place and time. Recent and remote memory are intact. Speech is normal. Language is fluent with no aphasia. Attention and concentration are normal. Cranial Nerves CN II: Visual acuity is normal. Visual franz full to confrontation. CN III, IV, : Extraocular movements intact bilaterally. Normal lids and orbits bilaterally. Pupils equal round and reactive to light bilaterally. CN V: Facial sensation is normal. CN VII: Full and symmetric facial movement. CN VIII: Hearing is normal. CN XII: Tongue midline without atrophy or fasciculations. Motor Normal muscle bulk throughout. Increased muscle tone. Increased cervical/neck paraspinal muscles/dystonia. Right Left Wrist flexion 5 5 Wrist extension 5 5 Right Left Deltoid 5 5 Biceps 5 5 Triceps 5 5 Wrist flexor 5 5 Wrist extensor 5 5 Glutei 5 5 Iliopsoas 5 5 Quadriceps 5 5 Gastrocnemius 5 5 Anterior tibialis 5 5 Posterior tibialis 5 5 Sensory Light touch is normal in upper and lower extremities. Pinprick is normal in upper and lower extremities. Vibration is normal in upper and lower extremities. Reflexes Right Left Brachioradialis 2+ 2+ Biceps 2+ 2+ Patellar 2+ 2+ Achilles 2+ 2+ Right Plantar: downgoing Left Plantar: downgoing Right pathological reflexes: Clark's absent. Ankle clonus absent. Left pathological reflexes: Clark's absent. Ankle clonus absent. Coordination Btxogq-rx-rstt, rapid alternating movements and thxi-ft-tnmo normal bilaterally without dysmetria. Gait Normal casual, toe, heel and tandem gait. Romberg is absent. PROCEDURE: ASSESSMENT AND PLAN: Diagnoses and all orders for this visit: Cervical dystonia 39 year old female with neck pain/dystonia and increased cervical muscle spasm significantly in upper trap and SCM. She has tried years of provider directed treatment with steroid injections, massage, muscle relaxers, nerve pain medication and NSAIDs. She has tired ice and heat. She has difficulty driving at times, working at desk and sleeping due to her pain. She is botox candidate for dystonia/neck pain. I would plan to use up to 400 units to SCM, trap, splenius capitis and possible other areas. This was discussed with patient all questions answered. Total time 30 minutes spent reviewing records, performing medically appropriate exam, counseling , education, ordering medication, tests, and/or procedures, documenting health information into the health record, communicating results to the patient, and coordinating care. documented in this encounter [facility] 02-10-2024 History of Present illness Narrative Images from the original note were not included. CHIEF COMPLAINT REASON FOR VISIT: headaches, pain, numbness and tingling HPI: Liliya Siddiqui is a 39 y.o. female who presents for a follow up. She states she will need refill of gabapentin. That does help with her pain and numbness and tingling. She states she has not had any bad headaches unless she is tired. She states she did just take her last of the tizanidine and it does help relax the muscles. She states she wants to go over MRI results. Patient denies any new symptoms or concerns today. CURRENT MEDICATIONS: ALLERGIES/DISCONTINUE MEDICATIONS Current Outpatient Medications Medication Instructions dexAMETHasone (Decadron) 2 MG tablet 2mg 3 pills po X3 days,2 pills po daily X3 days , then 1 pill po daily X3 days then stop 9 days 18 pills gabapentin (NEURONTIN) 800 mg, Oral, 3 times daily LORazepam (ATIVAN) 0.5 mg, Oral, Every 12 hours PRN OXcarbazepine (TRILEPTAL) 150 mg, Oral, 2 times daily tiZANidine (ZANAFLEX) 4 mg, Oral, Nightly Allergies Allergen Reactions Morphine Other Burn blisters Egg-Derived Products Nausea And Vomiting Medications Discontinued During This Encounter Medication Reason gabapentin (Neurontin) 800 MG tablet Reorder PAST MEDICAL HISTORY: SURGICAL/SOCIAL/FAMILY HISTORY DEPRESSION SCREEN: Past Medical History: Diagnosis Date Acute lumbar radiculopathy 08/05/2023 ADHD (attention deficit hyperactivity disorder) ([facility]) Arthritis Brain concussion, with loss of consciousness of 30 minutes or less, initial encounter De Quervain's disease (tenosynovitis) Fibromyalgia 08/05/2023 Hepatic lesion Hernia, umbilical Irritable bowel Lung nodule Neuropathy Radiculopathy, cervicothoracic region Past Surgical History: Procedure Laterality Date HERNIA REPAIR Social History Tobacco Use Smoking status: Former Types: Cigarettes Smokeless tobacco: Never Substance Use Topics Alcohol use: Not Currently Drug use: Never No family history on file. Depression: Not on file REVIEW OF SYMPTOMS: Review of Systems Constitutional: Negative for chills, diaphoresis, fatigue and fever. HENT: Negative for ear pain, tinnitus and trouble swallowing. Eyes: Negative for photophobia and visual disturbance. Respiratory: Negative for cough and shortness of breath. Cardiovascular: Negative for palpitations and leg swelling. Gastrointestinal: Negative for abdominal pain and nausea. Genitourinary: Negative for difficulty urinating and urgency. Musculoskeletal: Negative for arthralgias, back pain, myalgias, neck pain and neck stiffness. Neurological: Positive for numbness and headaches. Negative for tremors, weakness and light-headedness. Psychiatric/Behavioral: Negative for agitation, confusion and suicidal ideas. OBJECTIVE: 02/10/2024 2:11 PM 12/16/2023 3:25 PM 08/05/2023 2:35 PM Vitals BMI 22.32 kg/m2 22.59 kg/m2 22.68 kg/m2 BSA (m2) 1.91 m2 1.92 m2 1.92 m2 Systolic 114 Diastolic 78 Height (in) 5' 11 5' 11 5' 11 Weight (lb) 160 162 162.6 Visit Report Report Report Report EXAM: Neurological Exam Mental Status Awake, alert and oriented to person, place and time. Oriented to person, place and time. Recent and remote memory are intact. Speech is normal. Language is fluent with no aphasia. Attention and concentration are normal. Cranial Nerves CN II: Visual acuity is normal. Visual franz full to confrontation. CN III, IV, : Extraocular movements intact bilaterally. Normal lids and orbits bilaterally. Pupils equal round and reactive to light bilaterally. CN V: Facial sensation is normal. CN VII: Full and symmetric facial movement. CN VIII: Hearing is normal. CN XII: Tongue midline without atrophy or fasciculations. Motor Normal muscle bulk throughout. Normal muscle tone. Right Left Wrist flexion 5 5 Wrist extension 5 5 Right Left Deltoid 5 5 Biceps 5 5 Triceps 5 5 Wrist flexor 5 5 Wrist extensor 5 5 Glutei 5 5 Iliopsoas 5 5 Quadriceps 5 5 Gastrocnemius 5 5 Anterior tibialis 5 5 Posterior tibialis 5 5 Sensory Light touch is normal in upper and lower extremities. Pinprick is normal in upper and lower extremities. Vibration is normal in upper and lower extremities. Reflexes Right Left Brachioradialis 2+ 2+ Biceps 2+ 2+ Patellar 2+ 2+ Achilles 2+ 2+ Right Plantar: downgoing Left Plantar: downgoing Right pathological reflexes: Clark's absent. Ankle clonus absent. Left pathological reflexes: Clark's absent. Ankle clonus absent. Coordination Yxlwom-qs-dezo, rapid alternating movements and nlob-wl-vvey normal bilaterally without dysmetria. Gait Normal casual, toe, heel and tandem gait. Romberg is absent. PROCEDURE: NONE ASSESSMENT AND PLAN: MR LUMBAR SPINE WO CONTRAST Clinical History: [...] extrusion, compression or other fracture, or subluxation. Diagnoses and all orders for this visit: Acute lumbar radiculopathy Fibromyalgia Start dexAMETHasone (Decadron) 2 MG tablet; 2mg 3 pills po X3 days,2 pills po daily X3 days , then 1 pill po daily X3 days then stop 9 days 18 pills Idiopathic progressive neuropathy Increase gabapentin (Neurontin) 800 MG tablet; Take 1 tablet (800 mg) by mouth in the morning and 1 tablet (800 mg) in the evening and 1 tablet (800 mg) before bedtime. I counseled the patient on the possible side effects and interactions of medications. Total time 20 minutes spent reviewing records, performing medically appropriate exam, counseling , education, ordering medication, tests, and/or procedures, documenting health information into the health record, communicating results to the patient, and coordinating care. Botox Consult with Catherine documented in this encounter [facility] 01-18-2024 Telephone encounter Note Pt called for Gabapentin refill to be sent to [facility]. [facility] Work Phone: 01-18-2024 Miscellaneous Notes Pt called for Gabapentin refill to be sent to [facility]. documented in this encounter [facility] 12-16-2023 History of Present illness Narrative Images from the original note were not included. Patient is here to go over EMG results. CHIEF COMPLAINT REASON FOR VISIT : HPI: Liliya Siddiqui is a 38 y.o. female who presents for Follow-up for EMG results. She did have EMG of lower extremities at last office visit since this time she has been having increasing neck pain, headaches, low back pain and numbness and tingling in her feet. CURRENT MEDICATIONS: ALLERGIES/DISCONTINUE MEDICATIONS Current Outpatient Medications Medication Instructions gabapentin (NEURONTIN) 800 mg, Oral, 3 times daily LORazepam (ATIVAN) 0.5 mg, Oral, Every 12 hours PRN OXcarbazepine (TRILEPTAL) 150 mg, Oral, 2 times daily tiZANidine (ZANAFLEX) 4 mg, Oral, Nightly Allergies Allergen Reactions Morphine Other Burn blisters Egg-Derived Products Nausea And Vomiting Medications Discontinued During This Encounter Medication Reason gabapentin (Neurontin) 800 MG tablet Reorder PAST MEDICAL HISTORY: SURGICAL/SOCIAL/FAMILY HISTORY DEPRESSION SCREEN: Past Medical History: Diagnosis Date Acute lumbar radiculopathy 08/05/2023 ADHD (attention deficit hyperactivity disorder) (CMS/HCC) Arthritis Brain concussion, with loss of consciousness of 30 minutes or less, initial encounter De Quervain's disease (tenosynovitis) Fibromyalgia 08/05/2023 Hepatic lesion Hernia, umbilical Irritable bowel Lung nodule Neuropathy Radiculopathy, cervicothoracic region Past Surgical History: Procedure Laterality Date HERNIA REPAIR Social History Tobacco Use Smoking status: Former Types: Cigarettes Smokeless tobacco: Never Substance Use Topics Alcohol use: Not Currently Drug use: Never No family history on file. Depression: Not on file REVIEW OF SYMPTOMS: Review of Systems Const: Denies appetite change, fever, chills. Allergy: Denies medication reaction. Ocular: Denies visual acuity change. ENT: Denies hearing change. Endoc: Denies weight loss. Resp: Denies dyspnoea, wheezing. Cardiac: Denies angina, palpitations. GI: Denies nausea, vomiting. Haem: Denies bleeding. : Denies incontinence. MSK: Denies arthralgias, joint oedema. Derm: Denies rash, hair loss. Neuro: Denies ataxia, tremor. Also see HPI for elements of ROS documented therein and for details of positive findings, which shall supersede the foregoing. OBJECTIVE: 12/16/2023 3:25 PM 08/05/2023 2:35 PM Vitals BMI 22.59 kg/m2 22.68 kg/m2 BSA (m2) 1.92 m2 1.92 m2 Systolic 114 Diastolic 78 Height (in) 5' 11 5' 11 Weight (lb) 162 162.6 Visit Report Report Report EXAM: Neurological Exam GENERAL EXAMINATION Appearance: in no acute distress, well developed, well nourished. Head: normocephalic, atraumatic. Eyes: pupils equal, round, reactive to light and accommodation. Ears: normal. Mouth: mucosa moist. Throat: clear. Neck: neck supple, full range of motion, no cervical lymphadenopathy. Skin: no suspicious lesions, warm and dry. Heart: no murmurs, regular rate and rhythm, S1, S2 normal. Lungs: clear to auscultation bilaterally. Abdomen: normal, bowel sounds present, soft, nontender, nondistended. Extremities: no clubbing, cyanosis, or edema. NEUROLOGICAL EXAMINATION Mental Status: The patient is alert and oriented to person, place, and time. Except as noted, thought content, form, and comprehension was normal. Phonation, articulation, resonance, and prosody are normal. Cranial Nerves: Pupils were 4.0 millimeters, equal, round, and reactive to light and accommodation, both directly and consensually. Visual franz were full by confrontation. There was no ptosis; extra-ocular movements were full; and there was no nystagmus. Funduscopic exam is normal. Masseters are of normal strength. Facial movement is normal. Hearing is grossly intact. There is no dysarthria. The gag reflex is equal bilaterally. Sternocleidomastoids and trapezii are of normal strength. The tongue protrudes in the midline. Motor: Muscle testing was performed in all four extremities, including at least phlebotomist lab assistant, finger abductors, biceps, triceps, deltoid, toe flexors and extensors, tibialis anterior, triceps surae, quadriceps femoris, biceps femoris, and iliopsoases. Tone is normal. Muscle bulk is normal. Fasciculations are not seen . Pronator drift was not evident. Sensory: Sensation to touch, temperature, and vibration was normal in the arms, legs and face. Romberg is negative. Reflexes: Biceps, triceps, brachioradialis are 2/4 bilaterally. Patellar and Achilles reflexes are 2/4 bilaterally. Plantar responses were flexor bilaterally. Coordination: Dysmetria and dysdiadochokinesia are absent. Tremor is absent; dystonia is absent; chorea is absent. Gait And Station: Station and gait are normal. Apraxia and spasticity are not evident. Arm swing is normal. Toe, heel, and tandem walking are performed without difficulty. Musculoskeletal: Trigger-point tenderness was absent. There is no spasm of the trapezii or paraspinals. PROCEDURE: NONE ASSESSMENT AND PLAN: Diagnoses and all orders for this visit: Cervical paraspinal muscle spasm Acute lumbar radiculopathy - gabapentin (Neurontin) 800 MG tablet; Take 1 tablet (800 mg) by mouth in the morning and 1 tablet (800 mg) in the evening and 1 tablet (800 mg) before bedtime. - tiZANidine (Zanaflex) 4 MG tablet; Take 1 tablet (4 mg) by mouth at bedtime for 10 days - MR lumbar spine wo contrast; Future Idiopathic progressive neuropathy - gabapentin (Neurontin) 800 MG tablet; Take 1 tablet (800 mg) by mouth in the morning and 1 tablet (800 mg) in the evening and 1 tablet (800 mg) before bedtime. - tiZANidine (Zanaflex) 4 MG tablet; Take 1 tablet (4 mg) by mouth at bedtime for 10 days Fibromyalgia - gabapentin (Neurontin) 800 MG tablet; Take 1 tablet (800 mg) by mouth in the morning and 1 tablet (800 mg) in the evening and 1 tablet (800 mg) before bedtime. - tiZANidine (Zanaflex) 4 MG tablet; Take 1 tablet (4 mg) by mouth at bedtime for 10 days Claustrophobia (CMS/HCC) - LORazepam (Ativan) 0.5 MG tablet; Take 1 tablet (0.5 mg) by mouth every 12 (twelve) hours if needed for anxiety for up to 1 day -MRI of Lumbar Spine -I counseled the patient on the possible side effects and interactions of medications. documented in this encounter [facility] 10-22-2023 Hospital Discharge instructions Patient Education 10/22/2023 17:40:01 Migraine Headache, Flpi-py-Ccja Migraine Headache A migraine headache is a [...] Follow these instructions at home: Medicines Take qmha-pvs-iauypyp and prescription medicines only as told by your doctor. Ask your doctor if the medicine prescribed to you: ?Requires you to avoid driving or using heavy machinery. ?Can cause trouble pooping (constipation). You may need to take these steps to prevent or treat trouble pooping: ?Drink enough fluid to keep your pee (urine) pale yellow. ?Take xwzv-oud-xqgkmdr or prescription medicines. ?Eat foods that are [...] provider. Document Revised: 06/30/2019 Document Reviewed: 04/20/2019 [employer] Patient Education 2022 [employer]. Follow Up Care 10/22/2023 15:24:16 With:Baldomero Hudson Address: [address] [place], [place] [id number] Business (1) When:10/25/2023 17:39:40 Comments:Call to schedule a follow-up appointment with your family physician for further management of care. Return to the ED with any worsening symptoms. [facility] 06-13-2023 Hospital Discharge instructions Patient Education 06/13/2023 17:11:44 Abdominal Pain, [...] Follow these instructions at home: Medicines Take qwkn-wvf-musnbej and prescription medicines only as told by [...] Watch your condition for any changes. Take qgex-xic-dlqwpuq and prescription medicines only as told by [...] provider. Document Revised: 04/26/2020 Document Reviewed: 07/17/2019 [employer] Patient Education 2022 [employer]. Follow Up Care 06/13/2023 13:03:57 With:Baldomero Hudson Address: [address] [place] [phone] Business (1) When:06/16/2023 17:10:37 Comments:Call the office [...] weakness, or any new or worsening symptoms. [facility] 06-13-2023 Evaluation + Plan note Extrac kaelyn [...] Panel Lipase Level UA with Cult Rflx [facility]12-08-2022 NotePROCEDURE: XR FOOT LT MIN 3 VIEWS COMPARISON: 10/16/2011 HISTORY: Pain in lower limb FINDINGS: BONES:No fracture, acute abnormality, or significant arthropathy. SOFT TISSUES:Negative. No visible soft tissue swelling. EFFUSION:None visible. OTHER: Negative. IMPRESSION: No acute abnormality Electronically authenticated by: THERESA PATEL Date: 2022-02-26 12:41[facility] Acute lumbar radiculopathy Idiopathic progressive neuropathy Fibromyalgia Unspecified myalgia and myositis documented in this encounter [facility] HealthcareEvaluation note* Diagnosis Acute lumbar radiculopathy Idiopathic progressive neuropathy Fibromyalgia Unspecified myalgia and myositis documented in this encounter [facility] HealthcareEvaluation note* Diagnosis Cervical paraspinal muscle spasm- Primary Spasm of muscle Acute lumbar radiculopathy Idiopathic progressive neuropathy Fibromyalgia Unspecified myalgia and myositis Claustrophobia (CMS/HCC) Other isolated or specific phobias documented in this encounter [facility] note* Diagnosis Cervical dystonia- Primary Spasmodic torticollis documented in this encounter [facility] note* Diagnosis Cervical dystonia- Primary Spasmodic torticollis documented in this encounter [facility] note* Diagnosis Cervical dystonia- Primary Spasmodic torticollis documented in this encounter [facility] HealthcareEvaluation noteNo assessment information availablePremier Health [facility] Work Phone: Hospital course Narrative No data available for this section [facility] Additional Instructions If your symptoms return/worsen or you develop any further concerns or symptoms please see your doctor or return to the emergency department immediately. It is imperative that you go over today's visit and all results with your primary care provider.[facility] Work Phone: Hospital Discharge instructions Additional Instructions DISCHARGE INSTRUCTIONS FOR UPPER ENDOSCOPY WHAT TO EXPECT: - You may feel full, gassy or cramping after your procedure. In some cases, this may be from a few hours to a day. Walking may help relieve the discomfort. - Your throat may feel sore today from the scope that the doctor passed through your throat to visualize your stomach. Take a throat lozenge or suck on ice to ease the discomfort. - You may notice some streaks of blood in your sputum if the doctor has taken a biopsy. - You should begin to recover from anesthesia within 1 hour of the procedure, however may feel groggy for the next 24 hours. DO's AND DON'Ts: - Call your doctor right away if you have a hard abdomen, severe pain, vomiting or if you cough up large amounts of blood. - Call your doctor if you develop any rashes, hives or difficulty breathing. - If you take 81 mg aspirin for your heart it is safe to resume this medication. - If you take other blood thinner medications your doctor will instruct you when these can safely be resumed. - Do NOT drive for 24 hours. - Do NOT operate machinery such as power tools, lawn mowers, snow blowers, sewing machines, etc. for 24 hours. - Avoid alcoholic beverages and drugs for allergies, nerves, or sleep. - Do NOT stay alone. Do NOT leave your child unattended. - Do NOT make important personal or business decisions or sign any legal documents. - Eat solid foods and drink liquids in smaller amounts than usual until normal appetite returns. If you should experience an upset stomach, liquids high in sugar content (soda, Titus-Aid, non-acid juices) are recommended. - Do NOT smoke. - Do take it easy today. You need not stay in bed, but avoid strenuous activities such as jogging or working out. DISCHARGE INSTRUCTIONS FOR COLONOSCOPY WHAT TO EXPECT: - You may feel full, gassy or cramping after your procedure. In some cases, this may be from a few hours to a day. Walking may help relieve the discomfort. - If you have polyp(s) removed you may note some minor bloody discharge after your first bowel movements. - You should begin to recover from anesthesia within 1 hour of the procedure, however may feel groggy for the next 24 hours. DO's AND DON'Ts: - Call your doctor right away if you have a hard abdomen, sever pain, are passing lots of bright red blood or clots. - Call your doctor if you develop any rashes, hives or difficulty breathing. - Let your doctor know if you have not had a bowel movement by 3 days after your procedure. - If you take 81 mg aspirin for your heart it is safe to resume this medication. - If you take other blood thinner medications your doctor will instruct you when these can safely be resumed. - Do NOT drive for 24 hours. - Do NOT operate machinery such as power tools, lawn mowers, snow blowers, sewing machines, etc. for 24 hours. - Avoid alcoholic beverages and drugs for allergies, nerves, or sleep. - Do NOT stay alone. Do NOT leave your child unattended. - Do NOT make important personal or business decisions or sign any legal documents. - Eat solid foods and drink liquids in smaller amounts than usual until normal appetite returns. If you should experience an upset stomach, liquids high in sugar content (soda, Titus-Aid, non-acid juices) are recommended. - You can resume normal activities tomorrow. FOLLOW UP & RECOMMENDATIONS: -Please call the office and make a follow up appointment to see me if symptoms persist -Notify the doctor if you have any problems. -Repeat colonoscopy in 7 to 10-year -Follow up with PCP. - Office number [phone]. [facility] Work Phone: Progress note No data available for this section [facility] (narrative)No reason for referral information availableTrihealth Ctr Work Phone: Summary Purpose Family History No Family History Records Found Relationship Condition Age at Onset Recorded Date/T james Not Specified Malignant neoplasm of breast Unknown Relationship Condition Age at Onset Recorded Date/T james family member Malignant neoplasm of breast Unknown Advance Directives No Advanced Directives Records Found Advance Directive Response Recorded Date/ Time Advance Directives No July 27, 2019 12:02pm Reason for Referral Specialty Diagnoses / Procedures Referred By Contac t Referred To Contact Radiology Diagnoses Acute lumbar radiculopathy Procedures MR lumbar spine wo contrast Stuart Lewis MD [address] [place] [address] [place] [id number] Referral ID Status Reason Start Date Expiration Date V isits Requested Visits Authorized [id number] Pending Review 12/16/2023 06/13/2024 1 1 Chief Complaint and Reason for Visit Chief Complaint Admit Date August 08, 2024 8:39a m Rt abd pain October 30, 2024 7: 12am Chief Complaint Admit Date August 08, 2024 8:39a m Rt abd pain October 30, 2024 7: 12am IBS W/DIARRHEA November 06, 2024 8: 34am Additional Source Comments INFORMATION SOURCE (unrecogn ized section and content) DATE CREATED AUTHOR [facility]10/[address] [facility] DATE CREATED AUTHOR AUTHOR'S ORGANIZ ATION 06/19/2022 [facility] DATE CREATED AUTHOR AUTHOR'S ORGANIZ ATION 09/15/2024 [facility] EPIC DATE CREATED AUTHOR AUTHOR'S ORGANIZ ATION 11/01/2024 [facility] DATE CREATED AUTHOR AUTHOR'S ORGANIZ ATION 11/02/2024 [facility] DATE CREATED AUTHOR AUTHOR'S ORGANIZ ATION 11/03/2024 [facility] DATE CREATED AUTHOR AUTHOR'S ORGANIZ ATION 11/04/2024 [facility] DATE CREATED AUTHOR AUTHOR'S ORGANIZ ATION 11/08/2024 [facility] Patient Care team informatio n (unrecognized section and content) Supervisor Beam Department Relationship Specialty Start Date End Date Baldomero Hudson MD [address] [place] [address] PCP - General Family Medicine 12/16/23 Supervisor Beam Department Relationship Specialty Start Date End Date Baldomero Hudson MD [address] [place] [address] PCP - General Family Medicine 12/16/23 Supervisor Beam Department Relationship Specialty Start Date End Date Baldomero Hudson MD [address] [place] [address] PCP - General Family Medicine 12/16/23 Supervisor Beam Department Relationship Specialty Start Date End Date Baldomero Hudson MD [address] [place] [address] PCP - General Family Medicine 12/16/23 Supervisor Beam Department Relationship Specialty Start Date End Date Baldomero Hudson MD [address] [facility] [place] [address] PCP - General Family Medicine 12/16/23 Supervisor Beam Department Relationship Specialty Start Date End Date Baldomero Hudson MD [address] [facility] [place] [address] PCP - General Family Medicine 12/16/23 Supervisor Beam Department Relationship Specialty Start Date End Date Baldomero Hudson MD [address] [facility] [place] [address] PCP - General Family Medicine 12/16/23 Supervisor Beam Department Relationship Specialty Start Date End Date Baldomero Hudson MD PCP - General Family Medicine 12/16/23 Supervisor Beam Department Relationship Specialty Start Date End Date Baldomero Hudson MD PCP - General Family Medicine 12/16/23 Team Status: Active Member Role Status Yelena Hudson MD Primary Care Provider Active Team Status: Active Member Role Status Dates Baldomero Hudson MD Primary Care Provider Active Start: August 08, 2024 Jeffrey Khan MD Attending Provider Active Start: August 08, 2024 Team Status: Inactive Member Role Status Yelena Hudson MD Primary Care Provider Active Start: October 30, 2024 End: October 30, 2024 Chase Villalta DO Emergency Provider Active Start: October 30, 2024 End: October 30, 2024 Team Status: Active Member Role Status Yelena Hudson MD Primary Care Provider Active Start: November 06, 2024 Marianela Rueda DO Attending Provider Active St art: November 06, 2024 Marianela Rueda DO Other Provider Active Start: November 06, 2024 Goals (unrecognized section and content) Goals may be documented in a n alternate section FOR RECORDS PERTAINING TO PATIENTS WHO ARE [...] BE BASED ON THE PRIMARY CLINICAL RECORDS. [facility]. provides no warranty or guarantee of the accuracy or completeness of information in this document.
== END 2024-11-09 09:12 | disposition home or self-care (01) ==
LOC: RAD 09:12
PROVIDERS: PCP Family Medicine; Visit Provider Family Medicine
DX: R10.0 Acute abdomen (principal); R91.8 Other nonspecific abnormal finding of lung field
CPT/HCPCS: 74022